=== PATIENT | female | born 1940 | race Caucasian/White ===

== ENCOUNTER → 2020-01-29 10:33 | Outpatient (BNVA) | payer MEDICARE, SELFPAY | PROVIDERS: PCP Family Medicine; Referring Provider Family Medicine; Visit Provider Internal Medicine | DX: M81.0 Age-related osteoporosis without current pathological fracture (principal) | CPT/HCPCS: 99212 ==

== ENCOUNTER 2020-02-08 13:12 | Outpatient (REF) | payer MEDICARE, SELFPAY ==
[2020-02-08 14:23] LABS: Albumin Level 4.1 g/dL (3.5-5.0); Calcium 9.8 mg/dL (8.4-10.2); Phosphorus 3.3 mg/dL (2.7-4.5)
[2020-02-08 14:49] LABS: Thyroid Stimulating Hormone 3.97 uIU/mL (0.32-4.0); Vitamin D 25-OH Total 53.9 ng/mL (>30)
[2020-02-09 10:51] LABS: Calcium, Ionized 5.1 mg/dL (4.8-5.6)
[2020-02-12 19:11] LABS: Alkaline Phosphatase Bone 14.4 mcg/L (see note); Calcium (PTHI) 10.1 mg/dL (8.6-10.4); PTHI 24 pg/mL (14-64)
== END 2020-02-08 13:13 | disposition home or self-care (01) ==
LOC: HO.LNP 13:12
PROVIDERS: Visit Provider Internal Medicine
DX: M81.0 Age-related osteoporosis without current pathological fracture (principal)
CPT/HCPCS: 82040; 82306; 82310; 82330; 83970; 84075; 84100; 84443

== ENCOUNTER → 2020-07-29 08:21 | Outpatient (BNVA) | payer MEDICARE, SELFPAY | PROVIDERS: PCP Family Medicine; Visit Provider Internal Medicine | CPT/HCPCS: Q3014 ==

== ENCOUNTER 2020-07-31 15:43 | Outpatient (REF) | payer MEDICARE, SELFPAY ==
[2020-07-31 17:09] LABS: Alanine Aminotransferase 7 U/L (0-31); Albumin Level 3.9 g/dL (3.5-5.0); Alkaline Phosphatase 75 U/L (39-117); Anion Gap 18 (12-20); Aspartate Amino Transferase 16 U/L (5-31); Bilirubin Total 0.3 mg/dL (0.0-1.0); Blood Urea Nitrogen 37 mg/dL (9-16); Calcium 9.6 mg/dL (8.4-10.2); Carbon Dioxide 25 mmol/L (22-29); Chloride 101 mmol/L (96-108); Estimated Glomerular Filt Rate 42; Glucose Random 140 mg/dL (60-115); Phosphorus 3.3 mg/dL (2.7-4.5); Potassium 4.1 mmol/L (3.3-5.1); Sodium 140 mmol/L (135-145); Total Protein 6.9 g/dL (6.5-8.0)
[2020-07-31 17:26] LABS: Vitamin D 25-OH Total 55.1 ng/mL (>30)
[2020-08-01 13:11] LABS: Calcium (PTHI) 9.4 mg/dL (8.6-10.4); PTHI 53 pg/mL (14-64)
[2020-08-03 12:22] LABS: Alkaline Phosphatase Bone 12.8 mcg/L (see note)
== END 2020-07-31 15:44 | disposition home or self-care (01) ==
LOC: HO.LAB 15:43
PROVIDERS: Absent Provider Internal Medicine Nephrology; PCP Family Medicine; Visit Provider Internal Medicine
DX: E55.9 Vitamin D deficiency, unspecified (principal); M81.0 Age-related osteoporosis without current pathological fracture
CPT/HCPCS: 36415; 80053; 82306; 83970; 84075; 84100

== ENCOUNTER → 2020-09-12 08:49 | Outpatient (BNVA) | payer MEDICARE, SELFPAY | PROVIDERS: Visit Provider Internal Medicine | CPT/HCPCS: Q3014 ==

== ENCOUNTER → 2020-12-16 10:04 | Outpatient (BNVA) | payer MEDICARE, SELFPAY | PROVIDERS: PCP Family Medicine; Visit Provider Internal Medicine | DX: M81.0 Age-related osteoporosis without current pathological fracture (principal); E55.9 Vitamin D deficiency, unspecified | CPT/HCPCS: Q3014 ==

== ENCOUNTER 2021-01-01 14:38 | Outpatient (REF) | payer MEDICARE, SELFPAY ==
--- NOTE | ~2021-01-01 | MM_ITS ---
EXAMINATION: BONE DENSITOMETRY CLINICAL INDICATION: Age-related osteoporosis without current pathological fracture. COMPARISON: Previous BD dated 12/30/2018 and baseline BD dated 04/25/2010. TECHNIQUE: Using a Gengo DXA System (software version: 13.1) manufactured by [employer], dual-energy x-ray absorptiometry was performed of the lumbar spine and left hip. The images are of good technical quality. Summary results are attached. FINDINGS: AP SPINE L1-L4: There is levocurvature lumbar spine and multilevel degenerative changes which may cause overestimation of the lumbar bone mineral density. Current: BMD 0.995 g/cm2, Z-score 0.8, T-score -1.5, osteopenia, 4.8% increase from previous, 32.1% increase from baseline (<5% change is not significant). Prior: BMD 0.949 g/cm2. Baseline: BMD 0.753 g/cm2. LEFT FEMUR, NECK: Current: BMD 0.472 g/cm2, Z-score -1.5, T-score -4.1, osteoporosis. Prior: BMD 0.493 g/cm2. Baseline: BMD 0.540 g/cm2. LEFT FEMUR, TOTAL: Current: BMD 0.462 g/cm2, Z-score -1.8, T-score -4.3, osteoporosis, 23.9% increase from previous, 13.6% decrease from baseline (<5% change is not significant). Prior: BMD 0.373 g/cm2. Baseline: BMD 0.535 g/cm2. IDENTIFIED RISK FACTORS: Osteoporosis, dementia, family history (parental hip fracture), history of fracture (adult), glucocorticoids (chronic), menopause. HISTORY OF FRACTURE: Ribs. MEDICATIONS: Multivitamin. MM/XR DEXA axial skeleton IMPRESSION: 1. DIAGNOSIS: Osteoporosis based on the lowest T-score value of -4.3 in the total femur applying World Health Organization criteria. 2. 10-YEAR FRACTURE RISK PREDICTION, FRAX: Major osteoporotic fracture (clinical spine, forearm, hip or shoulder) 74.7%. Hip fracture 68.6%. 3. Treatment Recommendations: NOF guidelines recommend consideration for treatment in postmenopausal women and men age 50 and older presenting with the following: -A hip or vertebral (clinical or morphometric) fracture. -T-score less than or equal to -2.5 at the femoral neck or spine after appropriate evaluation to exclude secondary causes. -Low bone mass at the hip or spine and a 10-year fracture probability by FRAX of greater than or equal to 3% for hip fracture or greater than or equal to 20% for major osteoporotic fracture based on the [place] adapted WHO algorithm. 4. Other Recommendations: All treatment decisions require clinical judgment and consideration of individual patient factors, including patient preferences, comorbidities, previous drug use, risk factors not captured in the FRAX model (e.g. frailty, falls, vitamin D deficiency, increased bone turnover, interval significant decline in bone density) and possible under or overestimation of fracture risk by FRAX. Additional medical evaluation for secondary cause of low bone mineral density may be appropriate. FUTURE SCAN RECOMMENDATION: People with diagnosed cases of osteoporosis or at high risk for fracture should have regular bone mineral density tests. For patients eligible for Medicare, routine testing is allowed once every 2 years. The testing frequency can be increased to one year for patients who have rapidly progressing disease, those who are receiving or discontinuing medical therapy to restore bone mass, or have additional risk factors.
== END 2021-01-01 14:39 | disposition home or self-care (01) ==
LOC: HO.MAMMO 14:38
PROVIDERS: Visit Provider Internal Medicine
DX: M81.0 Age-related osteoporosis without current pathological fracture (principal); F03.90 Unspecified dementia, unspecified severity, without behavioral disturbance, psychotic disturbance, mood disturbance, and anxiety; E27.49 Other adrenocortical insufficiency; Z78.0 Asymptomatic menopausal state
CPT/HCPCS: 77080

== ENCOUNTER → 2021-04-02 14:24 | Outpatient (BNVA) | payer MEDICARE, SELFPAY | PROVIDERS: PCP Family Medicine; Visit Provider Internal Medicine | DX: M81.0 Age-related osteoporosis without current pathological fracture (principal) | CPT/HCPCS: 96372 ==

== ENCOUNTER → 2021-09-15 12:14 | Outpatient (BNVA) | payer MEDICARE, SELFPAY | PROVIDERS: PCP Family Medicine; Visit Provider Internal Medicine | DX: M81.0 Age-related osteoporosis without current pathological fracture (principal); E55.9 Vitamin D deficiency, unspecified | CPT/HCPCS: Q3014 ==

== ENCOUNTER 2021-09-17 15:26 | Outpatient (REF) | payer MEDICARE, SELFPAY ==
[2021-09-17 17:05] LABS: Alanine Aminotransferase 7 U/L (0-31); Albumin Level 3.8 g/dL (3.5-5.0); Alkaline Phosphatase 63 U/L (39-117); Anion Gap 14 (12-20); Aspartate Amino Transferase 19 U/L (5-31); Bilirubin Total 0.3 mg/dL (0.0-1.0); Blood Urea Nitrogen 28 mg/dL (9-16); Calcium 9.3 mg/dL (8.4-10.2); Carbon Dioxide 25 mmol/L (22-29); Chloride 98 mmol/L (96-108); Estimated Glomerular Filt Rate 27; Glucose Random 162 mg/dL (60-115); Phosphorus 3.7 mg/dL (2.7-4.5); Potassium 3.6 mmol/L (3.3-5.1); Sodium 133 mmol/L (135-145)
[2021-09-17 17:26] LABS: Vitamin D 25-OH Total 73.1 ng/mL (>30)
[2021-09-18 12:06] LABS: Calcium (PTHI) 9.3 mg/dL (8.6-10.4); PTHI 52 pg/mL (16-77)
[2021-09-21 17:52] LABS: Alkaline Phosphatase Bone 8.2 mcg/L (see note)
== END 2021-09-17 15:27 | disposition home or self-care (01) ==
LOC: HO.LAB 15:26
PROVIDERS: Visit Provider Internal Medicine
DX: E55.9 Vitamin D deficiency, unspecified (principal); M81.0 Age-related osteoporosis without current pathological fracture
CPT/HCPCS: 36415; 80053; 82306; 83970; 84075; 84100

== ENCOUNTER 2022-10-28 08:02 | Outpatient (AMB) | payer MEDICARE, SELFPAY ==
--- NOTE | 2022-10-28 08:03 | A.OFFVIS_ITS ---
Intake Intake Visit Reasons: Osteoporosis Allergies lidocaine Allergy (Unknown, Verified 10/28/22 08:13) Unknown procaine [From NOVOCAIN] Allergy (Unknown, Verified 10/28/22 08:13) UNKNOWN ANESTHESIA THAT DENTIST USES Allergy (Unknown, Uncoded 10/28/22 08:13) UNKNOWN Medication List - Last Reconciled 10/28/22 by Sun Daniel, alcohol swabs pad topical DIRECTED ascorbic acid (vitamin C) 500 mg PO BID aspirin 81 mg PO DAILY atorvastatin 80 mg PO BEDTIME blood sugar diagnostic Freestyle lite test strips As directed bumetanide 0.5 mg PO BID carvedilol 25 mg PO BID clonidine HCl 0.1 mg PO clopidogrel 75 mg PO DAILY cyanocobalamin (vitamin B-12) ER 1,000 mcg PO QAM denosumab 60 mg subcut [id number] 1 day empagliflozin 10 mg PO QAM ferrous sulfate 325 mg PO BID glipizide 5 mg PO hydralazine 25 mg PO QID lancets As directed meclizine 12.5 mg PO Q8H PRN multivitamin 1 tab PO BEDTIME nifedipine ER 60 mg PO DAILY nifedipine ER 30 mg PO DAILY pen needle, diabetic As directed pen needle, diabetic (BD Ultra-Fine Yolanda Pen Needle) As directed up to 4x a day subcut as directed; 30 days HPI HPI Comments History of Present Illness Details 82 YO Female with an extensive PMHx including CAD s/p stenting, HLD, T2DM and Osteoporosis is seen in F/U for Osteoporosis. First diagnosed many years ago, she is unsure of exactly when. Received treatment in the past with Fosamax, for a total of 5 years. This was discontinued in 2016 in preparation for a dental procedure which she did not have. Tolerated treatment well without complication. She was then started on Tymlos in January 2019. She completed 18 months of treatment with this, and was transitioned to Prolia receiving her first dose 04/02/2021. She tolerated this well. She then opted to not continue treatment with Prolia despite our recommendations, and has remained off of this since that time. No history of pathologic fracture or ONJ. Has 3 servings of dietary calcium per day in the form of Ensure shakes. Does not take a Calcium supplement. Does not take a Vitamin D supplement. Does use PPI Protonix twice a day for many years. Denies every using anticoagulant, antiepileptic or glucocorticoid medication. Rides a stationary bike 3-5 days per week for 1 hour at a time, but does minimal weight bearing exercise. Is normally in her wheelchair when out of the house. Fracture history: Did suffer a few fractures of her ribs after suffering falls in the house. Denies any long bone fractures. Height loss: Denies ENTRY LEVEL MANAGEMENT history: Menarche was age 9. , breastfed each child for approximately 1 year for a total of 8-9 years. Menopause was age 50. Denies history of Kidney stones: Denies family history of Osteoporosis or hip fracture. UTD on dental cleanings and sees dentist every 6 months. DXA: 01/01/2021 FINDINGS: AP SPINE L1-L4: There is levocurvature lumbar spine and multilevel degenerative changes which may cause overestimation of the lumbar bone mineral density. Current: BMD 0.995 g/cm2, Z-score 0.8, T-score -1.5, osteopenia, 4.8% increase from previous, 32.1% increase from baseline (<5% change is not significant). Prior: BMD 0.949 g/cm2. Baseline: BMD 0.753 g/cm2. LEFT FEMUR, NECK: Current: BMD 0.472 g/cm2, Z-score -1.5, T-score -4.1, osteoporosis. Prior: BMD 0.493 g/cm2. Baseline: BMD 0.540 g/cm2. LEFT FEMUR, TOTAL: Current: BMD 0.462 g/cm2, Z-score -1.8, T-score -4.3, osteoporosis, 23.9% increase from previous, 13.6% decrease from baseline (<5% change is not significant). Prior: BMD 0.373 g/cm2. Baseline: BMD 0.535 g/cm2. Labs: Laboratory Tests 07/31/20 07/31/20 15:55 15:55 Creatinine 1.24 Estimated GFR 42 25-OH Vitamin D To marisa 55.1 PTH Intact 53 Calcium (PTH Intac t) 9.4 PFSH Medical History CAD (coronary artery disease) CVA (cerebral vascular accident) HLD (hyperlipidemia) HTN (hypertension) Osteoporosis T2DM (type 2 diabetes mellitus) Vitamin D deficiency Surgical History Hx of cardiac catheterization Hx of lumpectomy Family History Father No problems noted. Mother Diabetes mellitus Social History Alcohol intake: never Patient Tobacco Use Status: Never used Tobacco Assessment & Plan Assessment & Plan (1) Osteoporosis: Code(s): M81.0 - Age-related osteoporosis without current pathological fracture Plan: Patient with severe Osteoporosis. She did have significant gains with Tymlos, and has now been transitioned to Prolia. She is overdue for Prolia but has consistently refused. We reviewed in great detail that her bones will lose all of the gains she made with Tymlos, and she will be at heightened risk for a fracture which can be life threatening/limiting for her. She verbalizes understanding and continues to refuse antiresorptive treatment. This was also discussed in detail with her daughter today who continues to refuse. I advised that if she does desire treatment for her Osteoporosis I am here to help, but if she does not desire treatment she should continue to follow up with her PCP. She will be due for a repeat BMD now and this can be ordered by her PCP. I reviewed fall precautions and advised she not fall down as she is high risk for a fracture. I spent 20 minutes in reviewing the record, speaking with the patient and documenting in the medical record, including 5 minutes on the phone with the Patient. Telehealth Telehealth Location of provider rendering services: practice address Location of patient: address on file Patient Identification confirmed using: Name, : Yes Telehealth method: voice only Patient verbally consented to treatment: Yes Patient verbally consented to billing insurance company: Yes Patient informed of any privacy concerns related to visit: Yes Coding Level of Care Code Tele Est Pt Level 3 (02074) Diagnoses Osteoporosis M81.0
== END 2022-10-28 08:29 | disposition home or self-care (01) ==
LOC: HO.ENCR 08:02
PROVIDERS: PCP Family Medicine; Visit Provider Internal Medicine
DX: M81.0 Age-related osteoporosis without current pathological fracture (principal)
CPT/HCPCS: 99442

== ENCOUNTER → 2022-10-28 08:02 | Outpatient (BNVA) | payer MEDICARE, SELFPAY | PROVIDERS: PCP Family Medicine; Visit Provider Internal Medicine ==

== ENCOUNTER 2022-12-02 14:39 | Outpatient (REF) | payer MEDICARE, SELFPAY ==
[2022-12-04 22:24] LABS: TS Negative Control Passed; TS Panel A 2; TS Panel B 1; TS Positive Control Passed; TSpotTB Negative (Negative)
== END 2022-12-02 14:40 | disposition home or self-care (01) ==
LOC: HO.HHCL 14:39
PROVIDERS: Visit Provider Family Medicine
DX: Z00.00 Encounter for general adult medical examination without abnormal findings (principal); Z11.1 Encounter for screening for respiratory tuberculosis
CPT/HCPCS: 36415; 86481

== ENCOUNTER 2023-01-20 13:38 | Outpatient (RCR) | payer OTHER, SELFPAY | END 2023-01-22 14:38 | disposition home or self-care (01) | LOC: HO.WCC 13:38 | PROVIDERS: PCP Family Medicine; Visit Provider Surgery | DX: Z09 Encounter for follow-up examination after completed treatment for conditions other than malignant neoplasm (principal); I10 Essential (primary) hypertension; I25.2 Old myocardial infarction; I12.9 Hypertensive chronic kidney disease with stage 1 through stage 4 chronic kidney disease, or unspecified chronic kidney disease; E11.22 Type 2 diabetes mellitus with diabetic chronic kidney disease; N18.30 Chronic kidney disease, stage 3 unspecified; F03.90 Unspecified dementia, unspecified severity, without behavioral disturbance, psychotic disturbance, mood disturbance, and anxiety; Z79.84 Long term (current) use of oral hypoglycemic drugs; Z87.2 Personal history of diseases of the skin and subcutaneous tissue | CPT/HCPCS: 99213 ==

== ENCOUNTER 2023-05-06 14:51 | Outpatient (AMB) | payer OTHER, SELFPAY ==
--- NOTE | 2023-05-06 14:54 | A.OFFVIS_ITS ---
Intake Vital Signs 05/06/23 15:07 Height 4 ft 11 in Weight 108 lb BMI 21.8 BP 146/66 H Blood Pressure Location Lt brachial Position Sitting Pulse 75 Comment Stated per PT's daughter Intake Visit Reasons: Colorguard Screening Test Positive Intake Note: Patient presents to in office visit today as a new patient for positive cologuard test. CC: Patient with dementia presents to in office visit today with her daughter. Per patient's daughter the patient was complaining this morning of RLQ abdominal pain. 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 She is referred by Kaycee Golden of [facility]. PMX Dementia Coronary artery disease with history of NSTEMI Hypertension High cholesterol Diabetes Diabetic neuropathy Chronic kidney disease stage 3 Osteoporosis History of rib fractures Open wound on right buttock Pernicious anemia Anemia of chronic disease Bullous pemphigoid History of hyponatremia Positive Cologuard test * SURGICAL HISTORY Cardiac stents Cardiac catheterization Lumpectomy * ALLERGIES Lidocaine * [facility] LABS: 06/2022 LABS SENT BY PRIMARY CARE PROVIDER BUT THESE ARE ALMOST A YEAR OLD BY NOW WILL NEED REPEAT [address] Lane as patient was seen by her for weight loss and anemia 3. Colon cancer screening - Z12.11, Give n her moderate to high risk for procedure will do Cologuard DNA stool test-picks up on DNA from tubular adenomas and Hgb. Anticipate Hgb will be Pos since on Plavix, ASA. If Pos DNA will consider proceeding w/ colonoscopy. Ultimately up to Dr. Bryan, given pts age and health status. TODAY'S VISIT [place] [facility] She is here with her daughter who is the primary snowblower mechanic. I present the relative risk vs benefits of colonoscopy and her dtr says I will have to think about that. She does not feel that they would be able to get the patient to prep. We discuss other options such as CT colonography, but this would also necessitate prepping so that would not likely be a better option. She says she wants time to think this over and discuss it with all of her other siblings/family which of course is fine. This is a rather complex patient who at her advanced age has chronic kidney disease, history of an NE with unknown ejection fraction, dementia, and history of a CVA. Obviously we want to consider the wear and tear on the patient as well as the possibility/probability of her 10 year survival rate and whether not colon cancer would significantly factor into this. She shows me a picture of rectal mucus with some blood, and the patient struggles with CIC, exacerbated by oral iron therapy. She poops little balls. Her family tries to give her a lot of water. The whole family eats a LOT of vegetables, but they admit that since the patient has no teeth she has to purify her foods. She had one bad episode of CIC and this was the only time she had any bleeding. They had a cryptography teacher tell them to grind up a lot of cucumbers adn celery and give that to her for a week, then to give her a tsp of epsom salts. While I am sure this is a find approach, I am not sure how effective it would be for someone who already has a lot of fiber in the diet and drinks a lot of fluids. Magnesium certainly is fine as a laxative. The patient in the family tend to prefer natural approaches so I think will start with something mild, and quite natural as it is found in teas, like senna. She has only used colace in the past w/o good success. We will start a trial of senna 1-2, in the morning since her dtr has concerns about the patient having overnight diarrhea. The last technology coach that was treating her was [facility] and has left so they are uncertain who be taking over and we might need to know this if we decide to go forward with a procedure. ROV 6-8 weeks We did MMSE today, and the patient definitely show signs of moderate to severe dementia. Mini-mental status exam total score was 11 with scoring of 23 or lower showing significant cognitive impairment. [facility] Medical History Vitamin D deficiency CVA (cerebral vascular accident) T2DM (type 2 diabetes mellitus) CAD (coronary artery disease) HLD (hyperlipidemia) HTN (hypertension) Osteoporosis Surgical History H/O heart artery stent Hx of lumpectomy Hx of cardiac catheterization Family History Father No problems noted. Mother Diabetes mellitus Social History Alcohol intake: never Patient Tobacco Use Status: Never used Tobacco Review of Systems Const Denies fatigue, Denies fever(s), Denies night sweats, Denies poor appetite and Denies weight loss ENT Reports Normal hearing present, Denies dental pain, Denies dysphagia, Denies hearing loss, Denies mouth pain, Denies odynophagia, Denies throat swelling, Denies tongue swelling and Reports other (Dentition adequate) Card Reports no additional complaints Resp Reports no additional complaints GI Details: Denies abdominal pain, Denies melena, Denies bloating, Reports hematochezia, Reports constipation, Denies GI cramping, Denies dysphagia, Denies excessive flatus, Denies early satiety, Denies heartburn, Denies diarrhea, Denies nausea, Denies odynophagia, Denies vomiting and Denies hematemesis Musc Reports back pain and Reports arthralgias Skin/Breast Denies pruritus, Denies lesions, Denies rash and Denies jaundice Neuro Reports Normal hearing present, Denies Abnormal speech present and Reports memory loss Psych Reports memory loss Endo Denies fatigue Aller/Immun Denies throat swelling and Denies tongue swelling Physical Exam Vital Signs: Last Vital Signs Pulse 75 05/06/23 15:07 BP 146/66 H 05/06/23 15:07 BMI result Body Mass Index 21.8 Const General: cooperative, no acute distress, well developed and well groomed Nutritional Appearance: average body habitus and well nourished Orientation/consciousness: oriented to person and oriented to place Limitations: language barrier and wheelchair HEENT Head: Yes normocephalic and Yes atraumatic Eyes General: appearance normal, both eyes and all related structures Pupils: Equal, round and reactive pupils present Neck Neck: Yes normal visual inspection and Yes no lymphadenopathy Thyroid: Thyroid normal Resp Effort & Inspection: normal respiratory effort and able to speak in complete sentences Auscultation: clear to auscultation bilaterally Cardio Rate: regular rate Rhythm: regular rhythm Heart sounds: Normal, physiologic split S2 sound present Peripheral pulses: radial pulses present and posterior tibial pulses present GI Inspection: No distended, No Abdominal panniculus present and Yes obesity Palpation (GI): Soft to palpation, nontender, no guarding, not rigid and No hepatosplenomegaly present Percussion: Yes normal to percussion Auscultation: normal bowel sounds Rectal Exam - Female: deferred Skin General skin exam: no rashes or lesions noted, turgor normal, skin not dry, no jaundice, No spider nevi and no striae Rashes: no rashes Nails: normal Neuro Other: Mini-mental status score was 11 showing significant cognitive impairment General: oriented to person and oriented to place Cranial nerves: Yes Equal, round and reactive pupils present and Yes Normal hearing present Speech: No Abnormal speech present Extrem General: Yes normal to inspection, No clubbing, No cyanosis and No edema Psych Appearance: grossly normal and well kempt Mental Status: other Speech and movement: Normal speech and movement present Affect: normal affect Thought process: Impoverished thought process present and Other thought process findings present Thought content: Normal thought content present Insight: Poor insight present (Psych) Judgement: Poor judgement present (Psych) Assessment & Plan Assessment & Plan (1) Anemia of chronic disease: Code(s): D63.8 - Anemia in other chronic diseases classified elsewhere (2) Positive colorectal cancer screening using Cologuard test: Code(s): R19.5 - Other fecal abnormalities (3) Chronic kidney disease, stage 3: Code(s): N18.30 - Chronic kidney disease, stage 3 unspecified (4) Dementia: Code(s): F03.90 - Unspecified dementia, unspecified severity, without behavioral disturbance, psychotic disturbance, mood disturbance, and anxiety (5) Pre-op examination: Code(s): Z01.818 - Encounter for other preprocedural examination (6) Hemorrhoids: Code(s): K64.9 - Unspecified hemorrhoids Plan [place] [facility] [employer] She is here with her daughter who is the primary snowblower mechanic. I present the relative risk vs benefits of colonoscopy and her dtr says I will have to think about that. She does not feel that they would be able to get the patient to prep. We discuss other options such as CT colonography, but this would also necessitate prepping so that would not likely be a better option. She says she wants time to think this over and discuss it with all of her other siblings/family which of course is fine. This is a rather complex patient who at her advanced age has chronic kidney disease, history of an NE with unknown ejection fraction, dementia, and history of a CVA. Obviously we want to consider the wear and tear on the patient as well as the possibility/probability of her 10 year survival rate and whether not colon cancer would significantly factor into this. She shows me a picture of rectal mucus with some blood, and the patient struggles with CIC, exacerbated by oral iron therapy. She poops little balls. Her family tries to give her a lot of water. The whole family eats a LOT of vegetables, but they admit that since the patient has no teeth she has to purify her foods. She had one bad episode of CIC and this was the only time she had any bleeding. They had a cryptography teacher tell them to grind up a lot of cucumbers adn celery and give that to her for a week, then to give her a tsp of epsom salts. While I am sure this is a find approach, I am not sure how effective it would be for someone who already has a lot of fiber in the diet and drinks a lot of fluids. Magnesium certainly is fine as a laxative. The patient in the family tend to prefer natural approaches so I think will start with something mild, and quite natural as it is found in teas, like senna. She has only used colace in the past w/o good success. We will start a trial of senna 1-2, in the morning since her dtr has concerns about the patient having overnight diarrhea. The last technology coach that was treating her was [facility] and has left so they are uncertain who be taking over and we might need to know this if we decide to go forward with a procedure. ROV 6-8 weeks We did MMSE today, and the patient definitely show signs of moderate to severe dementia. Mini-mental status exam total score was 11 with scoring of 23 or lower showing significant cognitive impairment. Orders: Orders Complete Blood Count Auto Diff 05/06/23 Z.818 - Encounter for other preprocedural examination Comprehensive Met. Panel 05/06/23 Z - Encounter for other preprocedural examination Colonoscopy - GI Use Only 05/06/23 Z - Encounter for other preprocedural examination Medications: New sennosides (Senna Laxative) 17.2 mg (2 x 8.6 mg) PO BEDTIME 60 tabs 6RF K64.9 - Unspecified hemorrhoids Coding Level of Care Code New Pt Level 3 (89740) Diagnoses Anemia of chronic disease D63.8 Positive colorectal cancer screening using Cologuard test R19.5 Chronic kidney disease, stage 3 N18.30 Dementia F03.90 Pre-op examination Z.8 Hemorrhoids K64.9
[2023-05-06 15:07] VITALS: BP 146/66; PULSE 75; BMI 21.8
== END 2023-05-06 15:56 | disposition home or self-care (01) ==
PROVIDERS: PCP Family Medicine; Visit Provider Nurse Practitioner
DX: K59.04 Chronic idiopathic constipation (principal); R19.5 Other fecal abnormalities; K64.9 Unspecified hemorrhoids; N18.30 Chronic kidney disease, stage 3 unspecified; D63.8 Anemia in other chronic diseases classified elsewhere
CPT/HCPCS: 99203

== ENCOUNTER → 2023-05-06 14:51 | Outpatient (BNVA) | payer OTHER, SELFPAY | PROVIDERS: PCP Family Medicine; Visit Provider Nurse Practitioner | DX: Z01.818 Encounter for other preprocedural examination (principal); D63.8 Anemia in other chronic diseases classified elsewhere; R19.5 Other fecal abnormalities; F03.90 Unspecified dementia, unspecified severity, without behavioral disturbance, psychotic disturbance, mood disturbance, and anxiety; N18.30 Chronic kidney disease, stage 3 unspecified; K64.9 Unspecified hemorrhoids | CPT/HCPCS: 99202 ==

== ENCOUNTER 2023-09-02 15:34 | Outpatient (REF) | payer OTHER, SELFPAY | END 2023-09-02 15:35 | disposition home or self-care (01) | LOC: HO.HHCL 15:34 | PROVIDERS: Visit Provider Family Medicine | DX: D51.9 Vitamin B12 deficiency anemia, unspecified (principal) | CPT/HCPCS: 36415 ==

== ENCOUNTER 2024-05-23 09:28 | Outpatient (REF) | payer OTHER, SELFPAY ==
--- OUTSIDE RECORDS SUMMARY | 2024-05-23 10:35 | XMS_ITS | Encounter Summary ---
Author Organization [facility] Address [address] [facility] [address] [place] [address] Phone Care Team Providers Care Emergency Department Manager Name Role Phone Unavailable Primary Care Provider Unavailabl e Reason for Visit * Reason Comments Med Refill Encounter Details Date Type Department Care Team (Late Contact Info) Description 04/24/2023 Refill [facility] [address] [facility] [address] [place] [address] Mika Rosenthal MD [address] [facility] [address] [place] [address] Social History Tobacco Use Types Packs/Day Years Used Date Smoking Tobacco: Never Alcohol Use Standard Drinks/Week Comments No 0 (1 standard drink = 0.6 oz pur e alcohol) Comments Unknown Sex and Gender Information Value Date Recorded Sex Assigned at Not on file Legal Sex Female 5:05 PM EST Gender Identity Not on file Sexual Orientation Not on file documented as of this encounter Plan of Treatment Upcoming Encounters Date Type Department Care Team (Late Contact Info) Description 09/04/2024 1:45 PM EDT Office Visit [facility] [address] [place] [id number] Mika Rosenthal MD [id number] [facility] [address] [place] [address] documented as of this encounter Visit Diagnoses Not on filedocumented in this encounter
--- OUTSIDE RECORDS SUMMARY | 2024-05-23 10:35 | XMS_ITS | Encounter Summary ---
Author Organization [employer] Address [address] [place] [address] 7 [place] [address] Care Team Providers Care Office Technician Name Role Phone Liliana Golden MD Primary Care Provider [phone] Reason for Visit * Reason Onset Date Comments Durable Medical Equipment 04/29/2022 Encounter Details Date Type Department Care Team (Late st Contact Info) Description 04/29/2022 Telephone [facility] MEDICINE [address] [place], [place] [phone] Liliana Golden MD [address] [place], [place] [phone] Durable Medical Equipment Social History Tobacco Use Types Packs/Day Years Used Date Smoking Tobacco: Never Passive Smoke Exposure: Never Smokeless Tobacco: Never Comments Unknown Sex and Gender Information Value Date Recorded Sex Assigned at Female 01/26/2022 10:21 AM EDT Legal Sex Female 10:21 AM EDT Gender Identity Female 01/26/2022 10:21 AM EDT Sexual Orientation Choose not to disclose 2021 10:21 AM EDT documented as of this encounter Miscellaneous Notes * Telephone Encounter - Bee Horowitz - 04/29/2022 1:53 PM EST All RX generated for wipes,diapers,gloves,gluerna ,rajani was shampoo * Telephone Encounter - Justyna Ricci - 04/29/2022 11:20 AM EST Tc from patient daughter requesting new scripts for medical supplies that are expiring on 04/15/22. Daughter informed pt is out of everything . Diapers XL, wipes, glucerna vanilla flavor, gloves (med), and Shampoo. Please call daughter to clarify . documented in this encounter Plan of Treatment Not on file documented as of this encounter Visit Diagnoses Not on filedocumented in this encounter Care Teams Office Technician Relationship Specialty Start Date End Date Liliana Golden MD [address] [place] [id number] PCP - General Family Medicine 03/29/18 documented as of this encounter
--- OUTSIDE RECORDS SUMMARY | 2024-05-23 10:35 | XMS_ITS | Encounter Summary ---
Author Organization [employer] Address [address] [facility] 7t [place] [address] Care Team Providers Care Meat Products Demonstrator Name Role Phone Liliana Golden MD Primary Care Provider [phone] Encounter Details Date Type Department Care Team (Late st Contact Info) Description 05/01/2024 10:00 AM EST Telemedicine [facility] MEDICINE [address] [place], [place] [phone] Liliana Golden MD [address] [place] [address] Ischemic heart disease (Primary Dx); Hemorrhoids, unspecified hemorrhoid type; Essential hypertension; Urinary incontinence, mixed; Stage 3a chronic kidney disease ([facility]/HCC); Anemia due to vitamin B12 deficiency, unspecified B12 deficiency type; Type 2 diabetes mellitus with stage 3b chronic kidney disease, without long-term current use of insulin ([facility]/HCC); Type 2 diabetes mellitus with hyperglycemia, without long-term current use of insulin ([facility]); Anemia of chronic disease; Dyslipidemia; Bullous pemphigoid; Moderate dementia without behavioral disturbance, psychotic disturbance, mood disturbance, or anxiety, unspecified dementia type ([facility]/HCC) Social History Tobacco Use Types Packs/Day Years Used Date Smoking Tobacco: Never Passive Smoke Exposure: Never Smokeless Tobacco: Never Depression Answer Date Recorded Patient Health Questionnaire-9 Score 0 07/26/2023 Patient Health Questionnaire-9 Score 0 07/26/2023 Last PHQ-9: Questionnaire Data Not on file 0 07/26/2023 Housing Stability Answer Date Recorded What is your housing situation today? I have cassidy ambriz 05/13/[address] you li ve. Do you have problems with any of the following? None of the above 05/13/2023 Food Insecurity Answer Date Recorded Within the past 12 months, y ou worried that your food would run out before you got money to buy more: Never True 05/13/2023 Within the past 12 months,th e food you bought just didn't last and you didn't have enough money to get more: Never True Transportation Answer Date Recorded In the past 12 months, has l ack of transportation kept you from medical appts, meetings, work or from getting things needed for daily living? No 05/13/2023 Utilities Answer Date Recorded In the past 12 months, has t he [employer], gas, oil or water company threatened to shut off services in your home? No 05/13/2023 Depression Answer Date Recorded Patient Health Questionnaire-2 Score 0 07/26/2023 Comments Unknown Sex and Gender Information Value Date Recorded Sex Assigned at Female 01/26/2022 10:21 AM EDT Legal Sex Female 10:21 AM EDT Gender Identity Female 01/26/2022 10:21 AM EDT Sexual Orientation Choose not to disclose 2021 10:21 AM EDT documented as of this encounter Miscellaneous Notes * Assessment & Plan Note - Liliana Golden MD - 05/01/2024 10:05 AM ESTAssociated Problem(s): Type 2 diabetes mellitus with stage 3b chronic kidney disease, without long-term current use of insulin ([facility]) -A1C 6.4% in June 2023 -Continue glipizide 5 mg bid with caution for hypoglycemia. -Continue working on dietary modification. Treatment Hx: - Discontinued Metformin in August 2020 due to CKDIII -Started Jardiance on 07/23/20, however pt's family member perceived this medication is ineffective,therefore it was discontinued in August 2020. DM Maintenance: - Last eye exam: June 2020 - Last foot exam: 10/13/21, decreased sensation, wearing diabetic footwear - Last microalbumin test: 05/15/22 UACR 197, microalbuminuria - Last lipid profile: 10/13/21 TC 154; TG 174; HDL 46; LDL 81 - Last dental exam: Followed by dentist * Assessment & Plan Note - Liliana Golden MD - 05/01/2024 10:05 AM ESTAssociated Problem(s): Vitamin B12 deficiency anemia - negative IF antibody - continue oral supplementation * Assessment & Plan Note - Liliana Golden MD - 05/01/2024 10:05 AM ESTAssociated Problem(s): Chronic kidney disease (CKD), stage III (moderate) ([facility]) -Followed by lombardi developer -Avoid nephrotoxic drugs (still on metformin) -Use renal dosing * Assessment & Plan Note - Liliana Golden MD - 05/01/2024 10:05 AM ESTAssociated Problem(s): Urinary incontinence, mixed - uses panty liners; need a prescription renewal - will check its status * Assessment & Plan Note - Liliana Golden MD - 05/01/2024 10:04 AM ESTAssociated Problem(s): Essential hypertension -Goal BP < 140/90 per JNC-8, < 130/80 per ACC/AHA -Evaluated by lombardi developer with 24-hour BP monitoring -continue nifedipine 60 mg qAM and 30 mg qPM -continue clonidine, 0.1 mg BID -continue hydralazine 25mg TID. -continue carvedilol 25mg BID. -continue bumetanide 0.5 mg BID -continue working on lifestyle modifications -continue checking home BP -continue stress reduction Previous medication: lisinopril - discontinued in Nov 2018 due to angioedema HCTZ / furosemide - discontinued many years ago due to hyponatremia * Assessment & Plan Note - Liliana Golden MD - 05/01/2024 10:04 AM ESTAssociated Problem(s): Hemorrhoid Improved Continue Hydrocortisone 1% cream prn. * Assessment & Plan Note - Liliana Golden MD - 05/01/2024 10:04 AM ESTAssociated Problem(s): Ischemic heart disease -NSTEMI in July 2012 and August 2014. She had a cardiac catheterization and a drug- eluting stent to RCA in [place] in July 2012. On dual antiplatelet therapy for > 1 year. - Medical Record Retrieval Specialist: SUSANA - Last echocardiogram: 11/19/16 LVEF 60-65%, mild LVH - Current medications: Lisinopril 20 mg daily (early PM); Carvedilol 25 mg bid (6 am and 6 pm); Clonidine 0.1 mg bid (10 am and 10 pm); Hydralazine 12.5 mg BID (previously 8 am, 3 pm, and 10 pm); ASA81 mg daily; Plavix 75 mg daily - Continue current medications and lifestyle modifications. - Continue working on modifiable risk factor management for secondary prevention. - Pt daughter was advised to schedule appt w/ Medical Record Retrieval Specialist * Assessment & Plan Note - Liliana Golden MD - 05/01/2024 10:02 AM ESTAssociated Problem(s): Dementia (CMS/HCC) - Pt has been seen by Neurologist and was told she has Dementia. -No specific treatment or follow-up given. -Cognitive function, same, no decline. -Dementia is most likely multifactorial, including vascular. -Her daughter, Maribel, has been the primary caregiver, but there has been an immigration issue for Maribel. We have written a letter so that she can be granted for a long-term stay or permanent residence. documented in this encounter Plan of Treatment Not on file documented as of this encounter Visit Diagnoses Diagnosis Ischemic heart disease- Primary Other specified forms of chronic ischemic heart disease Hemorrhoids, unspecified hemorrhoid type Essential hypertension Unspecified essential hypertension Urinary incontinence, mixed Mixed incontinence urge and stress (male)(female) Stage 3a chronic kidney disease ([facility]) Anemia due to vitamin B12 deficiency, unspecified B12 deficiency type Type 2 diabetes mellitus with stage 3b chronic kidney disease, without long-term current use of insulin ([facility]) Type 2 diabetes mellitus with hyperglycemia, without long-term current use of insulin ([facility]) Anemia of chronic disease Anemia of other chronic disease Dyslipidemia Other and unspecified hyperlipidemia Bullous pemphigoid Moderate dementia without behavioral disturbance, psychotic disturbance, mood disturbance, or anxiety, unspecified dementia type ([facility]) documented in this encounter Additional Health Concerns Assessment Noted Time PHQ-9 Depression Total Score: 0 07/26/19 24 1:46 PM EDT documented as of this encounter Care Teams Meat Products Demonstrator Relationship Specialty Start Date End Date Liliana Golden MD [address] [place] [id number] PCP - General Family Medicine 03/29/18 documented as of this encounter
--- OUTSIDE RECORDS SUMMARY | 2024-05-23 10:35 | XMS_ITS | Clinical Summary ---
Author Organization [facility] Address [address] [facility] [address] [place] [address] Phone Care Team Providers Care Harp Regulator Name Role Phone Unavailable Primary Care Provider Unavailabl e Allergies Active Allergy Reactions Criticality Noted Date Comments Lidocaine Other (see comments) 07/07/2020 Medications mupirocin (BACTROBAN) 2 % ointment Active meclizine (ANTIVERT) 12.5 MG tablet Take 1 tablet by mouth every night Active ketoconazole (NIZORAL) 2 % cream Active hydrALAZINE (APRESOLINE) 25 MG tablet Take 1 tablet by mouth 3 (three) times a day Active glucagon 1 MG injection Active ferrous sulfate 325 (65 Fe) MG EC tablet Take 1 tablet by mouth 2 (two) times a day Active EPINEPHrine (EPIPEN) 0.3 MG/0.3ML injection syringe Active cyanocobalamin (VITAMIN B-12) 1000 MCG tablet Take 1 tablet by mouth 1 (one) time each day Active clopidogrel (PLAVIX) 75 MG tablet Take 1 tablet by mouth 1 (one) time each day Active cloNIDine (CATAPRES) 0.1 MG tablet Take 1 tablet by mouth 2 (two) times a day Active cetirizine (ZyrTEC) 5 MG tablet Take 1 tablet by mouth 1 (one) time each day Active carvedilol (COREG) 25 MG tablet Take 1 tablet by mouth 2 (two) times a day Active bumetanide (BUMEX) 0.5 MG tablet Take 1 tablet by mouth 2 (two) times a day Active atorvastatin (LIPITOR) 80 MG tablet Take 1 tablet by mouth 1 (one) time each day Active aspirin (ST GABBY) 81 MG EC tablet Take 1 tablet by mouth 1 (one) time each day Active acetaminophen (TYLENOL) 500 MG tablet Take 1 tablet by mouth 3 (three) times a day Active Ascorbic Acid (Vitamin C) 500 MG/5ML liquid Take 15 mL by mouth 2 (two) times a day Active Multiple Vitamin (multivitamin) capsule Take 1 capsule by mouth 1 (one) time each day Active niacin 500 MG tablet Take 500 mg by mouth in the morning and 500 mg in the evening. 06/23/2022 Active NIFEdipine XL (PROCARDIA XL) 60 MG 24 hr tablet TAKE 1 TABLET BY MOUTH AT BEDTIME 90 tablet 3 07/26/2023 Active NIFEdipine XL (PROCARDIA XL) 30 MG 24 hr tablet TAKE 1 TABLET BY MOUTH AT BEDTIME 90 tablet 1 03/06/2024 Active Active Problems Problem Noted Date Diagnosed Date Stage 3b chronic kidney disease 08/18/2022 Type 2 diabetes mellitus wit h diabetic chronic kidney disease 08/18/2022 Bullous pemphigoid 03/20/2022 Overview (08/18/2022): Last Assessment & Plan: - Evaluated by camp manager, Dr. Smith, on 03/13/22 - initially prescribed doxycycline, clobetasol, and Niacin - continue clobetasol, doxycycline, and Niacin as prescribed Stage 3a chronic kidney disease 03/20/2022 Overview (08/18/2022): Last Assessment & Plan: -Followed by visitor information assistant -Avoid nephrotoxic drugs (still on metformin) -Use renal dosing History of angioedema 03/20/2022 Overview (08/18/2022): Questionable in 2019 Discontinued lisinpril as a possible offending agent Epi-pen per pt's caregiver's request Anemia 07/07/2020 Disorder of kidney and/or ureter 07/07/2020 Essential hypertension 07/07/2020 Hyperlipidemia 07/07/2020 Hyposmolality and/or hyponatremia 07/07/2020 Type 2 diabetes mellitus 07/07/2020 Carotid bruit 08/26/2017 Vitamin B12 deficiency anemia 08/26/2017 Ischemic heart disease 09/10/2015 Overview (08/18/2022): Last Assessment & Plan: -NSTEMI in July 2012 and August 2014. She had a cardiac catheterization and a drug-eluting stent to RCA in [place] in July 2012. On dual antiplatelet therapy for > 1 year. - Magazine Filler: SUSANA - Last echocardiogram: 11/19/16 LVEF 60-65%, mild LVH - Current medications: Lisinopril 20 mg daily (early PM); Carvedilol 25 mg bid (6 am and 6 pm); Clonidine 0.1 mg bid (10 am and 10 pm); Hydralazine 12.5 mg BID (previously 8 am, 3 pm, and 10 pm); ASA 81 mg daily; Plavix 75 mg daily - Continue current medications and lifestyle modifications. - Continue working on modifiable risk factor management for secondary prevention. - Pt daughter was advised to schedule appt w/ Magazine Filler Unspecified dementia, unspec ified severity, without behavioral disturbance, psychotic disturbance, mood disturbance, and anxiety 04/11/2015 Overview (08/18/2022): Last Assessment & Plan: Pt seen by Neurologist recently, again, was told she has Dementia. -No specific treatment or follow-up given. -Cognitive function, same, no decline. -Dementia is most likely multifactorial, likely vascular. 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 - She is on high-intensity statin therapy. - Continue current medication and lifestyle modification. - Note: Pt is prescribed Niacin by her camp manager. 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 -s/p fosamax treatment x 5 years. -followed by Graining Operator, Dr. Yandel Matthews, last appt in August 2021 -s/p Tymlos since Jan 2019 until Mar 2021 -started on Prolia in Mar 2021, every 6 months, last dose in September 2021. Pt's caregiver is hesitant to continue Prolia. -continue fall precaution -continue weight-bearing exercise -recommended [place] -recommended to reschedule appt with patient coordinator Encounters Date Type Department Care Team Description 03/06/2024 Refill [facility] [address] [place] [address] Mika Rosenthal MD from Last 3 Months Immunizations Name Administration Dates Next Due Hepatitis B 09/19/2018,10/20/2016 Influenza Split 12/29/2012,01/27/2012 Influenza Split High Dose Pr eservative Free IM 12/12/2018,01/05/2018,12/22/2016 Influenza, Quadrivalent, Wit h Preservative 01/07/2016,01/04/2015 Influenza, Unspecified 01/06/2022,2020,02/16/2020,01/30,01/16/2011 Moderna SARS-COV-2 10/13/2021,,06/06/2020,05/09 Pneumococcal Conjugate 13-Valent 01/07/2016 Pneumococcal Polysaccharide 04/25/2010 Shingrix 02/05/2020,11/30/2019 Td 04/25/2010 Tdap 10/05/2022,01/27/2012 Zoster 02/05/2020,11/30/2019,04/26/2015 Family History Medical History Relation Comments Diabetes Mother Hypertension Mother Relation Status Comments Father Mother Social History Tobacco Use Types Packs/Day Years Used Date Smoking Tobacco: Never Alcohol Use Standard Drinks/Week Comments No 0 (1 standard drink = 0.6 oz pur e alcohol) Comments Unknown Sex and Gender Information Value Date Recorded Sex Assigned at Not on file Legal Sex Female 5:05 PM EST Gender Identity Not on file Sexual Orientation Not on file Last Filed Vital Signs Vital Sign Reading Time Taken Comments Blood Pressure 110/60 08/18/2022 2:50 PM EDT Pulse 78 08/18/2022 2:50 PM EDT Temperature - - Respiratory Rate - - Oxygen Saturation 98% 08/18/2022 2:50 PM EDT Inhaled Oxygen Concentration - - Weight - - Height 149.9 cm (4' 11 ) 01/01/2020 12:00 PM EDT Body Mass Index - - Plan of Treatment Upcoming Encounters Date Type Department Care Team (Late st Contact Info) Description 09/04/2024 1:45 PM EDT Office Visit [facility] [address] [place] [address] Mika Rosenthal MD [address] [facility] [address] [place] [address] Health Maintenance Due Date Last Done Comments Diabetes: Ophthalmology Exam 04/28/2020 Diabetes: Pedal Pulse Checked 04/28/2020 Diabetes: Sensory Foot Exam 04/28/2020 Diabetes: Visual Foot Exam 04/28/2020 Diabetes: Hemoglobin A1C 10/25/2023 07/26/2023, 08/27 Influenza Vaccine (#1) 2023 2, 01/03/2021, 02/16/2020, Additional history exists Pneumococcal Vaccine: 65+ Years Completed 01/07/2016, 04/25/2010 Hepatitis B Vaccine Aged Out 09/19/2018, 7 No longer eligible based on patient's age to complete this topic Procedures Procedure Name Priority Date/Time Associated Diagnosis Comments BLOOD PANEL (HC) Routine 09/08/2019 12:0 0 AM EDT from Last 3 Months or Most Recently Relevant to Health Maintenance Results * (ABNORMAL) Blood Panel (09/08/2019 12:00 AM EDT) Sodium 138 137 - 145 mmol/L [facility] Potassium 3.7 3.5 - 5.1 mmol/L [facility] Calcium 9.7 8.4 - 10.2 mg/dl [facility] Hgb 9.2(L) 13.0 - 16.5 g/dl [facility] TIBC 293 261 - 462 ug/dl [facility] Iron Saturation (TSat) 19 15 - 62 % [facility] Hematocrit 28.4(L) 38 - 50 % [facility] Platelets 275 140 - 440 k/uL [facility] Hemoglobin A1C 7.0(H) <5 % [facility] Carbon Dioxide (CO2) 26 22 - 30 mmol/L [facility] BUN 38(H) 9 - 20 mg/dl [facility] PTH 38 10 - 69 pg/ml [facility] Iron 57 49 - 181 ug/dl [facility] 09/08/2019 us [facility] Conversion LAB [id number] LICITED RESULTS Final Result [facility] from Last 3 Months or Most Recently Relevant to Health Maintenance Insurance [facility] ([id number]) [facility] ([id number])
--- OUTSIDE RECORDS SUMMARY | 2024-05-23 10:35 | XMS_ITS | Encounter Summary ---
Author Organization [employer] Address [address] [facility] 7t [place] [address] Care Team Providers Care Supervisor Smoke Control Name Role Phone Liliana Golden MD Primary Care Provider [phone] Reason for Visit * Reason Onset Date Comments Lab Orders 05/22/2024 Encounter Details Date Type Department Care Team (Late st Contact Info) Description 05/22/2024 Telephone [facility] MEDICINE [address] [place], [place] [phone] Liliana Golden MD [address] [place], [place] [phone] Lab Orders Social History Tobacco Use Types Packs/Day Years [...] the past 12 months, has t he electric, gas, oil or water company threatened to [...] encounter Miscellaneous Notes * Telephone Encounter - Karena Fallon RN - 05/22/2024 12:51 PM EST Pt walked into [employer] front desk clerk, stated she got a message about labwork but nothing on file under encounters. States she went to the lab at [facility] today and they told her nothing on file. Per chart, 7 active labs from 06/2023. Printed and gave to motel front desk clerk to give to pt, advised that lipid panel requires fasting. documented in this encounter Plan of Treatment Not on file documented as of this encounter Visit Diagnoses Not on filedocumented in this encounter Additional Health Concerns Assessment Noted Time PHQ-9 Depression Total Score: 0 07/26/19 24 1:46 PM EDT documented as of this encounter Care Teams Supervisor Smoke Control Relationship Specialty Start Date End Date Liliana Golden MD [address] [place] [id number] PCP - General Family Medicine 03/29/18 documented as of this encounter
--- OUTSIDE RECORDS SUMMARY | 2024-05-23 10:35 | XMS_ITS | Encounter Summary ---
Author Organization [employer] Address [address] [facility] 7t [place] [address] Care Team Providers Care Light Technician Name Role Phone Liliana Golden MD Primary Care Provider [phone] Encounter Details Date Type Department Care Team ([facility] st Contact Info) Description 09/20/2023 Orders Only [facility] MEDICINE [address] [place], [place] [phone] Liliana Golden MD [address] [place], [place] [phone] Social History Tobacco Use Types Packs/Day Years [...] t he electric, gas, oil or water [employer] threatened to shut off services in your [...] AM EDT documented as of this encounter Plan of Treatment Not on file documented as of this encounter Visit Diagnoses Not on filedocumented in this encounter Additional Health Concerns Assessment Noted Time PHQ-9 Depression Total Score: 0 07/26/19 24 1:46 PM EDT documented as of this encounter Care Teams Light Technician Relationship Specialty Start Date End Date Liliana Golden MD [address] [place] [address] PCP - General Family Medicine 03/29/18 documented as of this encounter
--- OUTSIDE RECORDS SUMMARY | 2024-05-23 10:35 | XMS_ITS | Data Portability ---
Author Organization [place] - [facility] Address [address] [place] [id number] Care Team Providers Care Paper Stacker Name Role Phone ZARI RABAGO Primary Care Provider [facility] OTHER Assessment Encounter Date Assessment Date Assessment LastModified by Organization Details LastModified Time 03/05/2022 03/05/2022 Time On Scene with Patient: 01:06:21 81 YO F establishing care. She complains of right breast wound that began February 12? initially starting with a clear filled blister that spread with several blisters ranging from clear to blood filled. She was seen at [facility] and was prescribed anti fungal cream, which made it worse. She returned to the ER and was prescribed Desitin cream, which provided no change. The third time she was seen at ER she was prescribed oral antibiotic medication which she completed today. She denies any trauma to area, itching, or pain. VSS Exam: Very pleasant, elderly female sitting in recliner conversing with staff and answering all questions appropriately in her [place] language. No acute distress, neurologically intact, EOMI. Respiration even and non labored. Skin: See picture for detail. Right breast old with multiple superficial wounds, temp wnl. Plan: -Area cleansed with Normal Saline and pat dry with 4x4 gauze. Bacitracin ointment applied and covered with non adhesive gauze. Sport bra worn to hold dressing in place. -Mupirocin prescribed and follow up scheduled to assess progression of wound. -Recommended follow up with PCP for continuity of care. -Signs and symptoms of infection discussed. Patient and daughters verbalized understanding. The patient is advised to make an appt with PCP in 3-5 days to discuss ongoing symptoms/ further management. The patient is also advised to go to the ED immediately for any worsening symptoms. The patient understood and agreed with this plan. The patient was given discharge instructions and all questions were answered prior to team departure. [email or web address] Not available 03/06/2022 09:28:27 03/08/2022 03/08/2022 Overview/History : Patient is a 81 year old female with a PMH including CVA, HTN, HLD, T2DM who is known to new to provider who is being seen today for a follow up for a wound to R breast. Noed that on 03/05 she was seen by one of our providers, prescribed Mupirocin topical ointment. Unfortunetly daughter is unable to pick this up until tomorrow. This has not been started. Of note, the blister initially began mid January and has since spread to surronding area causing skin breakdown. She was seen in ER on 3 seperate occasions; first time she was prescribed Desitin crem, second she was given a Nystatin cream which made it worse and the 3rd time she was given an AB and has completed the course. No improvement to wound. Denies any trauma, itch or pain. Daughter was translating. Exam: Patient is awake and alert, very pleasant. Resting in recliner. No distress. Daughter present. Vitals stable, a febrile. LS CTA, RRR. Moist mucous membranes. Wound to R breast; picture uploaded. Clear filled blisters under R breast with area of skin breakdown, very minimal sanginous drainage, no odor. DDx considered, but not limited to: Contact dermatitis; considered however patient denies itch, no known exposure to allergen. Cellulitis; considered however wound is without any drainage/ no increasing erythema or discolortion. Herpes zoster; unlikely, she is now on >4 weeks of breast wound without any crusting lesions/pain. Work up/Results: Physical exam. Wound care Plan/Discussion: Patient ultimately needs home services. Daughter is running out of proper supplies to provide wound care and has not been seeing any improvement with the breast wound/blistering. Looking at the picture from 3 days prior, it has remained the same. No worsneing erythema or excoriation. She will be picking up the AB ointment tomorrow and I have also sent prescriptions for wound care supplies along with a saline wash. I have advised her to clean area with saline twice a day, use the AB ointment and keep area clean and dry. I have sent referrals for both wound care and dermatology. Phone numbers provided for both and she will call both in AM. She has an appt with PCP next week and wound care in April. Hoping referral will expidite this. When she meets with PCP, potential need to initiate VNA services. STRICT ed precaution reviewed, any increasing erythema, fevers, malodorous drainage or continued spread of blistering. Patient and daughter in agreement with above plan and thanked us for our care. Proper Personal Protective Equipment (PPE), including gloves, eye protection and masks were donned and doffed appropriately and all equipment cleaned using approved technique with germicidal disposable wipes prior to and after care of this patient according to [facility]'s infection prevention protocols. [email or web address] Not available 03/08/2022 12:51:21 02/16/2023 02/16/2023 Time On Scene with Patient: 00:24:00 Brief Overview: 82 y/o female being seen with her daughter present today. she c/o her mom has had dry cough and wheezing on and off that started 2 days ago. temp of 100 at highest. no cp, sob, vomiting or diarrhea. pt has been eating and drinking well. she has not taken anything otc. pt's daughter is sick with similar symptoms. no BAUTISTA, sore throat, weakness, dizziness, body aches. Vital Signs: BP 106/66, HR 79, RR 18, T 99.0, O2 96% RA Exam: pleasant 82 y/o female mauritian speaking, well appearing, alert NAD sitting in her wheelchair. lungs: CTAB no wheezes rales or rhonchi. heart: RRR no murmur rubs or gallops. no peripheral edema. nose: nares patent small amount clear nasal discharge bilaterally. mouth: moist mucous membranes no erythema, exudates, uvula is midline. skin: warm and dry no rashes or lesions. DDx considered, with rationale: Pneumonia: considered she has low grade temp of 99 but lungs are clear on exam. CHF: considered but lungs are clear no peripheral edema, no reported weight gain. PE: considered but no hypoxia or tachycardia. Covid: considered but rapid covid is negative. Influenza: considered but rapid flu is negative. Results/ work up: Rapid covid and rapid flu are negative. CXR is pending. Proper Personal Protective Equipment (PPE), including gloves, eye protection and masks were donned and doffed appropriately and all equipment cleaned using approved technique with germicidal disposable wipes prior to and after care of this patient according to [facility]'s infection prevention protocols. [email or web address] Not available 02/16/2023 15:13:11 Plan of Treatment Reminders Order Date Submit Date Provider Last Modified By Organization Details Last Modified Time Details Appointments None recorded. Lab rapid SARS CoV 2 Ag, QL IA, respirator y specimen 2022 023 [facility], [address], [place], [address], 3 14:59:03 rapid flu (A+B) 2022 023 [email or web address] [facility], [address], [place], [address], 3 14:59:20 Referral wound care referral 2021 022 [facility], [address], [place], [address], 11:59:57 dermatolog ist referral 2021 022 [facility], [facility], [address], [place], [address], 11:59:55 Procedures None recorded. Surgeries None recorded. Imaging XR, chest, 2 view - cough and low grade fever r/o pneumonia 2022 023 [facility] [employer] [address], [place], [address], 3 17:05:55 Medication Orders Saline Wound Wash 0.9 % topical spray 2021 023 [facility], [address] [place], [place], [phone], 03:15:20 [email or web address] 2 % topical ointment 2021 022 [facility], [address] [place], [place], [id number], 13:11:25 Patient TargetsNo targets recorded. Patient Instructions Encounter Date Encounter Id Patient Instructions Last Modified By Organization Details Last Modified Time 03/05/2022 [id number] skin tears: care instructions [email or web address] [id number] Not available 03/05/2022 13:06:55 Thank you for yo ur visit with [facility] today. You were seen today for treatment of a wound. Please seek immediate medical attention if you develop increased pain, redness, or swelling of your wound. Also, you should be evaluated if the wound becomes warm to the touch, or if there is a cloudy, yellow-brown discharge from the wound. There is always the possibility of a hidden tendon injury or foreign object in the wound. If you have problems moving your arm or leg, or if you see red streaks up the arm or leg, seek immediate medical attention. If you develop any new or worsening symptoms and need after hours care, please go to nearest ER and/or call 911. If you have additional concerns or develop a change in your condition between 8am-10pm, please call [facility] at [phone] to help navigate your care. [email or web address] Not available 03/05/2022 12:46:35 02/16/2023 [id number] Inhaler Instructions Before use, you need to prime the inhaler: ? Take the cap off the mouthpiece and put the inhaler in the spacer ? Shake the inhaler for 5 seconds ? Hold the inhaler upright with 1 finger on the top of the canister, the thumb on the bottom of the inhaler, and your other hand holding the spacer ? Express a large breath ? Close lips around spacer ? Press down on the canister ? After you press down on the canister, breathe (or have your child breathe in) deeply and slowly and hold your breath for 10 seconds ? Take out of your mouth and slowly exhale ? If you were instructed to take 2 puffs of the inhaler, wait one minute before you give the second puff. Shake the inhaler again before the second puff. ? If the inhaler is a steroid medicine (also called a ? g lucocorticoid? or ? c orticosteroid? ), rinse out your mouth, gargle, and spit out the water Cleaning: If you use the inhaler every day, you need to clean it at least once a week. If you use less often, clean the inhaler when you see powder in or around the hole. To clean an inhaler: ? Remove the canister and cap from the mouthpiece. Do not wash the canister or put the canister under water. ? Run warm water through the mouthpiece for 30 to 60 seconds ? Shake the water off of the mouthpiece and let it air dry Clean the spacer every 1-2 weeks. First, remove the inhaler from the spacer. Wash the spacer with warm water and dishwashing soap, but do NOT rinse it. Then let it air dry. Leaving the spacer a little soapy after cleaning actually helps it work better. [email or web address] Not available 02/16/2023 14:41:32 Reason for Referral Referring Physician: Shira Esqueda, Emergency Medicine, Encounter Date: 03/08/2022 [employer] Manager Referral for W ound of skin Referring Physician: Shira Esqueda Emergency Medicine, Encounter Date: 03/08/2022 Results Created Date Observation Date Name Description Value Unit Range Abnormal Flag Note LastModifiedBy Organization Detail LastModifiedTime 02/17/20 23 02/16/2023 rapid flu (A+B) Flu A (ref: neg) negati ve Not Available [facility] [address], [place], [address], 02/16/2023 14:49:31 02/17/20 23 02/16/2023 rapid flu (A+B) Flu B (ref: neg) negati ve Not Available [facility] [address], [place], [address], 02/16/2023 14:49:31 02/17/20 23 02/16/2023 rapid flu (A+B) Control Visual ized/V alid Not Available [facility] [address] [place] [address], [phone], 02/16/2023 14:49:31 02/17/20 23 02/16/2023 rapid flu (A+B) Location [facility], [address] [place] [address], [phone] Not Available [facility] [address] [place] [address], [phone], 02/16/2023 14:49:31 02/17/20 23 02/16/2023 rapid SARS CoV 2 Ag, QL IA, respi rator y speci men Covid 19 Antigen (ref: neg) negati ve Not Available [facility] [address] [place] [address], [phone], 02/16/2023 14:49:13 02/17/20 23 02/16/2023 rapid SARS CoV 2 Ag, QL IA, respi rator y speci men Control Visual ized/V alid Not Available [facility] [address] [place] [address], [phone], 02/16/2023 14:49:13 02/17/20 23 02/16/2023 rapid SARS CoV 2 Ag, QL IA, respi rator y speci men Location [facility], [address] [place] [address], [phone] Not Available [facility] [address] [place] [address], [phone], 02/16/2023 14:49:13 02/20/20 23 02/19/2023 XR, chest , 2 view XRAY CHEST 2 VIEW FINDIN GS: No active pulmon sonia infilt rates or pleura l effusi ons are seen. The heart is mildly enlarg ed. There is mild tortuo sity and calcif icatio n in the thorac ic aorta. Hilar areas are normal . Pulmon sonia vascul ature is normal . CONCLU MARCE: Mild cardio megaly . No active diseas e is seen in the chest. ELECTR ONICAL LY SIGNED BY KATINA OSPINA M.D. 2022 4:57:3 0 PM EST. XRAY CHEST 2 VIEW Result s: No active pulmon sonia infilt rates or pleura l effusi ons are seen. The heart is mildly enlarg ed. There is mild tortuo sity and calcif icatio n in the thorac ic aorta. Hilar areas are normal . Pulmon sonia vascul ature is normal . Conclu marce: Mild cardio megaly . No active diseas e is seen in the chest. Electr onical ly signed by KATINA OSPINA M.D. 2022 4:57:3 0 PM EST. [email or web address] [employer] [facility] [address], [place], [address], 02/20/2023 08:46:22 Result Notes None recorded. Procedures Surgical History None recorded. Imaging Results Imaging Date Name Status LastModified by Organiz ation Details LastModified Time 02/19/2023 XR, chest, 2 view completed [email or web address] [facility] [address], [place], [address], 02/20/2023 08:46:22 Procedure Notes None recorded. Medical Equipment None Reported. Allergies No known drug allergies Medications Name Sig Start Date Stop Date Status Note LastModified by Organization Details LastModified Time medbox status USE DIRECTED active Not Available Not Available No t Available multivitami n tablet TAKE 1 TABLET BY MOUTH EVERY EVENING WITH FOOD active Not Available Not Available No t Available nifedipine ER 30 mg tablet,exte nded release 24 hr TAKE 1 TABLET BY MOUTH AT BEDTIME active Not Available Not Available No t Available atorvastati n 80 mg tablet TAKE 1 TABLET BY MOUTH AT BEDTIME active Not Available Not Available No t Available carvedilol 25 mg tablet TAKE 1 TABLET BY MOUTH TWICE DAILY IN THE MORNING AND IN THE EVENING WITH FOOD active Not Available Not Available No t Available clonidine HCl 0.1 mg tablet TAKE 1 TABLET BY MOUTH TWICE DAILY IN THE MORNING AND AT BEDTIME active Not Available Not Available No t Available Vitamin C 500 mg tablet TAKE 1 TABLET BY MOUTH TWICE DAILY IN THE MORNING AND IN THE EVENING active Not Available Not Available No t Available cetirizine 5 mg tablet TAKE 1 TABLET BY MOUTH EVERY MORNING active Not Available Not Available No t Available hydralazine 25 mg tablet TAKE 1 TABLET BY MOUTH THREE TIMES DAILY IN THE MORNING, EVENING, AND BEDTIME WITH FOOD active Not Available Not Available No t Available clopidogrel 75 mg tablet TAKE 1 TABLET BY MOUTH EVERY MORNING active Not Available Not Available No t Available aspirin 81 mg tablet,heather yed release TAKE 1 TABLET BY MOUTH EVERY EVENING active Not Available Not Available No t Available cefadroxil 500 mg capsule TAKE 1 CAPSULE BY MOUTH EVERY TWELVE HOURS UNTIL FINISHED 02/16 completed Not Available Not Available Not Available doxycycline monohydrate 50 mg capsule TAKE 2 CAPSULES BY MOUTH ONCE DAILY IN THE MORNING and TAKE 1 CAPSULE BY MOUTH EVERY EVENING WITH FOOD 02/16 completed Not Available Not Available Not Available nifedipine ER 60 mg tablet,exte nded release 24 hr TAKE 1 TABLET BY MOUTH AT BEDTIME DO NOT BREAK, CRUSH, DISSOLVE OR CHEW active Not Available Not Available No t Available doxycycline monohydrate 100 mg capsule TAKE 1 CAPSULE BY MOUTH TWICE DAILY 02/16 completed Not Available Not Available Not Available Betasept Surgical Scrub 4 % topical liquid RINSE AFFECTED AREA(S) WITH WATER, THEN APPLY A THIN LAYER AND WASH GENTLY. RINSE WELL active Not Available Not Available No t Available bumetanide 0.5 mg tablet TAKE 1 TABLET BY MOUTH TWICE DAILY IN THE MORNING AND IN THE EVENING active Not Available Not Available No t Available clotrimazol e 1 % topical solution APPLY TO THE AFFECTED AREA(S) TWICE DAILY IN THE MORNING AND AT BEDTIME active Not Available Not Available No t Available niacin 500 mg tablet TAKE 1 TABLET BY MOUTH EVERY DAY 02/16 completed Not Available Not Available Not Available mupirocin 2 % topical ointment APPLY A SMALL AMOUNT TO THE AFFECTED AREA BY TOPICAL ROUTE 3 TIMES PER DAY active Not Available Not Available No t Available clobetasol 0.05 % topical ointment APPLY TO THE AFFECTED AREA(S) (BLISTER) EN SENO DERECHO DOS VECES AL TALIB active Not Available Not Available No t Available clotrimazol e 1 % topical cream APPLY TO AFFECTED AREA(S) AND SURROUNDI NG AREA(S) TWICE DAILY IN THE MORNING AND EVENING active Not Available Not Available No t Available glipizide 5 mg tablet TAKE 1 TABLET BY MOUTH TWICE DAILY IN THE MORNING AND IN THE EVENING BEFORE MEALS active Not Available Not Available No t Available Vitamin B-12 ER 1,000 mcg tablet,exte nded release TAKE 1 TABLET BY MOUTH EVERY MORNING active Not Available Not Available No t Available Alcohol Prep Pads USE THREE TIMES DAILY active Not Available Not Available No t Available FreeStyle Lite Strips TEST BLOOD SUGAR 3 TIMES A DAY active Not Available Not Available No t Available FeroSul 325 mg (65 mg iron) tablet TAKE 1 TABLET BY MOUTH TWICE DAILY IN THE MORNING AND IN THE EVENING WITH ORANGE JUICE active Not Available Not Available No t Available Athlete's Foot (terbinafin e) 1 % topical cream APPLY TO THE AFFECTED AREA(S) AND SURROUNDI NG AREA(S) TOPICALLY DAILY 03/06 completed Not Available Not Available Not Available FreeStyle [place] Lite kit USE THREE TIMES DAILY active Not Available Not Available No t Available blood pressure test kit-large cuff USE TO CHECK BLOOD PRESSURE ONCE DAILY AND NEEDED active Not Available Not Available No t Available Desitin Rapid Relief 13 % topical cream APPLY TO THE AFFECTED AREA(S) TWICE DAILY active Not Available Not Available No t Available Prolia 60 mg/mL subcutaneou s syringe 02/16 completed Not Available Not Available Not Available Easy Touch Twist Lancets 33 gauge TEST BLOOD SUGAR THREE TIMES DAILY active Not Available Not Available No t Available Pentips Pen Needle 32 gauge x 5/32 USE DIRECTED FOUR TIMES DAILY 02/16 completed Not Available Not Available Not Available Saline Wound Wash 0.9 % topical spray Apply 1 applicati on twice a day by topical route. 02/16 completed Not Available Not Available Not Available Vitals Date Recorded Oxygen saturation Oxygen saturation in Arterial blood by Pulse oximetry Heart rate Body temperature Respiratory rate Systolic blood pressure Diastolic blood pressure Provider Name and Address Organization Details Last Updated DateTime 3 96 % 96 % 79 /min 99 [degF] 18 /min 106 mm[Hg] 66 mm[Hg] Not Available [facility] 3 14:37:33 Date Recorded Body temperature Respiratory rate Oxygen saturation Oxygen saturation in Arterial blood by Pulse oximetry Heart rate Systolic blood pressure Diastolic blood pressure Provider Name and Address Organization Details Last Updated DateTime 2 97.9 [degF] 16 /min 98 % 98 % 68 /min 122 mm[Hg] 58 mm[Hg] Not Available [facility] 2 12:42:56 Date Recorded Body temperature Heart rate Respiratory rate Oxygen saturation Oxygen saturation in Arterial blood by Pulse oximetry Systolic blood pressure Diastolic blood pressure Provider Name and Address Organization Details Last Updated DateTime 2 98.6 [degF] 66 /min 18 /min 98 % 98 % 124 mm[Hg] 58 mm[Hg] Not Available [facility] 2 11:44:36 Social History Question Answer Notes LastModified by Organizat ion Details LastModified Time Tobacco Smoking Status Never Smoker September Braulio, SRINIVAS [address], [place], [address], [place] [facility] 03/05/2022 12:44:51 Within The Past 12 Months, Has It Happened That The Food You Bought Just Didn't Last And You Didn't Have Money To Get More. Never True [email or web address] Information not available 03/05/2022 Within The Past 12 Months, Have You Worried That Your Food Would Run Out Before You Got Money To Buy More. Never True [email or web address] Information not available 03/05/2022 Fall Risk: Do You Feel Unsteady When Standing Or Walking? Yes [email or web address] Information not available 03/05/2022 We Know That How And When People Interact With Friends And Family Can Be Very Different From Person To Person. How Often Do You Have The Opportunity To See Or Talk To People That You Care About And Feel Close To? (Ex: Talking To Friends On The Phone Or Visiting Friends Or Family Or Going To Scientologist Or Club Meetings) 5 Or More Times Per Week [email or web address] Information not available 03/05/2022 Excessive Alcohol Or Drug Use No [email or web address] Information not available 03/05/2022 Does This Patient Have A PCP? Yes [email or web address] Information not available 03/05/2022 Has The Patient Seen Their PCP In The Past 6 Months? Yes [email or web address] Information not available 03/05/2022 Is This Patient In Hospice? No [email or web address] Information not available 03/05/2022 We Know From Many Of Our Patients That Covering All Of Their Costs Can Be Difficult At Times. This Can Cause Stress And Impact Health. In The Past Year, Have You Been Unable To Get Any Of The Following When It Was Really Needed? No [email or web address] Information not available 03/05/2022 What Is Your Housing Situation Today? I Have Housing [email or web address] Information not available 03/05/2022 Do You Use Any Illicit Or Recreational Drugs? No [email or web address] Information not available 03/05/2022 Sex: Unknown Functional Status None recorded. Mental Status None recorded. Family History Nothing Reported. Medical History Condition Response Coronary Artery Disease N Depression N COPD N Hypothyroidism N A-fib N Cancer N Stroke Y High Cholesterol Y Rheumatoid Arthritis N Kidney Disease N Parkinson's Disease N Diabetes Y CHF N Dementia N Asthma N Pulmonary Embolism N Hypertension Y Osteoporosis N Gynecological HistoryNo gynecological history recorded. Obstetrics History GPAL:G 0 P 0 0 0 0 Past Encounters Encounter ID Performer Location Encounter Start Date Encounter Closed Date Diagnosis/Indication Diagnosis SNOMED-CT Code Diagnosis ICD10 Code Diagnosis Note [id number] September SRINIVAS Ramsey [facility] [address] [place] [address] 03/05/2022 12:37:15 03/06/2022 09:55:59 Wound of skin 282909256 T14.8XXA [id number] Shira Esqueda NP [facility] [address] [place] [address] 03/08/2022 11:17:37 03/11/2022 14:43:42 Wound of skin 458074002 T14.8XXD Tear of skin [id number] T 14.8XXD [id number] REMY Brunner [facility] [address] [place] [address] 02/16/2023 14:32:08 02/16/2023 17:59:23 Acute upper respiratory infection [id number] J06.9 Status of condition: {{Acute* E xacerbatio n/Acute on chronic Ch ronic Stab le Worseni ng/Progres marce Uncon trolled Cr itical: Warrants escalation to ED. Undete rmined: Unclear staging of condition. Needs further evaluation and management by PCP and/or Specialist }}. Testing/Re sults: Rapid covid and rapid flu are both negative. CXR pending. Discussion :rest and push fluids.rec ommend use of humidifier .ok to try otc plain mucinex take as directed on the package for cough.ok to give otc tylenol take as directed on the package for pain or fever.CXR is pending we will notify you of the results. Plan & Management :follow up with pcp in 3-5 days or sooner prn.go to the ER with worsening symptoms cp, sob, increased wheezing, weakness, dizziness, vomiting, fever, lethargy, decreased urine output. Essential hypertension [id number] I10 Status of condition: {{Acute Ex acerbation /Acute on chronic Ch ronic* Sta ble Worsen ing/Progre ssion Unco ntrolled C ritical: Warrants escalation to ED. Undete rmined: Unclear staging of condition. Needs further evaluation and management by PCP and/or Specialist }}. Testing/Re sults: Discussion : Plan & Management : Health Concerns Section Related Observation LastModified by Organization Detai ls LastModified Time None Recorded Concern Status LastModified by Organization Details LastModified Time None Recorded Advance Directives Directive None Recorded Payers Encounter Date Sequence Insurance Name Policy Number Policy Blount Covered Member ID Blount Member ID Guarantor Name 03/05/2022 1 [facility] - DOS PRIOR TO 2022 - DUAL ELIGIBLE (MEDICARE REPLACEMENT/AD VANTAGE - HMO) Chanel Ramsey [id number] Kourtney Egan 03/08/2022 1 [facility] - DOS PRIOR TO 2022 - DUAL ELIGIBLE (MEDICARE REPLACEMENT/AD VANTAGE - HMO) Chanel Ramsey [id number] Kourtney Egan 02/16/2023 1 [facility] - DOS ON OR AFTER 2022 - MEDICARE [place]VANTAGE [place] ([place] RE[place]ACEMENT/AD VANTAGE - PPO) Chanel Ramsey [id number] Kourtney Egan Notes Date Note Type Note Provider Name and Address Organization Details Recorded Time 03/05/2022 text/html 81 YO F establishing care. She complains of right breast wound that began February 12? initially starting with a clear filled blister that spread with several blisters ranging from clear to blood filled. She was seen at [facility] and was prescribed anti fungal cream, which made it worse. She returned to the ER and was prescribed Desitin cream, which provided no change. The third time she was seen at ER she was prescribed oral antibiotic medication which she completed today. She denies any trauma to area, itching, or pain. Sofie Ramsey NP [address], [place], [address], [place] [facility] 03/06/2022 09:28:41 03/08/2022 text/html Patient is a 81 year old female with a PMH including CVA, HTN, HLD, T2DM who is known to [facility] who is being seen today for a follow up for a wound to R breast. Noed that on 03/05 she was seen by one of our providers, prescribed Mupirocin topical ointment. Unfortunetly daughter is unable to pick this up until tomorrow. This has not been started. Of note, the blister initially began mid January and has since spread to surronding area causing skin breakdown. She was seen in ER on 3 seperate occasions; first time she was prescribed Desitin crem, second she was given a Nystatin cream which made it worse and the 3rd time she was given an AB and has completed the course. No improvement to wound. Denies any trauma, itch or pain. Daughter was translating. Shira Esqueda NP [address], [place], [address], [place] - [facility] 03/08/2022 12:51:36 02/16/2023 text/html 82 y/o female known to [facility] to [facility] with hx of DM, HTN, hyperlipidemia, stroke. pt is mauritian speaking and lives with her daughter who is present for visit and translating for pt at her request. her daughter has been sick x 1 week. pt developed symptoms 2 days ago. pt has had dry cough and wheezing. temp of 100 at highest. no BAUTISTA, sore throat, nausea, vomiting, diarrhea, abdominal pain. no cp, sob. she has not taken anything otc for her symptoms. daughter reports no prior hx of pneumonia. pt has had some nasal congestion. no sinus pain. daughter reports pt has good appetite and has been urinating normally. REMY Brunner [address] [place], [address], [place] [facility] 02/16/2023 15:13:58 OBGyn Episode No OBEpisode recorded.
--- OUTSIDE RECORDS SUMMARY | 2024-05-23 10:36 | XMS_ITS | Encounter Summary ---
Author Organization [employer] Address [address] [place] [address] Care Team Providers Care Forestry Fire Aid Name Role Phone Liliana Golden MD Primary Care Provider [phone] Encounter Details Date Type Department Care Team (Latest Contact Info) Description 05/01/2024 Travel Social History Tobacco Use Types Packs/Day Years [...] documented as of this encounter Care Teams Forestry Fire Aid Relationship Specialty Start Date End Date Liliana Golden MD [address] [place] [address] PCP - General Family Medicine 03/29/18 documented as of this encounter
--- OUTSIDE RECORDS SUMMARY | 2024-05-23 10:36 | XMS_ITS | Encounter Summary ---
Author Organization [facility] Address [address] [place] [address] [address] [place] [address] Care Team Providers Care Grey Washer Name Role Phone Liliana Golden MD Primary Care Provider [phone] Reason for Referral * Consultation (Routine) - Authorized Specialty Diagnoses / Procedures Referred By Amada vasques Referred To Contact Pharmacy Diagnoses Essential hypertension Stage 3a chronic kidney disease (CMS/HCC) Type 2 diabetes mellitus with stage 3b chronic kidney disease, without long-term current use of insulin (CMS/HCC) Ischemic heart disease Anemia of chronic disease Moderate dementia without behavioral disturbance, psychotic disturbance, mood disturbance, or anxiety, unspecified dementia type (CMS/HCC) Liliana Golden MD [address] [place] [address] Phone: tel: fax: Referral ID Status Reason Start Date Expiration Date Visits Requested Visits Authorized [id number] Authorized Continuity of Care 01/07/2024 01/06/2025 6 6 Encounter Details Date Type Department Care Team (Late st Contact Info) Description 01/07/2024 Orders Only [facility] [address] [place], [place] [phone] Liliana Golden MD [address] [place], [place] [phone] Essential hypertension (Primary Dx); Stage 3a chronic kidney disease (CMS/HCC); Type 2 diabetes mellitus with stage 3b chronic kidney disease, without long-term current use of insulin (CMS/HCC); Ischemic heart disease; Anemia of chronic disease; Moderate dementia without behavioral disturbance, psychotic disturbance, mood disturbance, or anxiety, unspecified dementia type (CMS/HCC) Social History Tobacco Use Types Packs/Day Years [...] as of this encounter Plan of Treatment Scheduled Referrals Name Type Priority Associated Diagnoses Orde r Schedule Referral to Pharmacy [place] Outpatient Referral Routine Essential hypertension Stage 3a chronic kidney disease (CMS/HCC) Type 2 diabetes mellitus with stage 3b chronic kidney disease, without long-term current use of insulin (CMS/HCC) Ischemic heart disease Anemia of chronic disease Moderate dementia without behavioral disturbance, psychotic disturbance, mood disturbance, or anxiety, unspecified dementia type (CMS/HCC) Ordered: 01/07/2024 documented as of this encounter Visit Diagnoses Diagnosis Essential hypertension- Primary Unspecified essential hypertension Stage 3a chronic kidney disease (CMS/[facility]) Type 2 diabetes mellitus with stage 3b chronic kidney disease, without long-term current use of insulin ([facility]) Ischemic heart disease Other specified forms of chronic ischemic heart disease Anemia of chronic disease Anemia of other chronic disease Moderate dementia without behavioral disturbance, psychotic disturbance, mood disturbance, or anxiety, unspecified dementia type ([facility]) documented in this encounter Additional Health Concerns Assessment Noted Time PHQ-9 Depression Total Score: 0 07/26/19 24 1:46 PM EDT documented as of this encounter Care Teams Grey Washer Relationship Specialty Start Date End Date Liliana Golden MD [address] [place] [address] PCP - General Family Medicine 03/29/18 documented as of this encounter
--- OUTSIDE RECORDS SUMMARY | 2024-05-23 10:36 | XMS_ITS | Clinical Summary ---
Author Organization [employer] Address [address] [facility] [address] [place] [address] Care Team Providers Care Bus Mechanic Name Role Phone Liliana Golden MD Primary Care Provider [phone] Allergies Active Allergy Reactions Criticality Noted Date Comments Lidocaine Unknown 03/24/2010 Medications chlorhexidine (Hibiclens) 4 % external liquidIndications :Bullous pemphigus Rinse area with water, then apply minimum amount necessary to cover skin or wound area and wash gently. Rinse again thoroughly. 473 mL 1 2 Active acetaminophen (Tylenol) 500 MG tablet Take by mouth if needed in the morning, at noon, and at bedtime. 7 Active clobetasol (Temovate) 0.05 % ointment APPLY TO BLISTERS ON THE RIGHT BREAST TWICE DAILY 2 Active clotrimazole (Lotrimin) 1 % cream APPLY TO AFFECTED AREA(S) AND SURROUNDING AREA(S) TWICE DAILY IN THE MORNING AND EVENING 2 Active glucose (Glutose) 40 % gel oral gel Ingest 15 g (1 tube) by mouth if blood glucose is less than 70 mg/dL 9 Active EPINEPHrine (Epipen) 0.3 MG/0.3ML injection syringe As directed 9 Active glucagon 1 MG injection Prepare injection as directed. Inject if patient is unconscious due to low blood sugar 9 Active mupirocin (Bactroban) 2 % ointment APPLY TO THE AFFECTED AREA(S) SPARINGLY THREE TIMES DAILY 2 Active niacin 500 MG tablet Take 1 tablet by mouth twice daily 2 Active NIFEdipine XL (Procardia XL) 60 MG 24 hr tablet TAKE 1 TABLET BY MOUTH AT BEDTIME 2 Active SM Athletes Foot 1 % cream APPLY TO THE AFFECTED AREA(S) AND SURROUNDING AREA(S) TOPICALLY DAILY 2 Active Desitin 13 % cream APPLY TO THE AFFECTED AREA(S) TWICE DAILY 2 Active Wound Dressings (Medihoney Ca Alginate 2 x2 ) pads Apply to the wound on buttock every 1-2 days 10 each 2 3 Active hydrALAZINE (Apresoline) 25 MG tablet TAKE 1 TABLET BY MOUTH THREE TIMES DAILY IN THE MORNING, EVENING, AND BEDTIME WITH FOOD 270 tablet 3 4 Active hydrocortisone (Preparation H) 1 % cream Apply to anal area bid prn 30 g 2 4 Active Multiple Vitamin (Multivitamin) tablet TAKE 1 TABLET BY MOUTH EVERY EVENING WITH FOOD 90 tablet 3 4 Active glipiZIDE (Glucotrol) 5 MG tablet TAKE 1 TABLET BY MOUTH TWICE DAILY IN THE MORNING AND IN THE EVENING BEFORE MEALS 180 tablet 3 4 Active Aspirin Low Dose 81 MG EC tablet TAKE 1 TABLET BY MOUTH EVERY EVENING 90 tablet 3 4 Active cetirizine (ZyrTEC) 5 MG tablet TAKE 1 TABLET BY MOUTH EVERY MORNING 90 tablet 3 4 Active clopidogrel (Plavix) 75 MG tablet TAKE 1 TABLET BY MOUTH EVERY MORNING 90 tablet 3 4 Active Blood Pressure Monitor kitIndications:Es sential hypertension Check blood pressure once daily and as needed 1 kit 4 Active cloNIDine (Catapres) 0.1 MG tablet TAKE 1 TABLET BY MOUTH TWICE DAILY IN THE MORNING AND AT BEDTIME 180 tablet 3 4 Active Blood Glucose Monitoring Suppl (FreeStyle Lite) w/Device kitIndications:Ty pe 2 diabetes mellitus with hyperglycemia, without long-term current use of insulin ([facility]) 1 each 3 times daily. 1 kit 4 Active carvedilol (Coreg) 25 MG tablet TAKE 1 TABLET BY MOUTH TWICE DAILY IN THE MORNING AND IN THE EVENING WITH FOOD 180 tablet 3 4 Active bumetanide (Bumex) 0.5 MG tabletIndications :Hypertension, unspecified type TAKE 1 TABLET BY MOUTH TWICE DAILY IN THE MORNING AND IN THE EVENING 180 tablet 3 4 Active TRUEplus Lancets 33G miscIndications:T ype 2 diabetes mellitus with unspecified complications (CMS/HCC) TEST BLOOD SUGAR THREE TIMES DAILY 100 each 11 4 Active FeroSul 325 (65 Fe) MG tablet TAKE 1 TABLET BY MOUTH TWICE DAILY IN THE MORNING AND IN THE EVENING WITH ORANGE JUICE 180 tablet 3 4 Active atorvastatin (Lipitor) 80 MG tablet TAKE 1 TABLET BY MOUTH AT BEDTIME 90 tablet 3 4 Active Ascorbic Acid (vitamin C) 500 MG tablet TAKE 1 TABLET BY MOUTH TWICE DAILY IN THE MORNING AND IN THE EVENING 180 tablet 3 4 Active Cyanocobalamin (B-12) 1000 MCG tablet controlled-releas e TAKE 1 TABLET BY MOUTH EVERY MORNING 90 tablet 3 4 Active Alcohol Swabs (Alcohol Prep) 70 % pads USE THREE TIMES DAILY 100 each 11 4 Active FREESTYLE LITE test stripIndications: Type 2 diabetes mellitus with unspecified complications (CMS/HCC) TEST BLOOD SUGAR 3 TIMES A DAY 100 strip 11 4 Active Active Problems Problem Noted Date Diagnosed Date Constipation 07/26/2023 Assessment & Plan (07/26/2023 2:10 PM EDT): Seen by GI on 06/21/23. Rx Senna for constipation. Hemorrhoid 07/26/2023 Assessment & Plan (05/01/2024 10:04 AM EST): Improved Continue Hydrocortisone 1% cream prn. Assessment & Plan (07/26/2023 2:09 PM EDT): Improved Continue Hydrocortisone 1% cream prn. Pressure ulcer 07/26/2023 Assessment & Plan (07/31/2023 7:01 AM EDT): Will prescribe special pillow / cushion to prevent ulcer Family prefers an inflatable one May need for one for wheelchair, and one for home use Open wound of right buttock 01/11/2023 Assessment & Plan (01/11/2023 6:35 PM EDT): - trial of medihoney pad - refer to wound care - check if any other medical supply, other than doughnut pillow/cushion, is available for her to offload the pressure - frequent position change - optimize nutritional status Candidiasis of skin 09/30/2022 Type 2 diabetes mellitus wit h microalbuminuria, without long-term current use of insulin 07/13/2022 Type 2 diabetes mellitus wit h stage 3b chronic kidney disease, without long-term current use of insulin 07/13/2022 Assessment & Plan (05/01/2024 10:06 AM EST): -A1C 6.4% in June 2023 -Continue glipizide 5 mg bid with caution for hypoglycemia. -Continue working on dietary modification. Treatment Hx: - Discontinued Metformin in August 2020 due to CKDIII -Started Jardiance on 07/23/20, however pt's family member perceived this medication is ineffective, therefore it was discontinued in August 2020. DM Maintenance: - Last eye exam: June 2020 - Last foot exam: 10/13/21, decreased sensation, wearing diabetic footwear - Last microalbumin test: 05/15/22 UACR 197, microalbuminuria - Last lipid profile: 10/13/21 TC 154; TG 174; HDL 46; LDL 81 - Last dental exam: Followed by dentist Assessment & Plan (01/11/2023 6:32 PM EDT): -A1C 7.0% on 01/11/23, increased from 6.2% in Feb 2022 -Continue glipizide 5 mg bid with caution for hypoglycemia. -Continue working on dietary modification. Treatment Hx: - Discontinued Metformin in August 2020 due to CKDIII -Started Jardiance on 07/23/20, however pt's family member perceived this medication is ineffective, therefore it was discontinued in August 2020. DM Maintenance: - Last eye exam: June 2020 - Last foot exam: 10/13/21, decreased sensation, wearing diabetic footwear - Last microalbumin test: 05/15/22 UACR 197, microalbuminuria - Last lipid profile: 10/13/21 TC 154; TG 174; HDL 46; LDL 81 - Last dental exam: Followed by dentist Assessment & Plan (10/05/2022 2:39 PM EDT): -A1C 6.2% on 03/16/22, 6.2% on 10/13/21 -Continue glipizide 5 mg bid with caution for hypoglycemia. Consider changing to once daily or 1/2 tab bid since her renal function is declining and she has not been eating much -Continue working on dietary modification. Treatment Hx: - Discontinued Metformin in August 2020 due to CKDIII -Started Jardiance on 07/23/20, however pt's family member perceived this medication is ineffective, therefore it was discontinued in August 2020. DM Maintenance: - Last eye exam: June 2020 - Last foot exam: 10/13/21, decreased sensation, wearing diabetic footwear - Last microalbumin test: 05/15/22 UACR 197, microalbuminuria - Last lipid profile: 10/13/21 TC 154; TG 174; HDL 46; LDL 81 - Last dental exam: Followed by dentist Assessment & Plan (07/13/2022 7:18 AM EDT): -A1C 6.2% on 03/16/22, 6.2% on 10/13/21 -Continue glipizide 5 mg bid with caution for hypoglycemia. Consider changing to once daily or 1/2 tab bid since her renal function is declining and she has not been eating much -Continue working on dietary modification. Treatment Hx: - Discontinued Metformin in August 2020 due to CKDIII -Started Jardiance on 07/23/20, however pt's family member perceived this medication is ineffective, therefore it was discontinued in August 2020. DM Maintenance: - Last eye exam: June 2020 - Last foot exam: 10/13/21, decreased sensation, wearing diabetic footwear - Last microalbumin test: 05/15/22 UACR 197, microalbuminuria - Last lipid profile: 10/13/21 TC 154; TG 174; HDL 46; LDL 81 - Last dental exam: Followed by dentist Bullous pemphigoid 03/20/2022 Assessment & Plan (07/26/2023 2:32 PM EDT): - Evaluated by regional transfer liaison, Dr. Smith, on 03/13/22 - initially prescribed doxycycline, clobetasol, and Niacin - continue clobetasol, doxycycline, and Niacin as prescribed Assessment & Plan (01/11/2023 4:45 AM EDT): - Evaluated by regional transfer liaison, Dr. Smith, on 03/13/22 - initially prescribed doxycycline, clobetasol, and Niacin - continue clobetasol, doxycycline, and Niacin as prescribed Assessment & Plan (10/05/2022 2:32 PM EDT): - Evaluated by regional transfer liaison, Dr. Smith, on 03/13/22 - initially prescribed doxycycline, clobetasol, and Niacin - continue clobetasol, doxycycline, and Niacin as prescribed Assessment & Plan (07/13/2022 7:20 AM EDT): - Evaluated by regional transfer liaison, Dr. Smith, on 03/13/22 - initially prescribed doxycycline, clobetasol, and Niacin - continue clobetasol, doxycycline, and Niacin as prescribed Assessment & Plan (03/20/2022 4:25 PM EST): Evaluated by regional transfer liaison, Dr. Smith, on 03/13/22 Continue clobetasol, doxycycline, and Niacin as prescribed Still investigating its cause Anemia of chronic disease 03/20/2022 Assessment & Plan (07/26/2023 2:32 PM EDT): multifactorial - B12 deficiency, chronic disease, iron deficiency -Followed by rn anesthetist -s/p iron infusion -Continue B12 PO. -Pt was supposed to have a colonoscopy, but family and pt decided not to have one -Cologuard ordered, but the specimen could not be processed -Ordered again Assessment & Plan (01/11/2023 6:30 PM EDT): multifactorial - B12 deficiency, chronic disease, iron deficiency -Followed by rn anesthetist -s/p iron infusion -Continue B12 PO. -Pt was supposed to have a colonoscopy, but family and pt decided not to have one -Cologuard ordered, but the specimen could not be processed -Ordered again Assessment & Plan (10/05/2022 2:38 PM EDT): multifactorial - B12 deficiency, chronic disease, iron deficiency -Followed by rn anesthetist -s/p iron infusion -Continue B12 PO. -Pt was supposed to have a colonoscopy, but family and pt decided not to have one -Cologuard ordered, but the specimen could not be processed -Will order FIT instead of Cologuard. Assessment & Plan (07/13/2022 7:28 AM EDT): multifactorial - B12 deficiency, chronic disease, iron deficiency -Followed by rn anesthetist -s/p iron infusion -Continue B12 PO. -Pt was supposed to have a colonoscopy, but family and pt decided not to have one -Cologuard ordered, but the specimen could not be processed -Will order FIT instead of Cologuard. Assessment & Plan (03/20/2022 4:32 PM EST): multifactorial - B12 deficiency, chronic disease, iron deficiency -Followed by rn anesthetist -s/p iron infusion -Continue B12 PO. Chronic kidney disease (CKD), stage III (moderat e) 03/20/2022 Assessment & Plan (05/01/2024 10:05 AM EST): -Followed by reservations and ticketing agent -Avoid nephrotoxic drugs (still on metformin) -Use renal dosing Assessment & Plan (07/26/2023 2:10 PM EDT): -Followed by reservations and ticketing agent -Avoid nephrotoxic drugs (still on metformin) -Use renal dosing Assessment & Plan (01/11/2023 4:42 AM EDT): -Followed by reservations and ticketing agent -Avoid nephrotoxic drugs (still on metformin) -Use renal dosing Assessment & Plan (10/05/2022 2:38 PM EDT): -Followed by reservations and ticketing agent -Avoid nephrotoxic drugs (still on metformin) -Use renal dosing Assessment & Plan (07/13/2022 7:09 AM EDT): -Followed by reservations and ticketing agent -Avoid nephrotoxic drugs (still on metformin) -Use renal dosing Assessment & Plan (03/20/2022 4:34 PM EST): -Followed by reservations and ticketing agent -Avoid nephrotoxic drugs (still on metformin) -Use renal dosing History of angioedema 03/20/2022 Overview (03/20/2022): Questionable in 2019 Discontinued lisinpril as a possible offending agent Epi-pen per pt's caregiver's request Carotid bruit 08/26/2017 Vitamin B12 deficiency anemia 08/26/2017 Assessment & Plan (05/01/2024 10:05 AM EST): - negative IF antibody - continue oral supplementation Assessment & Plan (01/11/2023 4:43 AM EDT): - negative IF antibody - continue oral supplementation Assessment & Plan (10/11/2022 8:49 AM EDT): - negative IF antibody - continue oral supplementation Ischemic heart disease 09/10/2015 Assessment & Plan (05/01/2024 10:04 AM EST): -NSTEMI in July 2012 and August 2014. She had a cardiac catheterization and a drug-eluting stent to RCA in [place] in July 2012. On dual antiplatelet therapy for > 1 year. - Emergency Medical Dispatcher: SUSANA - Last echocardiogram: 11/19/16 LVEF 60-65%, [...] daughter was advised to schedule appt w/ Emergency Medical Dispatcher Assessment & Plan (07/26/2023 2:09 PM EDT): -NSTEMI in July 2012 and August 2014. She had a cardiac catheterization and a drug-eluting stent to RCA in [place] in July 2012. On dual antiplatelet therapy for > 1 year. - Emergency Medical Dispatcher: SUSANA - Last echocardiogram: 11/19/16 LVEF 60-65%, [...] daughter was advised to schedule appt w/ Emergency Medical Dispatcher Assessment & Plan (01/11/2023 4:41 AM EDT): -NSTEMI in July 2012 and August 2014. She had a cardiac catheterization and a drug-eluting stent to RCA in [place] in July 2012. On dual antiplatelet therapy for > 1 year. - Emergency Medical Dispatcher: SUSANA - Last echocardiogram: 11/19/16 LVEF 60-65%, [...] modifiable risk factor management for secondary prevention. ?? - Pt daughter was advised to schedule appt w/ Emergency Medical Dispatcher Assessment & Plan (10/05/2022 2:31 PM EDT): -NSTEMI in July 2012 and August 2014. She had a cardiac catheterization and a drug-eluting stent to RCA in [place] in July 2012. On dual antiplatelet therapy for > 1 year. - Emergency Medical Dispatcher: SUSANA - Last echocardiogram: 11/19/16 LVEF 60-65%, [...] daughter was advised to schedule appt w/ Emergency Medical Dispatcher Assessment & Plan (07/13/2022 7:08 AM EDT): -NSTEMI in July 2012 and August 2014. She had a cardiac catheterization and a drug-eluting stent to RCA in [place] in July 2012. On dual antiplatelet therapy for > 1 year. - Emergency Medical Dispatcher: SUSANA - Last echocardiogram: 11/19/16 LVEF 60-65%, [...] daughter was advised to schedule appt w/ Emergency Medical Dispatcher Assessment & Plan (03/20/2022 4:40 PM EST): -NSTEMI in July 2012 and August 2014. She had a cardiac catheterization and a drug-eluting stent to RCA in [place] in July 2012. On dual antiplatelet therapy for > 1 year. - Emergency Medical Dispatcher: RAVIN, seen about 2 months ago, next follow-up in fall 2020 - Last echocardiogram: 11/19/16 LVEF 60-65%, mild [...] daughter was advised to schedule appt w/ Emergency Medical Dispatcher Dementia 04/11/2015 Assessment & Plan (05/01/2024 10:04 AM EST): - Pt has been seen by Neurologist [...] for a long-term stay or permanent residence. Assessment & Plan (07/26/2023 2:08 PM EDT): - Pt has been seen by Neurologist and was told she has Dementia. -No specific treatment or follow-up given. -Cognitive function, same, no decline. -Dementia is most likely multifactorial, including vascular. Assessment & Plan (01/11/2023 6:27 PM EDT): - Pt has been seen by Neurologist and was told she has Dementia. -No specific treatment or follow-up given. -Cognitive function, same, no decline. -Dementia is most likely multifactorial, including vascular. Assessment & Plan (10/11/2022 8:46 AM EDT): - Pt has been seen by Neurologist and was told she has Dementia. -No specific treatment or follow-up given. -Cognitive function, same, no decline. -Dementia is most likely multifactorial, likely vascular. Assessment & Plan (07/13/2022 7:04 AM EDT): Pt seen by Neurologist recently, again, was told she has Dementia. -No specific treatment or follow-up given. -Cognitive function, same, no decline. -Dementia is most likely multifactorial, likely vascular. Assessment & Plan (03/20/2022 4:41 PM EST): Pt seen by Neurologist recently, again, was told she has Dementia. -No specific treatment or follow-up given. -Cognitive function, same, no decline. -Dementia is most likely multifactorial, likely vascular. Essential hypertension 12/28/2014 Assessment & Plan (05/01/2024 10:04 AM EST): -Goal BP < 140/90 per JNC-8, < 130/80 per ACC/AHA -Evaluated by reservations and ticketing agent with 24-hour BP monitoring -continue nifedipine 60 [...] discontinued many years ago due to hyponatremia Assessment & Plan (07/26/2023 2:08 PM EDT): -Goal BP < 140/90 per JNC-8, < 130/80 per ACC/AHA -Evaluated by reservations and ticketing agent with 24-hour BP monitoring -continue nifedipine 60 [...] discontinued many years ago due to hyponatremia f/u in 3 months Assessment & Plan (01/11/2023 4:41 AM EDT): -Goal BP < 140/90 per JNC-8, < 130/80 per ACC/AHA -Evaluated by reservations and ticketing agent with 24-hour BP monitoring -continue nifedipine 60 [...] discontinued many years ago due to hyponatremia f/u in 3 months Assessment & Plan (10/05/2022 2:24 PM EDT): -Goal BP < 140/90 per JNC-8, < 130/80 per ACC/AHA -Evaluated by reservations and ticketing agent with 24-hour BP monitoring -continue nifedipine 60 [...] discontinued many years ago due to hyponatremia f/u in 3 months Assessment & Plan (07/13/2022 7:09 AM EDT): -Goal BP < 140/90 per JNC-8, < 130/80 per ACC/AHA -Evaluated by reservations and ticketing agent with 24-hour BP monitoring -continue nifedipine 60 [...] discontinued many years ago due to hyponatremia f/u in 3 months Assessment & Plan (03/20/2022 4:31 PM EST): -Goal BP < 140/90 per JNC-8, < 130/80 per ACC/AHA -Evaluated by reservations and ticketing agent with 24-hour BP monitoring -continue nifedipine 60 [...] discontinued many years ago due to hyponatremia f/u in 3 months Old myocardial infarction 12/28/2014 Type 2 diabetes mellitus 12/28/2014 Assessment & Plan (07/26/2023 2:14 PM EDT): -A1C 7.0% on 01/11/23, slightly increased from previous A1C 6.2% -Continue glipizide 5 mg bid with caution for hypoglycemia. Consider changing to once daily or 1/2 tab bid since her renal function is declining and she has not been eating much -Continue working on dietary modification. Treatment Hx: - Discontinued Metformin in August 2020 due to CKDIII -Started Jardiance on 07/23/20, however pt's family member perceived this medication is ineffective, therefore it was discontinued in August 2020. DM Maintenance: - Last eye exam: June 2020 - Last foot exam: 07/26/23, decreased sensation, wearing diabetic footwear - Last microalbumin test: 05/15/22 UACR 197, microalbuminuria - Last lipid profile: 06/30/22 TC 169; TG 127; HDL 83; LDL 65 - Last dental exam: Followed by dentist Assessment & Plan (01/11/2023 6:31 PM EDT): -A1C 7.0% on 01/11/23, slightly increased from previous A1C 6.2% -Continue glipizide 5 mg bid with caution for hypoglycemia. Consider changing to once daily or 1/2 tab bid since her renal function is declining and she has not been eating much -Continue working on dietary modification. Treatment Hx: - Discontinued Metformin in August 2020 due to CKDIII -Started Jardiance on 07/23/20, however pt's family member perceived this medication is ineffective, therefore it was discontinued in August 2020. DM Maintenance: - Last eye exam: June 2020 - Last foot exam: 10/13/21, decreased sensation, wearing diabetic footwear - Last microalbumin test: 05/15/22 UACR 197, microalbuminuria - Last lipid profile: 10/13/21 TC 154; TG 174; HDL 46; LDL 81 - Last dental exam: Followed by dentist Assessment & Plan (07/13/2022 7:18 AM EDT): -A1C 6.2% on 03/16/22, 6.2% on 10/13/21 -Continue glipizide 5 mg bid with caution for hypoglycemia. Consider changing to once daily or 1/2 tab bid since her renal function is declining and she has not been eating much -Continue working on dietary modification. Treatment Hx: - Discontinued Metformin in August 2020 due to CKDIII -Started Jardiance on 07/23/20, however pt's family member perceived this medication is ineffective, therefore it was discontinued in August 2020. DM Maintenance: - Last eye exam: June 2020 - Last foot exam: 10/13/21, decreased sensation, wearing diabetic footwear - Last microalbumin test: 05/15/22 UACR 197, microalbuminuria - Last lipid profile: 10/13/21 TC 154; TG 174; HDL 46; LDL 81 - Last dental exam: Followed by dentist Assessment & Plan (03/20/2022 4:37 PM EST): -A1C 6.2% on 10/13/21, decreased from 6.9% 04/24/21. -Continue glipizide 5 mg bid with caution -Continue working on dietary modification. Treatment Hx: - Discontinued Metformin in August 2020 due to CKDIII -Started Jardiance on 07/23/20, however pt's family member perceived this medication is ineffective, therefore it was discontinued in August 2020. DM Maintenance: - Last eye exam: June 2020 - Last foot exam: 10/13/21, decreased sensation, wearing diabetic footwear - Last microalbumin test: 06/21/20 UACR 245, worsening microalbuminuria. Urinary incontinent and is difficult to obtain urine. - Last lipid profile: 10/13/21 TC 154; TG 174; HDL 46; LDL 81 - Last dental exam: Followed by dentist, likely having dental extraction soon Multiple nodules of lung 06/07/2014 Dyslipidemia 10/10/2012 Assessment & Plan (07/26/2023 2:31 PM EDT): - Last lipid profile: 06/30/22:TC 169; TG 127; HDL 83; LDL 65 - Current medication: atorvastatin 80 mg qhs. - She is on high-intensity statin therapy. - Continue current medication and lifestyle modification. - Note: Pt is prescribed Niacin by her regional transfer liaison. Assessment & Plan (01/11/2023 4:45 AM EDT): - Last lipid profile: 06/30/22:TC 169; TG 127; HDL 83; LDL 65 - Current medication: atorvastatin 80 mg qhs. - She is on high-intensity statin therapy. - Continue current medication and lifestyle modification. - Note: Pt is prescribed Niacin by her regional transfer liaison. Assessment & Plan (10/05/2022 2:24 PM EDT): - Last lipid profile: 06/30/22:TC 169; TG 127; HDL 83; LDL 65 - Current medication: atorvastatin 80 mg qhs. - She is on high-intensity statin therapy. - Continue current medication and lifestyle modification. - Note: Pt is prescribed Niacin by her regional transfer liaison. Assessment & Plan (07/13/2022 7:21 AM EDT): - Last lipid profile: 10/13/21 TC 154; TG 174; HDL 46; LDL 81 - Current medication: atorvastatin 80 mg qhs. - She is on high-intensity statin therapy. - Continue current medication and lifestyle modification. - Note: Pt is prescribed Niacin by her regional transfer liaison. Assessment & Plan (03/20/2022 4:39 PM EST): - Last lipid profile: 10/13/21 TC 154; TG 174; HDL 46; LDL 81 - Current medication: atorvastatin 80 mg qhs. - She is on high-intensity statin therapy. - Continue current medication and lifestyle modification. 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 -s/p fosamax treatment x 5 years. -previously followed by [employer], Dr. Yandel Matthews, last appt in Oct 2022 -s/p Tymlos since Jan 2019 until Mar 2021 -started on Prolia in Mar 2021, every 6 months, last dose in September 2021. Pt's caregiver is hesitant to continue Prolia. -continue fall precaution -continue weight-bearing exercise -recommended [place] Assessment & Plan (01/11/2023 4:43 AM EDT): History of several rib fractures. -s/p fosamax treatment x 5 years. -previously followed by Friction Welding Machine Operator, Dr. Yandel Matthews, last appt in Oct 2022 -s/p Tymlos since Jan 2019 until Mar 2021 -started on Prolia in Mar 2021, every 6 months, last dose in September 2021. Pt's caregiver is hesitant to continue Prolia. -continue fall precaution -continue weight-bearing exercise -recommended [place] Assessment & Plan (10/05/2022 2:32 PM EDT): History of several rib fractures. -s/p fosamax treatment x 5 years. -followed by Friction Welding Machine Operator, Dr. Yandel Matthews, last appt in August 2021 -s/p Tymlos since Jan 2019 until Mar 2021 -started on Prolia in Mar 2021, every 6 months, last dose in September 2021. Pt's caregiver is hesitant to continue Prolia. -continue fall precaution -continue weight-bearing exercise -recommended [place] -recommended to reschedule appt with knot tying operator Assessment & Plan (07/13/2022 7:13 AM EDT): History of several rib fractures. -s/p fosamax treatment x 5 years. -followed by Friction Welding Machine Operator, Dr. Yandel Matthews, last appt in August 2021 -s/p Tymlos since Jan 2019 until Mar 2021 -started on Prolia in Mar 2021, every 6 months, last dose in September 2021. Pt's caregiver is hesitant to continue Prolia. -continue fall precaution -continue weight-bearing exercise -recommended [place] -recommended to reschedule appt with knot tying operator Assessment & Plan (03/20/2022 4:42 PM EST): History of several rib fractures. -s/p fosamax treatment x 5 years. -followed by Friction Welding Machine Operator, Dr. Yandel Matthews -s/p Tymlos since Jan 2019 until Mar 2021 -currently on Prolia every 6 months, last dose in September 2021 -continue fall precaution -continue weight-bearing exercise -recommended [place] Resolved Problems Problem Noted Date Diagnosed Date Resolved Date Cellulitis of breast 01/07/2023 01/07/2023 024 Blister of breast without infection 09/30/2022 07/26/2023 Bullous pemphigus 03/20/2022 07/13/2022 Right-sided chest pain 08/20/201703/20 Nutritional anemia 07/22/2015 Encounters Date Type Department Care Team Description 05/22/[address] [address] Liliana Golden MD Lab Orders 05/09/[address] [address] Liliana Golden MD Durable Medical Equipment (Manual wheelchair) 05/08/[address] [address] Liliana Golden MD Appointment Request 05/01/2024 10:00 AM EST Telemedicine [address] [address] Liliana Golden MD Ischemic heart disease (Primary Dx); Hemorrhoids, unspecified hemorrhoid type; Essential hypertension; Urinary incontinence, mixed; Stage 3a chronic kidney disease (CMS/HCC); Anemia due to vitamin B12 deficiency, unspecified B12 deficiency type; Type 2 diabetes mellitus with stage 3b chronic kidney disease, without long-term current use of insulin ([facility]); Type 2 diabetes mellitus with hyperglycemia, without long-term current use of insulin ([facility]); Anemia of chronic disease; Dyslipidemia; Bullous pemphigoid; Moderate dementia without behavioral disturbance, psychotic disturbance, mood disturbance, or anxiety, unspecified dementia type ([facility]) 05/01/2024 Travel 04/20/2024 Telephone [facility] [address] [place], [place] [phone] Liliana Golden MD Durable Medical Equipment 03/27/2024 Telephone [facility] [address] [place] [address] Nakita Horowitz MA DME from [employer] from Last 3 Months Immunizations Name Administration Dates Next Due Hep B, adult 09/19/2018,10/20/2016 Influenza High-dose Quadriva lent Preservative Free 01/11/2023,01/06/2022,01/03/2021,02/15 Influenza injectable quadriv alent IIV4 with preservative 01/07/2016,01/04/2015 Influenza, High Dose Seasona l, Preservative Free 12/12/2018,01/05/2018,12/22/2016 Influenza, IIV3, injectable 01/30/2014, 1 Influenza, Split (incl. juli fied surface antigen) 12/29/2012,01/27/2012 Influenza, Unspecified 01/06/2022,2020,02/16/2020,01/30,01/16/2011 Moderna Covid-19 Vaccine 12+ 10/13/2021, 02/14/2021,06/06/2020,05/09 Pneumococcal Conjugate PCV 13 01/07/2016 Pneumococcal Polysaccharide PPSV23 04/25/2010 TD (adult), 2 Lf tetanus tox oid, preservative free, adsorbed 04/25/2010 Tdap 10/05/2022,01/27/2012 Zoster, Recombinant 02/05/2020,11/30/2019 Zoster, live 02/05/2020,11/30/2019,04/26/2015 Social History Tobacco Use Types Packs/Day Years Used Date Smoking Tobacco: Never Passive Smoke Exposure: Never Smokeless Tobacco: Never Tobacco Cessation:Counseling Given: Not Answered Depression Answer Date Recorded Patient Health Questionnaire-9 [...] not to disclose 2021 10:21 AM EDT Last Filed Vital Signs Vital Sign Reading Time Taken Comments Blood Pressure 136/69 06/21/2023 3:55 PM EDT Pulse 75 06/21/2023 3:55 PM EDT Temperature 36.5 ??C (97.7 ??F) 06/21/2023 3:55 PM ED T Respiratory Rate 16 06/21/2023 3:55 PM EDT Oxygen Saturation 96% 06/21/2023 3:55 PM EDT Inhaled Oxygen Concentration - - Weight 47.7 kg (105 lb 3.2 oz) 01/11/2023 1:25 P M EDT Height 149.9 cm (4' 11 ) 02/12/2022 1:27 PM EST Body Mass Index 21.25 02/12/2022 1:27 PM EST Plan of Treatment Health Maintenance Due Date Last Done Comments Diabetes: Foot Exam 1950 Eye Exam 1950 RSV Patients and Patients Aged 60 years or older (1 - 1-dose 75+ series) 2013 Hepatitis B Vaccines (3 of 3 - 19+ 3-dose series) 11/14/2018 09/19/2018, 10/20/2016 Lipid Panel 07/01/2023 06/30/2022, 09/26, 06/06/2020 COVID-19 Vaccine ( season) 2023 10/13/2021, 02/14/2021, 06/06/2020, Additional history exists Influenza Vaccine (#1) 2023 3, 01/06/2022, 01/06/2022, Additional history exists Diabetes: Hemoglobin A1C 01/25/2024 024, 01/11/2023, 03/16/2022, Additional history exists SDOH Screening 05/13/2024 05/13/2023 Depression Screening 07/25/2024 07/26/2023, 07/26/19 24 Tobacco Screening 07/25/2024 07/26/2023 Alcohol/Substance Use Screening 05/01/2025 05/01/2024 DTaP/Tdap/Td Vaccines (3 - Td or Tdap) 10/05/2032 10/05/2022, 01/27/2012, 04/25/2010 Pneumococcal Vaccine: 50+ Years Completed 01/07/2016, 04/25/2010 Zoster Vaccines Completed 02/05/2020, 11/0 11/2019, 11/30/2019, Additional history exists HIB Vaccines Aged Out No longer eligi ble based on patient's age to complete this topic HPV Vaccines Aged Out No longer eligi ble based on patient's age to complete this topic Hepatitis A Vaccines Aged Out No long er eligible based on patient's age to complete this topic IPV Vaccines Aged Out No longer eligi ble based on patient's age to complete this topic Meningococcal Vaccine Aged Out No adalgisa kenan eligible based on patient's age to complete this topic RSV under 20 months Aged Out No longe r eligible based on patient's age to complete this topic Rotavirus Vaccines Aged Out No longer eligible based on patient's age to complete this topic Procedures Procedure Name Priority Date/Time Associated Diagnosis Comments POCT GLYCOSYLATED HEMOGLOBIN (HGB A1C) Routine 07/26/2023 1:45 PM EDT Type 2 diabetes mellitus with hyperglycemia, without long-term current use of insulin ([facility]) LIPID PANEL, STANDARD Routine 06/30/2022 3:19 PM EDT Type 2 diabetes mellitus with hyperglycemia, without long-term current use of insulin ([facility]) from Last 3 Months or Most Recently Relevant to Health Maintenance Results * (ABNORMAL) POCT glycosylated hemoglobin (Hgb A1c) (07/26/2023 1:45 PM EDT) Hemoglobin A1C 6.4(A) 4.0 - 6.0 % QC Media Lot # [id number] Lot# Expiration Date [id number] Blood Capillary blood specimen / Unknown 07/26/2023 1:45 PM EDT Liliana Golden MD POINT OF CARE TEST ENTER/EDIT OR DERABLES Final Result * Lipid Panel, Standard (06/30/2022 3:19 PM EDT) Cholesterol, Total 169 <200 mg/dL [facility] [facility] HDL Cholesterol 83 > OR = 50 mg/dL [facility] [facility] Triglycerides 127 <150 mg/dL [facility] LDL Cholesterol 65 mg/dL (calc) [facility] [facility] Comment: Reference range: <100 Desirable range <100 mg/dL for primary prevention; ?? <70 mg/dL for patients with CHD or diabetic patients with > or = 2 CHD risk factors. LDL-C is now calculated using the Panda calculation, which is a validated novel method providing better accuracy than the Friedewald equation in the estimation of LDL-C. Jozef SS et al. MARCI. 2013;310(19): 0079-7101 (http://education.[facility].com/faq/TJM046) Chol/HDLC Ratio 2.0 <5.0 (calc) [facility] Non-HDL Cholesterol 86 <130 mg/dL (calc) [facility] Comment: For patients with diabetes plus 1 major ASCVD risk factor, treating to a non-HDL-C goal of <100 mg/dL (LDL-C of <70 mg/dL) is considered a therapeutic option. Blood Venous blood specimen / Unknown 06/30/2022 3:19 PM EDT 06/30/2022 3:19 PM EDT Narrative [facility] - 07/01/2022 4:10 AM EDT FASTING:NO FASTING: NO us Liliana Golden MD LAB BLOOD ORDERABLES Final Resul t [facility] [address], [place] [address] [facility] [address] [place] [address] from Last 3 Months or Most Recently Relevant to Health Maintenance Insurance [facility] Care Teams Bus Mechanic Relationship Specialty Start Date End Date Liliana Golden MD [address] [place] [phone] PCP - General Family Medicine 03/29/18
--- OUTSIDE RECORDS SUMMARY | 2024-05-23 10:36 | XMS_ITS | Encounter Summary ---
Author Organization [employer] Address [address] [facility] 7t [place] [address] Care Team Providers Care Sales Team Member Name Role Phone Liliana Golden MD Primary Care Provider [phone] Encounter Details Date Type Department Care Team ([facility] st Contact Info) Description 04/14/2023 Telephone [facility] MEDICINE [address] [place], [place] [phone] Liliana Golden MD [address] [place], [place] [phone] Social History Tobacco Use Types Packs/Day Years Used Date Smoking Tobacco: Never Passive Smoke Exposure: Never Smokeless Tobacco: Never Depression Answer Date Recorded Patient Health Questionnaire-9 Score 2 06/30/2022 Housing Stability Answer Date Recorded What is your housing situation today? I have cassidy ambriz 01/10/[address] you li ve. Do you have problems with any of the following? None of the above 01/10/2023 Food Insecurity Answer Date Recorded Within the past 12 months, y ou worried that your food would run out before you got money to buy more: Never True 01/10/2023 Within the past 12 months,th e food you bought just didn't last and you didn't have enough money to get more: Never True Transportation Answer Date Recorded In the past 12 months, has l ack of transportation kept you from medical appts, meetings, work or from getting things needed for daily living? No 01/10/2023 Utilities Answer Date Recorded In the past 12 months, has t he electric, gas, oil or water company threatened to shut off services in your home? No 01/10/2023 Depression Answer Date Recorded Patient Health Questionnaire-2 Score 0 06/30/2022 Comments Unknown Sex and Gender Information Value [...] Assessment Noted Time PHQ-9 Depression Total Score: 2 07/01/19 23 2:32 PM EDT documented as of this encounter Care Teams Sales Team Member Relationship Specialty Start Date End Date Liliana Golden MD [address] [place] [address] PCP - General Family Medicine 03/29/18 documented as of this encounter
--- OUTSIDE RECORDS SUMMARY | 2024-05-23 10:36 | XMS_ITS | Encounter Summary ---
Author Organization [employer] Address [address] [facility] 7t [place] [address] Care Team Providers Care Inside Sales Coordinator Name Role Phone Liliana Golden MD Primary Care Provider [phone] Reason for Visit * Reason Onset Date Comments Appointment Request 05/08/2024 Encounter Details Date Type Department Care Team ([facility] st Contact Info) Description 05/08/2024 Telephone [facility] MED[facility]INE [address] [place], [place] [phone] Liliana Golden MD [address] [place], [place] [phone] Appointment Request Social History Tobacco Use Types Packs/Day Years [...] encounter Miscellaneous Notes * Telephone Encounter - Josie Pascal - 05/08/2024 10:21 AM EST Tc from pt daughter stating that she spoke with the PCP and agreed to schedule an appointment when the pt returns from vacation. Pt daughter wants an appt on apr.. There is not availability. Any questions contact [phone] german documented in this encounter Plan of Treatment Not on file documented as of this encounter Visit Diagnoses Not on filedocumented in this encounter Additional Health Concerns Assessment Noted Time PHQ-9 Depression Total Score: 0 07/26/19 24 1:46 PM EDT documented as of this encounter Care Teams Inside Sales Coordinator Relationship Specialty Start Date End Date Liliana Golden MD [address] [place] [phone] PCP - General Family Medicine 03/29/18 documented as of this encounter
--- OUTSIDE RECORDS SUMMARY | 2024-05-23 10:36 | XMS_ITS | Encounter Summary ---
Author Organization [employer] Address [address] [facility] 7t [place] [address] Care Team Providers Care Surgery Scheduler Name Role Phone Liliana Golden MD Primary Care Provider [phone] Reason for Visit * Reason Onset Date Comments Durable Medical Equipment 04/20/2024 Encounter Details Date Type Department Care Team (Late st Contact Info) Description 04/20/2024 Telephone [facility] MEDICINE [address] [place], [place] [phone] Liliana Golden MD [address] [place], [place] [phone] Durable Medical Equipment Social History Tobacco Use [...] encounter Miscellaneous Notes * Telephone Encounter - Justin Ramsey - 05/10/2024 12:05 PM EST Tc from Daughter requesting status on message prior. Please contact daughter at [phone]. (Lithuanian Speaker) * Telephone Encounter - Etta Walker - 04/24/2024 11:26 AM EST DME RX for Reclining wheel chair, diabetic shoes and BPM generated and placed on providers desk forreview and signature. * Telephone Encounter - Sher De La Torre - 04/20/2024 1:56 PM EST TC from pt and daughter rescheduling Reclining wheel chair Diabetic shoe New blood pressure monitor ( old one not working ) Call got disconnected as caller and patient was verifying information with her sister. documented in this encounter Plan of Treatment Not on file documented as of this encounter Visit Diagnoses Not on filedocumented in this encounter Additional Health Concerns Assessment Noted Time PHQ-9 Depression Total Score: 0 07/26/19 24 1:46 PM EDT documented as of this encounter Care Teams Surgery Scheduler Relationship Specialty Start Date End Date Liliana Golden MD [address] [place] [phone] PCP - General Family Medicine 03/29/18 documented as of this encounter
--- OUTSIDE RECORDS SUMMARY | 2024-05-23 10:36 | XMS_ITS | Encounter Summary ---
Author Organization [employer] Address [address] [facility] [address]t [place] [address] Care Team Providers Care Fructose Loader Name Role Phone Liliana Golden MD Primary Care Provider [phone] Reason for Visit * Reason Onset Date Comments Durable Medical Equipment 05/09/2024 Manual wheelchair Encounter Details Date Type Department Care Team ([facility] st Contact Info) Description 05/09/2024 Telephone [facility] MEDICINE [address] [place], [place] [phone] Liliana Golden MD [address] [place], [place] [phone] Durable Medical Equipment (Manual wheelchair) Social History Tobacco Use Types Packs/Day Years [...] encounter Miscellaneous Notes * Telephone Encounter - Etta Walker - 05/09/2024 9:59 AM EST DME RX for Wheel chair generated and placed on providers desk for signature. * Telephone Encounter - Etta Walker - 05/09/2024 9:59 AM EST ----- Message from Liliana Golden MD sent at 05/07/2024 2:42 PM EST ----- Please write a letter for wheelchair. Her daughter requests a manual wheelchair. We could not complete last note because she was in [facility] [place]. documented in this encounter Plan of Treatment Not on file documented as of this encounter Visit Diagnoses Not on filedocumented in this encounter Additional Health Concerns Assessment Noted Time PHQ-9 Depression Total Score: 0 07/26/19 24 1:46 PM EDT documented as of this encounter Care Teams Fructose Loader Relationship Specialty Start Date End Date Liliana Golden MD [address] [place] [id number] PCP - General Family Medicine 03/29/18 documented as of this encounter
--- OUTSIDE RECORDS SUMMARY | 2024-05-23 10:36 | XMS_ITS | Encounter Summary ---
Author Organization [employer] Address [address] [facility] 7t [place] [address] Care Team Providers Care Wool Sacker Name Role Phone Liliana Golden MD Primary Care Provider [phone] Encounter Details Date Type Department Care Team ([facility] st Contact Info) Description 02/23/2023 Orders Only [facility] MEDICINE [address] [place], [place] [phone] Liliana Golden MD [address] [place], [place] [phone] Positive colorectal cancer screening using Cologuard test (Primary Dx); Anemia of chronic disease Social History Tobacco Use Types Packs/Day Years [...] on file documented as of this encounter Procedures Procedure Name Priority Date/Time Associated Diagnosis Comments CANCELLED HEMATOLOGY Routine 09/02/2023 3:34 PM EDT Positive colorectal cancer screening using Cologuard test CANCELLED CHEMISTRY Routine 09/02/2023 3 :34 PM EDT Positive colorectal cancer screening using Cologuard test documented in this encounter Results * Cancelled Hematology (09/02/2023 3:34 PM EDT) Cancelled Hematology SEE NOTE [facility] Comment:THE FOLLOWING TESTS WERE CANCELLED: CBCREASON: NO SPECIMEN RECEIVED 09/02/2023 3:34 PM EDT 09/03/2023 8:58 AM EDT Liliana Golden MD HISTORICAL/NON ORDERABLE LABS Fi nal Result Performing Organization Address [facility] Co de Phone Number [facility] [address] [place] [phone] * Cancelled Chemistry (09/02/2023 3:34 PM EDT) Cancelled Chemistry SEE NOTE [facility] Comment:CMP, Iron Profile, F erritin, Lipid with reflex, Vitamin B12,and Folate cancelled. No specimen received. 09/02/2023 3:34 PM EDT 09/03/2023 8:18 AM EDT us Liliana Golden MD HISTORICAL/NON ORDERABLE LABS Fi nal Result Performing Organization Address City/[facility] Co de Phone Number [facility] [address] [place] [address] [phone] documented in this encounter Visit Diagnoses Diagnosis Positive colorectal cancer screening using Cologuard test- Primary Anemia of chronic disease Anemia of other chronic disease documented in this encounter Additional Health Concerns Assessment Noted Time PHQ-9 Depression Total Score: 2 07/01/19 23 2:32 PM EDT documented as of this encounter Care Teams Wool Sacker Relationship Specialty Start Date End Date Liliana Golden MD [address] [place] [phone] PCP - General Family Medicine 03/29/18 documented as of this encounter
--- OUTSIDE RECORDS SUMMARY | 2024-05-23 10:36 | XMS_ITS | Encounter Summary ---
Author Organization [employer] Address [address] [facility] 7t [place] [address] Care Team Providers Care Kardex Clerk Name Role Phone Liliana Golden MD Primary Care Provider Encounter Details Date Type Department Care Team ([facility] st Contact Info) Description 10/05/2023 Orders Only [facility] [address] [place], [place] [phone] Liliana Golden MD [address] [place], [place] [phone] Social History Tobacco Use Types Packs/Day Years [...] t he electric, gas, oil or water [employer] threatened to shut off services in your [...] documented as of this encounter Care Teams Kardex Clerk Relationship Specialty Start Date End Date Liliana Golden MD [address] [place] [address] PCP - General Family Medicine 03/29/18 documented as of this encounter
[2024-05-23 11:39] LABS: MANUAL DIFF FLAG NO
[2024-05-23 11:52] LABS: Basophils Absolute Auto 0.1 X10*3/uL (0.0-0.2); Basophils Percent Auto 0.7 % (0-2); Eosinophils Absolute Auto 0.3 X10*3/uL (0.0-0.4); Eosinophils Percent Auto 3.5 % (0-4); Hematocrit 31.1 % (37.0-47.0); Hemoglobin 10.5 g/dl (12.0-16.0); Imm Gran Abs Auto 0.09 X10*3/uL (0.00-0.03); Lymphocytes Absolute Auto 2.1 X10*3/uL (1.2-4.9); Lymphocytes Percent Auto 23.2 % (20-40); Mean Corpuscular HGB Conc 33.8 g/dl (31.0-35.0); Mean Corpuscular Volume 88.9 fL (80.0-98.0); Mean Platelet Volume 10.5 fL (9.4-12.3); Monocytes Absolute Auto 0.7 X10*3/uL (0.1-1.2); Monocytes Percent Auto 7.5 % (2-11); Neutrophils Absolute Auto 5.8 x10*3/uL (2.0-8.3); Neutrophils Percent Auto 64.1 % (45-73); Platelet Count 264 X10*3/uL (160-400); White Blood Count 9.1 X10*3/uL (4.8-10.8)
[2024-05-23 12:23] LABS: Alanine Aminotransferase 14 U/L (0-31); Albumin Level 3.9 g/dL (3.5-5.0); Alkaline Phosphatase 93 U/L (39-117); Anion Gap 14 (12-20); Aspartate Amino Transferase 35 U/L (5-31); Bilirubin Total 0.3 mg/dL (0.0-1.0); Blood Urea Nitrogen 45 mg/dL (9-16); Calcium 9.8 mg/dL (8.4-10.2); Carbon Dioxide 25 mmol/L (22-29); Chloride 103 mmol/L (96-108); Cholesterol 185 mg/dL (<200); Estimated Glomerular Filt Rate 38; Glucose Random 156 mg/dL (60-115); HDL Cholesterol 56 mg/dL (>40); Iron 51 mcg/dL (30-160); LDL Cholesterol Calculated 115 mg/dL (<100); Percent Iron Saturation 21 % (15-50); Potassium 3.6 mmol/L (3.3-5.1); Sodium 138 mmol/L (135-145); Total Iron Binding Capacity 243 mcg/dL (228-428); Total Protein 7.8 g/dL (6.5-8.0); Triglycerides 70 mg/dL (<150); Unsaturated Iron Binding 192 ug/dL
[2024-05-23 12:28] LABS: Microalbum/Creatinine Ratio Ur 65.8 ug/mg cr (<30)
[2024-05-23 12:37] LABS: Ferritin 49 ng/mL (10-250)
[2024-05-23 12:49] LABS: Folate 10.1 ng/mL (> or = 4.0); Vitamin B12 1461 pg/mL (200-900)
[2024-05-23 12:55] LABS: Reflex LDLD? No
== END 2024-05-23 09:29 | disposition home or self-care (01) ==
LOC: HO.HHCL 09:28
PROVIDERS: Visit Provider Family Medicine
DX: E11.22 Type 2 diabetes mellitus with diabetic chronic kidney disease (principal); N18.32 Chronic kidney disease, stage 3b
CPT/HCPCS: 36415; 80053; 80061; 82043; 82570; 82607; 82728; 82746; 83540; 85025

== ENCOUNTER 2024-11-30 15:29 | Outpatient (REF) | payer OTHER, SELFPAY ==
--- OUTSIDE RECORDS SUMMARY | 2024-11-29 14:45 | XMS_ITS | Encounter Summary ---
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 I have cassidy ambriz 08/29/[address] you li ve. Do you have problems with any of the following? None of the above 08/29/2024 Food Insecurity Answer Date Recorded Within the past 12 months, y ou worried that your food would run out before you got money to buy more: Never True 08/29/2024 Within the past 12 months,th e food you bought just didn't last and you didn't have enough money to get more: Never True 05/2024 Transportation Answer Date Recorded In the past 12 months, has l ack of transportation kept you from medical appts, meetings, work or from getting things needed for daily living? No 08/29/2024 Utilities Answer Date Recorded In the past 12 months, has t he electric, gas, oil or water company threatened to shut off services in your home? No 08/29/2024 Depression Answer Date Recorded Patient Health Questionnaire-2 Score 0 07/26/2023 Internet Access Answer Date Recorded Internet Access Q1 Yes 08/29/2024 Internet Access Q2 Not on file 08/29/2024 Comments Unknown Sex and Gender Information Value Date Recorded Sex Assigned at Female 01/26/2022 10:21 AM EDT Legal Sex Female 10:21 AM EDT Gender Identity Female 01/26/2022 10:21 AM EDT Sexual Orientation Choose not to disclose 2021 10:21 AM EDT documented as of this encounter Progress Notes * Crystal Gold, OD - 11/29/2024 2:45 PM EDT Eye Care Progress Note Patient ID: Chanel Egan is a 84 y.o. female. Chief Complaint Diabetic Eye Exam HPI Patient presents for type 2 diabetes mellitus (DM) eye exam. Patient's last A1c was 6.7% on 09/05/24. Patient's last BSL measurement was 89mg/dl this AM. Patient denies any visual or ocular concerns at this time. She does not wear any glasses but is happy with vision uncorrected. LUCILA: August 2023 Last edited by Crystal Gold, CHADWICK on 11/29/2024 4:11 PM. Current Medications[1] Medical History[2] Surgical History[3] Family History[4] Tobacco Use: Low Risk (11/29/2024) Tobacco Smoking Tobacco Use: Never Smokeless Tobacco Use: Never Passive Exposure: Never Allergies[5] ROS Positive for: Endocrine, Eyes Negative for: Constitutional, Gastrointestinal, Neurological, Skin, Genitourinary, Musculoskeletal,HENT, Cardiovascular, Respiratory, Psychiatric, Allergic/Imm, Heme/Lymph Last edited by Crystal Gold, CHADWICK on 11/29/2024 2:51 PM. Base Eye Exam Visual Acuity (Snellen - Linear) Right Left Dist sc 20/80-2 20/80-2 Tonometry (iCare , 3:01 PM) Right Left Pressure 9 9 Pupils Pupils APD Right PERRL None Left PERRL None Visual Lyons Left Right Full Full Grossly full to finger motion OD/OS Extraocular Movement Right Left Full Full Neuro/Psych Oriented x3: Yes Mood/Affect: Normal Dilation Both eyes: 1.0% tropicamide @ 3:13 PM Slit Lamp and Fundus Exam External Exam Right Left External Normal Normal Portable Slit Lamp Exam Right Left Lids/Lashes Dermatochalasis UL, (+) blepharitis UL Dermatochalasis UL, (+) blepharitis UL Conjunctiva/Sclera White and quiet White and quiet Cornea Clear Clear Anterior Chamber Deep and quiet, angles open Deep and quiet, angles open Iris Round and reactive, (-) NVI Round and reactive, (-) NVI Lens 3+ NS, 3+ cortical changes 3+ NS, 3+ cortical changes Fundus Exam Right Left Vitreous Clear Clear Disc [place] and healthy, large ONH, (-) NVD [place] and healthy, large ONH, (-) NVD C/D Ratio Vertical 0.65 0.60 C/D Ratio Horizontal 0.65 0.60 Macula Flat with even pigmentation, (-) DME Flat with even pigmentation, (-) DME Vessels Normal course and caliber, (-) NVE Normal course and caliber, (-) NVE Periphery No holes/tears/detachments 360 No holes/tears/detachments 360 Hazy view OU due to cataracts Refraction Manifest Refraction (Retinoscopy, Subjective) Sphere Cylinder [place] Dist [place] Right -0.50 -2.50 090 20/80-1 Left [place] -2.50 090 20/80-1 Assessment and Plan Diagnoses and all orders for this visit: Type 2 diabetes mellitus 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 manifestations (CMS/HCC) - No diabetic retinopathy or diabetic macular edema both eyes (OU) visible on examination today. Advised patient and patient's daughter that the cataracts obscure the retinal view and make it difficult to accurate assess patient's level of retinopathy. Recommended cataract surgery to improve view of the retina. - Discussed importance of tight blood glucose control, medication compliance and regular follow up with PCP. Today's exam notes will be made available for PCP to review. Combined forms of age-related cataract of both eyes - Visually significant; BCVA 20/80 OD & left eye (OS) - Recommended cataract surgery to improve vision and improve fundus view. Patient's daughter says she will discuss with the family and let us know if they wish to proceed with a cataract surgery referral Regular astigmatism, bilateral - No spec Rx dispensed at this time - no visual improvement appreciated with Rx and patient is happy with uncorrected vision RTC in 1 year for comprehensive eye exam or soon as needed Crystal Gold, OD 11/29/2024, 4:19 PM Space Technologist Source: __ None _x_ Bilingual Staff __ Qualified Staff Applied Psychology Chair __ Telephone Space Technologist; ID# __ Space Technologist brought by patient (family member, friend, MEDICAL CLAIMS MANAGER, etc) __ In person diplomatic interpreter/translator __ Ipad Space Technologist; ID#: Language Spoken During Exam: Thai [1] Current Outpatient Medications Medication Sig Dispense Refill acetaminophen (Tylenol) 500 MG tablet Take by mouth if needed in the morning, at noon, and at bedtime. Alcohol Swabs (Alcohol Prep) 70 % pads USE THREE TIMES DAILY 100 each 11 ammonium lactate (Lac-Hydrin) 12 % lotion Apply topically if needed for dry skin. 400 g 3 Ascorbic Acid (vitamin C) 500 MG tablet TAKE 1 TABLET BY MOUTH TWICE DAILY IN THE MORNING AND IN THE EVENING 180 tablet 3 Aspirin EC Adult Low Dose 81 MG EC tablet TAKE 1 TABLET BY MOUTH EVERY EVENING 90 tablet 3 atorvastatin (Lipitor) 80 MG tablet TAKE 1 TABLET BY MOUTH AT BEDTIME 90 tablet 3 Blood Glucose Monitoring Suppl (FreeStyle Lite) w/Device kit 1 each 3 times daily. 1 kit 0 Blood Pressure Monitor kit Check blood pressure once daily and as needed 1 kit 0 bumetanide (Bumex) 0.5 MG tablet TAKE 1 TABLET BY MOUTH TWICE DAILY IN THE MORNING AND IN THE EVENING 180 tablet 3 carvedilol (Coreg) 25 MG tablet TAKE 1 TABLET BY MOUTH TWICE DAILY IN THE MORNING AND IN THE EVENING WITH FOOD 180 tablet 3 cetirizine (ZyrTEC) 5 MG tablet TAKE 1 TABLET BY MOUTH EVERY MORNING 90 tablet 3 chlorhexidine (Hibiclens) 4 % external liquid Rinse area with water, then apply minimum amount necessary to cover skin or wound area and wash gently. Rinse again thoroughly. 473 mL 1 clobetasol (Temovate) 0.05 % ointment APPLY TO BLISTERS ON THE RIGHT BREAST TWICE DAILY cloNIDine (Catapres) 0.1 MG tablet TAKE 1 TABLET BY MOUTH TWICE DAILY IN THE MORNING AND AT [id number] tablet 3 clopidogrel (Plavix) 75 MG tablet TAKE 1 TABLET BY MOUTH EVERY MORNING 90 tablet 3 clotrimazole (Lotrimin) 1 % cream Cyanocobalamin (B-12) 1000 MCG tablet controlled-release TAKE 1 TABLET BY MOUTH EVERY MORNING 90 tablet 3 Desitin 13 % cream EPINEPHrine (Epipen) 0.3 MG/0.3ML injection syringe As directed FeroSul 325 (65 Fe) MG tablet TAKE 1 TABLET BY MOUTH TWICE DAILY IN THE MORNING AND IN THE EVENING WITH ORANGE JUICE 180 tablet 3 FREESTYLE LITE test strip TEST BLOOD SUGAR 3 TIMES A DAY 100 strip 11 glipiZIDE (Glucotrol) 5 MG tablet TAKE 1 TABLET BY MOUTH TWICE DAILY IN THE MORNING AND IN THE EVENING BEFORE MEALS 180 tablet 3 glucagon 1 MG injection Prepare injection as directed. Inject if patient is unconscious due to low blood sugar glucose (Glutose) 40 % gel oral gel hydrALAZINE (Apresoline) 25 MG tablet TAKE 1 TABLET BY MOUTH THREE TIMES DAILY IN THE MORNING, EVENING, AND BEDTIME WITH FOOD 270 tablet 3 hydrocortisone (Preparation H) 1 % cream Apply to anal area bid prn 30 g 2 Multiple Vitamin (Multivitamin) tablet TAKE 1 TABLET BY MOUTH EVERY EVENING WITH FOOD 90 tablet 3 mupirocin (Bactroban) 2 % ointment niacin 500 MG tablet Take 1 tablet (500 mg) by mouth with breakfast and with evening meal. Take 1 tablet by mouth twice daily 180 tablet 3 NIFEdipine XL (Procardia XL) 60 MG 24 hr tablet senna (Senokot) 8.6 MG tablet Take 2 tablets (17.2 mg) by mouth if needed at bedtime for constipation. 180 tablet 3 SM Athletes Foot 1 % cream TRUEplus Lancets 33G misc TEST BLOOD SUGAR THREE TIMES DAILY 100 each 11 Wound Dressings (Medihoney Ca Alginate 2 x2 ) pads Apply to the wound on buttock every 1-2 days 10 each 2 No current facility-administered medications for this visit. [2] Past Medical History: Diagnosis Date Blister of breast without infection 09/30/2022 Bullous pemphigus 03/20/2022 Cellulitis of breast 01/07/2023 [3] History reviewed. No pertinent surgical history. [4] No family history on file. 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
[2024-11-30 15:54] LABS: MANUAL DIFF FLAG NO
--- OUTSIDE RECORDS SUMMARY | 2024-11-30 16:15 | XMS_ITS | Encounter Summary ---
Author Organization [facility] Address [address] [facility] [address] [place] [address] Phone Care Team Providers Care Sulphate Tester Name Role Phone Unavailable Primary Care Provider Unavailabl e Encounter Details Date Type Department Care Team (Late st Contact Info) Description 11/30/2024 4:15 PM EDT [facility] [address] [place] [phone] Mika Rosenthal MD [address] [phone] Stage 3b chronic kidney disease (HCC) (Primary Dx); Type 2 diabetes mellitus with diabetic chronic kidney disease (HCC); Essential hypertension Social History Tobacco Use Types Packs/Day Years [...] on file documented as of this encounter Last Filed Vital Signs Vital Sign Reading Time Taken Comments Blood Pressure 104/58 11/30/2024 3:02 PM EDT Pulse 59 11/30/2024 3:02 PM EDT Temperature - - Respiratory Rate - - Oxygen Saturation 97% 11/30/2024 3:02 PM EDT Inhaled Oxygen Concentration - - Weight 49 kg (108 lb) 11/30/2024 3:02 PM EDT Height - - Body Mass Index 21.81 01/01/2020 12:00 PM EDT documented in this encounter Patient Instructions * Patient Instructions* Mika Rosenthal MD - 11/30/2024 4:15 PM EDT No NSAIDS - Do not take non-steroidal anti-inflammatory medications (NSAIDS) such as Ibuprofen (Advil, Motrin, etc), Naproxen (Aleve, etc), Celecoxib (Celebrex) or Ketoprofen. These common arthritis medications can cause permanent kidney damage or worsen your kidney damage. For mild occasional pain, Acetaminophen (Tylenol, etc) is safe for your kidneys. Sodium and Your CKD Diet: How to Spice Up Your Cooking What is sodium? Sodium is a mineral found naturally in foods and is the major part of table salt. What are the effects of eating too much sodium? When your kidneys are not healthy, extra sodium and fluid build up in your body. This can cause swollen ankles, puffiness, a rise in blood pressure, shortness of breath, and/or fluid around your heart and lungs. See the following table for suggestions on how to reduce sodium in your diet. LIMIT THE [AMOUNT OF... FOOD TO LIMIT BECAUSE OF THEIR HIGH SODIUM CONTENT ACCEPTABLE SUBSTITUTES SALT & SALT SEASONINGS Table salt Seasoning salt Garlic salt Onion salt Celery salt Lemon pepper Lite salt Meat tenderizer Bouillon cubes Flavor enhancers Fresh garlic, fresh onion, garlic powder, onion powder, black [pepper, lemon juice, low-sodium/salt-free seasoning blends, vinegar SALTY FOODS Barbecue sauce Steak sauce Soy sauce Teriaky sauce Oyster sauce Salted Snacks such as Crackers Potato chips [place] chips Pretzels Tortilla chips Nuts Popcorn Iroquois seeds Homemade or low- sodium sauces and salad dressings; Vinegar, dry mustard, unsalted popcorn, pretzels, tortilla or corn chips Cured Foods Ham Salt pork Bloom Sauerkraut Pickles, pickle relish Lox & Agustin Olives Fresh beef, veal, pork, poultry, fish, eggs [place] MEATS Hot Dogs Cold cuts, deli meats Pastrami Sausage Corned beef Spam Low-salt deli meats PROCESSED FOODS Buttermilk Cheese Canned: Soups Tomato products Vegetable juices Canned vegetables Convenience Foods such as: TV Dinners Canned raviolis Woodson Macaroni & Cheese Spaghetti Frozen prepared foods Fast foods Natural cheese (1-2 oz Per week) Homemade or tyrel,1- sodium soups, canned food without added salt Homemade casseroles without added salt, made with fresh or raw vegetables, fresh meat, simeon, pasta, or unsalted canned vegetables Some salt or sodium is needed for body water balance. But when your kidneys lose the ability to control sodium and water balance, you may experience the following: thirst fluid gain high blood pressure discomfort during dialysis By using less sodium in your diet, you can control these problems. Hints to keep your sodium intake down Cook with herbs and spices instead of salt. (Refer to Spice Up Your Cooking section for further suggestions.) Read food labels and choose those foods low in sodium. Avoid salt substitutes and specialty low-sodium foods made with salt substitutes because they are high in potassium. When eating out, ask for meat or fish without salt. Ask for gravy or sauce on the side; these may contain large amounts of salt and should be used in small amounts . Limit use of canned, processed and frozen foods. Some information about reading labels Understanding the terms: Sodium Free - Only a trivial amount of sodium per serving. Very Low Sodium - 35 mg or less per serving. Low Sodium - 140 mg or less per serving. Reduced Sodium - Foods in which the level of sodium is reduced by 25%. Light or Lite in Sodium - Foods in which the sodium is reduced by at least 50% . Simple rule of thumb : If salt is listed in the first five ingredients, the item is probably too high in sodium to use. All food labels now have milligrams (mg) of sodium listed. Follow these steps when reading the sodiwn information on the label: 1. Know how much sodium you are allowed each day. Remember that there are 1000 milligrams (mg) in 1gram. For [id number], if your diet prescription is 2 grams of sodium , your limit is 2000 milligrams per day. Consider the sodium value or other food to be eaten during the day. 2. Look at the package label. Check the serving size. Nutrition values are expressed per cindy g. How does this compare to your total daily allowance? If the sodium level is 500 mg or more per serving, the item is not a good choice. 3. Compare labels of similar products. Select the lowest sodium level for the same serving size. How to Spice Up Your Cooking Giving up salt does not mean giving up flavor. Learn to season your food with herbs and spices. Be creative and experiment for a new and exciting flavor. What kinds of spices and herbs should I use instead of salt to add flavor? Try the following spices with the foods listed. Allspice: Use with beef, fish, beets, cabbage, canots, peas, fruit. Basil: Use with beef, pork, most vegetables. [place] Baird: Use with beef, pork, most vegetables. Anne Marie: Use with beef, pork, green beans, cauliflower, cabbage, beets, asparagus, and in dips and marinades. Cardamom: Use with fruit and in baked goods. [place]: Use with beef, chicken, pork, fish, green beans, carrots and in marinades. Dill: Use with beef, chicken, green beans, cabbage, carrots, peas and in dips. Beverly: Use with beef, chicken, pork, green beans, cauliflower and eggplant. Marjoram: Use with beef, chicken, pork, green beans, cauliflower and eggplant. Glenys: Use with chicken, pork, cauliflower, peas and in marinades. Thyme: Use with beef, chicken, pork, fish, green beans, beets and carrots. José Antonio: Use with chicken, pork, eggplant and in dressing. Tarragon: Use with fish, chicken, asparagus, beets, cabbage, cauliflower and in marinades. Tips for cooking with herbs and spices Purchase spices and herbs in small amounts . When they sit on the shelf for years they lose their flavor. Use no more than ?? teaspoon of dried spice (?? of fresh) per pound of meat. Add ground spices to food about 15 minutes before the end of the cooking period. Add whole spices to food at least one hour before the end of the cooking period. Combine herbs with oil or butter, set for 30 minutes to bring out their flavor, then brush on foodswhile they cook, or brush meat with oil and sprinkle herbs one hour before coolcing. Crush dried herbs before adding to foods. Can I use salt substitutes? Caution! If you are told to limit potassium in your diet, be very cautious about using salt substitutes because most of them contain some form of potassium. Check with your doctor or dietitian beforeusing and salt substitute. Lucien and create your own seasoning containing those spices that you like. If you would like to become a volunteer and find out more about what's happening where you live, contact your local [facility] Affiliate. Blood pressure monitoring education: Monitor home blood pressure values after sitting for 5 minutes with back and arm support. Keep a log. Bring your log and blood pressure cuff to your next visit. documented in this encounter Plan of Treatment Upcoming Encounters Date Type Department Care Team (Late st Contact Info) Description 11/29/2025 2:30 PM EDT Office Visit [facility] [address] [place] [phone] Mika Rosenthal MD [address] [facility] [address] [place] [address] Scheduled Orders Name Type Priority Associated Diagnoses Orde r Schedule PTH, Intact Lab Routine Stage 3b chronic kidney disease (HCC) Type 2 diabetes mellitus with diabetic chronic kidney disease (HCC) Essential hypertension Expected: 11/30/2024, Expires: 12/30/2025 Renal Function Panel Lab Routine Stage 3b chronic kidney disease (HCC) Type 2 diabetes mellitus with diabetic chronic kidney disease (HCC) Essential hypertension Expected: 11/30/2024, Expires: 12/30/2025 Urinalysis with microscopic Lab Routine Stage 3b chronic kidney disease (HCC) Type 2 diabetes mellitus with diabetic chronic kidney disease (HCC) Essential hypertension Expected: 11/30/2024, Expires: 12/30/2025 Urine Albumin / Creatinine Ratio Lab Routine Stage 3b chronic kidney disease (HCC) Type 2 diabetes mellitus with diabetic chronic kidney disease (HCC) Essential hypertension Expected: 11/30/2024, Expires: 12/30/2025 Protein, Total, Random Urine w/Creatinine (Protein/Creat Ratio) Lab Routine Stage 3b chronic kidney disease (HCC) Type 2 diabetes mellitus with diabetic chronic kidney disease (HCC) Essential hypertension Expected: 11/30/2024, Expires: 12/30/2025 Vitamin D 25 Hydroxy Lab Routine Stage 3b chronic kidney disease (HCC) Type 2 diabetes mellitus with diabetic chronic kidney disease (HCC) Essential hypertension Expected: 11/30/2024, Expires: 12/30/2025 CBC Lab Routine Stage 3b chronic kidney disease (HCC) Type 2 diabetes mellitus with diabetic chronic kidney disease (HCC) Essential hypertension Expected: 11/30/2024, Expires: 12/30/2025 Phosphorus Lab Routine Stage 3b chronic kidney disease (HCC) Type 2 diabetes mellitus with diabetic chronic kidney disease (HCC) Essential hypertension Expected: 11/30/2024, Expires: 12/30/2025 Magnesium Lab Routine Stage 3b chronic kidney disease (HCC) Type 2 diabetes mellitus with diabetic chronic kidney disease (HCC) Essential hypertension Expected: 11/30/2024, Expires: 12/30/2025 Albumin Lab Routine Stage 3b chronic kidney disease (HCC) Type 2 diabetes mellitus with diabetic chronic kidney disease (HCC) Essential hypertension Expected: 11/30/2024, Expires: 12/30/2025 Calcium Lab Routine Stage 3b chronic kidney disease (HCC) Type 2 diabetes mellitus with diabetic chronic kidney disease (HCC) Essential hypertension Expected: 11/30/2024, Expires: 12/30/2025 documented as of this encounter Procedures Procedure Name Priority Date/Time Associated Diagnosis Comments CBC AND DIFFERENTIAL Routine 11/30/2024 3:52 PM EDT documented in this encounter Results * (ABNORMAL) CBC and Differential (11/30/2024 3:52 PM EDT) WBC 8.0 4.8 - 10.8 X10*3/uL See order comments RBC 3.15(L) 4.20 - 5.50 X10*6/uL See order comments Hgb 9.4(L) 12.0 - 16.0 g/dl See order comments Hematocrit 26.9(L) 37.0 - 47.0 % See order comments MCV 85.4 80.0 - 98.0 fL See order comments MCH 29.8 27.0 - 33.0 pg See order comments MCHC 34.9 31.0 - 35.0 g/dl See order comments RDW 15.9 11.0 - 16.0 % See order comments Platelets 212 160 - 400 X10*3/uL See order comments MPV 9.4 9.4 - 12.3 fL See order comments Neutrophils % Auto 68.1 45 - 73 % See order comments Immature Granulocytes 0.5(H) 0.0 - 0.4 % See order comments Lymphocytes Relative 20.8 20 - 40 % See order comments Monocytes 7.6 2 - 11 % See order comments Eosinophils Relative 2.5 0 - 4 % See order comments Basophils Relative 0.5 0 - 2 % See order comments nRBC Count 0.0 0.0 - 0.2 /100WBC See order comments Neutrophils Absolute 5.5 2.0 - 8.3 x10*3/uL See order comments Immature Grans (Absolute) 0.04(H) 0.00 - 0.03 X10*3/uL See order comments Lymphocytes Absolute 1.7 1.2 - 4.9 X10*3/uL See order comments Monocytes Absolute 0.6 0.1 - 1.2 X10*3/uL See order comments Eosinophils Absolute 0.2 0.0 - 0.4 X10*3/uL See order comments Basophils Absolute 0.0 0.0 - 0.2 X10*3/uL See order comments NRBC Absolute 0.000 0.0 - 0.012 X10*3/uL See order comments 11/30/2024 3:52 PM EDT 11/30/2024 3:52 PM EDT us Mika Rosenthal MD LAB BLOOD ORDERABLES Final Re sult [place] See order comments [place] [address] documented in this encounter Visit Diagnoses Diagnosis Stage 3b chronic kidney disease (HCC)- Primary Type 2 diabetes mellitus with diabetic chronic kidney disease (HCC) Essential hypertension documented in this encounter
[2024-11-30 16:17] LABS: Hematocrit 26.9 % (37.0-47.0); Hemoglobin 9.4 g/dl (12.0-16.0); Imm Gran Abs Auto 0.04 X10*3/uL (0.00-0.03); Imm Gran Pct Auto 0.5 % (0.0-0.4); Lymphocytes Absolute Auto 1.7 X10*3/uL (1.2-4.9); Mean Corpuscular HGB Conc 34.9 g/dl (31.0-35.0); Mean Corpuscular Hemoglobin 29.8 pg (27.0-33.0); Mean Corpuscular Volume 85.4 fL (80.0-98.0); NRBC Abs Auto 0.000 X10*3/uL (0.0-0.012); NRBC Pct Auto 0.0 /100WBC (0.0-0.2); Platelet Count 212 X10*3/uL (160-400); Red Blood Count 3.15 X10*6/uL (4.20-5.50); White Blood Count 8.0 X10*3/uL (4.8-10.8)
--- OUTSIDE RECORDS SUMMARY | 2024-11-30 16:28 | XMS_ITS | Encounter Summary ---
Author Organization [facility] Address [address] [facility] 200 [place] [address] Phone Care Team Providers Care Project Management Manager Name Role Phone Unavailable Primary Care Provider Unavailabl e Reason for Visit * Reason Comments Med Refill Encounter Details Date Type Department Care Team (Late Contact Info) Description 11/29/2024 Refill [facility] [address] [facility] 200 [place] [address] Mika Rosenthal MD [address] [facility] 204 [place] [address] Social History Tobacco Use Types [...] Department Care Team (Late Contact Info) Description 11/29/2025 2:30 PM EDT Office Visit [facility] [address] [place] [address] Mika Rosenthal MD [address] [facility] 204 [place] [address] documented as of this encounter Visit Diagnoses Not on filedocumented in this encounter
--- OUTSIDE RECORDS SUMMARY | 2024-11-30 16:28 | XMS_ITS | Encounter Summary ---
Author Organization [facility] Address [address] [address] Phone Care Team Providers Care Qa Analyst Name Role Phone Unavailable Primary Care Provider Unavailabl e Encounter Details Date Type Department Care Team (Late st Contact Info) Description 11/30/2024 Office Communication [facility] [address] [address] Mika Rosenthal MD [address] [address] Social History Tobacco Use Types Packs/Day [...] on file documented as of this encounter Miscellaneous Notes * Telephone Encounter - Mika Rosenthal MD - 11/30/2024 8:44 AM EDT Needs f/u with me or MERY in 6 to 8 weeks documented in this encounter Plan of Treatment Upcoming Encounters Date Type Department Care Team (Late st Contact Info) Description 11/29/2025 2:30 PM EDT Office Visit [facility] [address] [place] [address] Mika Rosenthal MD [address] [address] documented as of this encounter Visit Diagnoses Not on filedocumented in this encounter
--- OUTSIDE RECORDS SUMMARY | 2024-11-30 16:28 | XMS_ITS | Encounter Summary ---
Author Organization [employer] Address [address] [facility] 7t [place] [address] Care Team Providers Care Global Account Executive Name Role Phone Liliana Golden MD Primary Care Provider Encounter Details Date Type Department Care Team (Latest Contact Info) Description 11/29/2024 Travel Social History Tobacco Use Types Packs/Day [...] documented as of this encounter Care Teams Global Account Executive Relationship Specialty Start Date End Date Liliana Golden MD [address] [place] [address] PCP - General Family Medicine 03/29/18 documented as of this encounter
--- OUTSIDE RECORDS SUMMARY | 2024-11-30 16:28 | XMS_ITS | Encounter Summary ---
Author Organization [facility] Address [address] [facility] 200 [place] [address] Phone Care Team Providers Care Rn Operating Room Name Role Phone Unavailable Primary Care Provider Unavailabl e Reason for Visit * Reason Comments Med Refill Encounter Details Date Type Department Care Team (Late Contact Info) Description 04/24/2023 Refill [facility] [address] [facility] 200 [place] [address] Mika Rosenthal MD 75[address] [facility] 204 [place] [address] Social History Tobacco Use Types [...] Visit [facility] [address] [place] [address] Mika Rosenthal MD [address] [facility] 204 [place] [address] documented as of this encounter Visit Diagnoses Not on filedocumented in this encounter
--- OUTSIDE RECORDS SUMMARY | 2024-11-30 16:28 | XMS_ITS | Encounter Summary ---
Author Organization [employer] Address 75 [facility] 7t [place] [address] Care Team Providers Care Pit Steward Name Role Phone Liliana Golden MD Primary Care Provider [phone] Reason for Visit * Reason Onset Date Comments Durable Medical Equipment 04/29/2022 Encounter Details Date Type Department Care Team ([facility] st Contact Info) Description 04/29/2022 Telephone [facility] MEDICINE [address] [place], [place] [phone] Liliana Golden MD 230 [place], [place] [phone] Durable Medical Equipment Social History Tobacco Use [...] on filedocumented in this encounter Care Teams Pit Steward Relationship Specialty Start Date End Date Liliana Golden MD [address] [place] [phone] PCP - General Family Medicine 03/29/18 documented as of this encounter
--- OUTSIDE RECORDS SUMMARY | 2024-11-30 16:28 | XMS_ITS | Clinical Summary ---
Author Organization [facility] Address [address] [facility] 204 [place] [address] Phone Care Team Providers Care Lab Support Tech Name Role Phone Unavailable Primary Care Provider [...] morning and 500 mg in the evening. 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 On dual antiplatelet therapy for > 1 year. - Electric Installer: SUSANA - Last echocardiogram: 11/19/16 LVEF 60-65%, [...] daughter was advised to schedule appt w/ Electric Installer Unspecified dementia, unspec ified severity, without behavioral [...] Note: Pt is prescribed Niacin by her meat wrapper. 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 -s/p fosamax treatment x 5 years. -followed by [employer] [facility], Dr. Yandel Matthews, last appt in August 2021 -s/p Tymlos since Jan 2019 until Mar 2021 -started on Prolia in Mar 2021, every 6 months, last dose in September 2021. Pt's caregiver is hesitant to continue Prolia. -continue fall precaution -continue weight-bearing exercise -recommended [place] -recommended to reschedule appt with strategic consultant Encounters Date Type Department Care Team Description 11/30/2024 4:15 PM EDT Office Visit [facility] [address] [place] [address] Mika Rosenthal MD Stage 3b chronic kidney disease (HCC) (Primary Dx); Type 2 diabetes mellitus with diabetic chronic kidney disease (HCC); Essential hypertension 11/30/2024 Office Communication [facility] [address] [place] [address] Mika Rosenthal MD 11/29/2024 Refill [facility] 100 [facility] 200 [place] [address] Mika Rosenthal MD 11/27/2024 Refill [facility] [address] [facility] 200 [place] [address] Mika Rosenthal MD from Last 3 Months Immunizations Immunization Administration Dates Next Due Hepatitis B 09/19/2018,10/20/2016 [...] (108 lb) 11/30/2024 3:02 PM EDT Height 149.9 cm (4' 11 ) 01/01/2020 12:00 PM EDT Body Mass Index 21.81 01/01/2020 12:00 PM EDT Plan of Treatment Upcoming Encounters Date Type Department Care Team (Late st Contact Info) Description 11/29/2025 2:30 PM EDT Office Visit [facility] [address] [place] [address] Mika Rosenthal MD [address] [facility] 204 [place] [address] Health Maintenance Due Date Last Done Comments Diabetes: Pedal Pulse Checked 04/28/2020 Diabetes: Sensory Foot Exam 04/28/2020 Diabetes: Visual Foot Exam 04/28/2020 Influenza Vaccine (#1) 2024 2, 01/03/2021, 02/16/2020, Additional history exists Diabetes: Hemoglobin A1C 12/06/2024 025, 05/31/2024, 07/26/2023, Additional history exists Diabetes: Ophthalmology Exam 11/29/2025 11/29/2024 Pneumococcal Vaccine: 50+ Years Completed 01/07/2016, 04/25/2010 Pneumococcal Vaccine: Peds (0 to 5 Years) and At-Risk Patients (6 to 49 Years) Discontinued 01/07/2016, 04/25/2010 Hepatitis B Vaccine Aged Out 09/19/2018, 7 No longer eligible based on patient's age to complete this topic Procedures Procedure Name Priority Date/Time Associated Diagnosis Comments CBC AND DIFFERENTIAL Routine 11/30/2024 3:52 PM EDT BLOOD PANEL (HC) Routine 09/08/2019 12:0 0 AM EDT from Last 3 Months or Most Recently Relevant to Health Maintenance Results * (ABNORMAL) CBC and Differential (11/30/2024 [...] MD LAB BLOOD ORDERABLES Final Re sult [facility] See order comments [place] [address] * (ABNORMAL) Blood Panel (09/08/2019 12:00 AM [...] ug/dl PVNMA 09/08/2019 us [facility] Conversion LAB [id number] LICITED RESULTS Final Result PVNMA from Last 3 Months or Most Recently Relevant to Health Maintenance Insurance MCR ([id number]) ([id number])
--- OUTSIDE RECORDS SUMMARY | 2024-11-30 16:28 | XMS_ITS | Encounter Summary ---
Author Organization [facility] Address [address] [facility] [address] [place] [address] Phone Care Team Providers Care Risk Management Consultant Name Role Phone Unavailable Primary Care Provider Unavailabl e Reason for Visit * Reason Comments Med Refill Encounter Details Date Type Department Care Team (Late Contact Info) Description 11/27/2024 Refill [facility] [address] [facility] 200 [place] [address] Mika Rosenthal MD 7[address] [facility] 204 [place] [address] Social History Tobacco Use Types [...] Visit [facility] [address] [place] [address] Mika Rosenthal MD [address] [facility] 204 [place] [address] documented as of this encounter Visit Diagnoses Not on filedocumented in this encounter
--- OUTSIDE RECORDS SUMMARY | 2024-11-30 16:28 | XMS_ITS | Encounter Summary ---
Author Organization [employer] Address [address] [facility] 7t [place] [address] Care Team Providers Care It Business Process Architect Name Role Phone Liliana Golden MD Primary Care Provider [phone] Encounter Details Date Type Department Care Team ([facility] st Contact Info) Description 09/20/2023 Orders Only [facility] MEDICINE 230 [place], [place] [phone] Liliana Golden MD [address] [place], [place] [phone] Social History Tobacco Use Types Packs/Day Years [...] documented as of this encounter Care Teams It Business Process Architect Relationship Specialty Start Date End Date Liliana Golden MD [address] [place] [address] PCP - General Family Medicine 03/29/18 documented as of this encounter
--- OUTSIDE RECORDS SUMMARY | 2024-11-30 16:28 | XMS_ITS | Encounter Summary ---
Author Organization [employer] Address 75 [facility] 7t [place] [address] Care Team Providers Care Bank Representative Name Role Phone Liliana Golden MD Primary Care Provider [phone] Encounter Details Date Type Department Care Team (Late st Contact Info) Description 11/30/2024 Orders Only GENERIC EXTERNAL DATA DEPARTMENT Provider, Generic External Data Social History Tobacco Use Types Packs/Day Years [...] Name Priority Date/Time Associated Diagnosis Comments CBC WITH AUTO DIFFERENTIAL Routine 11/30/2024 3:51 PM EDT documented in this encounter Results * (ABNORMAL) CBC auto differential (11/30/2024 3:51 PM EDT) White Blood Count 8.0 4.8 - 10.8 X10*3/uL [facility] Red Blood Count 3.15(L) 4.20 - 5.50 X10*6/uL [facility] Hemoglobin 9.4(L) 12.0 - 16.0 g/dl [facility] Hematocrit 26.9(L) 37.0 - 47.0 % [facility] Mean Corpuscular Volume 85.4 80.0 - 98.0 fL [facility] Mean Corpuscular Hemoglobin 29.8 27.0 - 33.0 pg [facility] Mean Corpuscular HGB Conc 34.9 31.0 - 35.0 g/dl [facility] Red Cell Distribution Width 15.9 11.0 - 16.0 % [facility] Platelet Count 212 160 - 400 X10*3/uL [facility] Mean Platelet Volume 9.4 9.4 - 12.3 fL [facility] Neutrophils Percent Auto 68.1 45 - 73 % [facility] Imm Gran Pct Auto 0.5(H) 0.0 - 0.4 % [facility] Lymphocytes Percent Auto 20.8 20 - 40 % [facility] Monocytes Percent Auto 7.6 2 - 11 % [facility] Eosinophils Percent Auto 2.5 0 - 4 % [facility] Basophils Percent Auto 0.5 0 - 2 % [facility] NRBC Pct Auto 0.0 0.0 - 0.2 /100WBC [facility] Neutrophils Absolute Auto 5.5 2.0 - 8.3 x10*3/uL [facility] Imm Gran Abs Auto 0.04(H) 0.00 - 0.03 X10*3/uL [facility] Lymphocytes Absolute Auto 1.7 1.2 - 4.9 X10*3/uL [facility] Monocytes Absolute Auto 0.6 0.1 - 1.2 X10*3/uL [facility] Eosinophils Absolute Auto 0.2 0.0 - 0.4 X10*3/uL [facility] Basophils Absolute Auto 0.0 0.0 - 0.2 X10*3/uL [facility] NRBC Abs Auto 0.000 0.0 - 0.012 X10*3/uL [facility] 11/30/2024 3:51 PM EDT 11/30/2024 3:52 PM EDT us Generic External Data Provider LAB BLOOD ORDERAB LES Final Result Performing Organization Address City/State/[facility] Co de Phone Number [facility] [address] [place] [address] [phone] documented in this encounter Visit Diagnoses Not on filedocumented in this encounter Additional Health Concerns Assessment Noted Time PHQ-9 Depression Total Score: 0 07/26/19 24 1:46 PM EDT documented as of this encounter Care Teams Bank Representative Relationship Specialty Start Date End Date Liliana Golden MD [address] [place] [phone] PCP - General Family Medicine 03/29/18 documented as of this encounter
--- OUTSIDE RECORDS SUMMARY | 2024-11-30 16:28 | XMS_ITS | Encounter Summary ---
Author Organization [employer] Address 75 [facility] 7t [place] [address] Care Team Providers Care Manager Of Allied Health Services Name Role Phone Liliana Golden MD Primary Care Provider [phone] Reason for Visit * Reason Onset Date Comments Durable Medical Equipment 11/02/2024 Encounter Details Date Type Department Care Team ([facility] st Contact Info) Description 11/02/2024 Telephone [facility] MEDICINE 230 [place], [place] [phone] Liliana Golden MD [address] [place], [place] [phone] Durable Medical Equipment Social History Tobacco Use [...] encounter Miscellaneous Notes * Telephone Encounter - Lucio Adair - 11/02/2024 1:17 PM EDT Tc from pt daughter requesting a hospital bed control. Any questions contact pt daughter at [phone] Fax number for [employer] is [phone] documented in this encounter Plan of Treatment Not on file documented as of this encounter Visit Diagnoses Not on filedocumented in this encounter Additional Health Concerns Assessment Noted Time PHQ-9 Depression Total Score: 0 07/26/19 24 1:46 PM EDT documented as of this encounter Care Teams Manager Of Allied Health Services Relationship Specialty Start Date End Date Liliana Golden MD [address] [place] [phone] PCP - General Family Medicine 03/29/18 documented as of this encounter
--- OUTSIDE RECORDS SUMMARY | 2024-11-30 16:29 | XMS_ITS | Encounter Summary ---
Author Organization [employer] Address 75 [facility] 7t [place] [address] Care Team Providers Care Call Center Consultant Name Role Phone Liliana Golden MD Primary Care Provider [phone] Encounter Details Date Type Department Care Team ([facility] st Contact Info) Description 02/23/2023 Orders Only [facility] MEDICINE 230 [place], [place] [phone] Liliana Golden MD [address] [place] [address] Positive colorectal cancer screening using Cologuard test [...] the past 12 months, has t he [employer], gas, oil or water [employer] threatened to shut off services in your [...] 3:34 PM EDT) Cancelled Hematology SEE NOTE [facility] Comment:THE FOLLOWING TESTS WERE CANCELLED: CBCREASON: NO SPECIMEN RECEIVED 09/02/2023 3:34 PM EDT 09/03/2023 8:58 AM EDT Liliana Golden MD HISTORICAL/NON ORDERABLE LABS Fi nal Result [facility] [address] [place] [address] [phone] * Cancelled Chemistry (09/02/2023 3:34 PM EDT) Cancelled Chemistry SEE NOTE [facility] Comment:CMP, Iron Profile, F erritin, Lipid with reflex, Vitamin B12,and Folate cancelled. No specimen received. 09/02/2023 3:34 PM EDT 09/03/2023 8:18 AM EDT Liliana Golden MD HISTORICAL/NON ORDERABLE LABS Fi nal Result [facility] [address] [place] [address] [phone] documented in this encounter Visit Diagnoses Diagnosis Positive colorectal cancer screening using Cologuard test- Primary Anemia of chronic disease Anemia of other chronic disease documented in this encounter Additional Health Concerns Assessment Noted Time PHQ-9 Depression Total Score: 2 07/01/19 23 2:32 PM EDT documented as of this encounter Care Teams Call Center Consultant Relationship Specialty Start Date End Date Liliana Golden MD [address] [place] [phone] PCP - General Family Medicine 03/29/18 documented as of this encounter
--- OUTSIDE RECORDS SUMMARY | 2024-11-30 16:29 | XMS_ITS | Clinical Summary ---
Author Organization [employer] Address [address] [place] [address] [address] [place] [address] Care Team Providers Care Track Liner Operator Name Role Phone Liliana Golden MD Primary Care Provider [phone] Allergies Active Allergy Reactions Criticality Noted Date Comments Lidocaine Unknown 03/24/2010 Medications chlorhexidine (Hibiclens) 4 % external liquidIndication s:Bullous pemphigus Rinse area with water, then apply minimum amount necessary to cover skin or wound area and wash gently. Rinse again thoroughly. 473 mL 1 03/16/20 22 Active acetaminophen (Tylenol) 500 MG tablet Take by mouth if needed in the morning, at noon, and at bedtime. 10/21/19 17 Active clobetasol (Temovate) 0.05 % ointment APPLY TO BLISTERS ON THE RIGHT BREAST TWICE DAILY 03/11/20 22 Active clotrimazole (Lotrimin) 1 % cream 02/13/20 22 Active glucose (Glutose) 40 % gel oral gel 04/20/19 19 Active EPINEPHrine (Epipen) 0.3 MG/0.3ML injection syringe As directed 11/10/19 19 Active glucagon 1 MG injection Prepare injection as directed. Inject if patient is unconscious due to low blood sugar 04/20/19 19 Active mupirocin (Bactroban) 2 % ointment 03/05/20 22 Active NIFEdipine XL (Procardia XL) 60 MG 24 hr tablet 03/05/20 22 Active SM Athletes Foot 1 % cream 01/07/20 22 Active Desitin 13 % cream 02/13/20 22 Active Wound Dressings (Medihoney Ca Alginate 2 x2 ) pads Apply to the wound on buttock every 1-2 days 10 each 2 01/12/20 23 Active hydrocortisone (Preparation H) 1 % cream Apply to anal area bid prn 30 g 2 06/21/19 24 Active Blood Pressure Monitor kitIndications:E ssential hypertension Check blood pressure once daily and as needed 1 kit 07/26/19 24 Active Blood Glucose Monitoring Suppl (FreeStyle Lite) w/Device kitIndications:T ype 2 diabetes mellitus with hyperglycemia, without long-term current use of insulin ([facility]) 1 each 3 times daily. 1 kit 09/20/19 24 Active carvedilol (Coreg) 25 MG tablet TAKE 1 TABLET BY MOUTH TWICE DAILY IN THE MORNING AND IN THE EVENING WITH FOOD 180 tablet 3 10/05/19 24 Active FeroSul 325 (65 Fe) MG tablet TAKE 1 TABLET BY MOUTH TWICE DAILY IN THE MORNING AND IN THE EVENING WITH ORANGE JUICE 180 tablet 3 12/08/19 24 Active atorvastatin (Lipitor) 80 MG tablet TAKE 1 TABLET BY MOUTH AT BEDTIME 90 tablet 3 12/08/19 24 Active Ascorbic Acid (vitamin C) 500 MG tablet TAKE 1 TABLET BY MOUTH TWICE DAILY IN THE MORNING AND IN THE EVENING 180 tablet 3 12/08/19 24 Active Cyanocobalamin (B-12) 1000 MCG tablet controlled-relea se TAKE 1 TABLET BY MOUTH EVERY MORNING 90 tablet 3 12/08/19 24 Active Alcohol Swabs (Alcohol Prep) 70 % pads USE THREE TIMES DAILY 100 each 11 01/20/20 24 Active FREESTYLE LITE test stripIndications :Type 2 diabetes mellitus with unspecified complications ([facility]) TEST BLOOD SUGAR 3 TIMES A DAY 100 strip 11 01/20/20 24 Active Multiple Vitamin (Multivitamin) tablet TAKE 1 TABLET BY MOUTH EVERY EVENING WITH FOOD 90 tablet 3 05/30/19 25 Active Aspirin EC Adult Low Dose 81 MG EC tablet TAKE 1 TABLET BY MOUTH EVERY EVENING 90 tablet 3 05/30/19 25 Active glipiZIDE (Glucotrol) 5 MG tablet TAKE 1 TABLET BY MOUTH TWICE DAILY IN THE MORNING AND IN THE EVENING BEFORE MEALS 180 tablet 3 05/30/19 25 Active hydrALAZINE (Apresoline) 25 MG tablet TAKE 1 TABLET BY MOUTH THREE TIMES DAILY IN THE MORNING, EVENING, AND BEDTIME WITH FOOD 270 tablet 3 05/30/19 25 Active cetirizine (ZyrTEC) 5 MG tablet TAKE 1 TABLET BY MOUTH EVERY MORNING 90 tablet 3 08/15/19 25 Active clopidogrel (Plavix) 75 MG tablet TAKE 1 TABLET BY MOUTH EVERY MORNING 90 tablet 08/15/19 Active cloNIDine (Catapres) 0.1 MG tablet TAKE 1 TABLET BY MOUTH TWICE DAILY IN THE MORNING AND AT BEDTIME 180 tablet 08/30/19 Active niacin 500 MG tablet Take 1 tablet (500 mg) by mouth with breakfast and with evening meal. Take 1 tablet by mouth twice daily 180 tablet 09/06/19 Active senna (Senokot) 8.6 MG tablet Take 2 tablets (17.2 mg) by mouth if needed at bedtime for constipation. 180 tablet 09/06/19 Active ammonium lactate (Lac-Hydrin) 12 % lotion Apply topically if needed for dry skin. 400 g 09/06/192025 Active bumetanide (Bumex) 0.5 MG tabletIndication s:Hypertension, unspecified type TAKE 1 TABLET BY MOUTH TWICE DAILY IN THE MORNING AND IN THE EVENING 180 tablet 11/01/19 Active TRUEplus Lancets 33G miscIndications: Type 2 diabetes mellitus with unspecified complications (CMS/HCC) TEST BLOOD SUGAR THREE TIMES DAILY 100 each 11 11/24/19 25 Active TRUEplus Lancets 33G miscIndications: Type 2 diabetes mellitus with unspecified complications (CMS/HCC) TEST BLOOD SUGAR THREE TIMES DAILY 100 each 11 10/18/19 24 2024 Discontinued Active Problems Problem Noted Date Diagnosed Date Nevus 09/08/2024 Constipation 07/26/2023 Assessment & Plan (09/05/2024 10:10 AM EDT): Seen by GI on 06/21/23. Rx Senna for constipation. Assessment & Plan (07/26/2023 2:10 PM EDT): Seen by GI on 06/21/23. Rx Senna for constipation. Hemorrhoid 07/26/2023 Assessment & Plan (09/05/2024 10:09 AM EDT): Improved Continue Hydrocortisone 1% cream prn. Assessment & Plan (05/01/2024 10:04 AM EST): Improved Continue Hydrocortisone 1% cream prn. Assessment & Plan (07/26/2023 2:09 PM EDT): Improved Continue Hydrocortisone 1% cream prn. Pressure ulcer 07/26/2023 Assessment & Plan (09/05/2024 10:07 AM EDT): Will prescribe special pillow / cushion to prevent ulcer Family prefers an inflatable one May need for one for wheelchair, and one for home use Assessment & Plan (05/31/2024 9:48 AM EST): Will prescribe special pillow / cushion to prevent ulcer Family prefers an inflatable one May need for one for wheelchair, and one for home use Assessment & Plan (07/31/2023 7:01 AM EDT): Will prescribe special pillow / cushion to prevent ulcer Family prefers an inflatable one May need for one for wheelchair, and one for home use Open wound of right buttock 01/11/2023 Assessment & Plan (09/05/2024 10:08 AM EDT): - trial of medihoney pad - refer to wound care - check if any other medical supply, other than doughnut pillow/cushion, is available for her to offload the pressure - frequent position change - optimize nutritional status Assessment & Plan (01/11/2023 6:35 PM EDT): - trial of medihoney pad - refer to wound care - check if any other medical supply, other than doughnut pillow/cushion, is available for her to offload the pressure - frequent position change - optimize nutritional status Candidiasis of skin 09/30/2022 Type 2 diabetes mellitus wit h stage 3b chronic kidney disease, without long-term current use of insulin 07/13/2022 Assessment & Plan (09/07/2024 9:43 PM EDT): - A1c 6.7% on 09/05/24 - A1C 6.5% on 05/31/24 -A1C 6.4% in June 2023 -Continue glipizide [...] UACR 197, microalbuminuria - Last lipid profile: 05/23/24 TC 185; TG 70; HDL 56; LDL 115 - Last dental exam: Followed by dentist Assessment & Plan (05/31/2024 11:32 PM EST): - A1C 6.5% on 05/31/24 -A1C 6.4% in June 2023 -Continue glipizide [...] exam: Followed by dentist Assessment & Plan (05/01/2024 10:06 AM EST): [...] dentist Bullous pemphigoid 03/20/2022 Assessment & Plan (09/05/2024 10:06 AM EDT): - Evaluated by lockstitch front maker, Dr. Smith, on 03/13/22 - initially prescribed doxycycline, clobetasol, and Niacin - continue clobetasol, doxycycline, and Niacin as prescribed Assessment & Plan (07/26/2023 2:32 PM EDT): - Evaluated by lockstitch front maker, Dr. Smith, on 03/13/22 - initially prescribed doxycycline, clobetasol, and Niacin - continue clobetasol, doxycycline, and Niacin as prescribed Assessment & Plan (01/11/2023 4:45 AM EDT): - Evaluated by lockstitch front maker, Dr. Smith, on 03/13/22 - initially prescribed doxycycline, clobetasol, and Niacin - continue clobetasol, doxycycline, and Niacin as prescribed Assessment & Plan (10/05/2022 2:32 PM EDT): - Evaluated by lockstitch front maker, Dr. Smith, on 03/13/22 - initially prescribed doxycycline, clobetasol, and Niacin - continue clobetasol, doxycycline, and Niacin as prescribed Assessment & Plan (07/13/2022 7:20 AM EDT): - Evaluated by lockstitch front maker, Dr. Smith, on 03/13/22 - initially prescribed doxycycline, clobetasol, and Niacin - continue clobetasol, doxycycline, and Niacin as prescribed Assessment & Plan (03/20/2022 4:25 PM EST): Evaluated by lockstitch front maker, Dr. Smith, on 03/13/22 Continue clobetasol, doxycycline, and Niacin as prescribed Still investigating its cause Anemia of chronic disease 03/20/2022 Assessment & Plan (09/05/2024 10:08 AM EDT): multifactorial - B12 deficiency, chronic disease, iron deficiency -Followed by die sinker apprentice -s/p iron infusion -Continue B12 PO. -Pt was supposed to have a colonoscopy, but family and pt decided not to have one -Cologuard ordered, but the specimen could not be processed -Ordered again Assessment & Plan (05/31/2024 9:48 AM EST): multifactorial - B12 deficiency, chronic disease, iron deficiency -Followed by die sinker apprentice -s/p iron infusion -Continue B12 PO. -Pt was supposed to have a colonoscopy, but family and pt decided not to have one -Cologuard ordered, but the specimen could not be processed -Ordered again Assessment & Plan (07/26/2023 2:32 PM EDT): multifactorial - B12 deficiency, chronic disease, iron deficiency -Followed by die sinker apprentice -s/p iron infusion -Continue B12 PO. -Pt was supposed to have a colonoscopy, but family and pt decided not to have one -Cologuard ordered, but the specimen could not be processed -Ordered again Assessment & Plan (01/11/2023 6:30 PM EDT): multifactorial - B12 deficiency, chronic disease, iron deficiency -Followed by die sinker apprentice -s/p iron infusion -Continue B12 PO. -Pt was supposed to have a colonoscopy, but family and pt decided not to have one -Cologuard ordered, but the specimen could not be processed -Ordered again Assessment & Plan (10/05/2022 2:38 PM EDT): multifactorial - B12 deficiency, chronic disease, iron deficiency -Followed by die sinker apprentice -s/p iron infusion -Continue B12 PO. -Pt was supposed to have a colonoscopy, but family and pt decided not to have one -Cologuard ordered, but the specimen could not be processed -Will order FIT instead of Cologuard. Assessment & Plan (07/13/2022 7:28 AM EDT): multifactorial - B12 deficiency, chronic disease, iron deficiency -Followed by die sinker apprentice -s/p iron infusion -Continue B12 PO. -Pt was supposed to have a colonoscopy, but family and pt decided not to have one -Cologuard ordered, but the specimen could not be processed -Will order FIT instead of Cologuard. Assessment & Plan (03/20/2022 4:32 PM EST): multifactorial - B12 deficiency, chronic disease, iron deficiency -Followed by die sinker apprentice -s/p iron infusion -Continue B12 PO. Chronic kidney disease (CKD), stage III (moderat e) 03/20/2022 Assessment & Plan (09/05/2024 10:09 AM EDT): -Followed by office cleaner -Avoid nephrotoxic drugs (still on metformin) -Use renal dosing Assessment & Plan (05/31/2024 9:05 AM EST): -Followed by office cleaner -Avoid nephrotoxic drugs (still on metformin) -Use renal dosing Assessment & Plan (05/01/2024 10:05 AM EST): -Followed by office cleaner -Avoid nephrotoxic drugs (still on metformin) -Use renal dosing Assessment & Plan (07/26/2023 2:10 PM EDT): -Followed by office cleaner -Avoid nephrotoxic drugs (still on metformin) -Use renal dosing Assessment & Plan (01/11/2023 4:42 AM EDT): -Followed by office cleaner -Avoid nephrotoxic drugs (still on metformin) -Use renal dosing Assessment & Plan (10/05/2022 2:38 PM EDT): -Followed by office cleaner -Avoid nephrotoxic drugs (still on metformin) -Use renal dosing Assessment & Plan (07/13/2022 7:09 AM EDT): -Followed by office cleaner -Avoid nephrotoxic drugs (still on metformin) -Use renal dosing Assessment & Plan (03/20/2022 4:34 PM EST): -Followed by office cleaner -Avoid nephrotoxic drugs (still on metformin) -Use renal dosing History of angioedema 03/20/2022 Overview (03/20/2022): Questionable in 2019 Discontinued lisinpril as a possible offending agent Epi-pen per pt's caregiver's request Carotid bruit 08/26/2017 Vitamin B12 deficiency anemia 08/26/2017 Assessment & Plan (09/05/2024 10:08 AM EDT): - negative IF antibody - continue oral supplementation Assessment & Plan (05/01/2024 10:05 AM EST): - negative IF antibody - continue oral supplementation Assessment & Plan (01/11/2023 4:43 AM EDT): - negative IF antibody - continue oral supplementation Assessment & Plan (10/11/2022 8:49 AM EDT): - negative IF antibody - continue oral supplementation Ischemic heart disease 09/10/2015 Assessment & Plan (09/05/2024 9:25 AM EDT): -NSTEMI in July 2012 and August 2014. She had a cardiac catheterization and a drug-eluting stent to RCA in [place] in July 2012. On dual antiplatelet therapy for > 1 year. - [facility]: HFCCA - Last echocardiogram: 11/19/16 LVEF 60-65%, mild [...] daughter was advised to schedule appt w/ [facility] Assessment & Plan (05/31/2024 9:04 AM EST): -NSTEMI in July 2012 and August 2014. She had a cardiac catheterization and a drug-eluting stent to RCA in [place] in July 2012. On dual antiplatelet therapy for > 1 year. - [facility]: SUSANA - Last echocardiogram: 11/19/16 LVEF 60-65%, [...] daughter was advised to schedule appt w/ [facility] Assessment & Plan (05/01/2024 10:04 AM EST): -NSTEMI in July 2012 and August 2014. She had a cardiac catheterization and a drug-eluting stent to RCA in [place] in July 2012. On dual antiplatelet therapy for > 1 year. - [facility]: SUSANA - Last echocardiogram: 11/19/16 LVEF 60-65%, [...] daughter was advised to schedule appt w/ [facility] Assessment & Plan (07/26/2023 2:09 PM EDT): -NSTEMI in July 2012 and August 2014. She had a cardiac catheterization and a drug-eluting stent to RCA in [place] in July 2012. On dual antiplatelet therapy for > 1 year. - [facility]: SUSANA - Last echocardiogram: 11/19/16 LVEF 60-65%, [...] daughter was advised to schedule appt w/ [facility] Assessment & Plan (01/11/2023 4:41 AM EDT): -NSTEMI in July 2012 and August 2014. She had a cardiac catheterization and a drug-eluting stent to RCA in [place] in July 2012. On dual antiplatelet therapy for > 1 year. - [facility]: SUSANA - Last echocardiogram: 11/19/16 LVEF 60-65%, [...] daughter was advised to schedule appt w/ [facility] Assessment & Plan (10/05/2022 2:31 PM EDT): -NSTEMI in July 2012 and August 2014. She had a cardiac catheterization and a drug-eluting stent to RCA in [place] in July 2012. On dual antiplatelet therapy for > 1 year. - [facility]: HFCCA - Last echocardiogram: 11/19/16 LVEF 60-65%, mild [...] daughter was advised to schedule appt w/ [facility] Assessment & Plan (07/13/2022 7:08 AM EDT): -NSTEMI in July 2012 and August 2014. She had a cardiac catheterization and a drug-eluting stent to RCA in [place] in July 2012. On dual antiplatelet therapy for > 1 year. - [facility]: SUSANA - Last echocardiogram: 11/19/16 LVEF 60-65%, [...] daughter was advised to schedule appt w/ [facility] Assessment & Plan (03/20/2022 4:40 PM EST): -NSTEMI in July 2012 and August 2014. She had a cardiac catheterization and a drug-eluting stent to RCA in [place] in July 2012. On dual antiplatelet therapy for > 1 year. - [facility]: RAVIN, seen about 2 months ago, next [...] daughter was advised to schedule appt w/ [facility] Dementia 04/11/2015 Assessment & Plan (09/05/2024 10:07 AM EDT): - Pt has been seen [...] stay or permanent residence. Assessment & Plan (05/31/2024 9:04 AM EST): - Pt has been seen [...] stay or permanent residence. Assessment & Plan (05/01/2024 10:04 AM EST): [...] vascular. Essential hypertension 12/28/2014 Assessment & Plan (09/05/2024 9:25 AM EDT): -Goal BP < 140/90 per JNC-8, < 130/80 per ACC/AHA -Evaluated by office cleaner with 24-hour BP monitoring -continue nifedipine 60 [...] ago due to hyponatremia Assessment & Plan (05/31/2024 9:04 AM EST): -Goal BP < 140/90 per JNC-8, < 130/80 per ACC/AHA -Evaluated by office cleaner with 24-hour BP monitoring -continue nifedipine 60 [...] ago due to hyponatremia Assessment & Plan (05/01/2024 10:04 AM EST): -Goal BP < 140/90 per JNC-8, < 130/80 per ACC/AHA -Evaluated by office cleaner with 24-hour BP monitoring -continue nifedipine 60 [...] JNC-8, < 130/80 per ACC/AHA -Evaluated by office cleaner with 24-hour BP monitoring -continue nifedipine 60 [...] JNC-8, < 130/80 per ACC/AHA -Evaluated by office cleaner with 24-hour BP monitoring -continue nifedipine 60 [...] JNC-8, < 130/80 per ACC/AHA -Evaluated by office cleaner with 24-hour BP monitoring -continue nifedipine 60 [...] JNC-8, < 130/80 per ACC/AHA -Evaluated by office cleaner with 24-hour BP monitoring -continue nifedipine 60 [...] JNC-8, < 130/80 per ACC/AHA -Evaluated by office cleaner with 24-hour BP monitoring -continue nifedipine 60 [...] 2 diabetes mellitus 12/28/2014 Assessment & Plan (09/07/2024 9:43 PM EDT): - A1c 6.7% on 09/05/24 - A1C 6.5% on 05/31/24 -A1C 7.0% on 01/11/23, slightly increased from [...] exam: June 2020 - Last foot exam: 05/31/24, decreased sensation, previously wearing diabetic footwear. Will write a script - Last microalbumin test: 05/23/24 UACR 66, microalbuminuria - Last lipid profile: 05/23/24 TC 185; TG 70; HDL 56; LDL 115 - Last dental exam: Followed by dentist Assessment & Plan (06/07/2024 12:58 PM EDT): - A1C 6.5% on 05/31/24 -A1C 7.0% on 01/11/23, slightly increased from [...] exam: June 2020 - Last foot exam: 06/01/23, decreased sensation, previously wearing diabetic footwear. Will write a script - Last microalbumin test: 05/23/24 UACR 66, microalbuminuria - Last lipid profile: 05/23/24 TC 169; TG 127; HDL 83; LDL 65 - Last dental exam: Followed by dentist Assessment & Plan (07/26/2023 2:14 PM EDT): [...] lung 06/07/2014 Dyslipidemia 10/10/2012 Assessment & Plan (09/07/2024 9:43 PM EDT): - Last lipid profile: 05/23/24 TC 185; TG 70; HDL 56; LDL 115 - Current medication: atorvastatin 80 mg qhs. - She is on high-intensity statin therapy. - Continue current medication and lifestyle modification. - Note: Pt was prescribed Niacin by her lockstitch front maker. Assessment & Plan (06/07/2024 12:59 PM EDT): - Last lipid profile: 05/23/24, elevated LDL. - Current medication: atorvastatin 80 mg qhs. - She is on high-intensity statin therapy. - Continue current medication and lifestyle modification. - Note: Pt was prescribed Niacin by her lockstitch front maker. Assessment & Plan (07/26/2023 2:31 PM EDT): - Last lipid profile: 06/30/22:TC 169; TG 127; HDL 83; LDL 65 - Current medication: atorvastatin 80 mg qhs. - She is on high-intensity statin therapy. - Continue current medication and lifestyle modification. - Note: Pt is prescribed Niacin by her lockstitch front maker. Assessment & Plan (01/11/2023 4:45 AM EDT): - Last lipid profile: 06/30/22:TC 169; TG 127; HDL 83; LDL 65 - Current medication: atorvastatin 80 mg qhs. - She is on high-intensity statin therapy. - Continue current medication and lifestyle modification. - Note: Pt is prescribed Niacin by her lockstitch front maker. Assessment & Plan (10/05/2022 2:24 PM EDT): - Last lipid profile: 06/30/22:TC 169; TG 127; HDL 83; LDL 65 - Current medication: atorvastatin 80 mg qhs. - She is on high-intensity statin therapy. - Continue current medication and lifestyle modification. - Note: Pt is prescribed Niacin by her lockstitch front maker. Assessment & Plan (07/13/2022 7:21 AM EDT): - Last lipid profile: 10/13/21 TC 154; TG 174; HDL 46; LDL 81 - Current medication: atorvastatin 80 mg qhs. - She is on high-intensity statin therapy. - Continue current medication and lifestyle modification. - Note: Pt is prescribed Niacin by her lockstitch front maker. Assessment & Plan (03/20/2022 4:39 PM EST): - Last lipid profile: 10/13/21 TC 154; TG 174; HDL 46; LDL 81 - Current medication: atorvastatin 80 mg qhs. - She is on high-intensity statin therapy. - Continue current medication and lifestyle modification. Prolapse of female genital organs 09/09/2012 Hyponatremia 06/01/2012 Diabetic peripheral neuropathy 11/13/2011 Assessment & Plan (09/05/2024 10:06 AM EDT): - optimize glycemic control Assessment & Plan (06/07/2024 12:54 PM EDT): - optimize glycemic control Urinary incontinence, mixed 11/13/2011 Assessment & Plan (09/05/2024 10:09 AM EDT): - uses panty liners; need a prescription renewal - will check its status Assessment & Plan (05/31/2024 9:05 AM EST): - uses panty liners; need a prescription renewal - will check its status Assessment & Plan (05/01/2024 10:05 AM EST): [...] treatment x 5 years. -previously followed by Distillation Operator, Dr. Yandel Matthews, last appt in [...] treatment x 5 years. -previously followed by Distillation Operator, Dr. Yandel Matthews, last appt in [...] fosamax treatment x 5 years. -followed by Distillation Operator, Dr. Yandel Matthews, last appt in August 2021 -s/p Tymlos since Jan 2019 until Mar 2021 -started on Prolia in Mar 2021, every 6 months, last dose in September 2021. Pt's caregiver is hesitant to continue Prolia. -continue fall precaution -continue weight-bearing exercise -recommended [place] -recommended to reschedule appt with assistant gm of content & delivery Assessment & Plan (07/13/2022 7:13 AM EDT): History of several rib fractures. -s/p fosamax treatment x 5 years. -followed by Distillation Operator, Dr. Yandel Matthews, last appt in August 2021 -s/p Tymlos since Jan 2019 until Mar 2021 -started on Prolia in Mar 2021, every 6 months, last dose in September 2021. Pt's caregiver is hesitant to continue Prolia. -continue fall precaution -continue weight-bearing exercise -recommended [place] -recommended to reschedule appt with assistant gm of content & delivery Assessment & Plan (03/20/2022 4:42 PM EST): History of several rib fractures. -s/p fosamax treatment x 5 years. -followed by Distillation Operator, Dr. Yandel Matthews -s/p Tymlos since [...] Date Type Department Care Team Description 11/30/2024 Telephone [facility] [address] [place] [address] Liliana Golden MD 11/30/2024 Orders Only GENERIC EXTERNAL DATA DEPARTMENT Provider, Generic External Data 11/29/2024 2:45 PM EDT Office Visit [facility] [address] [place], [place] [id number] Crystal Gold, [place] Type 2 diabetes mellitus 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 manifestations (CMS/HCC) (Primary Dx); Combined forms of age-related cataract of both eyes; Regular astigmatism, bilateral 11/29/2024 Travel 11/23/2024 Refill [facility] [address] [place] [address] Delia Horton MD Type 2 diabetes mellitus with unspecified complications (CMS/HCC) 11/02/2024 Telephone [facility] [address] [place] [address] Liliana Golden MD Durable Medical Equipment 11/02/2024 Telephone [facility] [address] [place] [address] Liliana Golden MD Durable Medical Equipment (DME Order: Lightweight Transfer Chair) 10/30/2024 Refill [facility] [address] [place] [address] Liliana Golden MD Hypertension, unspecified type 10/03/2024 Telephone [facility] [address] [place], [place] [phone] Liliana Golden MD 09/11/2024 Telephone [facility] [address] [place] [address] Liliana Golden MD Referral 09/08/2024 1:40 PM EDT Office Visit [facility] [address] [place] [address] Delia Goel MD Nevus 09/05/2024 1:45 PM EDT Office Visit [facility] [address] [place] [phone] Liliana Golden MD Ischemic heart disease (Primary Dx); Essential hypertension; Dyslipidemia; Type 2 diabetes mellitus with stage 3b chronic kidney disease, without long-term current use of insulin (CMS/HCC); Type 2 diabetes mellitus with hyperglycemia, without long-term current use of insulin ([facility]); Osteoporosis, unspecified osteoporosis type, unspecified pathological fracture presence; Hyponatremia; Constipation, unspecified constipation type; Hemorrhoids, unspecified hemorrhoid type; Urinary incontinence, mixed; Female genital prolapse, unspecified type; Stage 3a chronic kidney disease (CMS/HCC); Anemia due to vitamin B12 deficiency, unspecified B12 deficiency type; Anemia of chronic disease; Pressure injury of skin of sacral region, unspecified injury stage; Open wound of right buttock, initial encounter; Diabetic peripheral neuropathy ([facility]/HCC); Moderate dementia without behavioral disturbance, psychotic disturbance, mood disturbance, or anxiety, unspecified dementia type (CMS/HCC); Candidiasis of skin; Bullous pemphigoid; Wheelchair dependence 09/05/2024 Travel 09/01/2024 Telephone [facility] [address] [place] [address] [phone] Liliana Golden MD chart prep from Last 3 Months Immunizations Immunization Administration Dates Next Due Hep B, adult [...] Sign Reading Time Taken Comments Blood Pressure 137/63 09/08/2024 1:29 PM EDT Pulse 66 09/08/2024 1:29 PM EDT Temperature 36 C (96.8 F) 09/08/2024 1:29 PM EDT Respiratory Rate 14 09/08/2024 1:29 PM EDT Oxygen Saturation 98% 09/08/2024 1:29 PM EDT Inhaled Oxygen Concentration - - Weight 43.1 kg (95 lb) 09/08/2024 1:29 PM EDT Height 147.3 cm (4' 10 ) 09/08/2024 1:29 PM EDT Body Mass Index 19.86 09/08/2024 1:29 PM EDT Plan of Treatment Health Maintenance Due Date Last Done Comments RSV Patients and Patients Aged 60 years or older (1 - 1-dose 75+ series) 2013 Depression Screening 07/25/2024 07/26/2023, 07/26/19 24 COVID-19 Vaccine ( season) 2024 10/13/2021, 02/14/2021, 06/06/2020, Additional history exists Influenza Vaccine (#1) 2024 3, 01/06/2022, 01/06/2022, Additional history exists Diabetes: Hemoglobin A1C 03/07/2025 025, 05/31/2024, 07/26/2023, Additional history exists Alcohol/Substance Use Screening 05/01/2025 05/01/2024 Lipid Panel 05/23/2025 05/23/2024, 04/0 06/2022, 10/13/2021, Additional history exists Diabetes: Foot Exam 05/31/2025 05/31/2024 SDOH Screening 08/29/2025 08/29/2024 Tobacco Screening 11/29/2025 11/29/2024 Eye Exam 11/29/2026 11/29/2024, 090 05/2024, 11/29/2024, Additional history exists DTaP/Tdap/Td Vaccines (3 - Td or Tdap) 10/05/2032 10/05/2022, 01/27/2012, 04/25/2010 Pneumococcal Vaccine: 50+ Years Completed 01/07/2016, 04/25/2010 Hepatitis B Vaccines Discontinued 09/19/2018, 10/21/19 17 Zoster Vaccines Completed 02/05/2020, 11/2019, 11/30/2019, Additional history exists HIB Vaccines [...] patient's age to complete this topic Meningococcal B Vaccine Aged Out No l onger eligible based on patient's age to complete [...] AUTO DIFFERENTIAL Routine 11/30/2024 3:51 PM EDT POCT GLYCATED HEMOGLOBIN, TOTAL Routine 09/05/2024 1:59 PM EDT Type 2 diabetes mellitus with stage 3b chronic kidney disease, without long-term current use of insulin ([facility]) POCT GLUCOSE Routine 09/05/2024 1:58 PM EDT Type 2 diabetes mellitus with stage 3b chronic kidney disease, without long-term current use of insulin ([facility]) LIPID PANEL WITH REFLEX TO DIRECT LDL Routine 05/23/2024 9:33 AM EST from Last 3 Months or Most Recently Relevant to Health Maintenance Results * (ABNORMAL) CBC auto differential (11/30/2024 3:51 PM EDT) White Blood Count 8.0 4.8 - 10.8 X10*3/uL [facility] Red Blood Count 3.15(L) 4.20 - 5.50 X10*6/uL [facility] Hemoglobin 9.4(L) 12.0 - 16.0 g/dl [facility] Hematocrit 26.9(L) 37.0 - 47.0 % [facility] Mean Corpuscular Volume 85.4 80.0 - 98.0 fL [facility] Mean Corpuscular Hemoglobin 29.8 27.0 - 33.0 pg [facility] Mean Corpuscular HGB Conc 34.9 31.0 - 35.0 g/dl [facility] Red Cell Distribution Width 15.9 11.0 - 16.0 % [facility] Platelet Count 212 160 - 400 X10*3/uL [facility] Mean Platelet Volume 9.4 9.4 - 12.3 fL [facility] Neutrophils Percent Auto 68.1 45 - 73 % [facility] Imm Gran Pct Auto 0.5(H) 0.0 - 0.4 % [facility] Lymphocytes Percent Auto 20.8 20 - 40 % [facility] Monocytes Percent Auto 7.6 2 - 11 % [facility] Eosinophils Percent Auto 2.5 0 - 4 % [facility] Basophils Percent Auto 0.5 0 - 2 % [facility] NRBC Pct Auto 0.0 0.0 - 0.2 /100WBC [facility] Neutrophils Absolute Auto 5.5 2.0 - 8.3 x10*3/uL [facility] Imm Gran Abs Auto 0.04(H) 0.00 - 0.03 X10*3/uL [facility] Lymphocytes Absolute Auto 1.7 1.2 - 4.9 X10*3/uL [facility] Monocytes Absolute Auto 0.6 0.1 - 1.2 X10*3/uL [facility] Eosinophils Absolute Auto 0.2 0.0 - 0.4 X10*3/uL [facility] Basophils Absolute Auto 0.0 0.0 - 0.2 X10*3/uL [facility] NRBC Abs Auto 0.000 0.0 - 0.012 X10*3/uL [facility] 11/30/2024 3:51 PM EDT 11/30/2024 3:52 PM EDT Generic External Data Provider LAB BLOOD ORDERAB LES Final Result [facility] [address] [place] [phone] * (ABNORMAL) POCT HGB A1C (09/05/2024 1:59 PM EDT) Hemoglobin A1C 6.7(A) 4.0 - 6.0 % QC Media Lot # [id number] Lot# Expiration Date Swab 09/05/2024 1:59 PM EDT Liliana Golden MD POINT OF CARE TEST ENTER/EDIT OR DERABLES Final Result * POCT Glucose (09/05/2024 1:58 PM EDT) Glucose Blood, POC 193 60 - 200 mg/dL Comment:Random QC Media Lot # [id number] Lot# Expiration Date Blood Capillary blood specimen / Unknown 09/05/2024 1:58 PM EDT Liliana Golden MD POINT OF CARE TEST ENTER/EDIT OR DERABLES Final Result * (ABNORMAL) Lipid Panel with Reflex to Direct LDL (05/23/2024 9:33 AM EST) Triglycerides 70 <150 mg/dL [facility] Comment:Slight Lipemia.Jammie able Triglyceride: less than 150 mg/dLBorderline High Triglyceride 150-199 mg/dLHigh Triglyceride: 200-499 mg/dLVery High Triglyceride: greater than or equal to 5OO mg/dL Cholesterol 185 <200 mg/dL [facility] Comment:Desirable Cholestero l: less than 200 mg/dLBorderline High Cholesterol: 200-239 mg/dLHigh Cholesterol: greater than 239 mg/dL LDL Cholesterol Calculated 115(H) <100 mg/dL [facility] Comment:Desirable LDL: less than 100 mg/dLNear Optimal/Above Optimal LDL: 110- 129 mg/dLBorderline High LDL: 130-159 mg/dLHigh LDL: 160-189 mg/dLVery High LDL: greater than or equal to 190 mg/dL HDL Cholesterol 56 >40 mg/dL [facility] Comment:Desirable HDL: great er than 40 mg/dL Note: This HDL assay may give artificially low results in patients with liver disease. 05/23/2024 9:33 AM EST 05/23/2024 11:35 AM EST us Liliana Golden MD LAB BLOOD ORDERABLES Final Resul t [facility] [address] [place], [place] [phone] from Last 3 Months or Most Recently Relevant to Health Maintenance Insurance [facility] [employer] (HMO D-SNP) REMY MEADE [id number] Care Teams Track Liner Operator Relationship Specialty Start Date End Date Liliana Golden MD [address] [place] [phone] PCP - General Family Medicine 03/29/18
--- OUTSIDE RECORDS SUMMARY | 2024-11-30 16:29 | XMS_ITS | Encounter Summary ---
Author Organization [employer] Address [address] [facility] 7t [place] [address] Care Team Providers Care Ski Technician Name Role Phone Liliana Golden MD Primary Care Provider [phone] Encounter Details Date Type Department Care Team ([facility] st Contact Info) Description 10/05/2023 Orders Only [facility]INE [address] [place], [place] [phone] Liliana Golden MD [address] [place], [place] [phone] Social History Tobacco Use Types Packs/Day Years [...] documented as of this encounter Care Teams Ski Technician Relationship Specialty Start Date End Date Liliana Golden MD [address] [place] [address] PCP - General Family Medicine 03/29/18 documented as of this encounter
--- OUTSIDE RECORDS SUMMARY | 2024-11-30 16:29 | XMS_ITS | Encounter Summary ---
Author Organization [employer] Address 75 [facility] 7t [place] [address] Care Team Providers Care Supervisor Sewing Room Name Role Phone Liliana Golden MD Primary Care Provider [phone] Reason for Visit * Reason Onset Date Comments Appointment Request 05/08/2024 Encounter Details Date Type Department Care Team ([facility] st Contact Info) Description 05/08/2024 Telephone [facility]INE [address] [place], [place] [phone] Liliana Golden MD [address] [place], [place] [phone] Appointment Request Social History Tobacco Use Types [...] There is not availability. Any questions contact [phone] yemeni documented in this encounter Plan of Treatment Not on file documented as of this encounter Visit Diagnoses Not on filedocumented in this encounter Additional Health Concerns Assessment Noted Time PHQ-9 Depression Total Score: 0 07/26/19 24 1:46 PM EDT documented as of this encounter Care Teams Supervisor Sewing Room Relationship Specialty Start Date End Date Liliana Golden MD [address] [place] [phone] PCP - General Family Medicine 03/29/18 documented as of this encounter
--- OUTSIDE RECORDS SUMMARY | 2024-11-30 16:29 | XMS_ITS | Encounter Summary ---
Author Organization [employer] Address [address] [facility] 7t [place] [address] Care Team Providers Care Medication Tech Name Role Phone Liliana Golden MD Primary Care Provider [phone] Encounter Details Date Type Department Care Team ([facility] st Contact Info) Description 04/14/2023 Telephone [facility]INE [address] [place], [place] [phone] Liliana Golden MD [address] [place], [place] [phone] Social History Tobacco Use Types Packs/Day Years [...] documented as of this encounter Care Teams Medication Tech Relationship Specialty Start Date End Date Liliana Golden MD 230 [place] [address] PCP - General Family Medicine 03/29/18 documented as of this encounter
--- OUTSIDE RECORDS SUMMARY | 2024-11-30 16:29 | XMS_ITS | Encounter Summary ---
Author Organization [employer] Address [address] [place] [address] 7 [place] [address] Care Team Providers Care Project Engineer Name Role Phone Liliana Golden MD Primary Care Provider [phone] Reason for Referral * Consultation (Routine) - Closed Specialty Diagnoses / Procedures Referred By Contac t Referred To Contact Pharmacy Diagnoses Essential hypertension Stage 3a chronic kidney disease (CMS/HCC) Type 2 diabetes mellitus with stage 3b chronic kidney disease, without long-term current use of insulin (CMS/HCC) Ischemic heart disease Anemia of chronic disease Moderate dementia without behavioral disturbance, psychotic disturbance, mood disturbance, or anxiety, unspecified dementia type (CMS/HCC) Liliana Golden MD [address] [place] [address] Phone: tel: fax: Referral ID Status Reason Start Date Expiration Date V isits Requested Visits Authorized [id number] Closed Continuity of Care 01/07/2024 01/06/2025 6 6 Encounter Details Date Type Department Care Team (Late st Contact Info) Description 01/07/2024 Orders Only [facility] MEDICINE 230 [place], [place] [phone] Liliana Golden MD [address] [place], [place] [phone] Essential hypertension (Primary Dx); Stage 3a chronic [...] Diagnoses Orde r Schedule Referral to Pharmacy MTM Outpatient Referral Routine Essential hypertension Stage 3a [...] essential hypertension Stage 3a chronic kidney disease (CMS/HCC) Type 2 diabetes mellitus with stage 3b chronic kidney disease, without long-term current use of insulin (CMS/[facility]) Ischemic heart disease Other specified forms of chronic ischemic heart disease Anemia of chronic disease Anemia of other chronic disease Moderate dementia without behavioral disturbance, psychotic disturbance, mood disturbance, or anxiety, unspecified dementia type (CMS/HCC) documented in this encounter Additional Health Concerns Assessment Noted Time PHQ-9 Depression Total Score: 0 07/26/19 24 1:46 PM EDT documented as of this encounter Care Teams Project Engineer Relationship Specialty Start Date End Date Liliana Golden MD [address] [place] [phone] PCP - General Family Medicine 03/29/18 documented as of this encounter
--- OUTSIDE RECORDS SUMMARY | 2024-11-30 16:29 | XMS_ITS | Encounter Summary ---
Author Organization [employer] Address [address] [facility] 7t [place] [address] Care Team Providers Care Electric Track Switch Maintainer Name Role Phone Liliana Golden MD Primary Care Provider Reason for Visit * Reason Onset Date Comments Medication Question 08/28/2024 Encounter Details Date Type Department Care Team ([facility] st Contact Info) Description 08/28/2024 Telephone [facility] MED[facility]INE [address] [place], [place] [phone] Liliana Golden MD 230 [place], [place] [phone] Medication Question Social History Tobacco Use Types Packs/Day Years [...] encounter Miscellaneous Notes * Telephone Encounter - Irma Michel RN - 08/28/2024 3:19 PM EDT TC placed to pt with [facility] studio technician video operator #[id number] to follow up on the request for medications refills anddiabetic summer shoes. Pt could not name the specific medications that are needed but only that sheneeds all of them . The pt was able to confirm that she has an upcoming trip to the [facility] and wants to make sure she has enough medication as well as diabetic footwear for the summer. The pt currently only has diabetic shoes for the winter months and states that there is open toed footwear that is made specifically for diabetic patients. Pt given reminder of the date and time for upcoming physical with PCP on WednesdaySeptember 05 and advised that this will be sent to the provider to discuss with the pt at this appt. * Telephone Encounter - Justin Braulio - 08/28/2024 12:16 PM EDT Tc from daughter stating pt will be traveling to [facility] and she will be needing all of her medication for trip as well as summer shoes, she only has winter shoes at the moment. Pt does not have a flight date wanted to travel after upcoming physical but wanted to discuss shoes and medication ahead of time. Please contact daughter at [phone]. (Omani Speaker) documented in this encounter Plan of Treatment Not on file documented as of this encounter Visit Diagnoses Not on filedocumented in this encounter Additional Health Concerns Assessment Noted Time PHQ-9 Depression Total Score: 0 07/26/19 24 1:46 PM EDT documented as of this encounter Care Teams Electric Track Switch Maintainer Relationship Specialty Start Date End Date Liliana Golden MD [address] [place] [id number] PCP - General Family Medicine 03/29/18 documented as of this encounter
[2024-11-30 16:36] LABS: Appearance Urine Clear; Glucose Urine UA Negative (Negative); PH 5.5 (5.0-9.0); Specific Gravity - Urine <= 1.005 (1.005-1.025); UMIC TRIGGER UA YES
[2024-11-30 16:51] LABS: Albumin Level 3.8 g/dL (3.5-5.0); Anion Gap 13 (12-20); Blood Urea Nitrogen 39 mg/dL (9-16); Calcium 8.9 mg/dL (8.4-10.2); Carbon Dioxide 25 mmol/L (22-29); Chloride 94 mmol/L (96-108); Estimated Glomerular Filt Rate 37; Magnesium 1.8 mg/dL (1.6-2.6); Potassium 3.1 mmol/L (3.3-5.1); Sodium 129 mmol/L (135-145)
[2024-11-30 16:53] LABS: Parathyroid Hormone Intact 110.4 pg/mL (8.7-77.1)
[2024-11-30 18:44] LABS: Microalbum/Creatinine Ratio Ur 453.0 ug/mg cr (<30); Protein/Creatinine Ratio, Ur 0.70 (<0.2); Total Protein Urine Random 19 mg/dL (<12)
== END 2024-11-30 15:30 | disposition home or self-care (01) ==
LOC: HO.LAB 15:29
PROVIDERS: PCP Family Medicine; Visit Provider Internal Medicine Nephrology
DX: I12.9 Hypertensive chronic kidney disease with stage 1 through stage 4 chronic kidney disease, or unspecified chronic kidney disease (principal); N18.32 Chronic kidney disease, stage 3b; E11.22 Type 2 diabetes mellitus with diabetic chronic kidney disease
CPT/HCPCS: 36415; 80051; 81001; 82040; 82043; 82306; 82310; 82565; 82570; 83735; 83970; 84100; 84156; 84520; 85025

== ENCOUNTER 2025-01-10 14:35 | Outpatient (REF) | payer OTHER, SELFPAY ==
[2025-01-10 16:13] LABS: MANUAL DIFF FLAG NO
[2025-01-10 16:18] LABS: Hematocrit 27.9 % (37.0-47.0); Hemoglobin 9.1 g/dl (12.0-16.0); Imm Gran Abs Auto 0.05 X10*3/uL (0.00-0.03); Imm Gran Pct Auto 0.6 % (0.0-0.4); Lymphocytes Absolute Auto 1.4 X10*3/uL (1.2-4.9); Mean Corpuscular HGB Conc 32.6 g/dl (31.0-35.0); Mean Corpuscular Hemoglobin 29.4 pg (27.0-33.0); Mean Corpuscular Volume 90.3 fL (80.0-98.0); NRBC Abs Auto 0.000 X10*3/uL (0.0-0.012); NRBC Pct Auto 0.0 /100WBC (0.0-0.2); Platelet Count 236 X10*3/uL (160-400); Red Blood Count 3.09 X10*6/uL (4.20-5.50); White Blood Count 9.0 X10*3/uL (4.8-10.8)
[2025-01-10 17:10] LABS: Anion Gap 11 (12-20); Blood Urea Nitrogen 40 mg/dL (9-16); Calcium 9.1 mg/dL (8.4-10.2); Carbon Dioxide 25 mmol/L (22-29); Chloride 103 mmol/L (96-108); Estimated Glomerular Filt Rate 44; Iron 73 mcg/dL (30-160); Percent Iron Saturation 27 % (15-50); Potassium 4.4 mmol/L (3.3-5.1); Sodium 135 mmol/L (135-145); Total Iron Binding Capacity 270 mcg/dL (228-428); Unsaturated Iron Binding 197 ug/dL
[2025-01-10 17:27] LABS: Ferritin 28 ng/mL (10-250)
--- OUTSIDE RECORDS SUMMARY | 2025-01-10 18:21 | XMS_ITS | Encounter Summary ---
Author Organization [employer] Address 75 [facility] 7t [place] [address] Care Team Providers Care Contamination Consultant Name Role Phone Liliana Golden MD Primary Care Provider Reason for Visit * Reason Onset Date Comments chart prep 01/10/2025 Encounter Details Date Type Department Care Team ([facility] st Contact Info) Description 01/10/2025 Telephone [facility]INE 230 [place], [place] [phone] Liliana Golden MD [address] [place], [place] [phone] chart prep Social History Tobacco Use Types Packs/Day Years [...] encounter Miscellaneous Notes * Telephone Encounter - Tammie Gutierrez MA - 01/10/2025 9:46 AM EDT ..Chart Prep Labs: not applicable Images: not applicable Vaccines due: Covid Due and Flu Due Referrals: Not Applicable Screenings: Not Applicable Overdue care gaps: A1C, Glucose, PHQ9, and GAD7 documented in this encounter Plan of Treatment Upcoming Encounters Date Type Department Care Team (Late st Contact Info) Description 01/11/2025 9:00 AM EDT Office Visit [facility] MED[facility] [address] [place] [address] Liliana Golden MD [address] [place] [address] documented as of this encounter Visit Diagnoses Not on filedocumented in this encounter Additional Health Concerns Assessment Noted Time PHQ-9 Depression Total Score: 0 07/26/19 24 1:46 PM EDT documented as of this encounter Care Teams Contamination Consultant Relationship Specialty Start Date End Date Liliana Golden MD [address] [place] [address] PCP - General Family Medicine 03/29/18 documented as of this encounter
--- OUTSIDE RECORDS SUMMARY | 2025-01-10 18:21 | XMS_ITS | Encounter Summary ---
Author Organization [employer] Address [address] [facility] 7t [place] [address] Care Team Providers Care Cloth Printer Helper Name Role Phone Liliana Golden MD Primary Care Provider [phone] Reason for Visit * Reason Comments Med Refill Encounter Details Date Type Department Care Team ([facility] st Contact Info) Description 12/26/2024 Refill [facility] MEDICINE [address] [place], [place] [phone] Liliana Golden MD [address] [place], [place] [phone] Social History Tobacco Use Types Packs/Day Years [...] Description 01/11/2025 9:00 AM EDT Office Visit [facility] MEDICINE [address] [place] [phone] Liliana Golden MD [address] [place] [address] documented as of this encounter Visit Diagnoses Not on filedocumented in this encounter Additional Health Concerns Assessment Noted Time PHQ-9 Depression Total Score: 0 07/26/19 24 1:46 PM EDT documented as of this encounter Care Teams Cloth Printer Helper Relationship Specialty Start Date End Date Liliana Golden MD [address] [place] [id number] PCP - General Family Medicine 03/29/18 documented as of this encounter
--- OUTSIDE RECORDS SUMMARY | 2025-01-10 18:22 | XMS_ITS | Encounter Summary ---
Author Organization [employer] Address [address] [facility] 7t [place] [address] Care Team Providers Care Trench Digger Helper Name Role Phone Liliana Golden MD Primary Care Provider [phone] Reason for Visit * Reason Onset Date Comments Medication Question 08/28/2024 Encounter Details Date Type Department Care Team ([facility] st Contact Info) Description 08/28/2024 Telephone [facility] MEDICINE [address] [place], [place] [phone] Liliana Golden MD [address] [place], [place] [phone] Medication Question Social History Tobacco Use Types [...] PM EDT TC placed to pt with [facility] processing manager #[id number] to follow up on the request for medications refills anddiabetic summer shoes. Pt could not name the specific medications that are needed but only that sheneeds all of them . The pt was able to confirm that she has an upcoming trip to the [facility] and wants to make sure [...] daughter stating pt will be traveling to [facility] and she will be needing all of her medication for trip as well as summer shoes, she only has winter shoes at the moment. Pt does not have a flight date wanted to travel after upcoming physical but wanted to discuss shoes and medication ahead of time. Please contact daughter at [phone]. (Serbian Speaker) documented in this encounter Plan of Treatment Upcoming Encounters Date Type Department Care Team (Late st Contact Info) Description 01/11/2025 9:00 AM EDT Office Visit [facility] MEDICINE [address] [place] [address] Liliana Golden MD [address] [place] [address] documented as of this encounter Visit Diagnoses Not on filedocumented in this encounter Additional Health Concerns Assessment Noted Time PHQ-9 Depression Total Score: 0 07/26/19 24 1:46 PM EDT documented as of this encounter Care Teams Trench Digger Helper Relationship Specialty Start Date End Date Liliana Golden MD [address] [place] [address] PCP - General Family Medicine 03/29/18 documented as of this encounter
--- OUTSIDE RECORDS SUMMARY | 2025-01-10 18:22 | XMS_ITS | Encounter Summary ---
Author Organization [employer] Address 75 [facility] 7t [place] [address] Care Team Providers Care Wool Hat Forming Machine Tender Name Role Phone Liliana Golden MD Primary Care Provider [phone] Reason for Visit * Reason Onset Date Comments Durable Medical Equipment 04/29/2022 Encounter Details Date Type Department Care Team ([facility] st Contact Info) Description 04/29/2022 Telephone [facility] MEDICINE [address] [place], [place] [phone] Liliana Golden MD 230 [place], [place] [phone] Durable Medical Equipment Social History Tobacco Use [...] Description 01/11/2025 9:00 AM EDT Office Visit [facility] MEDICINE [address] [place], [place] [phone] Liliana Golden MD [address] [place] [address] documented as of this encounter Visit Diagnoses Not on filedocumented in this encounter Care Teams Wool Hat Forming Machine Tender Relationship Specialty Start Date End Date Liliana Golden MD [address] [place] [phone] PCP - General Family Medicine 03/29/18 documented as of this encounter
--- OUTSIDE RECORDS SUMMARY | 2025-01-10 18:22 | XMS_ITS | Clinical Summary ---
Author Organization [employer] Address [address] [place] [address] [address] [place] [address] Care Team Providers Care Sap Manager Name Role Phone Liliana Golden MD Primary Care Provider [phone] Allergies Active Allergy Reactions Criticality Noted Date Comments Lidocaine Unknown 03/24/2010 Medications chlorhexidine (Hibiclens) 4 % external liquidIndication s:Bullous pemphigus (HCC) Rinse area with water, then apply minimum amount necessary to cover skin or wound area and wash gently. Rinse again thoroughly. 473 mL 1 Active acetaminophen (Tylenol) 500 MG tablet Take by mouth if needed in the morning, at noon, and at bedtime. Active clobetasol (Temovate) 0.05 % ointment APPLY TO BLISTERS ON THE RIGHT BREAST TWICE DAILY Active clotrimazole (Lotrimin) 1 % cream Active glucose (Glutose) 40 % gel oral gel Active EPINEPHrine (Epipen) 0.3 MG/0.3ML injection syringe As directed Active glucagon 1 MG injection Prepare injection as directed. Inject if patient is unconscious due to low blood sugar Active mupirocin (Bactroban) 2 % ointment Active NIFEdipine XL (Procardia XL) 60 MG 24 hr tablet Active SM Athletes Foot 1 % cream Active Desitin 13 % cream Active Wound Dressings (Medihoney Ca Alginate 2 x2 ) pads Apply to the wound on buttock every 1-2 days 10 each 2 023 Active hydrocortisone (Preparation H) 1 % cream Apply to anal area bid prn 30 g 2 024 Active Blood Pressure Monitor kitIndications:E ssential hypertension Check blood pressure once daily and as needed 1 kit 024 Active Blood Glucose Monitoring Suppl (FreeStyle Lite) w/Device kitIndications:T ype 2 diabetes mellitus with hyperglycemia, without long-term current use of insulin (HCC) 1 each 3 times daily. 1 kit 024 Active FeroSul 325 (65 Fe) MG tablet TAKE 1 TABLET BY MOUTH TWICE DAILY IN THE MORNING AND IN THE EVENING WITH ORANGE JUICE 180 tablet 3 024 Active atorvastatin (Lipitor) 80 MG tablet TAKE 1 TABLET BY MOUTH AT BEDTIME 90 tablet 3 024 Active Ascorbic Acid (vitamin C) 500 MG tablet TAKE 1 TABLET BY MOUTH TWICE DAILY IN THE MORNING AND IN THE EVENING 180 tablet 3 024 Active Cyanocobalamin (B-12) 1000 MCG tablet controlled-relea se TAKE 1 TABLET BY MOUTH EVERY MORNING 90 tablet 3 024 Active Alcohol Swabs (Alcohol Prep) 70 % pads USE THREE TIMES DAILY 100 each 11 024 Active Multiple Vitamin (Multivitamin) tablet TAKE 1 TABLET BY MOUTH EVERY EVENING WITH FOOD 90 tablet 3 025 Active Aspirin EC Adult Low Dose 81 MG EC tablet TAKE 1 TABLET BY MOUTH EVERY EVENING 90 tablet 3 025 Active glipiZIDE (Glucotrol) 5 MG tablet TAKE 1 TABLET BY MOUTH TWICE DAILY IN THE MORNING AND IN THE EVENING BEFORE MEALS 180 tablet 3 025 Active hydrALAZINE (Apresoline) 25 MG tablet TAKE 1 TABLET BY MOUTH THREE TIMES DAILY IN THE MORNING, EVENING, AND BEDTIME WITH FOOD 270 tablet 3 025 Active cetirizine (ZyrTEC) 5 MG tablet TAKE 1 TABLET BY MOUTH EVERY MORNING 90 tablet 3 025 Active clopidogrel (Plavix) 75 MG tablet TAKE 1 TABLET BY MOUTH EVERY MORNING 90 tablet 3 025 Active cloNIDine (Catapres) 0.1 MG tablet TAKE 1 TABLET BY MOUTH TWICE DAILY IN THE MORNING AND AT BEDTIME 180 tablet 3 025 Active niacin 500 MG tablet Take 1 tablet (500 mg) by mouth with breakfast and with evening meal. Take 1 tablet by mouth twice daily 180 tablet 3 025 Active senna (Senokot) 8.6 MG tablet Take 2 tablets (17.2 mg) by mouth if needed at bedtime for constipation. 180 tablet 3 025 Active ammonium lactate (Lac-Hydrin) 12 % lotion Apply topically if needed for dry skin. 400 g 3 025 2025 Active bumetanide (Bumex) 0.5 MG tabletIndication s:Hypertension, unspecified type TAKE 1 TABLET BY MOUTH TWICE DAILY IN THE MORNING AND IN THE EVENING 180 tablet 3 025 Active FREESTYLE LITE test stripIndications :Type 2 diabetes mellitus with unspecified complications (HCC) Check blood sugar every morning before meal and as needed when feeling sick 50 strip 11 025 Active TRUEplus Lancets 33G miscIndications: Type 2 diabetes mellitus with unspecified complications (HCC) Check blood sugar every morning before breakfast and as needed when feeling ill 100 each 11 025 Active carvedilol (Coreg) 25 MG tablet TAKE 1 TABLET BY MOUTH TWICE DAILY IN THE MORNING AND IN THE EVENING WITH FOOD 180 tablet 3 025 Active carvedilol (Coreg) 25 MG tablet TAKE 1 TABLET BY MOUTH TWICE DAILY IN THE MORNING AND IN THE EVENING WITH FOOD 180 tablet 3 024 2024 Discontinued(R eorder (will not trigger notification to Pharmacy)) Active Problems Problem Noted Date Diagnosed Date [...] (09/05/2024 10:06 AM EDT): - Evaluated by plug shaper hand, Dr. Smith, on 03/13/22 - initially prescribed doxycycline, clobetasol, and Niacin - continue clobetasol, doxycycline, and Niacin as prescribed Assessment & Plan (07/26/2023 2:32 PM EDT): - Evaluated by plug shaper hand, Dr. Smith, on 03/13/22 - initially prescribed doxycycline, clobetasol, and Niacin - continue clobetasol, doxycycline, and Niacin as prescribed Assessment & Plan (01/11/2023 4:45 AM EDT): - Evaluated by plug shaper hand, Dr. Smith, on 03/13/22 - initially prescribed doxycycline, clobetasol, and Niacin - continue clobetasol, doxycycline, and Niacin as prescribed Assessment & Plan (10/05/2022 2:32 PM EDT): - Evaluated by plug shaper hand, Dr. Smith, on 03/13/22 - initially prescribed doxycycline, clobetasol, and Niacin - continue clobetasol, doxycycline, and Niacin as prescribed Assessment & Plan (07/13/2022 7:20 AM EDT): - Evaluated by plug shaper hand, Dr. Smith, on 03/13/22 - initially prescribed doxycycline, clobetasol, and Niacin - continue clobetasol, doxycycline, and Niacin as prescribed Assessment & Plan (03/20/2022 4:25 PM EST): Evaluated by plug shaper hand, Dr. Smith, on 03/13/22 Continue clobetasol, doxycycline, and Niacin as prescribed Still investigating its cause Anemia of chronic disease 03/20/2022 Assessment & Plan (09/05/2024 10:08 AM EDT): multifactorial - B12 deficiency, chronic disease, iron deficiency -Followed by oxyacetylene cutter -s/p iron infusion -Continue B12 PO. -Pt was supposed to have a colonoscopy, but family and pt decided not to have one -Cologuard ordered, but the specimen could not be processed -Ordered again Assessment & Plan (05/31/2024 9:48 AM EST): multifactorial - B12 deficiency, chronic disease, iron deficiency -Followed by oxyacetylene cutter -s/p iron infusion -Continue B12 PO. -Pt was supposed to have a colonoscopy, but family and pt decided not to have one -Cologuard ordered, but the specimen could not be processed -Ordered again Assessment & Plan (07/26/2023 2:32 PM EDT): multifactorial - B12 deficiency, chronic disease, iron deficiency -Followed by oxyacetylene cutter -s/p iron infusion -Continue B12 PO. -Pt was supposed to have a colonoscopy, but family and pt decided not to have one -Cologuard ordered, but the specimen could not be processed -Ordered again Assessment & Plan (01/11/2023 6:30 PM EDT): multifactorial - B12 deficiency, chronic disease, iron deficiency -Followed by oxyacetylene cutter -s/p iron infusion -Continue B12 PO. -Pt was supposed to have a colonoscopy, but family and pt decided not to have one -Cologuard ordered, but the specimen could not be processed -Ordered again Assessment & Plan (10/05/2022 2:38 PM EDT): multifactorial - B12 deficiency, chronic disease, iron deficiency -Followed by oxyacetylene cutter -s/p iron infusion -Continue B12 PO. -Pt was supposed to have a colonoscopy, but family and pt decided not to have one -Cologuard ordered, but the specimen could not be processed -Will order FIT instead of Cologuard. Assessment & Plan (07/13/2022 7:28 AM EDT): multifactorial - B12 deficiency, chronic disease, iron deficiency -Followed by oxyacetylene cutter -s/p iron infusion -Continue B12 PO. -Pt was supposed to have a colonoscopy, but family and pt decided not to have one -Cologuard ordered, but the specimen could not be processed -Will order FIT instead of Cologuard. Assessment & Plan (03/20/2022 4:32 PM EST): multifactorial - B12 deficiency, chronic disease, iron deficiency -Followed by oxyacetylene cutter -s/p iron infusion -Continue B12 PO. Chronic kidney disease (CKD) , stage III (moderate) ([facility]/HCC) 03/20/2022 Assessment & Plan (09/05/2024 10:09 AM EDT): -Followed by warp coiler -Avoid nephrotoxic drugs (still on metformin) -Use renal dosing Assessment & Plan (05/31/2024 9:05 AM EST): -Followed by warp coiler -Avoid nephrotoxic drugs (still on metformin) -Use renal dosing Assessment & Plan (05/01/2024 10:05 AM EST): -Followed by warp coiler -Avoid nephrotoxic drugs (still on metformin) -Use renal dosing Assessment & Plan (07/26/2023 2:10 PM EDT): -Followed by warp coiler -Avoid nephrotoxic drugs (still on metformin) -Use renal dosing Assessment & Plan (01/11/2023 4:42 AM EDT): -Followed by warp coiler -Avoid nephrotoxic drugs (still on metformin) -Use renal dosing Assessment & Plan (10/05/2022 2:38 PM EDT): -Followed by warp coiler -Avoid nephrotoxic drugs (still on metformin) -Use renal dosing Assessment & Plan (07/13/2022 7:09 AM EDT): -Followed by warp coiler -Avoid nephrotoxic drugs (still on metformin) -Use renal dosing Assessment & Plan (03/20/2022 4:34 PM EST): -Followed by warp coiler -Avoid nephrotoxic drugs (still on metformin) -Use [...] and a drug-eluting stent to RCA in [place] in July 2012. On dual antiplatelet therapy for > 1 year. - Center Receptionist: HFCCA - Last echocardiogram: 11/19/16 LVEF 60-65%, [...] daughter was advised to schedule appt w/ Center Receptionist Assessment & Plan (05/31/2024 9:04 AM EST): -NSTEMI in July 2012 and August 2014. She had a cardiac catheterization and a drug-eluting stent to RCA in [place] in July 2012. On dual antiplatelet therapy for > 1 year. - Center Receptionist: NATALYAA - Last echocardiogram: 11/19/16 LVEF 60-65%, mild [...] daughter was advised to schedule appt w/ Center Receptionist Assessment & Plan (05/01/2024 10:04 AM EST): -NSTEMI in July 2012 and August 2014. She had a cardiac catheterization and a drug-eluting stent to RCA in [place] in July 2012. On dual antiplatelet therapy for > 1 year. - Center Receptionist: NATALYAA - Last echocardiogram: 11/19/16 LVEF 60-65%, mild [...] daughter was advised to schedule appt w/ Center Receptionist Assessment & Plan (07/26/2023 2:09 PM EDT): -NSTEMI in July 2012 and August 2014. She had a cardiac catheterization and a drug-eluting stent to RCA in [place] in July 2012. On dual antiplatelet therapy for > 1 year. - Center Receptionist: SUSANA - Last echocardiogram: 11/19/16 LVEF 60-65%, [...] daughter was advised to schedule appt w/ Center Receptionist Assessment & Plan (01/11/2023 4:41 AM EDT): -NSTEMI in July 2012 and August 2014. She had a cardiac catheterization and a drug-eluting stent to RCA in [place] in July 2012. On dual antiplatelet therapy for > 1 year. - Center Receptionist: SUSANA - Last echocardiogram: 11/19/16 LVEF 60-65%, [...] daughter was advised to schedule appt w/ Center Receptionist Assessment & Plan (10/05/2022 2:31 PM EDT): -NSTEMI in July 2012 and August 2014. She had a cardiac catheterization and a drug-eluting stent to RCA in [place] in July 2012. On dual antiplatelet therapy for > 1 year. - Center Receptionist: SUSANA - Last echocardiogram: 11/19/16 LVEF 60-65%, [...] daughter was advised to schedule appt w/ Center Receptionist Assessment & Plan (07/13/2022 7:08 AM EDT): -NSTEMI in July 2012 and August 2014. She had a cardiac catheterization and a drug-eluting stent to RCA in [place] in July 2012. On dual antiplatelet therapy for > 1 year. - Center Receptionist: SUSANA - Last echocardiogram: 11/19/16 LVEF 60-65%, [...] daughter was advised to schedule appt w/ Center Receptionist Assessment & Plan (03/20/2022 4:40 PM EST): -NSTEMI in July 2012 and August 2014. She had a cardiac catheterization and a drug-eluting stent to RCA in [place] in July 2012. On dual antiplatelet therapy for > 1 year. - Center Receptionist: RAVIN, seen about 2 months ago, next [...] daughter was advised to schedule appt w/ Center Receptionist Dementia ([facility]) 04/11/2015 Assessment & Plan (09/05/2024 10:07 AM [...] JNC-8, < 130/80 per ACC/AHA -Evaluated by warp coiler with 24-hour BP monitoring -continue nifedipine 60 [...] JNC-8, < 130/80 per ACC/AHA -Evaluated by warp coiler with 24-hour BP monitoring -continue nifedipine 60 [...] JNC-8, < 130/80 per ACC/AHA -Evaluated by warp coiler with 24-hour BP monitoring -continue nifedipine 60 [...] JNC-8, < 130/80 per ACC/AHA -Evaluated by warp coiler with 24-hour BP monitoring -continue nifedipine 60 [...] JNC-8, < 130/80 per ACC/AHA -Evaluated by warp coiler with 24-hour BP monitoring -continue nifedipine 60 [...] JNC-8, < 130/80 per ACC/AHA -Evaluated by warp coiler with 24-hour BP monitoring -continue nifedipine 60 [...] JNC-8, < 130/80 per ACC/AHA -Evaluated by warp coiler with 24-hour BP monitoring -continue nifedipine 60 [...] JNC-8, < 130/80 per ACC/AHA -Evaluated by warp coiler with 24-hour BP monitoring -continue nifedipine 60 [...] Note: Pt was prescribed Niacin by her plug shaper hand. Assessment & Plan (06/07/2024 12:59 PM EDT): - Last lipid profile: 05/23/24, elevated LDL. - Current medication: atorvastatin 80 mg qhs. - She is on high-intensity statin therapy. - Continue current medication and lifestyle modification. - Note: Pt was prescribed Niacin by her plug shaper hand. Assessment & Plan (07/26/2023 2:31 PM EDT): - Last lipid profile: 06/30/22:TC 169; TG 127; HDL 83; LDL 65 - Current medication: atorvastatin 80 mg qhs. - She is on high-intensity statin therapy. - Continue current medication and lifestyle modification. - Note: Pt is prescribed Niacin by her plug shaper hand. Assessment & Plan (01/11/2023 4:45 AM EDT): - Last lipid profile: 06/30/22:TC 169; TG 127; HDL 83; LDL 65 - Current medication: atorvastatin 80 mg qhs. - She is on high-intensity statin therapy. - Continue current medication and lifestyle modification. - Note: Pt is prescribed Niacin by her plug shaper hand. Assessment & Plan (10/05/2022 2:24 PM EDT): - Last lipid profile: 06/30/22:TC 169; TG 127; HDL 83; LDL 65 - Current medication: atorvastatin 80 mg qhs. - She is on high-intensity statin therapy. - Continue current medication and lifestyle modification. - Note: Pt is prescribed Niacin by her plug shaper hand. Assessment & Plan (07/13/2022 7:21 AM EDT): - Last lipid profile: 10/13/21 TC 154; TG 174; HDL 46; LDL 81 - Current medication: atorvastatin 80 mg qhs. - She is on high-intensity statin therapy. - Continue current medication and lifestyle modification. - Note: Pt is prescribed Niacin by her plug shaper hand. Assessment & Plan (03/20/2022 4:39 PM EST): [...] treatment x 5 years. -previously followed by [facility], Dr. Yandel Matthews, last appt in Oct [...] treatment x 5 years. -previously followed by [facility], Dr. Yandel Matthews, last appt in Oct [...] fosamax treatment x 5 years. -followed by [facility], Dr. Yandel Matthews, last appt in August 2021 -s/p Tymlos since Jan 2019 until Mar 2021 -started on Prolia in Mar 2021, every 6 months, last dose in September 2021. Pt's caregiver is hesitant to continue Prolia. -continue fall precaution -continue weight-bearing exercise -recommended [place] -recommended to reschedule appt with data network architect Assessment & Plan (07/13/2022 7:13 AM EDT): History of several rib fractures. -s/p fosamax treatment x 5 years. -followed by [facility], Dr. Yandel Matthews, last appt in August 2021 -s/p Tymlos since Jan 2019 until Mar 2021 -started on Prolia in Mar 2021, every 6 months, last dose in September 2021. Pt's caregiver is hesitant to continue Prolia. -continue fall precaution -continue weight-bearing exercise -recommended [place] -recommended to reschedule appt with data network architect Assessment & Plan (03/20/2022 4:42 PM EST): History of several rib fractures. -s/p fosamax treatment x 5 years. -followed by [facility], Dr. Yandel Matthews -s/p Tymlos since Jan [...] Encounters Date Type Department Care Team Description 01/10/2025 Telephone [facility] [address] [place] [address] Liliana Golden MD chart prep 12/26/2024 Refill [facility] [address] [place] [address] Liliana Golden MD 12/26/2024 Refill [facility] [address] [place] [address] Liliana Golden MD 12/25/2024 Telephone [facility] [address] [place] [address] Liliana Golden MD Durable Medical Equipment 12/08/2024 Telephone [facility] [address] [place] [address] Liliana Golden MD Durable Medical Equipment 12/07/2024 Telephone [facility] [address] [place] [address] Liliana Golden MD 12/06/2024 Telephone [facility] [address] [place] [address] Liliana Golden MD Paperwork/Forms 11/30/2024 Results Follow-Up [facility] [address] [place] [address] Liliana Golden MD CBC auto differential, Urinalysis Complete, Electrolyte Panel, Additional followed-up results: 8 11/30/2024 Telephone [facility] [address] [place] [address] Liliana Golden MD Lab Orders 11/30/2024 Orders Only GENERIC EXTERNAL DATA DEPARTMENT Provider, Generic External Data 11/29/2024 2:45 PM EDT Office Visit [facility] [address] [place] [address] Crystal Gold, OD Type 2 diabetes mellitus 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 manifestations ([facility]/HCC) (Primary Dx); Combined forms of age-related cataract of both eyes; Regular astigmatism, bilateral 11/29/2024 Travel 11/23/2024 Refill [facility] [address] [place] [address] Delia Horton MD Type 2 diabetes mellitus with unspecified complications (CMS/HCC) 11/02/[address] [address] Liliana Golden MD Durable Medical Equipment (DME Request: Hospital Bed Control) 11/02/[address] [address] Liliana Golden MD Durable Medical Equipment (DME Order: Lightweight Transfer Chair) 10/30/2024 Refill [facility] [address] [place], [place] [phone] Liliana Golden MD Hypertension, unspecified type from Last 3 Months Immunizations Immunization Administration [...] 09/08/2024 1:29 PM EDT Plan of Treatment Upcoming Encounters Date Type Department Care Team (Late st Contact Info) Description 01/11/2025 9:00 AM EDT Office Visit [facility] [address] [place] [address] Liliana Golden MD [address] [place] [address] Health Maintenance Due Date Last Done Comments RSV Patients and Patients Aged 60 years or older (1 - 1-dose 75+ series) 2013 Depression Screening 07/25/2024 07/26/2023, 07/26/19 24 COVID-19 Vaccine ( season) 2024 10/13/2021, 02/14/2021, 06/06/2020, Additional history exists Influenza Vaccine (#1) 2024 3, 01/06/2022, 01/06/2022, Additional history exists Diabetes: Hemoglobin A1C 12/06/20242 025, 05/31/2024, 07/26/2023, Additional history exists Alcohol/Substance Use Screening 05/01/2025 05/01/2024 Lipid Panel 05/23/2025 05/23/2024, 0 06/2022, 10/13/2021, Additional history exists Diabetes: Foot Exam 05/31/2025 05/31/2024 SDOH Screening 08/29/2025 08/29/2024 Tobacco Screening 11/29/2025 11/29/2024 Eye Exam 11/29/2026 11/29/2024, 05/2024, 11/29/2024, Additional history exists DTaP/Tdap/Td Vaccines [...] Procedure Name Priority Date/Time Associated Diagnosis Comments PROTEIN CREATININE RATIO, URINE Routine 11/30/2024 4:00 PM EDT ALBUMIN, RANDOM URINE W/CREATININE Routine 11/30/2024 4:00 PM EDT URINALYSIS, COMPLETE Routine 11/30/2024 4:00 PM EDT VITAMIN D,25-OH,TOTAL,IA Routine 11/30/2024 3:51 PM EDT PTH, INTACT WITHOUT CALCIUM Routine 11/30/2024 3:51 PM EDT ALBUMIN Routine 11/30/2024 3:51 PM EDT MAGNESIUM Routine 11/30/2024 3:51 PM EDT PHOSPHATE ( PHOSPHORUS) Routine 11/30/2024 3:51 PM EDT CALCIUM Routine 11/30/2024 3:51 PM EDT CREATININE, SERUM Routine 11/30/2024 3:5 1 PM EDT UREA NITROGEN (BUN) Routine 11/30/2024 3 :51 PM EDT ELECTROLYTE PANEL Routine 11/30/2024 3:5 1 PM EDT CBC WITH AUTO DIFFERENTIAL Routine 11/30/2024 3:51 PM EDT POCT GLYCATED HEMOGLOBIN, TOTAL Routine 09/05/2024 1:59 PM EDT Type 2 diabetes mellitus with stage 3b chronic kidney disease, without long-term current use of insulin ([facility]) LIPID PANEL WITH REFLEX TO DIRECT LDL Routine 05/23/2024 9:33 AM EST from Last 3 Months or Most Recently Relevant to Health Maintenance Results * (ABNORMAL) Protein Creatinine Ratio, Urine (11/30/2024 4:00 PM EDT) Protein, Total, Random Urine 19(H) <12 mg/dL [facility] Protein/Creati nine Ratio, Ur 0.70(H) <0.2 [facility] Comment:The spot urine prote in:creatinine ratio may increase to 0.3during normal . 11/30/2024 4:00 PM EDT 11/30/2024 4:14 PM EDT Generic External Data Provider LAB URINE ORDERAB LES Final Result Performing Organization Address [facility] Co de Phone Number [facility] [address] [place] [phone] * (ABNORMAL) Albumin, Random Urine W/Creatinine (11/30/2024 4:00 PM EDT) Creatinine, Urine 27.15 mg/dL [facility] Microalbumin Urine 123.0 mg/L H [facility] Microalbum Creatinine Ratio Ur 453.0(H) <30 ug/mg cr [facility] Comment:Albumin/Creatinine R atio Reference Ranges: Normal: < 30 ug/mg creatinine Microalbuminuria: 30 - 300 ug/mg creatinineClinical Albuminuria: > 300 ug/mg creatinine 11/30/2024 4:00 PM EDT 11/30/2024 4:14 PM EDT Generic External Data Provider LAB URINE ORDERAB LES Final Result Performing Organization Address [facility] Co de Phone Number [facility] [address] [place] [phone] * (ABNORMAL) Urinalysis Complete (11/30/2024 4:00 PM EDT) Color Urine Yellow [facility] Appearance Urine Clear [facility] PH 5.5 5.0 - 9.0 [facility] Glucose Urine UA Negative Negative mg/dL [facility] Urine Blood Negative Negative [facility] Specific [place] - Urine <=1.005 1.005 - 1.025 [facility] Urine Protein Trace Neg-Trace mg/dL [facility] Urine Ketones Negative Negative mg/dL [facility] Nitrite Urine Negative Negative [facility] Leukocyte Esterase Urine Large (3+)(A) Negative [facility] RBC Urine 0-2 0 - 2 /HPF [facility] Urine WBC 11-20(A) 0 - 5 /HPF [facility] Urine Squamous Epithelial Cell 6-10 0 - 2 /HPF [facility] Urine Bacteria None Seen None Seen [facility] Hyaline Casts, Urine 3-5 0 - 2 /LPF [facility] 11/30/2024 4:00 PM EDT 11/30/2024 4:14 PM EDT us Generic External Data Provider LAB URINE ORDERAB LES Final Result [facility] [address] [place] [phone] [phone] * Vitamin D, 25-Hydroxy, Total, Immunoassay (11/30/2024 3:51 PM EDT) Vitamin D 25-OH Total 48.4 >30 ng/mL [facility] Comment: Health Based Reference Values*< 20 ng/mL Poxfwuvba31-70 ng/mL Insufficient> 30 ng/mL Sufficient*Kiah RIOS. N Engl J Med. 2007;357:266-280There is no well-established upper level of normal vitamin Dlevels. Some laboratories use 50 ng/mL as an upper limit ofnormal. However, toxicity is patient-dependent and may occurat any level. Careful correlation with the patient'spresentation is necessary and, if there is concern forvitamin D toxicity, treatment should be consideredirrespective of the serum level.Care must be taken in interpreting Vitamin D results fromdifferent laboratories and methodologies. Published datademonstrated that results from patients undergoinghemodialysis may show a negative bias when tested withvarious automated 25-OH vitamin D assays when compared toLC-MS/MS.When testing samples from patients whose predominant form ofVitamin D is Vitamin D2, such as patients receiving VitaminD2 supplementation, results that are subtherapeutic shouldbe confirmed with another method such as LC-MS/MS. 11/30/2024 3:51 PM EDT 11/30/2024 3:52 PM EDT us Generic External Data Provider LAB BLOOD ORDERAB LES Final Result Performing Organization Address [facility]/ZIP Co de Phone Number [facility] [address] [place] [address] [phone] * Creatinine, Serum (11/30/2024 3:51 PM EDT) [facility] Creatinine, Serum 1.37 0.5 - 1.4 mg/dL [facility] Estimated Glomerular Filt Rate 37 [facility] Comment:Chronic Kidney Disea se: Estimated GFR < 60 mL/min/1.18l2Cqnodk Kidney Disease: Estimated GFR < 15 mL/min/1.73m2 11/30/2024 3:51 PM EDT 11/30/2024 3:52 PM EDT Generic External Data Provider LAB BLOOD ORDERAB LES Final Result Performing Organization Address [facility] de Phone Number [facility] [address] [place] [address] [phone] * (ABNORMAL) CBC auto differential (11/30/2024 3:51 PM EDT) [facility] White Blood Count 8.0 4.8 - 10.8 X10*3/uL [facility] Red Blood Count 3.15(L) 4.20 - 5.50 X10*6/uL [facility] Hemoglobin 9.4(L) 12.0 - 16.0 g/dl [facility] Hematocrit 26.9(L) 37.0 - 47.0 % [facility] Mean Corpuscular Volume 85.4 80.0 - 98.0 fL [facility] Mean Corpuscular Hemoglobin 29.8 27.0 - 33.0 pg [facility] Mean Corpuscular HGB Conc 34.9 31.0 - 35.0 g/dl [facility] Red Cell Distribution Width 15.9 11.0 - 16.0 % [facility] Platelet Count 212 160 - 400 X10*3/uL [facility] Mean Platelet Volume 9.4 9.4 - 12.3 fL [facility] Neutrophils Percent Auto 68.1 45 - 73 % [facility] Imm Gran Pct Auto 0.5(H) 0.0 - 0.4 % [facility] Lymphocytes Percent Auto 20.8 20 - 40 % [facility] Monocytes Percent Auto 7.6 2 - 11 % [facility] Eosinophils Percent Auto 2.5 0 - 4 % [facility] Basophils Percent Auto 0.5 0 - 2 % [facility] NRBC Pct Auto 0.0 0.0 - 0.2 /100WBC [facility] Neutrophils Absolute Auto 5.5 2.0 - 8.3 x10*3/uL [facility] Imm Gran Abs Auto 0.04(H) 0.00 - 0.03 X10*3/uL [facility] Lymphocytes Absolute Auto 1.7 1.2 - 4.9 X10*3/uL [facility] Monocytes Absolute Auto 0.6 0.1 - 1.2 X10*3/uL [facility] Eosinophils Absolute Auto 0.2 0.0 - 0.4 X10*3/uL [facility] Basophils Absolute Auto 0.0 0.0 - 0.2 X10*3/uL [facility] NRBC Abs Auto 0.000 0.0 - 0.012 X10*3/uL [facility] 11/30/2024 3:51 PM EDT 11/30/2024 3:52 PM EDT us Generic External Data Provider LAB BLOOD ORDERAB LES Final Result [facility] [address] [place] [address] [phone] * (ABNORMAL) BUN (Blood Urea Nitrogen) (11/30/2024 3:51 PM EDT) Urea Nitrogen (BUN) 39(H) 9 - 16 mg/dL [facility] 11/30/2024 3:51 PM EDT 11/30/2024 3:52 PM EDT us Generic External Data Provider LAB BLOOD ORDERAB LES Final Result Performing Organization Address [facility] de Phone Number [facility] [address] [place] [address] [phone] * Phosphate (As Phosphorus) (11/30/2024 3:51 PM EDT) Phosphorus 2.8 2.7 - 4.5 mg/dL [facility] 11/30/2024 3:51 PM EDT 11/30/2024 3:52 PM EDT Generic External Data Provider LAB BLOOD ORDERAB LES Final Result Performing Organization Address [facility] Phone Number [facility] [address] [place] [address] [phone] * (ABNORMAL) PTH, Intact Without Calcium (11/30/2024 3:51 PM EDT) Parathyroid Hormone, Intact 110.4(H) 8.7 - 77.1 pg/mL [facility] 11/30/2024 3:51 PM EDT 11/30/2024 3:52 PM EDT us Generic External Data Provider LAB BLOOD ORDERAB LES Final Result Performing Organization Address [facility] Co de Phone Number [facility] [address] [place] [address] [phone] * Magnesium (11/30/2024 3:51 PM EDT) Magnesium 1.8 1.6 - 2.6 mg/dL [facility] 11/30/2024 3:51 PM EDT 11/30/2024 3:52 PM EDT Generic External Data Provider LAB BLOOD ORDERAB LES Final Result Performing Organization Address [facility] Co de Phone Number [facility] [address] [place] [address] [phone] * Calcium (11/30/2024 3:51 PM EDT) Pathologist [facility] Calcium 8.9 8.4 - 10.2 mg/dL [facility] 11/30/2024 3:51 PM EDT 11/30/2024 3:52 PM EDT Generic External Data Provider LAB BLOOD ORDERAB LES Final Result Performing Organization Address [facility] Co de Phone Number [facility] [address] [place] [address] [phone] * Albumin (11/30/2024 3:51 PM EDT) [facility] Albumin Level 3.8 3.5 - 5.0 g/dL [facility] 11/30/2024 3:51 PM EDT 11/30/2024 3:52 PM EDT Generic External Data Provider LAB BLOOD ORDERAB LES Final Result Performing Organization Address [facility] de Phone Number [facility] [address] [place] [address] [phone] * (ABNORMAL) Electrolyte Panel (11/30/2024 3:51 PM EDT) Pathologist [facility] Sodium 129(L) 135 - 145 mmol/L [facility] Potassium 3.1(L) 3.3 - 5.1 mmol/L [facility] Chloride 94(L) 96 - 108 mmol/L [facility] Carbon Dioxide 25 22 - 29 mmol/L [facility] Anion Gap 13 12 - 20 [facility] 11/30/2024 3:51 PM EDT 11/30/2024 3:52 PM EDT Generic External Data Provider LAB BLOOD ORDERAB LES Final Result [facility] [address] [place] [address] [phone] * (ABNORMAL) POCT HGB A1C (09/05/2024 1:59 PM EDT) Hemoglobin A1C 6.7(A) 4.0 - 6.0 % QC Media Lot # [id number] Lot# Expiration Date [id number] Swab 09/05/2024 1:59 PM EDT Liliana Golden [...] to 5OO mg/dL Cholesterol 185 <200 mg/dL [facility] Comment:Desirable Cholestero l: less than 200 mg/dLBorderline High Cholesterol: 200-239 mg/dLHigh Cholesterol: greater than 239 mg/dL LDL Cholesterol Calculated 115(H) <100 mg/dL [facility] Comment:Desirable LDL: less than 100 mg/dLNear Optimal/Above Optimal LDL: 110- 129 mg/dLBorderline High LDL: 130-159 mg/dLHigh LDL: 160-189 mg/dLVery High LDL: greater than or equal to 190 mg/dL HDL Cholesterol 56 >40 mg/dL [facility] Comment:Desirable HDL: great er than 40 mg/dL Note: This HDL assay may give artificially low results in patients with liver disease. 05/23/2024 9:33 AM EST 05/23/2024 11:35 AM EST Liliana Golden MD LAB BLOOD ORDERABLES Final Resul t [facility] [address] [place] [phone] from Last 3 Months or Most Recently Relevant to Health Maintenance Insurance [facility] DETENTION OPTIONS (HMO D-SNP) REMY MEADE [id number] [place] [phone] [place] [phone] Care Teams Sap Manager Relationship Specialty Start Date End Date Liliana Golden MD [address] [place] [address] PCP - General Family Medicine 03/29/18
--- OUTSIDE RECORDS SUMMARY | 2025-01-10 18:22 | XMS_ITS | Data Portability ---
Author Organization [place] - [facility] Address [address] [place] [phone] Care Team Providers Care Healthcare Analyst Name Role Phone ZARI RABAGO Primary Care Provider [facility] OTHER Assessment Encounter Date Assessment Date Assessment LastModified by Organization Details LastModified Time 03/05/2022 03/05/2022 Time On Scene with Patient: 01:06:21 81 YO F establishing care. She complains of right breast wound that began February 12? initially starting with a clear filled blister that spread with several blisters ranging from clear to blood filled. She was seen at [facility] and was prescribed anti fungal cream, which [...] and answering all questions appropriately in her kiowa tribe language. No acute distress, neurologically intact, EOMI. [...] questions were answered prior to team departure. [email or web address] Not available 03/06/2022 09:28:27 03/08/2022 03/08/2022 Overview/History [...] after care of this patient [facility]. [email or web address] Not available 03/08/2022 [...] 96% RA Exam: pleasant 82 y/o female hungarian speaking, well appearing, alert NAD sitting in [...] after care of this patient according to [facility]'s infection prevention protocols. [email or web address] Not available 02/16/2023 15:13:11 Plan of Treatment Reminders Order Date Submit Date Provider Last Modified By Organization Details Last Modified Time Details Appointments None recorded. Lab rapid SARS CoV 2 Ag, QL IA, respirator y specimen 2022 023 [email or web address] [facility], [address] [place], [address], 3 14:59:03 rapid flu (A+B) 2022 023 [email or web address] [facility], [address] [place], [address], 3 14:59:20 Referral wound care referral 2021 022 [facility], [address] [facility], [place], [address], 2 11:59:57 dermatolog ist referral 2021 022 [facility], [facility] [facility], [address], [place], [address], 2 11:59:55 Procedures None recorded. Surgeries None recorded. Imaging XR, chest, 2 view - cough and low grade fever r/o pneumonia 2022 023 [facility] ([facility] [employer]), [address] [facility], [place], [address], 3 17:05:55 Medication Orders Saline Wound Wash 0.9 % topical spray 2021 023 [facility], [address] [place], [place], [id number], 03:15:20 [email or web address] 2 % topical ointment 2021 022 [facility], [address] [facility], [place], [place], [id number], 13:11:25 Patient TargetsNo targets recorded. Patient Instructions Encounter Date Encounter Id Patient Instructions Last Modified By Organization Details Last Modified Time 03/05/2022 [id number] skin tears: care instructions [email or web address] [id number] Not available 03/05/2022 13:06:55 Thank you for yo ur visit with [facility] today. You were seen today for treatment [...] in your condition between 8am-10pm, please call [facility] at [phone] to help navigate your care. [email or web address] 3 Not available 03/05/2022 12:46:35 02/16/2023 [id number] Inhaler Instructions Before use, you need to prime the inhaler: Take the cap off the mouthpiece and put the inhaler in the spacer Shake the inhaler for 5 seconds Hold the inhaler upright with 1 finger on the top of the canister, the thumb on the bottom of the inhaler, and your other hand holding the spacer Express a large breath Close lips around spacer Press down on the canister After you press down on the canister, breathe (or have your child breathe in) deeply and slowly and hold your breath for 10 seconds Take out of your mouth and slowly exhale If you were instructed to take 2 puffs of the inhaler, wait one minute before you give the second puff. Shake the inhaler again before the second puff. If the inhaler is a steroid medicine (also called a g lucocorticoid or c orticosteroid ), rinse out your mouth, gargle, and spit out the water Cleaning: If you use the inhaler every day, you need to clean it at least once a week. If you use less often, clean the inhaler when you see powder in or around the hole. To clean an inhaler: Remove the canister and cap from the mouthpiece. Do not wash the canister or put the canister under water. Run warm water through the mouthpiece for 30 to 60 seconds Shake the water off of the mouthpiece and let it air dry Clean the spacer every 1-2 weeks. First, remove the inhaler from the spacer. Wash the spacer with warm water and dishwashing soap, but do NOT rinse it. Then let it air dry. Leaving the spacer a little soapy after cleaning actually helps it work better. [email or web address] Not available 02/16/2023 14:41:32 Reason for Referral Referring Physician: Shira Esqueda, Emergency Medicine, Encounter Date: 03/08/2022 Real Estate Sales Agent Referral for W ound of skin Referring Physician: Shira Esqueda Emergency Medicine, Encounter Date: 03/08/2022 Results Created Date Observation Date Name Description Value Unit Range Abnormal Flag Note LastModifiedBy Organization Detail LastModifiedTime 02/17/2002/16/2023 rapid flu (A+B) Flu A (ref: neg) negati ve Not Available [facility] [address] [place], [address], 02/16/2023 14:49:31 02/17/20 23 02/16/2023 rapid flu (A+B) Flu B (ref: neg) negati ve Not Available [facility] [address] [place], [address], 02/16/2023 14:49:31 02/17/20 23 02/16/2023 rapid flu (A+B) Control Visual ized/V alid Not Available [facility] [address] [place], [address], 02/16/2023 14:49:31 02/17/20 23 02/16/2023 rapid flu (A+B) [email or web address], [address] [place] [address], [id number] Not Available [facility] - Home [address] [place] [address], [phone], 02/16/2023 14:49:31 02/17/20 23 02/16/2023 rapid SARS CoV 2 Ag, QL IA, respi rator y speci men Covid 19 Antigen (ref: neg) negati ve Not Available [facility] Home [address] [place] [address], [phone], 02/16/2023 14:49:13 02/17/20 23 02/16/2023 rapid SARS CoV 2 Ag, QL IA, respi rator y speci men Control Visual ized/V alid Not Available [facility] - Home [address] [place] [address], [phone], 02/16/2023 14:49:13 02/17/20 23 02/16/2023 rapid SARS CoV 2 Ag, QL IA, respi rator y speci men [facility] [address] [place] [address], [id number] Not Available [facility] - Home [address] [place] [address], [phone], 02/16/2023 14:49:13 02/20/20 23 02/19/2023 XR, chest [...] OSPINA M.D. 2022 4:57:3 0 PM EST. [email or web address] [address] [facility] [address], [place], [address], 02/20/2023 08:46:22 Result Notes Documentation Provider Name and Address Organization Details Recorded Time Xr, Chest, 2 View : XRAY CHEST 2 VIEW FINDINGS: No active pulmonary infiltrates or pleural effusions are seen. The heart is mildly enlarged. There is mild tortuosity and calcification in the thoracic aorta. Hilar areas are normal. Pulmonary vasculature is normal. CONCLUSION: Mild cardiomegaly. No active disease is seen in the chest. ELECTRONICALLY SIGNED BY ZACHARY HOWELL M.D. 02/19/2023 4:57:30 PM EST. XRAY CHEST 2 VIEW Results: No active pulmonary infiltrates or pleural effusions are seen. The heart is mildly enlarged. There is mild tortuosity and calcification in the thoracic aorta. Hilar areas are normal. Pulmonary vasculature is normal. Conclusion: Mild cardiomegaly. No active disease is seen in the chest. Electronically signed by ZACHARY HOWELL M.D. 02/19/2023 4:57:30 PM EST. REMY Brunner [address] [place] [address] [place], [address], [place] [facility] 02/20/2023 08:46:22 Medical Equipment None Reported. Allergies No known [...] APPLY TO THE AFFECTED AREA(S) (BLISTER) EN SULLYO FRAN DOS VECES AL TALIB active Not Available [...] Not Available Not Available Not Available [employer] [place] Lite kit USE THREE TIMES DAILY active [...] Heart rate Body temperature Respiratory rate Systolic And Diastolic Provider Name and Address Organization Details Last Updated DateTime 3 96 % 96 % 79 /min 99 [degF] 18 /min 106/66 mm[Hg] Not Available [facility] 3 14:37:33 Date Recorded Body temperature Respiratory rate Oxygen saturation Oxygen saturation in Arterial blood by Pulse oximetry Heart rate Systolic And Diastolic Provider Name and Address Organization Details Last Updated DateTime 2 97.9 [degF] 16 /min 98 % 98 % 68 /min 122/58 mm[Hg] Not Available [facility] 2 12:42:56 Date Recorded Body temperature Heart rate Respiratory rate Oxygen saturation Oxygen saturation in Arterial blood by Pulse oximetry Systolic And Diastolic Provider Name and Address Organization Details Last Updated DateTime 2 98.6 [degF] 66 /min 18 /min 98 % 98 % 124/58 mm[Hg] Not Available [facility] 2 11:44:36 Social History Question Answer Notes LastModified by Organizat ion Details LastModified Time Tobacco Smoking Status Never Smoker September SRINIVAS Ramsey [address], [place], [address], [place] [facility] 03/05/2022 12:44:51 Within The Past 12 Months, Has It Happened That The Food You Bought Just Didn't Last And You Didn't Have Money To Get More. Never True [email or web address] Information not available 03/05/2022 Within The Past 12 Months, Have You Worried That Your Food Would Run Out Before You Got Money To Buy More. Never True [email or web address] Information not available 03/05/2022 Fall Risk: Do You Feel Unsteady When Standing Or Walking? Yes [email or web address] Information not available 03/05/2022 We Know That How And When People Interact With Friends And Family Can Be Very Different From Person To Person. How Often Do You Have The Opportunity To See Or Talk To People That You Care About And Feel Close To? (Ex: Talking To Friends On The Phone Or Visiting Friends Or Family Or Going To Buddhism Or Club Meetings) 5 Or More Times Per Week [email or web address] Information not available 03/05/2022 Excessive Alcohol Or Drug Use No [email or web address] Information not available 03/05/2022 Does This Patient Have A PCP? Yes [email or web address] Information not available 03/05/2022 Has The Patient Seen Their PCP In The Past 6 Months? Yes [email or web address] Information not available 03/05/2022 Is This Patient In Hospice? No [email or web address] Information not available 03/05/2022 We Know From Many Of Our Patients That Covering All Of Their Costs Can Be Difficult At Times. This Can Cause Stress And Impact Health. In The Past Year, Have You Been Unable To Get Any Of The Following When It Was Really Needed? No [email or web address] Information not available 03/05/2022 What Is Your Housing Situation Today? I Have Housing [email or web address] Information not available 03/05/2022 Sex: Unknown Functional Status Question Answer Note LastModified by Organizat ion Details LastModified Time Do you use any illicit or recreational drugs? No [email or web address] Information not available 03/05/2022 Mental Status None recorded. Family History Nothing Reported. Medical History Condition Response Diabetes Y Coronary Artery Disease N CHF N Parkinson's Disease N Cancer N Stroke Y Dementia N Hypothyroidism N COPD N Asthma N Depression N High Cholesterol Y Rheumatoid Arthritis N Pulmonary Embolism N Hypertension Y A-fib N Osteoporosis N Kidney Disease N Gynecological HistoryNo gynecological history recorded. Obstetrics History GPAL:G 0 P 0 0 0 0 Past Encounters Encounter ID Performer Location Encounter Start Date Encounter Closed Date Diagnosis/Indication Diagnosis SNOMED-CT Code Diagnosis ICD10 Code Diagnosis IMO Codes Diagnosis Note [id number] September SRINIVAS Ramsey [facility] [address] [employer] [place] [address] 03/05/2022 12:37:15 03/06/2022 09:55:59 Wound of skin 559219850 T14.8XXA [id number] Shira Esqueda NP [facility] [address] [place] [address] 03/08/2022 11:17:37 03/11/2022 14:43:42 Wound of skin [id number] T14.8XXD Tear of skin [id number] T 14.8XXD [id number] REMY Brunner [facility] [address] [place] [address] 02/16/2023 14:32:08 02/16/2023 17:59:23 Acute upper respiratory infection [id number] J06.9 Status of condition: Acute. Testing/Re sults: Rapid covid and rapid flu [...] fever, lethargy, decreased urine output. Essential hypertension [id number] I10 Status of condition: Chronic. Testing/Re sults: Discussion : Plan & Management : Health Concerns Section Related Observation LastModified by Organization Detai ls LastModified Time None Recorded Concern Status LastModified by Organization Details LastModified Time None Recorded Advance Directives Directive None Recorded Payers Insurance Date Sequence Insurance Name Policy Number Policy Blount Covered Member ID Blonut Member ID Guarantor Name 02/15/2023 1 [facility] - DOS ON OR AFTER 2022 - MEDICARE [place]ANTAGE [place] (MEDICARE REPLACEMENT/AD VANTAGE - PPO) Chanel Ramsey [id number] Kourtney Jignesh 02/15/2023 1 *SELF PAY* Chanel Ramsey [id number] Kourtney Egan 03/05/2022 1 *SELF PAY* Chanel Corona [id number] Kourtney Jignesh 03/06/2022 1 [place]: [employer] Chanel Ramsey [id number] Mcmillan Jignesh 02/15/2023 1 [facility] - DOS PRIOR TO 2022 - DUAL ELIGIBLE (MEDICARE REPLACEMENT/AD VANTAGE - HMO) Chanel Ramsey [id number] Kourtney Egan Notes Date Note Type Note Provider Name and Address Organization Details Recorded Time 03/05/2022 text/html 81 YO F establishing care. She complains of right breast wound that began February 12? initially starting with a clear filled blister that spread with several blisters ranging from clear to blood filled. She was seen at [facility] and was prescribed anti fungal cream, which made it worse. She returned to the ER and was prescribed Desitin cream, which provided no change. The third time she was seen at ER she was prescribed oral antibiotic medication which she completed today. She denies any trauma to area, itching, or pain. Sofie Ramsey NP [address], [place], [address], [place] [facility] 03/06/2022 09:28:41 03/08/2022 text/html Patient is a 81 year old female with a PMH including CVA, HTN, HLD, T2DM who [facility] being seen today for a [...] translating. Shira Esqueda NP [address], [place], [address], [place] [facility] 03/08/2022 12:51:36 02/16/2023 text/html General HPI Template - DHReported by Patient 82 y/o female known to [facility] to [facility] with hx of DM, HTN, hyperlipidemia, stroke. pt is hungarian speaking and lives with her daughter who [...] been urinating normally. REMY Brunner [address] [place], [address], [place] [facility] 02/16/2023 15:13:58 OBGyn Episode No OBEpisode recorded.
--- OUTSIDE RECORDS SUMMARY | 2025-01-10 18:22 | XMS_ITS | Encounter Summary ---
Author Organization [employer] [facility] [employer] Address [address] [place] [address] 7 [place] [address] Care Team Providers Care Tool Analyst Name Role Phone Liliana Golden MD Primary Care Provider [phone] Reason for Referral * Consultation (Routine) - Closed Specialty Diagnoses / Procedures Referred By Contac t Referred To Contact Pharmacy Diagnoses Essential hypertension Stage 3a chronic kidney disease (CMS/HCC) (HCC) Type 2 diabetes mellitus with stage 3b chronic kidney disease, without long-term current use of insulin (HCC) Ischemic heart disease Anemia of chronic disease Moderate dementia without behavioral disturbance, psychotic disturbance, mood disturbance, or anxiety, unspecified dementia type (CMS/HCC) (HCC) Liliana Golden MD [address] [place] [address] Phone: tel: fax: Referral ID Status Reason Start Date Expiration Date V isits Requested Visits Authorized [id number] Closed Continuity of Care 01/07/2024 01/06/2025 6 6 Encounter Details Date Type Department Care Team (Late st Contact Info) Description 01/07/2024 Orders Only [facility] [address] [place], [place] [phone] Liliana Golden MD [address] [place], [place] [phone] Essential hypertension (Primary Dx); Stage 3a chronic [...] Description 01/11/2025 9:00 AM EDT Office Visit [facility] [address] [place], [place] [phone] iLliana Golden MD [address] [place], [place] [phone] Scheduled Referrals Name Type Priority Associated Diagnoses Orde r Schedule Referral to Pharmacy [facility] Outpatient Referral Routine Essential hypertension Stage 3a [...] hypertension Stage 3a chronic kidney disease (CMS/HCC) (HCC) Type 2 diabetes mellitus with stage 3b chronic kidney disease, without long-term current use of insulin (HCC) Ischemic heart disease Other specified forms of chronic ischemic heart disease Anemia of chronic disease Anemia of other chronic disease Moderate dementia without behavioral disturbance, psychotic disturbance, mood disturbance, or anxiety, unspecified dementia type (CMS/HCC) (HCC) Essential hypertension- Primary Unspecified essential hypertension Type 2 diabetes mellitus with stage 3b chronic kidney disease, without long-term current use of insulin (HCC) Type 2 diabetes mellitus with hyperglycemia, without long-term current use of insulin (HCC) Osteoporosis, unspecified osteoporosis type, unspecified pathological fracture presence Ischemic heart disease Other specified forms of chronic ischemic heart disease Moderate dementia without behavioral disturbance, psychotic disturbance, mood disturbance, or anxiety, unspecified dementia type (CMS/HCC) (HCC) Multiple nodules of lung Diabetic peripheral neuropathy (HCC) Type II or unspecified type diabetes mellitus with neurological manifestations, not stated as uncontrolled documented in this encounter Additional Health Concerns Assessment Noted Time PHQ-9 Depression Total Score: 0 07/26/19 24 1:46 PM EDT documented as of this encounter Care Teams Tool Analyst Relationship Specialty Start Date End Date Liliana Golden MD [address] [place] [phone] PCP - General Family Medicine 03/29/18 documented as of this encounter
--- OUTSIDE RECORDS SUMMARY | 2025-01-10 18:22 | XMS_ITS | Encounter Summary ---
Author Organization [employer] Address [address] [facility] 7t [place] [address] Care Team Providers Care Flame Cutting Supervisor Name Role Phone Liliana Golden MD Primary Care Provider [phone] Encounter Details Date Type Department Care Team ([facility] st Contact Info) Description 04/14/2023 Telephone [facility] [address] [place], [place] [phone] Liliana Golden MD [address] [place], [place] [phone] Social History Tobacco Use Types Packs/Day Years [...] Description 01/11/2025 9:00 AM EDT Office Visit [facility] [address] [place] [address] Liliana Golden MD [address] [place] [address] documented as of this encounter Visit Diagnoses Not on filedocumented in this encounter Additional Health Concerns Assessment Noted Time PHQ-9 Depression Total Score: 2 07/01/19 23 2:32 PM EDT documented as of this encounter Care Teams Flame Cutting Supervisor Relationship Specialty Start Date End Date Liliana Golden MD [address] [place] [address] PCP - General Family Medicine 03/29/18 documented as of this encounter
--- OUTSIDE RECORDS SUMMARY | 2025-01-10 18:22 | XMS_ITS | Encounter Summary ---
Author Organization [employer] Address [address] [facility] 7t [place] [address] Care Team Providers Care Auto Leasing Manager Name Role Phone Liliana Golden MD Primary Care Provider [phone] Encounter Details Date Type Department Care Team ([facility] st Contact Info) Description 12/07/2024 Telephone [facility] [address] [place], [place] [phone] Liliana Golden MD [address] [place], [place] [phone] Social History Tobacco Use Types Packs/Day Years [...] t he electric, gas, oil or water [employer] threatened to shut off services in your [...] Description 01/11/2025 9:00 AM EDT Office Visit [facility] [address] [place] [address] Liliana Golden MD [address] [place] [address] documented as of this encounter Visit Diagnoses Diagnosis 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
--- OUTSIDE RECORDS SUMMARY | 2025-01-10 18:22 | XMS_ITS | Encounter Summary ---
Author Organization [employer] Address [address] [facility] 7t [place] [address] Care Team Providers Care Fender Mechanic Name Role Phone Liliana Golden MD Primary Care Provider [phone] Reason for Visit * Reason Onset Date Comments Durable Medical Equipment 12/08/2024 Encounter Details Date Type Department Care Team ([facility] st Contact Info) Description 12/08/2024 Telephone [facility] [address] [place], [place] [phone] Liliana Golden MD [address] [place], [place] [phone] Durable Medical Equipment Social History Tobacco Use [...] * Telephone Encounter - Justin Ramsey - 12/13/2024 8:55 AM EDT Tc from [place] with [employer] calling in regards to message prior stating pt will be needing a remote for hospital bed. If any questions you can contact Alma at [phone]. * Telephone Encounter - Justin Ramsey - 12/11/2024 10:15 AM EDT Tc from [facility] stating the order from message prior was sent but it requires reasoning for why pt needs chair. If any questions you can contact [facility]ia at [phone]. (Citizen Of [place] Speaker) * Telephone Encounter - Mary Jane Gordon - 12/08/2024 12:54 PM EDT Tc from pt daughter requesting DME order for a inflatable cushion for her wheelchair Contact at [phone] documented in this encounter Plan of Treatment Upcoming Encounters Date Type Department Care Team (Late st Contact Info) Description 01/11/2025 9:00 AM EDT Office Visit [facility] [address] [place] [address] Liliana Golden MD [address] [place] [address] documented as of this encounter Visit Diagnoses Not on filedocumented in this encounter Additional Health Concerns Assessment Noted Time PHQ-9 Depression Total Score: 0 07/26/19 24 1:46 PM EDT documented as of this encounter Care Teams Fender Mechanic Relationship Specialty Start Date End Date Liliana Golden MD [address] [place] [address] PCP - General Family Medicine 03/29/18 documented as of this encounter
--- OUTSIDE RECORDS SUMMARY | 2025-01-10 18:22 | XMS_ITS | Encounter Summary ---
Author Organization [employer] Address [address] [facility] 7t [place] [address] Care Team Providers Care Gut Snatcher Name Role Phone Liliana Golden MD Primary Care Provider [phone] Encounter Details Date Type Department Care Team ([facility] st Contact Info) Description 10/05/2023 Orders Only [facility] [address] [place], [place] [phone] Liliana Golden MD [address] [place], [place] [phone] Social History Tobacco Use Types Packs/Day Years Used Date Smoking Tobacco: Never Passive Smoke Exposure: Never Smokeless Tobacco: Never Depression Answer Date Recorded Patient Health Questionnaire-9 Score 0 07/26/2023 Patient Health Questionnaire-9 Score 0 07/26/2023 Last PHQ-9: Questionnaire Data Not on file 0 07/26/2023 Housing Stability Answer Date Recorded What is your housing situation today? I have cassidyjami ambriz 05/13/[address] you [...] Description 01/11/2025 9:00 AM EDT Office Visit [facility] [address] [place] [address] Liliana Golden MD [address] [place] [phone] documented as of this encounter Visit Diagnoses Not on filedocumented in this encounter Additional Health Concerns Assessment Noted Time PHQ-9 Depression Total Score: 0 07/26/19 24 1:46 PM EDT documented as of this encounter Care Teams Gut Snatcher Relationship Specialty Start Date End Date Liliana Golden MD [address] [place] [phone] PCP - General Family Medicine 03/29/18 documented as of this encounter
--- OUTSIDE RECORDS SUMMARY | 2025-01-10 18:22 | XMS_ITS | Encounter Summary ---
Author Organization [employer] Address [address] [facility] 7t [place] [address] Care Team Providers Care Hand Grinder Name Role Phone Liliana Golden MD Primary Care Provider [phone] Reason for Visit * Reason Onset Date Comments Durable Medical Equipment 12/25/2024 Encounter Details Date Type Department Care Team ([facility] st Contact Info) Description 12/25/2024 Telephone [facility] [address] [place], [place] [phone] Liliana Golden MD [address] [place], [place] [phone] Durable Medical Equipment Social History Tobacco Use [...] encounter Miscellaneous Notes * Telephone Encounter - Joselyn Reyes - 01/05/2025 1:13 PM EDT Tc from pt stated that she only need a medical necessary letter place with the order for L&C Contact pt at [phone] need science interpreter * Telephone Encounter - Sher De La Torre - 12/25/2024 4:02 PM EDT TC from pt reports went to L&C and they did not want to provide wheel chair as well as the inflatable cushion . Pt unsure why as she is aware script and notes were sent as of 12/06 documented in this encounter Plan of Treatment Upcoming Encounters Date Type Department Care Team (Late st Contact Info) Description 01/11/2025 9:00 AM EDT Office Visit [facility] [address] [place], [place] [phone] Liliana Golden MD [address] [place] [address] documented as of this encounter Visit Diagnoses Not on filedocumented in this encounter Additional Health Concerns Assessment Noted Time PHQ-9 Depression Total Score: 0 07/26/19 24 1:46 PM EDT documented as of this encounter Care Teams Hand Grinder Relationship Specialty Start Date End Date Liliana Golden MD [address] [place] [phone] PCP - General Family Medicine 03/29/18 documented as of this encounter
--- OUTSIDE RECORDS SUMMARY | 2025-01-10 18:22 | XMS_ITS | Encounter Summary ---
Author Organization [employer] Address [address] [facility] 7t [place] [address] Care Team Providers Care Oceanographer Assistant Name Role Phone Liliana Golden MD Primary Care Provider [phone] Encounter Details Date Type Department Care Team ([facility] st Contact Info) Description 09/20/2023 Orders Only [facility] [address] [place], [place] [phone] Liliana Golden MD [address] [place], [place] [phone] Social History Tobacco Use Types Packs/Day Years [...] Description 01/11/2025 9:00 AM EDT Office Visit [facility] [address] [place] [address] Liliana Golden MD [address] [place] [address] documented as of this encounter Visit Diagnoses Not on filedocumented in this encounter Additional Health Concerns Assessment Noted Time PHQ-9 Depression Total Score: 0 07/26/19 24 1:46 PM EDT documented as of this encounter Care Teams Oceanographer Assistant Relationship Specialty Start Date End Date Liliana Golden MD [address] [place] [phone] PCP - General Family Medicine 03/29/18 documented as of this encounter
--- OUTSIDE RECORDS SUMMARY | 2025-01-10 18:22 | XMS_ITS | Encounter Summary ---
Author Organization [employer] Address [address] [facility] 7t [place] [address] Care Team Providers Care Safety Inspector Name Role Phone Liliana Golden MD Primary Care Provider [phone] Encounter Details Date Type Department Care Team ([facility] st Contact Info) Description 11/30/2024 Results Follow-Up [facility] [address] [place] [address] Liliana Golden MD [address] [place] [address] CBC auto differential, Urinalysis Complete, Electrolyte Panel, Additional followed-up results: 8 Social History Tobacco Use Types Packs/Day Years [...] Description 01/11/2025 9:00 AM EDT Office Visit [facility] [address] [place] [address] Liliana Golden MD [address] [place] [address] documented as of this encounter Visit Diagnoses Not on filedocumented in this encounter Additional Health Concerns Assessment Noted Time PHQ-9 Depression Total Score: 0 07/26/19 24 1:46 PM EDT documented as of this encounter Care Teams Safety Inspector Relationship Specialty Start Date End Date Liliana Golden MD [address] [place] [address] PCP - General Family Medicine 03/29/18 documented as of this encounter
--- OUTSIDE RECORDS SUMMARY | 2025-01-10 18:22 | XMS_ITS | Encounter Summary ---
Author Organization [employer] Address [address] [facility] 7t [place] [address] Care Team Providers Care Telecommunications Engineer Name Role Phone Liliana Golden MD Primary Care Provider [phone] Reason for Visit * Reason Onset Date Comments Appointment Request 05/08/2024 Encounter Details Date Type Department Care Team ([facility] st Contact Info) Description 05/08/2024 Telephone [facility] [address] [place], [place] [phone] Liliana Golden MD [address] [place], [place] [phone] Appointment Request Social History Tobacco Use Types [...] There is not availability. Any questions contact [phone] italian documented in this encounter Plan of Treatment Upcoming Encounters Date Type Department Care Team (Late st Contact Info) Description 01/11/2025 9:00 AM EDT Office Visit [facility] [address] [place] [address] Liliana Golden MD [address] [place] [address] documented as of this encounter Visit Diagnoses Not on filedocumented in this encounter Additional Health Concerns Assessment Noted Time PHQ-9 Depression Total Score: 0 07/26/19 24 1:46 PM EDT documented as of this encounter Care Teams Telecommunications Engineer Relationship Specialty Start Date End Date Liliana Golden MD [address] [place] [address] PCP - General Family Medicine 03/29/18 documented as of this encounter
--- OUTSIDE RECORDS SUMMARY | 2025-01-10 18:22 | XMS_ITS | Encounter Summary ---
Author Organization [employer] Address [address] [facility] 7t [place] [address] Care Team Providers Care Emergency Detail Driver Name Role Phone Liliana Golden MD Primary Care Provider [phone] Encounter Details Date Type Department Care Team ([facility] st Contact Info) Description 02/23/2023 Orders Only [facility] [address] [place], [place] [phone] Liliana Golden MD [address] [place] [address] Positive colorectal cancer screening using Cologuard test [...] the past 12 months, has t he [employer], gas, oil or water [employer] threatened to shut off services in your [...] Description 01/11/2025 9:00 AM EDT Office Visit [facility] [address] [place], [place] [phone] Liliana Golden MD [address] [place] [address] documented as of this encounter Procedures Procedure Name Priority Date/Time Associated Diagnosis Comments CANCELLED HEMATOLOGY Routine 09/02/2023 3:34 PM EDT Positive colorectal cancer screening using Cologuard test CANCELLED CHEMISTRY Routine 09/02/2023 3 :34 PM EDT Positive colorectal cancer screening using Cologuard test documented in this encounter Results * Cancelled Hematology (09/02/2023 3:34 PM EDT) Cancelled Hematology SEE NOTE [facility] Comment:THE FOLLOWING TESTS WERE CANCELLED: CBCREASON: NO SPECIMEN RECEIVED 09/02/2023 3:34 PM EDT 09/03/2023 8:58 AM EDT us Liliana Golden MD HISTORICAL/NON ORDERABLE LABS Fi nal Result [facility] [address] [place] [address] [phone] * Cancelled Chemistry (09/02/2023 3:34 PM EDT) Cancelled Chemistry SEE NOTE [facility] Comment:CMP, Iron Profile, F erritin, Lipid with reflex, Vitamin B12,and Folate cancelled. No specimen received. 09/02/2023 3:34 PM EDT 09/03/2023 8:18 AM EDT Liliana Golden MD HISTORICAL/NON ORDERABLE LABS Fi nal Result [facility] [address] [place] [address] [phone] documented in this encounter Visit Diagnoses Diagnosis Positive colorectal cancer screening using Cologuard test- Primary Anemia of chronic disease Anemia of other chronic disease Essential hypertension- Primary Unspecified essential hypertension Type [...] documented as of this encounter Care Teams Emergency Detail Driver Relationship Specialty Start Date End Date Liliana Golden MD [address] [place] [address] PCP - General Family Medicine 03/29/18 documented as of this encounter
== END 2025-01-10 14:36 | disposition home or self-care (01) ==
LOC: HO.HHCL 14:35
PROVIDERS: PCP Family Medicine; Visit Provider Internal Medicine Nephrology
DX: E87.1 Hypo-osmolality and hyponatremia (principal); E87.6 Hypokalemia
CPT/HCPCS: 36415; 80048; 82728; 83540; 85025

== ENCOUNTER 2025-01-11 10:03 | Outpatient (REF) | payer OTHER, SELFPAY ==
--- NOTE | ~2025-01-11 | XR_ITS ---
EXAMINATION: XR KNEE, RIGHT CLINICAL INFORMATION: right knee pain and swelling COMPARISON: None available. TECHNIQUE: AP and lateral views of the right knee. FINDINGS: Osteopenia versus osteoporosis. No acute cortical disruption or malalignment. No lytic or blastic lesion. No suprapatellar bursa joint effusion. No subcutaneous emphysema. No metallic or radiopaque foreign body. Bone marrow inhomogeneity. Vascular calcifications. XR/XR knee RT 3V IMPRESSION: No acute fracture or dislocation. No joint effusion, suprapatellar bursa. Atherosclerosis disease, peripheral. Osteopenia versus osteoporosis. Electronically signed by: Rudy Pena MD 01/11/2025 11:47 AM EDT
--- OUTSIDE RECORDS SUMMARY | 2025-01-11 09:00 | XMS_ITS | Encounter Summary ---
Author Organization [employer] Address [address] [facility] 7t [place] [address] Care Team Providers Care Car Tracer Name Role Phone Liliana Golden MD Primary Care Provider [phone] Encounter Details Date Type Department Care Team ([facility] st Contact Info) Description 01/11/2025 9:00 AM EDT Office Visit [facility] [address] [place], [place] [phone] Liliana Golden MD [address] [place], [place] [phone] Essential hypertension (Primary Dx); Type 2 diabetes [...] deficiency, chronic disease, iron deficiency -Followed by cane burner -s/p iron infusion -Continue B12 PO. -Pt was supposed to have a colonoscopy, but family and pt decided not to have one -Cologuard ordered, but the specimen could not be processed -Payroll Accounting Manager is planning erythropoietin treatment * Assessment & Plan Note - Liliana Golden MD - 01/11/2025 9:58 AM EDTAssociated Problem(s): Chronic kidney disease (CKD), stage III (moderate) (CMS/HCC) (HCC) -Followed by carbon paste mixer operator, seen on 01/10/2025 -Avoid nephrotoxic drugs (still on metformin) -Use renal dosing * Assessment & Plan Note - Liliana Golden MD - 01/11/2025 9:58 AM EDTAssociated Problem(s): Hyponatremia - 11/30/2024 sodium 129, carbon paste mixer operator recommended fluid restriction - 01/10/2025 sodium 135, spontaneous resolution * Assessment & Plan Note - Liliana Golden MD - 01/11/2025 9:57 AM EDTAssociated Problem(s): Osteoporosis History of several rib fractures. -s/p fosamax treatment x 5 years. -previously followed by Certified Tower Climber, Dr. Yandel Matthews, last appt in Oct [...] UACR 453, proteinuria - Last lipid profile: 05/23/24 TC 185; [...] UACR 453, proteinuria - Last lipid profile: 05/23/24 TC 185; TG 70; HDL 56; LDL 115 - Last dental exam: Followed by dentist * Assessment & Plan Note - Liliana Golden MD - 01/11/2025 9:52 AM EDTAssociated Problem(s): Dyslipidemia - Last lipid profile: 05/23/24 TC 185; TG 70; HDL 56; LDL 115 - Current medication: atorvastatin 80 mg qhs. Consider adding ezetimibe. - She is on high-intensity statin therapy. - Continue current medication and lifestyle modification. - Note: Pt was prescribed Niacin by her patient care secretary. * Assessment & Plan Note - Liliana Golden MD - 01/11/2025 9:51 AM EDTAssociated Problem(s): Essential hypertension -Goal BP < 130/80 per ACC/AHA -Evaluated by carbon paste mixer operator with 24-hour BP monitoring -continue nifedipine 60 [...] a drug- eluting stent to RCA in [place] in July 2012. On dual antiplatelet therapy for > 1 year. - Design Engineer Agricultural Equipment: SUSANA, last seen in August 2024 - [...] daughter was advised to schedule appt w/ Design Engineer Agricultural Equipment documented in this encounter Plan of Treatment Scheduled Orders Name Type Priority Associated Diagnoses Orde r Schedule Lipid Panel with Reflex to Direct LDL Lab Routine Dyslipidemia Expected: 01/11/2025 (Approximate), Expires: 01/11/2026 Hepatic Function Panel Lab Routine Dyslipidemia Expected: 01/11/2025 (Approximate), Expires: 01/11/2026 Uric acid Lab Routine Acute pain of right knee Expected: 01/11/2025, Expires: 01/11/2026 documented as of this encounter Procedures Procedure Name Priority Date/Time Associated Diagnosis Comments XR KNEE 3 VIEWS RIGHT Routine 01/11/2025 11:40 AM EDT Acute pain of right knee POCT GLUCOSE Routine 01/11/2025 9:32 AM EDT [...] Laterality Modality Lower Extremities, Knee Right Radiogra phic Imaging 01/11/2025 11:4 0 AM EDT Narrative 01/11/2025 11:49 AM EDT [place] [address] XRay Report Signed Patient: Chanel Egan MR#: [id number] : 1940 Acct:[id number] Age/Sex: 84 / F ADM Date: 01/11/25 Loc: .[facility] Attending Dr: Liliana Golden MD Ordering Physician: Liliana Golden MD Date of Service: 01/11/25 Procedure(s): XR knee RT 3V Accession Number(s): [id number] cc: Liliana Golden MD Reason for Exam: [...] by Rudy Asencio MD in OV> 01/11/25 114 DD/ 114 TD/TT: 01/11/25 114 Manager Books: Procedure Note Corinneter, Image - 01/11/[address] [address] XRay Report Signed Patient: Chanel EganMR#: [id number] : 9Acct:[id number] Age/Sex: 84 / FADM Date: 01/11/25 Loc: [facility] Attending Dr: Liliana Golden MD Ordering Physician: Liliana Golden MD Date of Service: 01/11/25 Procedure(s): XR knee RT 3V Accession Number(s): [id number] cc: Liliana Golden MD Reason for Exam: [...] signed by Rudy Asencio MDin OV> 01/11/25 114 DD/ 1140 TD/TT: 01/11/251142 Manager Books: Liliana Golden MD IMG XR PROCEDURES Edited Result - Final * POCT glucose manually resulted (01/11/2025 9:32 AM EDT) Glucose Blood, POC 152 60 - 200 mg/dL QC Media Lot # [id number] Lot# Expiration Date 2500, Blood Capillary blood specimen / Unknown 01/11/2025 9:32 AM EDT Liliana Golden MD POINT OF CARE TEST ENTER/EDIT OR DERABLES Final Result * (ABNORMAL) POCT glycosylated hemoglobin (Hgb A1c) (01/11/2025 9:22 AM EDT) Pathologist [facility] Hemoglobin A1C 6.6(A) 4.0 - 5.7 % QC Media Lot # [id number] Lot# Expiration Date 5, Blood Capillary blood specimen / Unknown 01/11/2025 9:22 AM EDT Result [facility] Liliana Golden MD POINT OF CARE TEST [...] documented as of this encounter Care Teams Car Tracer Relationship Specialty Start Date End Date Liliana Golden MD [address] [place] [phone] PCP - General Family Medicine 03/29/18 documented as of this encounter
--- OUTSIDE RECORDS SUMMARY | 2025-01-11 12:01 | XMS_ITS | Encounter Summary ---
Author Organization [employer] Address [address] [facility] 7t [place] [address] Care Team Providers Care Student Counsellor Name Role Phone Liliana Golden MD Primary Care Provider [phone] Reason for Visit * Reason Onset Date Comments chart prep 01/10/2025 Encounter Details Date Type Department Care Team ([facility] st Contact Info) Description 01/10/2025 Telephone [facility] [address] [place], [place] [phone] Liliana Golden MD [address] [place], [place] [phone] chart prep Social History Tobacco Use Types [...] documented as of this encounter Care Teams Student Counsellor Relationship Specialty Start Date End Date Liliana Golden MD [address] [place] [phone] PCP - General Family Medicine 03/29/18 documented as of this encounter
--- OUTSIDE RECORDS SUMMARY | 2025-01-11 12:01 | XMS_ITS | Encounter Summary ---
Author Organization [employer] Address [address] [facility] 7t [place] [address] Care Team Providers Care Printed Circuit Photographer Name Role Phone Liliana Golden MD Primary Care Provider [phone] Reason for Visit * Reason Comments Med Refill Encounter Details Date Type Department Care Team ([facility] st Contact Info) Description 12/26/2024 Refill [facility] [address] [place], [place] [phone] Liliana Golden MD [address] [place], [place] [phone] Social History Tobacco Use Types Packs/Day Years [...] documented as of this encounter Care Teams Printed Circuit Photographer Relationship Specialty Start Date End Date Liliana Golden MD [address] [place] [phone] PCP - General Family Medicine 03/29/18 documented as of this encounter
--- OUTSIDE RECORDS SUMMARY | 2025-01-11 12:02 | XMS_ITS | Encounter Summary ---
Author Organization [employer] Address [address] [facility] 7t [place] [address] Care Team Providers Care Blast Furnace Checker Name Role Phone Liliana Golden MD Primary Care Provider [phone] Reason for Visit * Reason Onset Date Comments Durable Medical Equipment 12/08/2024 Encounter Details Date Type Department Care Team ([facility] st Contact Info) Description 12/08/2024 Telephone [facility] [address] [place], [place] [phone] Liliana Golden MD [address] [place], [place] [phone] Durable Medical Equipment Social History Tobacco Use [...] any questions you can contact Alma at [phone]. * Telephone Encounter - Justin Ramsey - 12/11/2024 10:15 AM EDT Tc from Delia stating the order from message prior was sent but it requires reasoning for why pt needs chair. If any questions you can contact Delia at [phone]. (Prydeinig Speaker) * Telephone Encounter - Mary Jane Gordon - 12/08/2024 12:54 PM EDT Tc from pt daughter requesting DME order for a inflatable cushion for her wheelchair Contact at [phone] documented in this encounter Plan of Treatment Not on file documented as of this encounter Visit Diagnoses Not on filedocumented in this encounter Additional Health Concerns Assessment Noted Time PHQ-9 Depression Total Score: 0 07/26/19 24 1:46 PM EDT documented as of this encounter Care Teams Blast Furnace Checker Relationship Specialty Start Date End Date Liliana Golden MD [address] [place] [address] PCP - General Family Medicine 03/29/18 documented as of this encounter
--- OUTSIDE RECORDS SUMMARY | 2025-01-11 12:02 | XMS_ITS | Encounter Summary ---
Author Organization [employer] Address [address] [facility] 7t [place] [address] Care Team Providers Care Sheet Metal Roofer Name Role Phone Liliana Golden MD Primary Care Provider [phone] Encounter Details Date Type Department Care Team ([facility] st Contact Info) Description 04/14/2023 Telephone [facility] MEDICINE [address] [place], [place] [phone] Liliana Golden MD [address] [place], [place] [phone] Social History Tobacco Use Types Packs/Day Years [...] documented as of this encounter Care Teams Sheet Metal Roofer Relationship Specialty Start Date End Date Liliana Golden MD [address] [place] [address] PCP - General Family Medicine 03/29/18 documented as of this encounter
--- OUTSIDE RECORDS SUMMARY | 2025-01-11 12:02 | XMS_ITS | Encounter Summary ---
Author Organization [employer] Address [address] [facility] 7t [place] [address] Care Team Providers Care Supervisor Shuttle Fitting Name Role Phone Liliana Golden MD Primary Care Provider [phone] Reason for Visit * Reason Onset Date Comments Appointment Request 05/08/2024 Encounter Details Date Type Department Care Team ([facility] st Contact Info) Description 05/08/2024 Telephone [facility] MEDICINE 230 [place], [place] [phone] Liliana Golden MD [address] [place], [place] [phone] Appointment Request Social History Tobacco Use Types [...] There is not availability. Any questions contact [phone] gambian documented in this encounter Plan of Treatment Not on file documented as of this encounter Visit Diagnoses Not on filedocumented in this encounter Additional Health Concerns Assessment Noted Time PHQ-9 Depression Total Score: 0 07/26/19 24 1:46 PM EDT documented as of this encounter Care Teams Supervisor Shuttle Fitting Relationship Specialty Start Date End Date Liliana Golden MD [address] [place] [address] PCP - General Family Medicine 03/29/18 documented as of this encounter
--- OUTSIDE RECORDS SUMMARY | 2025-01-11 12:02 | XMS_ITS | Encounter Summary ---
Author Organization [employer] Address [address] [facility] 7t [place] [address] Care Team Providers Care Warehouse Distribution Specialist Name Role Phone Liliana Golden MD Primary Care Provider [phone] Reason for Visit * Reason Onset Date Comments Medication Question 08/28/2024 Encounter Details Date Type Department Care Team ([facility] st Contact Info) Description 08/28/2024 Telephone [facility] MEDICINE 230 [place], [place] [phone] Liliana Golden MD 230 [place], [place] [phone] Medication Question Social History Tobacco Use Types [...] PM EDT TC placed to pt with [facility] network and threat support specialist #[id number] to follow up on the request for medications refills anddiabetic summer shoes. Pt could not name the specific medications that are needed but only that sheneeds all of them . The pt was able to confirm that she has an upcoming trip to the [facility] and wants to make sure she has [...] daughter stating pt will be traveling [facility] and she will be needing all of her medication for trip as well as summer shoes, she only has winter shoes at the moment. Pt does not have a flight date wanted to travel after upcoming physical but wanted to discuss shoes and medication ahead of time. Please contact daughter at [phone]. (Belarusian Speaker) documented in this encounter Plan of Treatment Not on file documented as of this encounter Visit Diagnoses Not on filedocumented in this encounter Additional Health Concerns Assessment Noted Time PHQ-9 Depression Total Score: 0 07/26/19 24 1:46 PM EDT documented as of this encounter Care Teams Warehouse Distribution Specialist Relationship Specialty Start Date End Date Liliana Golden MD [address] [place] [address] PCP - General Family Medicine 03/29/18 documented as of this encounter
--- OUTSIDE RECORDS SUMMARY | 2025-01-11 12:02 | XMS_ITS | Encounter Summary ---
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
--- OUTSIDE RECORDS SUMMARY | 2025-01-11 12:02 | XMS_ITS | Encounter Summary ---
Author Organization [employer] Address [address] [facility] 7t [place] [address] Care Team Providers Care Business Applications Manager Name Role Phone Liliana Golden MD Primary Care Provider [phone] Encounter Details Date Type Department Care Team ([facility] st Contact Info) Description 11/30/2024 Results Follow-Up [facility] MEDICINE 230 [place] [address] Liliana Golden MD 230 [place] [address] CBC auto differential, Urinalysis Complete, Electrolyte Panel, [...] documented as of this encounter Care Teams Business Applications Manager Relationship Specialty Start Date End Date Liliana Golden MD [address] [place] [address] PCP - General Family Medicine 03/29/18 documented as of this encounter
--- OUTSIDE RECORDS SUMMARY | 2025-01-11 12:02 | XMS_ITS | Encounter Summary ---
Author Organization [employer] Address [address] [place] [address] 7 [place] [address] Care Team Providers Care Blanchard Grinder Operator Name Role Phone Liliana Golden MD Primary Care Provider [phone] Reason for Referral * Consultation (Routine) - [...] type (CMS/HCC) (HCC) Liliana Golden MD 230 [place] [address] Phone: tel: fax: Referral ID Status Reason Start Date Expiration Date V isits Requested Visits Authorized [id number] Closed Continuity of Care 01/07/2024 01/06/2025 6 6 Encounter Details Date Type Department Care Team (Late st Contact Info) Description 01/07/2024 Orders Only [facility] MEDICINE 230 [place], [place] [phone] Liliana Golden MD [address] [place], [place] [phone] Essential hypertension (Primary Dx); Stage 3a chronic [...] or anxiety, unspecified dementia type (CMS/HCC) (HCC) documented in this encounter Additional Health Concerns Assessment Noted Time PHQ-9 Depression Total Score: 0 07/26/19 24 1:46 PM EDT documented as of this encounter Care Teams Blanchard Grinder Operator Relationship Specialty Start Date End Date Liliana Golden MD [address] [place] [address] PCP - General Family Medicine 03/29/18 documented as of this encounter
--- OUTSIDE RECORDS SUMMARY | 2025-01-11 12:02 | XMS_ITS | Encounter Summary ---
Author Organization [employer] Address [address] [facility] 7 [place] [address] Care Team Providers Care Fusing Machine Feeder Name Role Phone Liliana Golden MD Primary Care Provider [phone] Reason for Visit * Reason Onset Date Comments Durable Medical Equipment 04/29/2022 Encounter Details Date Type Department Care Team ([facility] st Contact Info) Description 04/29/[address] [facility] MEDICINE [address] [place], [place] [phone] Liliana Golden MD 230 [place], [place] [phone] Durable Medical Equipment Social History Tobacco Use [...] on filedocumented in this encounter Care Teams Fusing Machine Feeder Relationship Specialty Start Date End Date Liliana Golden MD [address] [place] [address] PCP - General Family Medicine 03/29/18 documented as of this encounter
--- OUTSIDE RECORDS SUMMARY | 2025-01-11 12:02 | XMS_ITS | Encounter Summary ---
Author Organization [employer] Address [address] [facility] 7t [place] [address] Care Team Providers Care Forest Botany Instructor Name Role Phone Liliana Golden MD Primary Care Provider [phone] Reason for Visit * Reason Onset Date Comments Durable Medical Equipment 12/25/2024 Encounter Details Date Type Department Care Team ([facility] st Contact Info) Description 12/25/2024 Telephone [facility] MEDICINE 230 [place], [place] [phone] Liliana Golden MD 230 [place], [place] [phone] Durable Medical Equipment Social History Tobacco Use [...] the order for L&C Contact pt at [phone] need paraprofessional interpreter * Telephone Encounter - Sher De [...] documented as of this encounter Care Teams Forest Botany Instructor Relationship Specialty Start Date End Date Liliana Golden MD [address] [place] [address] PCP - General Family Medicine 03/29/18 documented as of this encounter
--- OUTSIDE RECORDS SUMMARY | 2025-01-11 12:02 | XMS_ITS | Encounter Summary ---
Author Organization [employer] Address [address] [facility] 7t [place] [address] Care Team Providers Care Certified Social Workers In Health Care Name Role Phone Liliana Golden MD Primary Care Provider [phone] Encounter Details Date Type Department Care Team ([facility] st Contact Info) Description 09/20/2023 Orders Only [facility] MEDICINE 230 [place], [place] [phone] Liliana Golden MD 230 [place], [place] [phone] Social History Tobacco Use Types Packs/Day Years [...] documented as of this encounter Care Teams Certified Social Workers In Health Care Relationship Specialty Start Date End Date Liliana Golden MD [address] [place] [address] PCP - General Family Medicine 03/29/18 documented as of this encounter
--- OUTSIDE RECORDS SUMMARY | 2025-01-11 12:02 | XMS_ITS | Encounter Summary ---
Author Organization [employer] Address [address] [facility] 7t [place] [address] Care Team Providers Care Checkerer Hand Name Role Phone Liliana Golden MD Primary Care Provider [phone] Encounter Details Date Type Department Care Team (Latest Contact Info) Description 01/11/2025 Travel Social History Tobacco Use Types Packs/Day [...] documented as of this encounter Care Teams Checkerer Hand Relationship Specialty Start Date End Date Liliana Golden MD [address] [place] [address] PCP - General Family Medicine 03/29/18 documented as of this encounter
--- OUTSIDE RECORDS SUMMARY | 2025-01-11 12:02 | XMS_ITS | Encounter Summary ---
Author Organization [employer] Address [address] [facility] 7t [place] [address] Care Team Providers Care Medical Writer Name Role Phone Liliana Golden MD Primary Care Provider [phone] Encounter Details Date Type Department Care Team ([facility] st Contact Info) Description 02/23/2023 Orders Only [facility] MEDICINE [address] [place], [place] [phone] Liliana Golden MD [address] [place] [address] Positive colorectal cancer screening using Cologuard test [...] the past 12 months, has t he [employer] gas, oil or water [employer] threatened to shut off services in your [...] 3:34 PM EDT) Cancelled Hematology SEE NOTE [facility] Comment:THE FOLLOWING TESTS WERE CANCELLED: CBCREASON: NO SPECIMEN RECEIVED 09/02/2023 3:34 PM EDT 09/03/2023 8:58 AM EDT Liliana Golden MD HISTORICAL/NON ORDERABLE LABS Fi nal Result [facility] [address] [place] [address] [phone] * Cancelled Chemistry (09/02/2023 3:34 PM EDT) Cancelled Chemistry SEE NOTE [facility] Comment:CMP, Iron Profile, F erritin, Lipid with reflex, Vitamin B12,and Folate cancelled. No specimen received. 09/02/2023 3:34 PM EDT 09/03/2023 8:18 AM EDT Liliana Golden MD HISTORICAL/NON ORDERABLE LABS Fi nal Result [facility] [address] [place] [address] [phone] documented in this encounter Visit Diagnoses Diagnosis Positive colorectal cancer screening using Cologuard test- Primary Anemia of chronic disease Anemia of other chronic disease documented in this encounter Additional Health Concerns Assessment Noted Time PHQ-9 Depression Total Score: 2 07/01/19 23 2:32 PM EDT documented as of this encounter Care Teams Medical Writer Relationship Specialty Start Date End Date Liliana Golden MD [address] [place] [address] PCP - General Family Medicine 03/29/18 documented as of this encounter
--- OUTSIDE RECORDS SUMMARY | 2025-01-11 12:02 | XMS_ITS | Encounter Summary ---
Author Organization [employer] Address [address] [facility] 7t [place] [address] Care Team Providers Care Slot Operations Director Name Role Phone Liliana Golden MD Primary Care Provider [phone] Encounter Details Date Type Department Care Team ([facility] st Contact Info) Description 10/05/2023 Orders Only [facility] MEDICINE 230 [place], [place] [phone] Liliana Golden MD 230 [place], [place] [phone] Social History Tobacco Use Types Packs/Day Years [...] documented as of this encounter Care Teams Slot Operations Director Relationship Specialty Start Date End Date Liliana Golden MD [address] [place] [address] PCP - General Family Medicine 03/29/18 documented as of this encounter
--- OUTSIDE RECORDS SUMMARY | 2025-01-11 12:03 | XMS_ITS | Clinical Summary ---
Author Organization [employer] Address [address] [place] [address] [address] [place] [address] Care Team Providers Care Clinical Psychologist Licensed Name Role Phone Liliana Golden MD Primary Care Provider [phone] Allergies Active Allergy Reactions Criticality Noted Date [...] WITH FOOD 180 tablet 3 025 Active potassium chloride CR (Klor-Con M20) 20 MEQ ER tablet TAKE 1 TABLET BY MOUTH EVERY DAY DO NOT BREAK, CRUSH, DISSOLVE OR CHEW Active Diclofenac Sodium 1 % gel Apply to affected area once or twice daily as needed for pain 150 g 3 025 Active carvedilol (Coreg) 25 MG [...] prn. Pressure ulcer 07/26/2023 Assessment & Plan (01/11/2025 10:04 AM EDT): - Stage 1-2 Pressure ulcer - prescribed special pillow / cushion to prevent ulcer in August; patient has not received it yet - Family prefers an inflatable one - Patient needs a new wheelchair. Current wheelchair is for outside use. Heavy. Her family requests a new wheelchair for indoor use. - Patient is still waiting for the remote control of her hospital bed to be fixed. If the remote control cannot get fixed, patient will need a new hospital bed Assessment & Plan (09/05/2024 10:07 AM EDT): [...] use of insulin 07/13/2022 Assessment & Plan (01/11/2025 9:54 AM EDT): - A1c 6.6% on 01/11/2025, stable -Continue [...] exam: Followed by dentist Assessment & Plan (09/07/2024 9:43 PM EDT): [...] (09/05/2024 10:06 AM EDT): - Evaluated by final installer inspector, Dr. Smith, on 03/13/22 - initially prescribed doxycycline, clobetasol, and Niacin - continue clobetasol, doxycycline, and Niacin as prescribed Assessment & Plan (07/26/2023 2:32 PM EDT): - Evaluated by final installer inspector, Dr. Smith, on 03/13/22 - initially prescribed doxycycline, clobetasol, and Niacin - continue clobetasol, doxycycline, and Niacin as prescribed Assessment & Plan (01/11/2023 4:45 AM EDT): - Evaluated by final installer inspector, Dr. Smith, on 03/13/22 - initially prescribed doxycycline, clobetasol, and Niacin - continue clobetasol, doxycycline, and Niacin as prescribed Assessment & Plan (10/05/2022 2:32 PM EDT): - Evaluated by final installer inspector, Dr. Smith, on 03/13/22 - initially prescribed doxycycline, clobetasol, and Niacin - continue clobetasol, doxycycline, and Niacin as prescribed Assessment & Plan (07/13/2022 7:20 AM EDT): - Evaluated by final installer inspector, Dr. Smith, on 03/13/22 - initially prescribed doxycycline, clobetasol, and Niacin - continue clobetasol, doxycycline, and Niacin as prescribed Assessment & Plan (03/20/2022 4:25 PM EST): Evaluated by final installer inspector, Dr. Smith, on 03/13/22 Continue clobetasol, doxycycline, and Niacin as prescribed Still investigating its cause Anemia of chronic disease 03/20/2022 Assessment & Plan (01/11/2025 9:59 AM EDT): multifactorial - B12 deficiency, chronic disease, iron deficiency -Followed by promotional model -s/p iron infusion -Continue B12 PO. -Pt was supposed to have a colonoscopy, but family and pt decided not to have one -Cologuard ordered, but the specimen could not be processed -Field Operations Technician is planning erythropoietin treatment Assessment & Plan (09/05/2024 10:08 AM EDT): multifactorial - B12 deficiency, chronic disease, iron deficiency -Followed by promotional model -s/p iron infusion -Continue B12 PO. -Pt was supposed to have a colonoscopy, but family and pt decided not to have one -Cologuard ordered, but the specimen could not be processed -Ordered again Assessment & Plan (05/31/2024 9:48 AM EST): multifactorial - B12 deficiency, chronic disease, iron deficiency -Followed by promotional model -s/p iron infusion -Continue B12 PO. -Pt was supposed to have a colonoscopy, but family and pt decided not to have one -Cologuard ordered, but the specimen could not be processed -Ordered again Assessment & Plan (07/26/2023 2:32 PM EDT): multifactorial - B12 deficiency, chronic disease, iron deficiency -Followed by promotional model -s/p iron infusion -Continue B12 PO. -Pt was supposed to have a colonoscopy, but family and pt decided not to have one -Cologuard ordered, but the specimen could not be processed -Ordered again Assessment & Plan (01/11/2023 6:30 PM EDT): multifactorial - B12 deficiency, chronic disease, iron deficiency -Followed by promotional model -s/p iron infusion -Continue B12 PO. -Pt was supposed to have a colonoscopy, but family and pt decided not to have one -Cologuard ordered, but the specimen could not be processed -Ordered again Assessment & Plan (10/05/2022 2:38 PM EDT): multifactorial - B12 deficiency, chronic disease, iron deficiency -Followed by promotional model -s/p iron infusion -Continue B12 PO. -Pt was supposed to have a colonoscopy, but family and pt decided not to have one -Cologuard ordered, but the specimen could not be processed -Will order FIT instead of Cologuard. Assessment & Plan (07/13/2022 7:28 AM EDT): multifactorial - B12 deficiency, chronic disease, iron deficiency -Followed by promotional model -s/p iron infusion -Continue B12 PO. -Pt was supposed to have a colonoscopy, but family and pt decided not to have one -Cologuard ordered, but the specimen could not be processed -Will order FIT instead of Cologuard. Assessment & Plan (03/20/2022 4:32 PM EST): multifactorial - B12 deficiency, chronic disease, iron deficiency -Followed by promotional model -s/p iron infusion -Continue B12 PO. Chronic kidney disease (CKD) , stage III (moderate) (CMS/HCC) 03/20/2022 Assessment & Plan (01/11/2025 9:58 AM EDT): -Followed by helix coil winder, seen on 01/10/2025 -Avoid nephrotoxic drugs (still on metformin) -Use renal dosing Assessment & Plan (09/05/2024 10:09 AM EDT): -Followed by helix coil winder -Avoid nephrotoxic drugs (still on metformin) -Use renal dosing Assessment & Plan (05/31/2024 9:05 AM EST): -Followed by helix coil winder -Avoid nephrotoxic drugs (still on metformin) -Use renal dosing Assessment & Plan (05/01/2024 10:05 AM EST): -Followed by helix coil winder -Avoid nephrotoxic drugs (still on metformin) -Use renal dosing Assessment & Plan (07/26/2023 2:10 PM EDT): -Followed by helix coil winder -Avoid nephrotoxic drugs (still on metformin) -Use renal dosing Assessment & Plan (01/11/2023 4:42 AM EDT): -Followed by helix coil winder -Avoid nephrotoxic drugs (still on metformin) -Use renal dosing Assessment & Plan (10/05/2022 2:38 PM EDT): -Followed by helix coil winder -Avoid nephrotoxic drugs (still on metformin) -Use renal dosing Assessment & Plan (07/13/2022 7:09 AM EDT): -Followed by helix coil winder -Avoid nephrotoxic drugs (still on metformin) -Use renal dosing Assessment & Plan (03/20/2022 4:34 PM EST): -Followed by helix coil winder -Avoid nephrotoxic drugs (still on metformin) -Use [...] Ischemic heart disease 09/10/2015 Assessment & Plan (01/11/2025 9:51 AM EDT): -NSTEMI in July 2012 and August 2014. She had a cardiac catheterization and a drug-eluting stent to RCA in [place] in July 2012. On dual antiplatelet therapy for > 1 year. - Dictaphone Operator: SUSANA, last seen in August 2024 - [...] daughter was advised to schedule appt w/ Dictaphone Operator Assessment & Plan (09/05/2024 9:25 AM EDT): -NSTEMI in July 2012 and August 2014. She had a cardiac catheterization and a drug-eluting stent to RCA in [place] in July 2012. On dual antiplatelet therapy for > 1 year. - Dictaphone Operator: SUSANA - Last echocardiogram: 11/19/16 LVEF 60-65%, [...] daughter was advised to schedule appt w/ Dictaphone Operator Assessment & Plan (05/31/2024 9:04 AM EST): -NSTEMI in July 2012 and August 2014. She had a cardiac catheterization and a drug-eluting stent to RCA in [place] in July 2012. On dual antiplatelet therapy for > 1 year. - Dictaphone Operator: SUSANA - Last echocardiogram: 11/19/16 LVEF 60-65%, [...] daughter was advised to schedule appt w/ Dictaphone Operator Assessment & Plan (05/01/2024 10:04 AM EST): -NSTEMI in July 2012 and August 2014. She had a cardiac catheterization and a drug-eluting stent to RCA in [place] in July 2012. On dual antiplatelet therapy for > 1 year. - Dictaphone Operator: SUSANA - Last echocardiogram: 11/19/16 LVEF 60-65%, [...] daughter was advised to schedule appt w/ Dictaphone Operator Assessment & Plan (07/26/2023 2:09 PM EDT): -NSTEMI in July 2012 and August 2014. She had a cardiac catheterization and a drug-eluting stent to RCA in [place] in July 2012. On dual antiplatelet therapy for > 1 year. - Dictaphone Operator: SUSANA - Last echocardiogram: 11/19/16 LVEF 60-65%, [...] daughter was advised to schedule appt w/ Dictaphone Operator Assessment & Plan (01/11/2023 4:41 AM EDT): -NSTEMI in July 2012 and August 2014. She had a cardiac catheterization and a drug-eluting stent to RCA in [place] in July 2012. On dual antiplatelet therapy for > 1 year. - Dictaphone Operator: SUSANA - Last echocardiogram: 11/19/16 LVEF 60-65%, [...] daughter was advised to schedule appt w/ Dictaphone Operator Assessment & Plan (10/05/2022 2:31 PM EDT): -NSTEMI in July 2012 and August 2014. She had a cardiac catheterization and a drug-eluting stent to RCA in [place] in July 2012. On dual antiplatelet therapy for > 1 year. - Dictaphone Operator: SUSANA - Last echocardiogram: 11/19/16 LVEF 60-65%, [...] daughter was advised to schedule appt w/ Dictaphone Operator Assessment & Plan (07/13/2022 7:08 AM EDT): -NSTEMI in July 2012 and August 2014. She had a cardiac catheterization and a drug-eluting stent to RCA in [place] in July 2012. On dual antiplatelet therapy for > 1 year. - Dictaphone Operator: SUSANA - Last echocardiogram: 11/19/16 LVEF 60-65%, [...] daughter was advised to schedule appt w/ Dictaphone Operator Assessment & Plan (03/20/2022 4:40 PM EST): -NSTEMI in July 2012 and August 2014. She had a cardiac catheterization and a drug-eluting stent to RCA in [place] in July 2012. On dual antiplatelet therapy for > 1 year. - Dictaphone Operator: RAVIN, seen about 2 months ago, next [...] daughter was advised to schedule appt w/ Dictaphone Operator Dementia ([facility]) 04/11/2015 Assessment & Plan (09/05/2024 10:07 AM [...] vascular. Essential hypertension 12/28/2014 Assessment & Plan (01/11/2025 9:51 AM EDT): -Goal BP < 130/80 per ACC/AHA -Evaluated by helix coil winder with 24-hour BP monitoring -continue nifedipine 60 [...] ago due to hyponatremia Assessment & Plan (09/05/2024 9:25 AM EDT): -Goal BP < 140/90 per JNC-8, < 130/80 per ACC/AHA -Evaluated by helix coil winder with 24-hour BP monitoring -continue nifedipine 60 [...] JNC-8, < 130/80 per ACC/AHA -Evaluated by helix coil winder with 24-hour BP monitoring -continue nifedipine 60 [...] JNC-8, < 130/80 per ACC/AHA -Evaluated by helix coil winder with 24-hour BP monitoring -continue nifedipine 60 [...] JNC-8, < 130/80 per ACC/AHA -Evaluated by helix coil winder with 24-hour BP monitoring -continue nifedipine 60 [...] JNC-8, < 130/80 per ACC/AHA -Evaluated by helix coil winder with 24-hour BP monitoring -continue nifedipine 60 [...] JNC-8, < 130/80 per ACC/AHA -Evaluated by helix coil winder with 24-hour BP monitoring -continue nifedipine 60 [...] JNC-8, < 130/80 per ACC/AHA -Evaluated by helix coil winder with 24-hour BP monitoring -continue nifedipine 60 [...] JNC-8, < 130/80 per ACC/AHA -Evaluated by helix coil winder with 24-hour BP monitoring -continue nifedipine 60 [...] 2 diabetes mellitus 12/28/2014 Assessment & Plan (01/11/2025 9:56 AM EDT): - A1c 6.6% on 01/11/2025, stable -Continue [...] exam: Followed by dentist Assessment & Plan (09/07/2024 9:43 PM EDT): [...] lung 06/07/2014 Dyslipidemia 10/10/2012 Assessment & Plan (01/11/2025 9:52 AM EDT): - Last lipid profile: 05/23/24 TC 185; TG 70; HDL 56; LDL 115 - Current medication: atorvastatin 80 mg qhs. Consider adding ezetimibe. - She is on high-intensity statin therapy. - Continue current medication and lifestyle modification. - Note: Pt was prescribed Niacin by her final installer inspector. Assessment & Plan (09/07/2024 9:43 PM EDT): - Last lipid profile: 05/23/24 TC 185; TG 70; HDL 56; LDL 115 - Current medication: atorvastatin 80 mg qhs. - She is on high-intensity statin therapy. - Continue current medication and lifestyle modification. - Note: Pt was prescribed Niacin by her final installer inspector. Assessment & Plan (06/07/2024 12:59 PM EDT): - Last lipid profile: 05/23/24, elevated LDL. - Current medication: atorvastatin 80 mg qhs. - She is on high-intensity statin therapy. - Continue current medication and lifestyle modification. - Note: Pt was prescribed Niacin by her final installer inspector. Assessment & Plan (07/26/2023 2:31 PM EDT): - Last lipid profile: 06/30/22:TC 169; TG 127; HDL 83; LDL 65 - Current medication: atorvastatin 80 mg qhs. - She is on high-intensity statin therapy. - Continue current medication and lifestyle modification. - Note: Pt is prescribed Niacin by her final installer inspector. Assessment & Plan (01/11/2023 4:45 AM EDT): - Last lipid profile: 06/30/22:TC 169; TG 127; HDL 83; LDL 65 - Current medication: atorvastatin 80 mg qhs. - She is on high-intensity statin therapy. - Continue current medication and lifestyle modification. - Note: Pt is prescribed Niacin by her final installer inspector. Assessment & Plan (10/05/2022 2:24 PM EDT): - Last lipid profile: 06/30/22:TC 169; TG 127; HDL 83; LDL 65 - Current medication: atorvastatin 80 mg qhs. - She is on high-intensity statin therapy. - Continue current medication and lifestyle modification. - Note: Pt is prescribed Niacin by her final installer inspector. Assessment & Plan (07/13/2022 7:21 AM EDT): - Last lipid profile: 10/13/21 TC 154; TG 174; HDL 46; LDL 81 - Current medication: atorvastatin 80 mg qhs. - She is on high-intensity statin therapy. - Continue current medication and lifestyle modification. - Note: Pt is prescribed Niacin by her final installer inspector. Assessment & Plan (03/20/2022 4:39 PM EST): - Last lipid profile: 10/13/21 TC 154; TG 174; HDL 46; LDL 81 - Current medication: atorvastatin 80 mg qhs. - She is on high-intensity statin therapy. - Continue current medication and lifestyle modification. Prolapse of female genital organs 09/09/2012 Hyponatremia 06/01/2012 Assessment & Plan (01/11/2025 9:58 AM EDT): - 11/30/2024 sodium 129, helix coil winder recommended fluid restriction - 01/10/2025 sodium 135, spontaneous resolution Diabetic peripheral neuropathy 11/13/2011 Assessment & Plan (01/11/2025 10:04 AM EDT): - optimize glycemic control Assessment & Plan (09/05/2024 10:06 AM EDT): [...] its status Osteoporosis 11/13/2011 Assessment & Plan (01/11/2025 9:57 AM EDT): History of several rib fractures. -s/p fosamax treatment x 5 years. -previously followed by Central Processing Tech, Dr. Yandel Matthews, last appt in Oct 2022 -s/p Tymlos since Jan 2019 until Mar 2021 -started on Prolia in Mar 2021, every 6 months, last dose in September 2021. Pt's caregiver is hesitant to continue Prolia. -continue fall precaution -continue weight-bearing exercise -recommended [place] Assessment & Plan (07/26/2023 2:11 PM EDT): History of several rib fractures. -s/p fosamax treatment x 5 years. -previously followed by Central Processing Tech, Dr. Yandel Matthews, last appt in Oct [...] treatment x 5 years. -previously followed by Central Processing Tech, Dr. Yandel Matthews, last appt in Oct [...] fosamax treatment x 5 years. -followed by Central Processing Tech, Dr. Yandel Matthews, last appt in August 2021 -s/p Tymlos since Jan 2019 until Mar 2021 -started on Prolia in Mar 2021, every 6 months, last dose in September 2021. Pt's caregiver is hesitant to continue Prolia. -continue fall precaution -continue weight-bearing exercise -recommended [place] -recommended to reschedule appt with welding machine operator gas Assessment & Plan (07/13/2022 7:13 AM EDT): History of several rib fractures. -s/p fosamax treatment x 5 years. -followed by Central Processing Tech, Dr. Yandel Matthews, last appt in August 2021 -s/p Tymlos since Jan 2019 until Mar 2021 -started on Prolia in Mar 2021, every 6 months, last dose in September 2021. Pt's caregiver is hesitant to continue Prolia. -continue fall precaution -continue weight-bearing exercise -recommended [place] -recommended to reschedule appt with welding machine operator gas Assessment & Plan (03/20/2022 4:42 PM EST): History of several rib fractures. -s/p fosamax treatment x 5 years. -followed by Central Processing Tech, Dr. Ohri Zizzamina -s/p Tymlos since Jan 2019 until Mar [...] Encounters Date Type Department Care Team Description 01/11/2025 9:00 AM EDT Office Visit [facility] [address] [place] [phone] Liliana Golden MD Essential hypertension (Primary Dx); Type 2 diabetes [...] Pressure injury of sacral region, stage 1 01/11/2025 Travel 01/10/2025 Telephone [facility] [address] [place] [phone] Liliana Golden MD chart prep 12/26/2024 Refill [facility] [address] [place] [phone] Liliana Golden MD 12/26/2024 Refill [facility] [address] [place] [address] Liliana Golden MD 12/25/[address] [address] Liliana Golden MD Durable Medical Equipment 12/08/2024 Telephone [facility] [address] [place] [phone] Liliana Golden MD Durable Medical Equipment 12/07/[address] [address] Liliana Golden MD 12/06/[address] [address] Liliana Golden MD Paperwork/Forms 11/30/2024 Results Follow-Up [address] [phone] Liliana Golden MD CBC auto differential, Urinalysis Complete, Electrolyte Panel, Additional followed-up results: 8 11/30/[address] [address] Liliana Golden MD Lab Orders 11/30/2024 Orders Only GENERIC EXTERNAL DATA DEPARTMENT Provider, Generic External Data 11/29/2024 2:45 PM EDT Office Visit [facility] [address] [place] [address] Crystal Gold, [place] Type 2 diabetes mellitus 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 manifestations (CMS/HCC) (Primary Dx); Combined forms of age-related cataract of both eyes; Regular astigmatism, bilateral 11/29/2024 Travel 11/23/[address] [address] Delia Horton MD Type 2 diabetes mellitus with unspecified complications (CMS/HCC) 11/02/[address] [phone] Liliana Golden MD Durable Medical Equipment (DME Request: Hospital Bed Control) 11/02/[address] [address] Liliana Golden MD Durable Medical Equipment (DME Order: Lightweight Transfer Chair) 10/30/2024 Refill [facility] [address] [place], [place] [phone] Liliana Golden MD Hypertension, unspecified type from Last 3 Months Immunizations Immunization Administration Dates Next Due Hep B, adult 09/19/2018,10/20/2016 Influenza High-dose Quadriva lent Preservative Free 01/11/2023,01/06/2022,01/03/2021,02/15 Influenza injectable quadriv alent IIV4 with preservative 01/07/2016,01/04/2015 Influenza, High Dose Seasona l, Preservative Free 01/11/2025,12/12/2018,01/05/2018,12/22 Influenza, IIV3, injectable 01/30/2014, 1 Influenza, Split [...] with wheelchair wieghts approx 35 pounds Height 147.3 cm (4' 10 ) 09/08/2024 1:2 9 PM EDT Body Mass Index 25.71 09/08/2024 1:29 PM EDT Plan of Treatment Health Maintenance Due Date Last Done Comments RSV Patients and Patients Aged 60 years or older (1 - 1-dose 75+ series) 2013 Diabetes: Hemoglobin A1C 04/13/2025 025, 09/05/2024, 05/31/2024, Additional history exists Alcohol/Substance Use Screening 05/01/2025 05/01/2024 Lipid Panel 05/23/2025 05/23/2024, 04/0 06/2022, 10/13/2021, Additional history exists SDOH Screening 08/29/2025 08/29/2024 COVID-19 Vaccine ( season) 2026 10/13/2021, 02/14/2021, 06/06/2020, Additional history exists Postponed from 11/27/2024 (Patient Refused) Diabetes: Foot Exam 01/11/2026 01/11/2025, 01/11/2025, 01/11/2025, Additional history exists Tobacco Screening 01/11/2026 01/11/2025 Eye Exam 11/29/2026 11/29/2024, 090 05/2024, 11/29/2024, Additional history exists DTaP/Tdap/Td Vaccines (3 - Td or Tdap) 10/05/2032 10/05/2022, 01/27/2012, 04/25/2010 Pneumococcal Vaccine: 50+ Years Completed 01/07/2016, 04/25/2010 Hepatitis B Vaccines Discontinued 09/19/2018, 10/21/19 17 Zoster Vaccines Completed 02/05/2020, 0 11/2019, 11/30/2019, Additional history exists Depression Screening Discontinued 07/26/2023, 07/26/19 24 Influenza Vaccine Completed 01/11/2025, , 01/06/2022, Additional history exists HIB Vaccines Aged Out [...] without long-term current use of insulin (HCC) PROTEIN CREATININE RATIO, URINE Routine 11/30/2024 4:00 [...] AUTO DIFFERENTIAL Routine 11/30/2024 3:51 PM EDT LIPID PANEL WITH REFLEX TO DIRECT LDL Routine 05/23/2024 9:33 AM EST from Last 3 Months or Most Recently Relevant to Health Maintenance Results * XR Knee 3 Views Right (01/11/2025 11:40 AM EDT) Anatomical Region Laterality Modality Lower Extremities, Knee Right [facility] 01/11/2025 11:4 0 AM EDT Narrative 01/11/2025 11:49 AM EDT [place] [address] XRay Report Signed Patient: Chanel Egan MR#: [id number] : 1940 Acct:[id number] Age/Sex: 84 / F ADM Date: 01/11/25 Loc: [facility] Attending Dr: Liliana Golden MD Ordering Physician: Liliana Golden MD Date of Service: 01/11/25 Procedure(s): XR knee RT 3V Accession Number(s): [id number] cc: Liliana Golden MD Reason for Exam: [...] 01/11/25 1147 DD/ 1140 TD/TT: 01/11/25 1143 Occupational Health And Safety Manager: Procedure Note Donotuseinterpreter, Image - 01/11/[address] [address] XRay Report Signed Patient: Chanel EganMR#: [id number] : 9Acct:[id number] Age/Sex: 84 / FADM Date: 01/11/25 Loc: [facility] Attending Dr: Liliana Golden MD Ordering Physician: Liliana Golden MD Date of Service: 01/11/25 Procedure(s): XR knee RT 3V Accession Number(s): [id number] cc: Liliana Golden MD Reason for Exam: [...] 01/11/25 1147 DD/ 1140 TD/TT: 01/11/25 1143 Occupational Health And Safety Manager: Liliana Golden MD IMG XR PROCEDURES Edited Result - Final * POCT glucose manually resulted (01/11/2025 9:32 AM EDT) Glucose Blood, POC 152 60 - 200 mg/dL QC Media Lot # [id number] Lot# Expiration Date ,[id number] Blood Capillary blood specimen / Unknown 01/11/2025 9:32 AM EDT Liliana Golden MD POINT OF CARE TEST ENTER/EDIT OR DERABLES Final Result * (ABNORMAL) POCT glycosylated hemoglobin (Hgb A1c) (01/11/2025 9:22 AM EDT) Hemoglobin A1C 6.6(A) 4.0 - 5.7 % QC Media Lot # [id number] Lot# Expiration Date [id number] Blood Capillary blood specimen / Unknown 01/11/2025 9:22 AM EDT Liliana Golden MD POINT OF CARE TEST ENTER/EDIT OR DERABLES Final Result * (ABNORMAL) Protein Creatinine Ratio, Urine (11/30/2024 4:00 PM EDT) Protein, Total, Random Urine 19(H) <12 mg/dL [facility] Protein/Creati nine Ratio, Ur 0.70(H) <0.2 [facility] Comment:The spot urine prote in:creatinine ratio may increase to 0.3during normal . 11/30/2024 4:00 PM EDT 11/30/2024 4:14 PM EDT Generic External Data Provider LAB URINE ORDERAB LES Final Result [facility] [address] [place] [phone] * (ABNORMAL) Albumin, Random Urine W/Creatinine (11/30/2024 4:00 PM EDT) Creatinine, Urine 27.15 mg/dL [facility] Microalbumin Urine 123.0 mg/L [facility] Microalbum Creatinine Ratio Ur 453.0(H) <30 ug/mg cr [facility] Comment:Albumin/Creatinine R atio Reference Ranges: Normal: < 30 ug/mg creatinine Microalbuminuria: 30 - 300 ug/mg creatinineClinical Albuminuria: > 300 ug/mg creatinine 11/30/2024 4:00 PM EDT 11/30/2024 4:14 PM EDT Generic External Data Provider LAB URINE ORDERAB LES Final Result Performing Organization Address [facility] Co de Phone Number [facility] [address] [place] [phone] * (ABNORMAL) Urinalysis Complete (11/30/2024 4:00 PM EDT) Color Urine Yellow [facility] Appearance Urine Clear [facility] PH 5.5 5.0 - 9.0 [facility] Glucose Urine UA Negative Negative mg/dL [facility] Urine Blood Negative Negative [facility] Specific [place] - Urine <=1.005 1.005 - 1.025 [facility] Urine Protein Trace Neg-Trace mg/dL [facility] Urine Ketones Negative Negative mg/dL [facility] Nitrite Urine Negative Negative [facility] Leukocyte Esterase Urine Large (3+)(A) Negative [facility] RBC Urine 0-2 0 - 2 /HPF [facility] Urine WBC 11-20(A) 0 - 5 /HPF [facility] Urine Squamous Epithelial Cell 6-10 0 - 2 /HPF [facility] Urine Bacteria None Seen None Seen [facility] Hyaline Casts, Urine 3-5 0 - 2 /LPF [facility] 11/30/2024 4:00 PM EDT 11/30/2024 4:14 PM EDT us Generic External Data Provider LAB URINE ORDERAB LES Final Result Performing Organization Address [facility]/ZIP Co de Phone Number [facility] [address] [place] [phone] * Vitamin D, 25-Hydroxy, Total, Immunoassay (11/30/2024 3:51 PM EDT) Vitamin D 25-OH Total 48.4 >30 ng/mL [facility] Comment: Health Based Reference Values*< 20 ng/mL [id number] ng/mL Insufficient> 30 ng/mL Sufficient*Kiah RIOS. N [...] ORDERAB LES Final Result Performing Organization Address City/[facility]/ZIP Co de Phone Number [facility] [address] [place] [phone] * Creatinine, Serum (11/30/2024 3:51 PM EDT) Creatinine, Serum 1.37 0.5 - 1.4 mg/dL [facility] Estimated Glomerular Filt Rate 37 [facility] Comment:Chronic Kidney Disea se: Estimated GFR < 60 mL/min/[id number] Kidney Disease: Estimated GFR < 15 mL/min/1.73m2 11/30/2024 3:51 PM EDT 11/30/2024 3:52 PM EDT us Generic External Data Provider LAB BLOOD ORDERAB LES Final Result [facility] [address] [place] [phone] * (ABNORMAL) CBC auto differential (11/30/2024 3:51 PM EDT) White Blood Count 8.0 4.8 - 10.8 X10*3/uL [facility] Red Blood Count 3.15(L) 4.20 - 5.50 X10*6/uL [facility] Hemoglobin 9.4(L) 12.0 - 16.0 g/dl [facility] Hematocrit 26.9(L) 37.0 - 47.0 % [facility] Mean Corpuscular Volume 85.4 80.0 - 98.0 fL [facility] Mean Corpuscular Hemoglobin 29.8 27.0 - 33.0 pg [facility] Mean Corpuscular HGB Conc 34.9 31.0 - 35.0 g/dl [facility] Red Cell Distribution Width 15.9 11.0 - 16.0 % [facility] Platelet Count 212 160 - 400 X10*3/uL [facility] Mean Platelet Volume 9.4 9.4 - 12.3 fL [facility] Neutrophils Percent Auto 68.1 45 - 73 % [facility] Imm Gran Pct Auto 0.5(H) 0.0 - 0.4 % [facility] Lymphocytes Percent Auto 20.8 20 - 40 % [facility] Monocytes Percent Auto 7.6 2 - 11 % [facility] Eosinophils Percent Auto 2.5 0 - 4 % [facility] Basophils Percent Auto 0.5 0 - 2 % [facility] NRBC Pct Auto 0.0 0.0 - 0.2 /100WBC [facility] Neutrophils Absolute Auto 5.5 2.0 - 8.3 x10*3/uL [facility] Imm Gran Abs Auto 0.04(H) 0.00 - 0.03 X10*3/uL [facility] Lymphocytes Absolute Auto 1.7 1.2 - 4.9 X10*3/uL [facility] Monocytes Absolute Auto 0.6 0.1 - 1.2 X10*3/uL [facility] Eosinophils Absolute Auto 0.2 0.0 - 0.4 X10*3/uL [facility] Basophils Absolute Auto 0.0 0.0 - 0.2 X10*3/uL [facility] NRBC Abs Auto 0.000 0.0 - 0.012 X10*3/uL [facility] 11/30/2024 3:51 PM EDT 11/30/2024 3:52 PM EDT us Generic External Data Provider LAB BLOOD ORDERAB LES Final Result Performing Organization Address [facility] de Phone Number [facility] [address] [place] [phone] * (ABNORMAL) BUN (Blood Urea Nitrogen) (11/30/2024 3:51 PM EDT) Urea Nitrogen (BUN) 39(H) 9 - 16 mg/dL [facility] 11/30/2024 3:51 PM EDT 11/30/2024 3:52 PM EDT us Generic External Data Provider LAB BLOOD ORDERAB LES Final Result Performing Organization Address [facility] de Phone Number [facility] [address] [place] [phone] * Phosphate (As Phosphorus) (11/30/2024 3:51 PM EDT) Phosphorus 2.8 2.7 - 4.5 mg/dL [facility] 11/30/2024 3:51 PM EDT 11/30/2024 3:52 PM EDT us Generic External Data Provider LAB BLOOD ORDERAB LES Final Result Performing Organization Address [facility] de Phone Number [facility] [address] [place] [address] [phone] * (ABNORMAL) PTH, Intact Without Calcium (11/30/2024 3:51 PM EDT) Parathyroid Hormone, Intact 110.4(H) 8.7 - 77.1 pg/mL [facility] 11/30/2024 3:51 PM EDT 11/30/2024 3:52 PM EDT Generic External Data Provider LAB BLOOD ORDERAB LES Final Result Performing Organization Address City/[facility] Co de Phone Number [facility] [address] [place] [phone] * Magnesium (11/30/2024 3:51 PM EDT) Magnesium 1.8 1.6 - 2.6 mg/dL [facility] 11/30/2024 3:51 PM EDT 11/30/2024 3:52 PM EDT Generic External Data Provider LAB BLOOD ORDERAB LES Final Result Performing Organization Address [facility] Co de Phone Number [facility] [address] [place] [phone] * Calcium (11/30/2024 3:51 PM EDT) Calcium 8.9 8.4 - 10.2 mg/dL [facility] 11/30/2024 3:51 PM EDT 11/30/2024 3:52 PM EDT Generic External Data Provider LAB BLOOD ORDERAB LES Final Result Performing Organization Address [facility] Co de Phone Number [facility] [address] [place] [phone] * Albumin (11/30/2024 3:51 PM EDT) Albumin Level 3.8 3.5 - 5.0 g/dL [facility] 11/30/2024 3:51 PM EDT 11/30/2024 3:52 PM EDT Generic External Data Provider LAB BLOOD ORDERAB LES Final Result Performing Organization Address City/[facility]/ZIP Co de Phone Number [facility] [address] [place] [phone] * (ABNORMAL) Electrolyte Panel (11/30/2024 3:51 PM EDT) Sodium 129(L) 135 - 145 mmol/L [facility] Potassium 3.1(L) 3.3 - 5.1 mmol/L [facility] Chloride 94(L) 96 - 108 mmol/L [facility] Carbon Dioxide 25 22 - 29 mmol/L [facility] Anion Gap 13 12 - 20 [facility] 11/30/2024 3:51 PM EDT 11/30/2024 3:52 PM EDT Generic External Data Provider LAB BLOOD ORDERAB LES Final Result Performing Organization Address [facility] Co de Phone Number [facility] [address] [place] [phone] * (ABNORMAL) Lipid Panel with Reflex to Direct LDL (05/23/2024 9:33 AM EST) Triglycerides 70 <150 mg/dL [facility] Comment:Slight Lipemia.Jammie able Triglyceride: less than 150 mg/dLBorderline High Triglyceride 150-199 mg/dLHigh Triglyceride: 200-499 mg/dLVery High Triglyceride: greater than or equal to 5OO mg/dL Cholesterol 185 <200 mg/dL [facility] Comment:Desirable Cholestero l: less than 200 mg/dLBorderline High Cholesterol: 200-239 mg/dLHigh Cholesterol: greater than 239 mg/dL LDL Cholesterol Calculated 115(H) <100 mg/dL [facility] Comment:Desirable LDL: less than 100 mg/dLNear Optimal/Above Optimal LDL: 110- 129 mg/dLBorderline High LDL: 130-159 mg/dLHigh LDL: 160-189 mg/dLVery High LDL: greater than or equal to 190 mg/dL HDL Cholesterol 56 >40 mg/dL [facility] Comment:Desirable HDL: great er than 40 mg/dL Note: This HDL assay may give artificially low results in patients with liver disease. 05/23/2024 9:33 AM EST 05/23/2024 11:35 AM EST us Liliana Golden MD LAB BLOOD ORDERABLES Final Resul t [facility] [address] [place] [phone] from Last 3 Months or Most Recently Relevant to Health Maintenance Insurance [facility] [employer] OPT[employer] (HMO D-SNP) REMY MEADE [id number] [address] [place] [address] Care Teams Clinical Psychologist Licensed Relationship Specialty Start Date End Date Liliana Golden MD [address] [place] [phone] PCP - General Family Medicine 03/29/18
[2025-01-11 12:23] LABS: Alanine Aminotransferase 18 U/L (0-31); Albumin Level 3.8 g/dL (3.5-5.0); Alkaline Phosphatase 101 U/L (39-117); Aspartate Amino Transferase 47 U/L (5-31); Cholesterol 185 mg/dL (<200); HDL Cholesterol 99 mg/dL (>40); Total Protein 7.3 g/dL (6.5-8.0); Triglycerides 27 mg/dL (<150); Uric Acid 6.6 mg/dL (2.4-5.7)
[2025-01-11 12:38] LABS: Reflex LDLD? No
== END 2025-01-11 10:04 | disposition home or self-care (01) ==
LOC: HO.HHCL 10:03
PROVIDERS: PCP Family Medicine; Visit Provider Family Medicine
DX: M25.561 Pain in right knee (principal); M79.89 Other specified soft tissue disorders; E78.5 Hyperlipidemia, unspecified
CPT/HCPCS: 36415; 73562; 80061; 80076; 84550

== ENCOUNTER → 2025-01-11 10:34 | Outpatient (BNV) | payer OTHER, SELFPAY | PROVIDERS: PCP Family Medicine; Visit Provider Radiology Diagnostic Radiology | DX: I70.211 Atherosclerosis of native arteries of extremities with intermittent claudication, right leg (principal) | CPT/HCPCS: 73562 ==

== ENCOUNTER 2025-01-15 13:15 | Outpatient (REF) | payer OTHER, SELFPAY ==
[2025-01-15 16:55] LABS: Alanine Aminotransferase 26 U/L (0-31); Albumin Level 3.8 g/dL (3.5-5.0); Alkaline Phosphatase 135 U/L (39-117); Aspartate Amino Transferase 41 U/L (5-31); Total Protein 7.2 g/dL (6.5-8.0)
[2025-01-16 12:45] LABS: HBS Num1 > 1000.00 mIU/mL (0-7.99); HBc Num1 10.36 S/CO (0.00-0.79); HBsAGNum1 0.41 S/CO (0.00-0.99); Hepatitis B Surface Antigen Negative (Negative); ~HepC Num1 0.68 S/CO (0.00-0.79); ~Hepatitis B Surface Antibody REACTIVE (Nonreactive); ~Hepatitis C Antibody Nonreactive (Nonreactive)
[2025-01-16 14:12] LABS: HBc Num2 10.30 S/CO; HBc Num3 10.82 S/CO
[2025-01-19 04:52] LABS: ~Hepatitis A Antibody IgG 9.39 S/CO (0.00-0.99)
== END 2025-01-15 13:16 | disposition home or self-care (01) ==
LOC: HO.HHCL 13:15
PROVIDERS: PCP Family Medicine; Visit Provider Family Medicine
DX: Z11.59 Encounter for screening for other viral diseases (principal); R74.01 Elevation of levels of liver transaminase levels
CPT/HCPCS: 36415; 80076; 86704; 86706; 86708; 86803; 87340

== ENCOUNTER 2025-01-16 16:33 | Outpatient (REF) | payer OTHER, SELFPAY ==
--- OUTSIDE RECORDS SUMMARY | 2025-01-11 09:00 | XMS_ITS | Encounter Summary ---
Author Organization [employer] Address [address] [facility] 7t [place] [address] Care Team Providers Care Logistics Analytics Manager Name Role Phone Liliana Golden MD Primary Care Provider [phone] Encounter Details Date Type Department Care Team ([facility] st Contact Info) Description 01/11/2025 9:00 AM EDT Office Visit [facility] [address] [place], [place] [phone] Liliana Golden MD [address] [place], [place] [phone] Essential hypertension (Primary Dx); Type 2 diabetes mellitus with stage 3b chronic kidney disease, without long-term current use of insulin (HCC); Type 2 diabetes mellitus with hyperglycemia, without long-term current use of insulin (HCC); Osteoporosis, unspecified osteoporosis type, unspecified pathological fracture presence; Ischemic heart disease; Moderate dementia without behavioral disturbance, psychotic disturbance, mood disturbance, or anxiety, unspecified dementia type (CMS/HCC) (HCC); Multiple nodules of lung; Diabetic peripheral neuropathy (HCC); Acute pain of right knee; Encounter for immunization; Dyslipidemia; Hyponatremia; Anemia of chronic disease; Stage 3b chronic kidney disease (CMS/HCC) (HCC); Pressure injury of sacral region, stage 1 Social History Tobacco Use Types Packs/Day Years [...] Access Q2 Not on file 08/29/2024 Comments No Sex and Gender Information Value Date Recorded Sex Assigned at Female 01/26/2022 10:21 AM EDT Legal Sex Female 10:21 AM EDT Gender Identity Female 01/26/2022 10:21 AM EDT Sexual Orientation Choose not to disclose 2021 10:21 AM EDT documented as of this encounter Last Filed Vital Signs Vital Sign Reading Time Taken Comments Blood Pressure 100/40 01/11/2025 9:19 AM EDT Pulse 61 01/11/2025 9:19 AM EDT Temperature 36.1 C (96.9 F) 01/11/2025 9:19 AM EDT Respiratory Rate 15 01/11/2025 9:19 AM EDT Oxygen Saturation 98% 01/11/2025 9:1 9 AM EDT Inhaled Oxygen Concentration - - Weight 55.8 kg (123 lb) 01/11/2025 9:19 AM EDT total was 158.8 with wheelchair wieghts approx 35 pounds Height - - Body Mass Index 25.71 09/08/2024 1:29 PM EDT documented in this encounter Miscellaneous Notes * Assessment & Plan Note - Cony Bustamante MA - 01/12/2025 9:42 PM EDTAssociated Problem(s): Dementia (CMS/HCC) (HCC) - Pt has been seen by Neurologist [...] for a long-term stay or permanent residence. * Assessment & Plan Note - Liliana Golden MD - 01/11/2025 10:04 AM EDTAssociated Problem(s): Diabetic peripheral neuropathy (HCC) - optimize glycemic control * Assessment & Plan Note - Liliana Golden MD - 01/11/2025 10:04 AM EDTAssociated Problem(s): Pressure ulcer - Stage 1-2 Pressure ulcer - prescribed special pillow / cushion to prevent ulcer in August; patient has not received it yet - Family prefers an inflatable one - Patient needs a new wheelchair. Current wheelchair is for outside use. Heavy. Her family requestsa new wheelchair for indoor use. - Patient is still waiting for the remote control of her hospital bed to be fixed. If the remote control cannot get fixed, patient will need a new hospital bed * Assessment & Plan Note - Liliana Golden MD - 01/11/2025 9:59 AM EDTAssociated Problem(s): Anemia of chronic disease multifactorial - B12 deficiency, chronic disease, iron deficiency -Followed by trampoline team coach -s/p iron infusion -Continue B12 PO. -Pt was supposed to have a colonoscopy, but family and pt decided not to have one -Cologuard ordered, but the specimen could not be processed -Radiation Therapy Technologist is planning erythropoietin treatment * Assessment & Plan Note - Liliana Golden MD - 01/11/2025 9:58 AM EDTAssociated Problem(s): Chronic kidney disease (CKD), stage III (moderate) (CMS/HCC) (HCC) -Followed by chief orthoptist, seen on 01/10/2025 -Avoid nephrotoxic drugs (still on metformin) -Use renal dosing * Assessment & Plan Note - Liliana Golden MD - 01/11/2025 9:58 AM EDTAssociated Problem(s): Hyponatremia - 11/30/2024 sodium 129, chief orthoptist recommended fluid restriction - 01/10/2025 sodium 135, spontaneous resolution * Assessment & Plan Note - Liliana Golden MD - 01/11/2025 9:57 AM EDTAssociated Problem(s): Osteoporosis History of several rib fractures. -s/p fosamax treatment x 5 years. -previously followed by Wire Coiler Machine Operator, Dr. Yandel Matthews, last appt in Oct 2022 -s/p Tymlos since Jan 2019 until Mar 2021 -started on Prolia in Mar 2021, every 6 months, last dose in September 2021. Pt's caregiver is hesitant to continue Prolia. -continue fall precaution -continue weight-bearing exercise -recommended Taichi * Assessment & Plan Note - Liliana Golden MD - 01/11/2025 9:56 AM EDTAssociated Problem(s): Type 2 diabetes mellitus (HCC) - A1c 6.6% on 01/11/2025, stable -Continue glipizide 5 mg bid with caution for hypoglycemia. -Continue working on dietary modification. Treatment Hx: - Discontinued Metformin in August 2020 due to CKDIII -Started Jardiance on 07/23/20, however pt's family member perceived this medication is ineffective,therefore it was discontinued in August 2020. DM Maintenance: - Last eye exam: June 2020 - Last foot exam: 01/11/2025 decreased sensation, wearing diabetic footwear - Last microalbumin test: 11/30/2024 UACR 453, proteinuria - Last lipid profile: 01/11/25 TC 185; TG 27; HDL 99; LDL 81 - Last dental exam: Followed by dentist * Assessment & Plan Note - Liliana Golden MD - 01/11/2025 9:52 AM EDTAssociated Problem(s): Type 2 diabetes mellitus with stage 3b chronic kidney disease, without long-term current use of insulin (HCC) - A1c 6.6% on 01/11/2025, stable -Continue glipizide 5 mg bid with caution for hypoglycemia. -Continue working on dietary modification. Treatment Hx: - Discontinued Metformin in August 2020 due to CKDIII -Started Jardiance on 07/23/20, however pt's family member perceived this medication is ineffective,therefore it was discontinued in August 2020. DM Maintenance: - Last eye exam: June 2020 - Last foot exam: 01/11/2025 decreased sensation, wearing diabetic footwear - Last microalbumin test: 11/30/2024 UACR 453, proteinuria - Last lipid profile: 01/11/25 TC 185; TG 27; HDL 99; LDL 81 - Last dental exam: Followed by dentist * Assessment & Plan Note - Liliana Golden MD - 01/11/2025 9:52 AM EDTAssociated Problem(s): Dyslipidemia - Last lipid profile: 01/11/25 TC 185; TG 27; HDL 99; LDL 81 - Current medication: atorvastatin 80 mg qhs. Consider adding ezetimibe. - She is on high-intensity statin therapy. - Continue current medication and lifestyle modification. - Note: Pt was prescribed Niacin by her front desk coordinator. * Assessment & Plan Note - Liliana Golden MD - 01/11/2025 9:51 AM EDTAssociated Problem(s): Essential hypertension -Goal BP < 130/80 per ACC/AHA -Evaluated by chief orthoptist with 24-hour BP monitoring -continue nifedipine 60 [...] Plan Note - Liliana Golden MD - 01/11/2025 9:51 AM EDTAssociated Problem(s): Ischemic heart disease -NSTEMI in July 2012 and August 2014. She had a cardiac catheterization and a drug- eluting stent to RCA in [place] in July 2012. On dual antiplatelet therapy for > 1 year. - Health Care Recruiter: SUSANA, last seen in August 2024 - Last echocardiogram: 11/19/16 LVEF 60-65%, mild [...] daughter was advised to schedule appt w/ Health Care Recruiter documented in this encounter Plan of Treatment Not on file documented as of this encounter Procedures Procedure Name Priority Date/Time Associated Diagnosis Comments XR KNEE 3 VIEWS RIGHT Routine 01/11/2025 11:40 AM EDT Acute pain of right knee LIPID PANEL WITH REFLEX TO DIRECT LDL Routine 01/11/2025 10:15 AM EDT Dyslipidemia URIC ACID Routine 01/11/2025 10:15 AM EDT Acute pain of right knee HEPATIC FUNCTION PANEL Routine 01/11/2025 10:15 AM EDT Dyslipidemia POCT GLUCOSE Routine 01/11/2025 9:32 AM EDT Type 2 diabetes mellitus with stage 3b chronic kidney disease, without long-term current use of insulin (HCC) POCT GLYCOSYLATED HEMOGLOBIN (HGB A1C) Routine 01/11/2025 9:22 AM EDT Type 2 diabetes mellitus with stage 3b chronic kidney disease, without long-term current use of insulin (HCC) documented in this encounter Results * XR Knee 3 Views Right (01/11/2025 11:40 AM EDT) Anatomical Region Laterality Modality Lower Extremities, Knee Right Radiogra [facility] Imaging 01/11/2025 11:4 0 AM EDT Narrative 01/11/2025 11:49 AM EDT [address] [address] XRay Report Signed Patient: Chanel Egan MR#: [id number] : 1940 Acct:[id number] Age/Sex: 84 / F ADM Date: 01/11/25 Loc: [facility] Attending Dr: Liliana Golden MD Ordering Physician: Liliana Golden MD Date of Service: 01/11/25 Procedure(s): XR knee RT 3V Accession Number(s): [id number] cc: Liliana Golden MD Reason for Exam: right knee pain and swelling EXAMINATION: XR KNEE, RIGHT CLINICAL INFORMATION: right knee pain and swelling COMPARISON: None available. TECHNIQUE: AP and lateral views of the right knee. FINDINGS: Osteopenia versus osteoporosis. No acute cortical disruption or malalignment. No lytic or blastic lesion. No suprapatellar bursa joint effusion. No subcutaneous emphysema. No metallic or radiopaque foreign body. Bone marrow inhomogeneity. Vascular calcifications. XR/XR knee RT 3V IMPRESSION: No acute fracture or dislocation. No joint effusion, suprapatellar bursa. Atherosclerosis disease, peripheral. Osteopenia versus osteoporosis. Electronically signed by: Rudy Pena MD 01/11/2025 11:47 AM EDT Dictated By: Rudy Jaramillo MD Signed By: <Electronically signed by Rudy Asencio MD in OV> 01/11/25 1147 DD/ 1140 TD/TT: 01/11/25 1143 Transportation Engineering Technician: Procedure Note Donotuseinterpreter, Image - 01/11/2025 [place] [address] XRay Report Signed Patient: Chanel EganMR#: [id number] : 1940cct:[id number] Age/Sex: 84 / FADM Date: 01/11/25 Loc: J[facility] Attending Dr: Liliana Golden MD Ordering Physician: Liliana Golden MD Date of Service: 01/11/25 Procedure(s): XR knee RT 3V Accession Number(s): [id number] cc: Liliana Golden MD Reason for Exam: right knee pain and swelling EXAMINATION: XR KNEE, RIGHT CLINICAL INFORMATION: right knee pain and swelling COMPARISON: None available. TECHNIQUE: AP and lateral views of the right knee. FINDINGS: Osteopenia versus osteoporosis. No acute cortical disruption or malalignment. No lytic or blastic lesion. No suprapatellar bursa joint effusion. No subcutaneous emphysema. No metallic or radiopaque foreign body. Bone marrow inhomogeneity. Vascular calcifications. XR/XR knee RT 3V IMPRESSION: No acute fracture or dislocation. No joint effusion, suprapatellar bursa. Atherosclerosis disease, peripheral. Osteopenia versus osteoporosis. Electronically signed by: Rudy Pena MD 01/11/2025 11:47 AM EDT RP Dictated By: Rudy Jaramillo MD Signed By: <Electronically signed by Rudy Asencio MDin OV> 01/11/25 1147 DD/ 1140 TD/TT: 01/11/25 1143 Transportation Engineering Technician: us Liliana Golden MD IMG XR PROCEDURES Edited Result - Final * (ABNORMAL) Uric acid (01/11/2025 10:15 AM EDT) Uric Acid 6.6(H) 2.4 - 5.7 mg/dL [facility] Blood Venous blood specimen / Unknown 01/11/2025 10:15 AM EDT 01/11/2025 11:00 AM EDT Liliana Golden MD LAB BLOOD ORDERABLES Final Resul t [facility] [address] [place] [phone] * (ABNORMAL) Hepatic Function Panel (01/11/2025 10:15 AM EDT) Bilirubin, Total 0.3 0.0 - 1.0 mg/dL [facility] Bilirubin, Direct 0.1 0.0 - 0.5 mg/dL [facility] Aspartate Amino Transferase 47(H) 5 - 31 U/L [facility] Comment:Slight Hemolysis.Int erpret result with caution. Alanine Aminotransferase 18 0 - 31 U/L [facility] Total Protein 7.3 6.5 - 8.0 g/dL [facility] Albumin Level 3.8 3.5 - 5.0 g/dL [facility] Alkaline Phosphatase 101 39 - 117 U/L [facility] Blood Venous blood specimen / Unknown 01/11/2025 10:15 AM EDT 01/11/2025 11:00 AM EDT Liliana Golden MD LAB BLOOD ORDERABLES Final Resul t [facility] [address] [place] [phone] * Lipid Panel with Reflex to Direct LDL (01/11/2025 10:15 AM EDT) Triglycerides 27 <150 mg/dL [facility] Comment:Desirable Triglyceri de: less than 150 mg/dLBorderline High Triglyceride 150-199 mg/dLHigh Triglyceride: 200-499 mg/dLVery High Triglyceride: greater than or equal to 5OO mg/dL Cholesterol 185 <200 mg/dL [facility] Comment:Desirable Cholestero l: less than 200 mg/dLBorderline High Cholesterol: 200-239 mg/dLHigh Cholesterol: greater than 239 mg/dL LDL Cholesterol Calculated 81 <100 mg/dL [facility] Comment:Desirable LDL: less than 100 mg/dLNear Optimal/Above Optimal LDL: 110- 129 mg/dLBorderline High LDL: 130-159 mg/dLHigh LDL: 160-189 mg/dLVery High LDL: greater than or equal to 190 mg/dL HDL Cholesterol 99 >40 mg/dL [facility] Comment:Desirable HDL: great er than 40 mg/dL Note: This HDL assay may give artificially low results in patients with liver disease. Blood 01/11/2025 10:1 5 AM EDT 01/11/2025 11:00 AM EDT us Liliana Golden MD LAB BLOOD ORDERABLES Final Resul t [facility] [address] [place] [phone] * POCT glucose manually resulted (01/11/2025 9:32 AM EDT) Glucose Blood, POC 152 60 - 200 mg/dL QC Media Lot # [id number] Lot# Expiration Date 2,[id number] Blood Capillary blood specimen / Unknown 01/11/2025 9:32 AM EDT Liliana Golden MD POINT OF CARE TEST ENTER/EDIT OR DERABLES Final Result * (ABNORMAL) POCT glycosylated hemoglobin (Hgb A1c) (01/11/2025 9:22 AM EDT) Hemoglobin A1C 6.6(A) 4.0 - 5.7 % QC Media Lot # [id number] Lot# Expiration Date 5,027 Blood Capillary blood specimen / Unknown 01/11/2025 9:22 AM EDT Liliana Golden MD POINT OF CARE TEST ENTER/EDIT OR DERABLES Final Result documented in this encounter Visit Diagnoses Diagnosis Essential hypertension- Primary Unspecified essential hypertension Type [...] with neurological manifestations, not stated as uncontrolled Acute pain of right knee Encounter for immunization Dyslipidemia Other and unspecified hyperlipidemia Hyponatremia Hyposmolality and/or hyponatremia Anemia of chronic disease Anemia of other chronic disease Stage 3b chronic kidney disease (CMS/HCC) (HCC) Pressure injury of sacral region, stage 1 documented in this encounter Additional Health Concerns Assessment Noted Time PHQ-9 Depression Total Score: 0 07/26/19 24 1:46 PM EDT documented as of this encounter Care Teams Logistics Analytics Manager Relationship Specialty Start Date End Date Liliana Golden MD [address] [place] [address] PCP - General Family Medicine 03/29/18 documented as of this encounter
--- OUTSIDE RECORDS SUMMARY | 2025-01-16 21:07 | XMS_ITS | Encounter Summary ---
Author Organization [employer] Address [address] [facility] [address]t [place] [address] Care Team Providers Care Wrinkle Chaser Name Role Phone Liliana Golden MD Primary Care Provider [phone] Reason for Referral * Consultation (Routine) - [...] type (CMS/HCC) (HCC) Liliana Golden MD [address] [place] [address] Phone: tel: fax: Referral ID Status Reason Start Date Expiration Date V isits Requested Visits Authorized [id number] Closed Continuity of Care 01/07/2024 01/06/2025 6 6 Encounter Details Date Type Department Care Team (Late st Contact Info) Description 01/07/2024 Orders Only [facility] [address] [place], [place] [phone] Liliana Golden MD [address] [place], [place] [phone] Essential hypertension (Primary Dx); Stage 3a chronic kidney disease (CMS/HCC); Type 2 diabetes mellitus with stage 3b chronic kidney disease, without long-term current use of insulin ([facility]/HCC); Ischemic heart disease; Anemia of chronic disease; [...] disease, without long-term current use of insulin ([facility]) Ischemic heart disease Anemia of chronic disease [...] documented as of this encounter Care Teams Wrinkle Chaser Relationship Specialty Start Date End Date Liliana Golden MD [address] [place] [phone] PCP - General Family Medicine 03/29/18 documented as of this encounter
--- OUTSIDE RECORDS SUMMARY | 2025-01-16 21:07 | XMS_ITS | Encounter Summary ---
Author Organization [employer] Address [address] [facility] [address] [place] [address] Care Team Providers Care Tobacco Baler Name Role Phone Liliana Golden MD Primary Care Provider [phone] Encounter Details Date Type Department Care Team ([facility] st Contact Info) Description 10/05/2023 Orders Only [facility] [address] [place], [place] [phone] Liliana Golden MD [address] [place], [place] [phone] Social History Tobacco Use Types Packs/Day Years [...] documented as of this encounter Care Teams Tobacco Baler Relationship Specialty Start Date End Date Liliana Golden MD [address] [place] [phone] PCP - General Family Medicine 03/29/18 documented as of this encounter
--- OUTSIDE RECORDS SUMMARY | 2025-01-16 21:07 | XMS_ITS | Encounter Summary ---
Author Organization [employer] Address [address] [facility] [address] [place] [address] Care Team Providers Care Hardwood Floor Finisher Name Role Phone Liliana Golden MD Primary Care Provider [phone] Reason for Visit * Reason Onset Date Comments Results 01/16/2025 Encounter Details Date Type Department Care Team ([facility] st Contact Info) Description 01/16/2025 Telephone [facility] [address] [place], [place] [phone] Liliana Golden MD [address] [place], [place] [phone] Results Social History Tobacco Use Types Packs/Day Years [...] * Telephone Encounter - Joselyn Reyes - 01/16/2025 1:26 PM EDT TC from pt requesting call back regarding Results. Type of results: Blood lab Date when done: 01/15 Facility: [facility] Contact pt at [phone] Need interpreter for the deaf documented in this encounter Plan of Treatment Not on file documented as of this encounter Visit Diagnoses Not on filedocumented in this encounter Additional Health Concerns Assessment Noted Time PHQ-9 Depression Total Score: 0 07/26/19 24 1:46 PM EDT documented as of this encounter Care Teams Hardwood Floor Finisher Relationship Specialty Start Date End Date Liliana Goledn MD [address] [place] [address] PCP - General Family Medicine 03/29/18 documented as of this encounter
--- OUTSIDE RECORDS SUMMARY | 2025-01-16 21:07 | XMS_ITS | Encounter Summary ---
Author Organization [employer] Address [address] [facility] 7t [place] [address] Care Team Providers Care Vice President Network Development Name Role Phone Liliana Golden MD Primary Care Provider [phone] Reason for Visit * Reason Onset Date Comments Call Back Request 01/16/2025 Encounter Details Date Type Department Care Team ([facility] st Contact Info) Description 01/16/2025 Telephone [facility] [address] [place], [place] [phone] Liliana Golden MD [address] [place], [place] [phone] Call Back Request Social History Tobacco Use Types Packs/Day [...] encounter Miscellaneous Notes * Telephone Encounter - Justinpool Ramsey - 01/16/2025 3:48 PM EDT Tc from daughter requesting a call back to verify when pt will receive vitamin injection. Please contact pt at [phone]. (English Speaker) documented in this encounter Plan of Treatment Not on file documented as of this encounter Visit Diagnoses Not on filedocumented in this encounter Additional Health Concerns Assessment Noted Time PHQ-9 Depression Total Score: 0 07/26/19 24 1:46 PM EDT documented as of this encounter Care Teams Vice President Network Development Relationship Specialty Start Date End Date Liliana Golden MD [address] [place] [phone] PCP - General Family Medicine 03/29/18 documented as of this encounter
--- OUTSIDE RECORDS SUMMARY | 2025-01-16 21:07 | XMS_ITS | Encounter Summary ---
Author Organization [email or web address] Address [address] [facility] [address] [place] [address] Care Team Providers Care Grinding And Polishing Laborer Name Role Phone Liliana Golden MD Primary Care Provider [phone] Reason for Visit * Reason Comments Med Refill Encounter Details Date Type Department Care Team ([facility] st Contact Info) Description 12/26/2024 Refill [facility] [address] [place], [place] [phone] Liliana Golden MD [address] [place], [place] [phone] Social History Tobacco Use Types Packs/Day Years [...] documented as of this encounter Care Teams Grinding And Polishing Laborer Relationship Specialty Start Date End Date Liliana Golden MD [address] [place] [address] PCP - General Family Medicine 03/29/18 documented as of this encounter
--- OUTSIDE RECORDS SUMMARY | 2025-01-16 21:07 | XMS_ITS | Encounter Summary ---
Author Organization [employer] Address [address] [facility] [address] [place] [address] Care Team Providers Care Network Pricing Consultant Name Role Phone Liliana Golden MD Primary Care Provider [phone] Encounter Details Date Type Department Care Team ([facility] st Contact Info) Description 09/20/2023 Orders Only [facility] [address] [place], [place] [phone] Liliana Golden MD [address] [place], [place] [phone] Social History Tobacco Use Types Packs/Day Years [...] documented as of this encounter Care Teams Network Pricing Consultant Relationship Specialty Start Date End Date Liliana Golden MD [address] [place] [phone] PCP - General Family Medicine 03/29/18 documented as of this encounter
--- OUTSIDE RECORDS SUMMARY | 2025-01-16 21:07 | XMS_ITS | Data Portability ---
Author Organization [place] - [facility] Address [address] [place] [address] Care Team Providers Care Senior Web Analyst Name Role Phone ZARI RABAGO Primary Care Provider [facility] OTHER [phone] Assessment Encounter Date Assessment Date Assessment LastModified by Organization Details LastModified Time 03/05/2022 03/05/2022 Time On Scene with Patient: 01:06:21 81 YO F establishing care. She complains of right breast wound that began February 12? initially starting with a clear filled blister that spread with several blisters ranging from clear to blood filled. She was seen at [facility] and was prescribed anti fungal cream, which [...] and answering all questions appropriately in her nez perce language. No acute distress, neurologically intact, EOMI. [...] questions were answered prior to team departure. [email or web address] Not available 03/06/2022 09:28:27 03/08/2022 03/08/2022 Overview/History [...] after care of this patient according to [facility]'s infection prevention protocols. [email or web address] Not available [...] 96% RA Exam: pleasant 82 y/o female georgian speaking, well appearing, alert NAD sitting in [...] after care of this patient according to [facility]'s infection prevention protocols. [email or web address] Not available 02/16/2023 15:13:11 Plan of Treatment Reminders Order Date Submit Date Provider Last Modified By Organization Details Last Modified Time Details Appointments None recorded. Lab rapid SARS CoV 2 Ag, QL IA, respirator y specimen 2022 023 [email or web address] Spr [facility] Home, [address] [place], [address], 3 14:59:03 rapid flu (A+B) 2022 023 [email or web address] Spr - Home, [address] [place], [address], 3 14:59:20 Referral wound care referral 2021 022 [facility], [address], [place], [address], 2 11:59:57 dermatolog ist referral 2021 022 [facility], [facility] [facility] [facility], [address], [place], [address], 2 11:59:55 Procedures None recorded. Surgeries None recorded. Imaging XR, chest, 2 view - cough and low grade fever r/o pneumonia 2022 023 [facility] ([facility] [employer]), [address], [place], [address], 3 17:05:55 Medication Orders Saline Wound Wash 0.9 % topical spray 2021 023 [facility], [address] [place], [place], [phone], 03:15:20 [email or web address] 2 % topical ointment 2021 022 [facility], [address], [place], [place], [phone], 13:11:25 Patient TargetsNo targets recorded. Patient Instructions Encounter Date Encounter Id Patient Instructions Last Modified By Organization Details Last Modified Time 03/05/2022 [id number] skin tears: care instructions [email or web address] 3 Not available 03/05/2022 13:06:55 Thank you for yo ur visit with [facility] today. You were seen today for treatment [...] in your condition between 8am-10pm, please call [facility] at [phone] to help navigate your care. [email or web address] 3 Not available 03/05/2022 12:46:35 02/16/2023 [id number] Inhaler Instructions Before use, you need to [...] after cleaning actually helps it work better. [email or web address] Not available 02/16/2023 14:41:32 Reason for Referral Referring Physician: Shira Esqueda, Emergency Medicine, Encounter Date: 03/08/2022 Supervisor [employer] Referral for W ound of skin Referring Physician: Shira Esqueda Emergency Medicine, Encounter Date: 03/08/2022 Results Created Date Observation Date Name Description Value Unit Range Abnormal Flag Note LastModifiedBy Organization Detail LastModifiedTime 02/17/2002/16/2023 rapid flu (A+B) Flu A (ref: neg) negati ve Not Available [facility] - Home [address] [place], [address], 02/16/2023 14:49:31 02/17/20 23 02/16/2023 rapid flu (A+B) Flu B (ref: neg) negati ve Not Available Spr - Home [address] [place], [address], 02/16/2023 14:49:31 02/17/20 23 02/16/2023 rapid flu (A+B) Control Visual ized/V alid Not Available Spr - Home [address] [place], [address], 02/16/2023 14:49:31 02/17/20 23 02/16/2023 rapid flu (A+B) Location [facility], [address] [place] [address], [phone] Not Available Spr - Home [address] [place] [address], [phone], 02/16/2023 14:49:31 02/17/20 23 02/16/2023 rapid SARS CoV 2 Ag, QL IA, respi rator y speci men Covid 19 Antigen (ref: neg) negati ve Not Available Spr - Home [address] [place] [address], [phone], 02/16/2023 14:49:13 02/17/20 23 02/16/2023 rapid SARS CoV 2 Ag, QL IA, respi rator y speci men Control Visual ized/V alid Not Available Spr - Home [address] [place] [address], [phone], 02/16/2023 14:49:13 02/17/20 23 02/16/2023 rapid SARS CoV 2 Ag, QL IA, respi rator y speci men Location [facility], [address] [place] [address], [phone] Not Available Spr - Home [address] [place] [address], [phone], 02/16/2023 14:49:13 02/20/20 23 02/19/2023 XR, chest [...] OSPINA M.D. 2022 4:57:3 0 PM EST. [email or web address] [facility] [address], [place], [address], 02/20/2023 08:46:22 Result Notes Documentation Provider Name [...] M.D. 02/19/2023 4:57:30 PM EST. REMY Brunner [address] [place] [address] [place], [address], [place] [facility] 02/20/2023 08:46:22 Medical Equipment None Reported. Allergies [...] APPLY TO THE AFFECTED AREA(S) (BLISTER) EN SLULYO FRAN DOS VECES AL TALIB active Not [...] Not Available Not Available Not Available FreeStyle [place] Lite kit USE THREE TIMES DAILY active [...] % 98 % 124/58 mm[Hg] Not Available [facility] 2 11:44:36 Social History Question Answer Notes LastModified by Organizat ion Details LastModified Time Tobacco Smoking Status Never Smoker September SRINIVAS Ramsey [address], [place], [address], [place] [facility] 03/05/2022 12:44:51 Within The Past 12 Months, Has It Happened That The Food You Bought Just Didn't Last And You Didn't Have Money To Get More. Never True [email or web address] Information not available 03/05/2022 Within The Past 12 Months, Have You Worried That Your Food Would Run Out Before You Got Money To Buy More. Never True [email or web address] Information not available 03/05/2022 Fall Risk: Do You Feel Unsteady When Standing Or Walking? Yes [email or web address] Information not available 03/05/2022 We Know That How And When People Interact With Friends And Family Can Be Very Different From Person To Person. How Often Do You Have The Opportunity To See Or Talk To People That You Care About And Feel Close To? (Ex: Talking To Friends On The Phone Or Visiting Friends Or Family Or Going To Faith Or Club Meetings) 5 Or More Times Per Week [email or web address] Information not available 03/05/2022 Excessive Alcohol Or Drug Use No [email or web address] Information not available 03/05/2022 Does This Patient Have A PCP? Yes [email or web address] Information not available 03/05/2022 Has The Patient Seen Their PCP In The Past 6 Months? Yes [email or web address] Information not available 03/05/2022 Is This Patient In Hospice? No Information not available 03/05/2022 We Know From Many Of Our Patients That Covering All Of Their Costs Can Be Difficult At Times. This Can Cause Stress And Impact Health. In The Past Year, Have You Been Unable To Get Any Of The Following When It Was Really Needed? No [email or web address] Information not available 03/05/2022 What Is Your Housing Situation Today? I Have Housing [email or web address] Information not available 03/05/2022 Sex: Unknown Functional Status Question Answer Note LastModified by Organizat ion Details LastModified Time Do you use any illicit or recreational drugs? No [email or web address] Information not available 03/05/2022 Mental Status None recorded. Family History Nothing Reported. Medical History Condition Response Diabetes Y Coronary Artery Disease N CHF N Parkinson's Disease N Cancer N Stroke Y Dementia N Asthma N Hypothyroidism N Depression N COPD N High Cholesterol Y Rheumatoid Arthritis N Pulmonary Embolism N Hypertension Y A-fib N Osteoporosis N Kidney Disease N Gynecological HistoryNo gynecological history recorded. Obstetrics History GPAL:G 0 P 0 0 0 0 Past Encounters Encounter ID Performer Location Encounter Start Date Encounter Closed Date Diagnosis/Indication Diagnosis SNOMED-CT Code Diagnosis ICD10 Code Diagnosis IMO Codes Diagnosis Note [id number] September SRINIVAS Ramsey [facility] [address] [place] [address] 03/05/2022 12:37:15 03/06/2022 09:55:59 Wound of skin 504613091 T14.8XXA [id number] Shira Esqueda NP SPR - HOME [address] [place] [address] 03/08/2022 11:17:37 03/11/2022 14:43:42 Wound of skin 901411879 T14.8XXD Tear of skin [id number] T 14.8XXD [id number] REMY Brunner SPR - HOME [address] [place] [address] 02/16/2023 14:32:08 02/16/2023 17:59:23 Acute upper respiratory infection 66889806 J06.9 Status of condition: Acute. Testing/Re sults: [...] fever, lethargy, decreased urine output. Essential hypertension [id number] I10 Status of condition: Chronic. Testing/Re sults: Discussion : Plan & Management : Health Concerns Section Related Observation LastModified by Organization Detai ls LastModified Time None Recorded Concern Status LastModified by Organization Details LastModified Time None Recorded Advance Directives Directive None Recorded Payers Insurance Date Sequence Insurance Name Policy Number Policy Blount Covered Member ID Blount Member ID Guarantor Name 02/15/2023 1 [facility] - DOS ON OR AFTER 2022 - MEDICARE ADVANTAGE [place] (MED[place]ARE REPLACEMENT/AD VANTAGE - PPO) Chanel Ramsey [id number] Kourtney Jignesh 02/15/2023 1 *SELF PAY* Chanel Ramsey [id number] Kourtney Egan 03/05/2022 1 *SELF PAY* Chanel Corona [id number] Kourtney Jignesh 03/06/2022 1 [place]: [employer] Chanel Ramsey [id number] [place] Jignesh 02/15/2023 1 [facility] - DOS PRIOR TO 2022 - DUAL ELIGIBLE (MEDICARE REPLACEMENT/AD VANTAGE - HMO) Chanel Ramsey [id number] Kourtney Egan Notes Date Note Type Note Provider Name and Address Organization Details Recorded Time 03/05/2022 text/html 81 YO F establishing care. She complains of right breast wound that began February 12? initially starting with a clear filled blister that spread with several blisters ranging from clear to blood filled. She was seen at [facility] and was prescribed anti fungal cream, which made it worse. She returned to the ER and was prescribed Desitin cream, which provided no change. The third time she was seen at ER she was prescribed oral antibiotic medication which she completed today. She denies any trauma to area, itching, or pain. Sofie Ramsey NP [address], [place], [address], [place] [facility] 03/06/2022 09:28:41 03/08/2022 text/html Patient is a 81 year old female with a PMH including CVA, HTN, HLD, T2DM who is known to new to [facility] who is being seen today for a [...] translating. Shira Esqueda NP [address], [place], [address], [place] [facility] 03/08/2022 12:51:36 02/16/2023 text/html General HPI Template - DHReported by Patient 82 y/o female known to new to [facility] with hx of DM, HTN, hyperlipidemia, stroke. pt is georgian speaking and lives with her daughter who [...] been urinating normally. REMY Brunner [address] [place], [address], [place] [facility] 02/16/2023 15:13:58 OBGyn Episode No OBEpisode recorded.
--- OUTSIDE RECORDS SUMMARY | 2025-01-16 21:07 | XMS_ITS | Encounter Summary ---
Author Organization [employer] Address [address] [facility] 7t [place] [address] Care Team Providers Care Wooden Box Maker Name Role Phone Liliana Golden MD Primary Care Provider [phone] Reason for Visit * Reason Onset Date Comments Medication Question 08/28/2024 Encounter Details Date Type Department Care Team ([facility] st Contact Info) Description 08/28/2024 Telephone [facility] MEDICINE [address] [place], [place] [phone] Liliana Golden MD [address] [place], [place] [phone] Medication Question Social History Tobacco Use Types [...] PM EDT TC placed to pt with [facility] automotive parts interpreter #[phone] to follow up on the request for medications refills anddiabetic summer shoes. Pt could not name the specific medications that are needed but only that sheneeds all of them . The pt was able to confirm that she has an upcoming trip to the [facility] and wants to make sure [...] this appt. * Telephone Encounter - Justin Ramsey - 08/28/2024 12:16 PM EDT Tc from daughter stating pt will be traveling to [facility] and she will be needing all of her medication for trip as well as summer shoes, she only has winter shoes at the moment. Pt does not have a flight date wanted to travel after upcoming physical but wanted to discuss shoes and medication ahead of time. Please contact daughter at [phone]. (Emirati Speaker) documented in this encounter Plan of Treatment Not on file documented as of this encounter Visit Diagnoses Not on filedocumented in this encounter Additional Health Concerns Assessment Noted Time PHQ-9 Depression Total Score: 0 07/26/19 24 1:46 PM EDT documented as of this encounter Care Teams Wooden Box Maker Relationship Specialty Start Date End Date Liliana Golden MD [address] [place] [address] PCP - General Family Medicine 03/29/18 documented as of this encounter
--- OUTSIDE RECORDS SUMMARY | 2025-01-16 21:07 | XMS_ITS | Encounter Summary ---
Author Organization [employer] Address [address] [facility] 7[address] [place] [address] Care Team Providers Care Multi Punch Operator Name Role Phone Liliana Golden MD Primary Care Provider [phone] Encounter Details Date Type Department Care Team ([facility] st Contact Info) Description 04/14/2023 Telephone [facility] MEDICINE [address] [place], [place] [phone] Liliana Golden MD [address] [place], [place] [phone] Social History Tobacco Use Types Packs/Day Years [...] documented as of this encounter Care Teams Multi Punch Operator Relationship Specialty Start Date End Date Liliana Golden MD [address] [place] [address] PCP - General Family Medicine 03/29/18 documented as of this encounter
--- OUTSIDE RECORDS SUMMARY | 2025-01-16 21:07 | XMS_ITS | Encounter Summary ---
Author Organization [employer] Address [address] [facility] [address] [place] [address] Care Team Providers Care Nozzle Cement Sprayer Helper Name Role Phone Liliana Golden MD Primary Care Provider [phone] Reason for Visit * Reason Onset Date Comments Durable Medical Equipment 04/29/2022 Encounter Details Date Type Department Care Team (Late st Contact Info) Description 04/29/2022 Telephone [facility] MEDICINE [address] [place], [place] [phone] Liliana Golden MD [address], [place] [phone] Durable Medical Equipment Social History Tobacco Use [...] on filedocumented in this encounter Care Teams Nozzle Cement Sprayer Helper Relationship Specialty Start Date End Date Liliana Golden MD [address] [place] [address] PCP - General Family Medicine 03/29/18 documented as of this encounter
--- OUTSIDE RECORDS SUMMARY | 2025-01-16 21:07 | XMS_ITS | Encounter Summary ---
Author Organization [employer] Address [address] [place] [address] Care Team Providers Care Care Professional Name Role Phone Liliana Golden MD Primary Care Provider [phone] Encounter Details Date Type Department Care Team ([facility] st Contact Info) Description 02/23/[address] [facility] MEDICINE [address] [place], [place] [phone] Liliana Golden MD [address] [place], [place] [phone] Positive colorectal cancer screening using Cologuard test [...] 3:34 PM EDT) Cancelled Hematology SEE NOTE [facility] Comment:THE FOLLOWING TESTS WERE CANCELLED: CBCREASON: NO SPECIMEN RECEIVED 09/02/2023 3:34 PM EDT 09/03/2023 8:58 AM EDT Liliana Golden MD HISTORICAL/NON ORDERABLE LABS Fi nal Result [facility] [address] [place] [address] [phone] * Cancelled Chemistry (09/02/2023 3:34 PM EDT) Cancelled Chemistry SEE NOTE [facility] Comment:CMP, Iron Profile, F erritin, Lipid with reflex, Vitamin B12,and Folate cancelled. No specimen received. 09/02/2023 3:34 PM EDT 09/03/2023 8:18 AM EDT Liliana Golden MD HISTORICAL/NON ORDERABLE LABS Fi nal Result [facility] [address] [place] [address] [phone] documented in this encounter Visit Diagnoses Diagnosis Positive colorectal cancer screening using Cologuard test- Primary Anemia of chronic disease Anemia of other chronic disease documented in this encounter Additional Health Concerns Assessment Noted Time PHQ-9 Depression Total Score: 2 07/01/19 23 2:32 PM EDT documented as of this encounter Care Teams Care Professional Relationship Specialty Start Date End Date Liliana Golden MD [address] [place] [address] PCP - General Family Medicine 03/29/18 documented as of this encounter
--- OUTSIDE RECORDS SUMMARY | 2025-01-16 21:07 | XMS_ITS | Encounter Summary ---
Author Organization [employer] Address [address] [facility] [address] [place] [address] Care Team Providers Care Planning Intern Name Role Phone Liliana Golden MD Primary Care Provider [phone] Reason for Visit * Reason Onset Date Comments Results 01/16/2025 Encounter Details Date Type Department Care Team ([facility] st Contact Info) Description 01/16/2025 Telephone [facility] MEDICINE [address] [place], [place] [phone] Liliana Golden MD [address] [place], [place] [phone] Results Social History Tobacco Use Types Packs/Day [...] Telephone Encounter - Irma Michel RN - 01/16/2025 2:46 PM EDT TC placed to the pt daughter Danielle with S conference planning manager #[id number] to inform of the pt XR Knee results. Danielle was advised that the results showed no significant joint abnormality or fluid in the knee. Danielle informed that PCP believes that the pt pain may be due to her peripheral arterial disease andSand was advised to have the pt elevate legs and ambulate as much as possible. Danielle also told to await a call to schedule the ordered Vascular US lower extremity. Danielle stated understanding and had no further questions at this time. PCP Message Please inform caregiver that no significant joint abnormality on X-ray. No fluid in her knee. Osteoporotic bone (known previously). She has peripheral arterial disease, which may be the cause of pain, but it does not cause swelling. It was likely dependent edema from prolonged sitting position due to the flight. Encourage daily exercise and elevation of her legs. Will evaluate with LE arterial doppler. Thank you. * Telephone Encounter - Joselyn Reyes - 01/16/2025 1:28 PM EDT TC from pt requesting call back regarding Results. Type of results: XR Date when done: 01/11 Facility: [facility] Contact pt at [phone] Need conference planning manager documented in this encounter Plan of Treatment Not on file documented as of this encounter Visit Diagnoses Not on filedocumented in this encounter Additional Health Concerns Assessment Noted Time PHQ-9 Depression Total Score: 0 07/26/19 24 1:46 PM EDT documented as of this encounter Care Teams Planning Intern Relationship Specialty Start Date End Date Liliana Golden MD [address] [place] [address] PCP - General Family Medicine 03/29/18 documented as of this encounter
--- OUTSIDE RECORDS SUMMARY | 2025-01-16 21:07 | XMS_ITS | Encounter Summary ---
Author Organization [employer] Address [address] [facility] [address] [place] [address] Care Team Providers Care Ibm Websphere Commerce Developer Name Role Phone Liliana Golden MD Primary Care Provider [phone] Reason for Visit * Reason Onset Date Comments Durable Medical Equipment 12/25/2024 DME Or raman: Wheelchair and Cushion Encounter Details Date Type Department Care Team (Late st Contact Info) Description 12/25/2024 Telephone [facility] MEDICINE [address] [place], [place] [phone] Liliana Golden MD [address] [place], [place] [phone] Durable Medical Equipment (DME Order: Wheelchair and Cushion) Social History Tobacco Use Types Packs/Day Years [...] encounter Miscellaneous Notes * Telephone Encounter - Mirtha Ramsey - 01/12/2025 10:04 AM EDT L&C form was received and completed. Form was sent FAX with requested documentation on 01/05/25. Confirmation was uploaded to Media. * Telephone Encounter - Joselyn Reyes - 01/05/2025 1:13 PM EDT Tc from pt stated that she only need a medical necessary letter place with the order for L&C Contact pt at [phone] need casino dealer * Telephone Encounter - Sher De La [...] documented as of this encounter Care Teams Ibm Websphere Commerce Developer Relationship Specialty Start Date End Date Liliana Golden MD [address] [place] [address] PCP - General Family Medicine 03/29/18 documented as of this encounter
--- OUTSIDE RECORDS SUMMARY | 2025-01-16 21:07 | XMS_ITS | Encounter Summary ---
Author Organization [employer] Address [address] [facility] [address] [place] [address] Care Team Providers Care Dough Mixer Name Role Phone Liliana Golden MD Primary Care Provider [phone] Encounter Details Date Type Department Care Team ([facility] st Contact Info) Description 11/30/2024 Results Follow-Up [facility] MEDICINE [address] [place], [place] [phone] Liliana Golden MD [address] [place], [place] [phone] CBC auto differential, Urinalysis Complete, Electrolyte Panel, [...] documented as of this encounter Care Teams Dough Mixer Relationship Specialty Start Date End Date Liliana Golden MD [address] [place] [address] PCP - General Family Medicine 03/29/18 documented as of this encounter
--- OUTSIDE RECORDS SUMMARY | 2025-01-16 21:07 | XMS_ITS | Encounter Summary ---
Author Organization [employer] Address [address] [facility] [address] [place] [address] Care Team Providers Care Call Center Supervisor Name Role Phone Liliana Golden MD [...] of this encounter Care Teams Call Center Supervisor Relationship Specialty Start Date End Date Liliana Golden MD [address] [place] [address] PCP - General Family Medicine 03/29/18 documented as of this encounter
--- OUTSIDE RECORDS SUMMARY | 2025-01-16 21:07 | XMS_ITS | Encounter Summary ---
Author Organization [employer] Address [address] [facility] [address] [place] [address] Care Team Providers Care Generation Mechanic Helper Name Role Phone Jorge Golden MD Primary Care Provider [phone] Reason for Visit * Reason Onset Date Comments Results 01/12/2025 Encounter Details Date Type Department Care Team (Latest Contact Info) Description 01/12/2025 Results Follow-Up [facility] [address] [place] [address] Jorge Golden MD [address] [place] [address] XR Knee 3 Views Right, POCT glucose manually resulted, POCT glycosylated hemoglobin (Hgb A1c), Additional followed-up results: 3 Social History Tobacco Use Types Packs/Day Years [...] Telephone Encounter - Irma Michel RN - 01/12/2025 9:09 AM EDT TC placed to the pt and caregiver (pt daughter) with S home care manager rn #[id number] in regard to informing about the pt lab results as stated below. Pt was advised that both uric acid and LFT's were elevated. Pt educated that the uric acid is elevated most likely due to knee swelling and the LFT's elevateddue to dietary choices. The pt was instructed to be mindful of foods high in saturated fat, sodium and come for repeat labs prior to next visit to reassess liver function. Pt was agreeable to this POC and stated understanding. ----- Message from Jorge Golden MD sent at 01/12/2025 8:49 AM EDT ----- Please inform patient's caregiver that her lab shows elevated AST (liver enzyme). No reported GI symptom. Uric acid is mildly elevated (checked due to knee swelling, but less likely to have gout). Please ask if patient is taking any supplement other than prescribed. Please encourage to provide well-balanced diet. Please ask them to have another lab prior to next visit for her elevated liver enzyme (or sooner if patient starts having GI symptom). 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) Expected: 01/12/2025 (Approximate), Expires: 01/12/2026 documented as of this encounter Procedures Procedure Name Priority Date/Time Associated Diagnosis Comments HEPATITIS C AB W/REFL TO HCV RNA, QN, PCR Routine 01/15/2025 1:22 PM EDT Transaminitis HEPATITIS B SURFACE ANTIGEN, EIA Routine 01/15/2025 1:22 PM EDT Transaminitis HEPATITIS B CORE AB TOTAL Routine 01/15/2025 1:22 PM EDT Transaminitis HEPATITIS B SURFACE ANTIBODY, QUALITATIVE Routine 01/15/2025 1:22 PM EDT Transaminitis HEPATIC FUNCTION PANEL Routine 01/15/2025 1:22 PM EDT Transaminitis documented in this encounter Results * Hepatitis C Antibody with Reflex to HCV, RNA, Quantitative, Real-Time PCR (01/15/2025 1:22 PM EDT) Pathologist [facility] Hepatitis C Antibody Nonreactive Nonreactive [facility] Comment:Antibodies to HCV no t detected; does not exclude early acuteHCV infection. Blood Venous blood specimen / Unknown 01/15/2025 1:22 PM EDT 01/15/2025 3:58 PM EDT Jorge Golden MD LAB BLOOD ORDERABLES Final Resul t Performing Organization Address City/[facility]/ZIP Co de Phone Number [facility] [address] [place] [phone] * Hepatitis B surface antigen, EIA (01/15/2025 1:22 PM EDT) Pathologist [facility] Hepatitis B Surface Ag Negative Negative [facility] Blood Venous blood specimen / Unknown 01/15/2025 1:22 PM EDT 01/15/2025 3:58 PM EDT Jorge Golden MD LAB BLOOD ORDERABLES Final Resul t Performing Organization Address [facility] Co de Phone Number [facility] [address] [place] [phone] * Hepatitis B Surface Antibody, Qualitative (01/15/2025 1:22 PM EDT) Pathologist [facility] ~Hepatitis B Surface Antibody REACTIVE Nonreactive [facility] Comment:REACTIVE: > 11.99 mI U/mL Blood Venous blood specimen / Unknown 01/15/2025 1:22 PM EDT 01/15/2025 3:58 PM EDT Jorge Golden MD LAB BLOOD ORDERABLES Final Resul t Performing Organization Address [facility] Co de Phone Number [facility] [address] [place] [phone] * Hepatitis B Core Antibody, Total (01/15/2025 1:22 PM EDT) Hepatitis B Core Antibody Reactive Nonreactive [facility] Comment:Presumptive evidence of anti-HBc. Blood Venous blood specimen / Unknown 01/15/2025 1:22 PM EDT 01/15/2025 3:58 PM EDT Jorge Golden MD LAB BLOOD ORDERABLES Final Resul t Performing Organization Address City/[facility]/ZIP Co de Phone Number [facility] [address] [place] [phone] * (ABNORMAL) Hepatic Function Panel (01/15/2025 1:22 PM EDT) Bilirubin, Total 0.3 0.0 - 1.0 mg/dL [facility] Bilirubin, Direct 0.2 0.0 - 0.5 mg/dL [facility] Aspartate Amino Transferase 41(H) 5 - 31 U/L [facility] Alanine Aminotransferase 26 0 - 31 U/L [facility] Total Protein 7.2 6.5 - 8.0 g/dL [facility] Albumin Level 3.8 3.5 - 5.0 g/dL [facility] Alkaline Phosphatase 135(H) 39 - 117 U/L [facility] Blood Venous blood specimen / Unknown 01/15/2025 1:22 PM EDT 01/15/2025 3:58 PM EDT us Jorge Golden MD LAB BLOOD ORDERABLES Final Resul t Performing Organization Address City/[facility]/ZIP Co de Phone Number [facility] [address] [place] [phone] documented in this encounter Visit Diagnoses Diagnosis Transaminitis- Primary Nonspecific elevation of levels of transaminase or lactic acid dehydrogenase (LDH) 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
--- OUTSIDE RECORDS SUMMARY | 2025-01-16 21:07 | XMS_ITS | Clinical Summary ---
Author Organization [employer] Address [address] [place] [address] Care Team Providers Care Thiokol Operator Name Role Phone Liliana Golden MD Primary Care Provider [phone] Allergies Active Allergy Reactions Criticality Noted Date [...] % cream Active Desitin 13 % cream 11/17/2 022 Active Wound Dressings (Medihoney Ca Alginate 2 [...] needed when feeling sick 50 strip 11 Active TRUEplus Lancets 33G miscIndications: Type 2 [...] use of insulin 07/13/2022 Assessment & Plan (01/12/2025 9:44 PM EDT): - A1c 6.6% on 01/11/2025, stable [...] (09/05/2024 10:06 AM EDT): - Evaluated by pourer crane ladle, Dr. Smith, on 03/13/22 - initially prescribed doxycycline, clobetasol, and Niacin - continue clobetasol, doxycycline, and Niacin as prescribed Assessment & Plan (07/26/2023 2:32 PM EDT): - Evaluated by pourer crane ladle, Dr. Smith, on 03/13/22 - initially prescribed doxycycline, clobetasol, and Niacin - continue clobetasol, doxycycline, and Niacin as prescribed Assessment & Plan (01/11/2023 4:45 AM EDT): - Evaluated by pourer crane ladle, Dr. Smith, on 03/13/22 - initially prescribed doxycycline, clobetasol, and Niacin - continue clobetasol, doxycycline, and Niacin as prescribed Assessment & Plan (10/05/2022 2:32 PM EDT): - Evaluated by pourer crane ladle, Dr. Smith, on 03/13/22 - initially prescribed doxycycline, clobetasol, and Niacin - continue clobetasol, doxycycline, and Niacin as prescribed Assessment & Plan (07/13/2022 7:20 AM EDT): - Evaluated by pourer crane ladle, Dr. Smith, on 03/13/22 - initially prescribed doxycycline, clobetasol, and Niacin - continue clobetasol, doxycycline, and Niacin as prescribed Assessment & Plan (03/20/2022 4:25 PM EST): Evaluated by pourer crane ladle, Dr. Smith, on 03/13/22 Continue clobetasol, doxycycline, and Niacin as prescribed Still investigating its cause Anemia of chronic disease 03/20/2022 Assessment & Plan (01/11/2025 9:59 AM EDT): multifactorial - B12 deficiency, chronic disease, iron deficiency -Followed by vending attendant -s/p iron infusion -Continue B12 PO. -Pt was supposed to have a colonoscopy, but family and pt decided not to have one -Cologuard ordered, but the specimen could not be processed -Wire Galvanizer is planning erythropoietin treatment Assessment & Plan (09/05/2024 10:08 AM EDT): multifactorial - B12 deficiency, chronic disease, iron deficiency -Followed by vending attendant -s/p iron infusion -Continue B12 PO. -Pt was supposed to have a colonoscopy, but family and pt decided not to have one -Cologuard ordered, but the specimen could not be processed -Ordered again Assessment & Plan (05/31/2024 9:48 AM EST): multifactorial - B12 deficiency, chronic disease, iron deficiency -Followed by vending attendant -s/p iron infusion -Continue B12 PO. -Pt was supposed to have a colonoscopy, but family and pt decided not to have one -Cologuard ordered, but the specimen could not be processed -Ordered again Assessment & Plan (07/26/2023 2:32 PM EDT): multifactorial - B12 deficiency, chronic disease, iron deficiency -Followed by vending attendant -s/p iron infusion -Continue B12 PO. -Pt was supposed to have a colonoscopy, but family and pt decided not to have one -Cologuard ordered, but the specimen could not be processed -Ordered again Assessment & Plan (01/11/2023 6:30 PM EDT): multifactorial - B12 deficiency, chronic disease, iron deficiency -Followed by vending attendant -s/p iron infusion -Continue B12 PO. -Pt was supposed to have a colonoscopy, but family and pt decided not to have one -Cologuard ordered, but the specimen could not be processed -Ordered again Assessment & Plan (10/05/2022 2:38 PM EDT): multifactorial - B12 deficiency, chronic disease, iron deficiency -Followed by vending attendant -s/p iron infusion -Continue B12 PO. -Pt was supposed to have a colonoscopy, but family and pt decided not to have one -Cologuard ordered, but the specimen could not be processed -Will order FIT instead of Cologuard. Assessment & Plan (07/13/2022 7:28 AM EDT): multifactorial - B12 deficiency, chronic disease, iron deficiency -Followed by vending attendant -s/p iron infusion -Continue B12 PO. -Pt was supposed to have a colonoscopy, but family and pt decided not to have one -Cologuard ordered, but the specimen could not be processed -Will order FIT instead of Cologuard. Assessment & Plan (03/20/2022 4:32 PM EST): multifactorial - B12 deficiency, chronic disease, iron deficiency -Followed by vending attendant -s/p iron infusion -Continue B12 PO. Chronic kidney disease (CKD) , stage III (moderate) (CMS/HCC) 03/20/2022 Assessment & Plan (01/11/2025 9:58 AM EDT): -Followed by contract technical writer, seen on 01/10/2025 -Avoid nephrotoxic drugs (still on metformin) -Use renal dosing Assessment & Plan (09/05/2024 10:09 AM EDT): -Followed by contract technical writer -Avoid nephrotoxic drugs (still on metformin) -Use renal dosing Assessment & Plan (05/31/2024 9:05 AM EST): -Followed by contract technical writer -Avoid nephrotoxic drugs (still on metformin) -Use renal dosing Assessment & Plan (05/01/2024 10:05 AM EST): -Followed by contract technical writer -Avoid nephrotoxic drugs (still on metformin) -Use renal dosing Assessment & Plan (07/26/2023 2:10 PM EDT): -Followed by contract technical writer -Avoid nephrotoxic drugs (still on metformin) -Use renal dosing Assessment & Plan (01/11/2023 4:42 AM EDT): -Followed by contract technical writer -Avoid nephrotoxic drugs (still on metformin) -Use renal dosing Assessment & Plan (10/05/2022 2:38 PM EDT): -Followed by contract technical writer -Avoid nephrotoxic drugs (still on metformin) -Use renal dosing Assessment & Plan (07/13/2022 7:09 AM EDT): -Followed by contract technical writer -Avoid nephrotoxic drugs (still on metformin) -Use renal dosing Assessment & Plan (03/20/2022 4:34 PM EST): -Followed by contract technical writer -Avoid nephrotoxic drugs (still on metformin) -Use [...] and a drug-eluting stent to RCA in [place] in July 2012. On dual antiplatelet therapy for > 1 year. - Athletic Director: SUSANA, last seen in August 2024 - [...] daughter was advised to schedule appt w/ Athletic Director Assessment & Plan (09/05/2024 9:25 AM EDT): -NSTEMI in July 2012 and August 2014. She had a cardiac catheterization and a drug-eluting stent to RCA in [place] in July 2012. On dual antiplatelet therapy for > 1 year. - Athletic Director: SUSANA - Last echocardiogram: 11/19/16 LVEF 60-65%, [...] daughter was advised to schedule appt w/ Athletic Director Assessment & Plan (05/31/2024 9:04 AM EST): -NSTEMI in July 2012 and August 2014. She had a cardiac catheterization and a drug-eluting stent to RCA in [place] in July 2012. On dual antiplatelet therapy for > 1 year. - Athletic Director: SUSANA - Last echocardiogram: 11/19/16 LVEF 60-65%, [...] daughter was advised to schedule appt w/ Athletic Director Assessment & Plan (05/01/2024 10:04 AM EST): -NSTEMI in July 2012 and August 2014. She had a cardiac catheterization and a drug-eluting stent to RCA in [place] in July 2012. On dual antiplatelet therapy for > 1 year. - Athletic Director: SUSANA - Last echocardiogram: 11/19/16 LVEF 60-65%, [...] daughter was advised to schedule appt w/ Athletic Director Assessment & Plan (07/26/2023 2:09 PM EDT): -NSTEMI in July 2012 and August 2014. She had a cardiac catheterization and a drug-eluting stent to RCA in [place] in July 2012. On dual antiplatelet therapy for > 1 year. - Athletic Director: SUSANA - Last echocardiogram: 11/19/16 LVEF 60-65%, [...] daughter was advised to schedule appt w/ Athletic Director Assessment & Plan (01/11/2023 4:41 AM EDT): -NSTEMI in July 2012 and August 2014. She had a cardiac catheterization and a drug-eluting stent to RCA in [place] in July 2012. On dual antiplatelet therapy for > 1 year. - Athletic Director: SUSANA - Last echocardiogram: 11/19/16 LVEF 60-65%, [...] daughter was advised to schedule appt w/ Athletic Director Assessment & Plan (10/05/2022 2:31 PM EDT): -NSTEMI in July 2012 and August 2014. She had a cardiac catheterization and a drug-eluting stent to RCA in [place] in July 2012. On dual antiplatelet therapy for > 1 year. - Athletic Director: SUSANA - Last echocardiogram: 11/19/16 LVEF 60-65%, [...] daughter was advised to schedule appt w/ Athletic Director Assessment & Plan (07/13/2022 7:08 AM EDT): -NSTEMI in July 2012 and August 2014. She had a cardiac catheterization and a drug-eluting stent to RCA in [place] in July 2012. On dual antiplatelet therapy for > 1 year. - Athletic Director: NATALYAA - Last echocardiogram: 11/19/16 LVEF 60-65%, [...] daughter was advised to schedule appt w/ Athletic Director Assessment & Plan (03/20/2022 4:40 PM EST): -NSTEMI in July 2012 and August 2014. She had a cardiac catheterization and a drug-eluting stent to RCA in [place] in July 2012. On dual antiplatelet therapy for > 1 year. - Athletic Director: RAVIN, seen about 2 months ago, next [...] daughter was advised to schedule appt w/ Athletic Director Dementia ([facility]) 04/11/2015 Assessment & Plan (01/12/2025 9:42 PM EDT): - Pt has been seen [...] stay or permanent residence. Assessment & Plan (09/05/2024 10:07 AM EDT): [...] BP < 130/80 per ACC/AHA -Evaluated by contract technical writer with 24-hour BP monitoring -continue nifedipine 60 [...] JNC-8, < 130/80 per ACC/AHA -Evaluated by contract technical writer with 24-hour BP monitoring -continue nifedipine 60 [...] JNC-8, < 130/80 per ACC/AHA -Evaluated by contract technical writer with 24-hour BP monitoring -continue nifedipine 60 [...] JNC-8, < 130/80 per ACC/AHA -Evaluated by contract technical writer with 24-hour BP monitoring -continue nifedipine 60 [...] JNC-8, < 130/80 per ACC/AHA -Evaluated by contract technical writer with 24-hour BP monitoring -continue nifedipine 60 [...] JNC-8, < 130/80 per ACC/AHA -Evaluated by contract technical writer with 24-hour BP monitoring -continue nifedipine 60 [...] JNC-8, < 130/80 per ACC/AHA -Evaluated by contract technical writer with 24-hour BP monitoring -continue nifedipine 60 [...] JNC-8, < 130/80 per ACC/AHA -Evaluated by contract technical writer with 24-hour BP monitoring -continue nifedipine 60 [...] JNC-8, < 130/80 per ACC/AHA -Evaluated by contract technical writer with 24-hour BP monitoring -continue nifedipine 60 [...] 2 diabetes mellitus 12/28/2014 Assessment & Plan (01/12/2025 9:44 PM EDT): - A1c 6.6% on 01/11/2025, stable [...] lung 06/07/2014 Dyslipidemia 10/10/2012 Assessment & Plan (01/12/2025 9:43 PM EDT): - Last lipid profile: 01/11/25 TC 185; TG 27; HDL 99; LDL 81 - Current medication: atorvastatin 80 mg qhs. Consider adding ezetimibe. - She is on high-intensity statin therapy. - Continue current medication and lifestyle modification. - Note: Pt was prescribed Niacin by her pourer crane ladle. Assessment & Plan (09/07/2024 9:43 PM EDT): - Last lipid profile: 05/23/24 TC 185; TG 70; HDL 56; LDL 115 - Current medication: atorvastatin 80 mg qhs. - She is on high-intensity statin therapy. - Continue current medication and lifestyle modification. - Note: Pt was prescribed Niacin by her pourer crane ladle. Assessment & Plan (06/07/2024 12:59 PM EDT): - Last lipid profile: 05/23/24, elevated LDL. - Current medication: atorvastatin 80 mg qhs. - She is on high-intensity statin therapy. - Continue current medication and lifestyle modification. - Note: Pt was prescribed Niacin by her pourer crane ladle. Assessment & Plan (07/26/2023 2:31 PM EDT): - Last lipid profile: 06/30/22:TC 169; TG 127; HDL 83; LDL 65 - Current medication: atorvastatin 80 mg qhs. - She is on high-intensity statin therapy. - Continue current medication and lifestyle modification. - Note: Pt is prescribed Niacin by her pourer crane ladle. Assessment & Plan (01/11/2023 4:45 AM EDT): - Last lipid profile: 06/30/22:TC 169; TG 127; HDL 83; LDL 65 - Current medication: atorvastatin 80 mg qhs. - She is on high-intensity statin therapy. - Continue current medication and lifestyle modification. - Note: Pt is prescribed Niacin by her pourer crane ladle. Assessment & Plan (10/05/2022 2:24 PM EDT): - Last lipid profile: 06/30/22:TC 169; TG 127; HDL 83; LDL 65 - Current medication: atorvastatin 80 mg qhs. - She is on high-intensity statin therapy. - Continue current medication and lifestyle modification. - Note: Pt is prescribed Niacin by her pourer crane ladle. Assessment & Plan (07/13/2022 7:21 AM EDT): - Last lipid profile: 10/13/21 TC 154; TG 174; HDL 46; LDL 81 - Current medication: atorvastatin 80 mg qhs. - She is on high-intensity statin therapy. - Continue current medication and lifestyle modification. - Note: Pt is prescribed Niacin by her pourer crane ladle. Assessment & Plan (03/20/2022 4:39 PM EST): - Last lipid profile: 10/13/21 TC 154; TG 174; HDL 46; LDL 81 - Current medication: atorvastatin 80 mg qhs. - She is on high-intensity statin therapy. - Continue current medication and lifestyle modification. Prolapse of female genital organs 09/09/2012 Hyponatremia 06/01/2012 Assessment & Plan (01/11/2025 9:58 AM EDT): - 11/30/2024 sodium 129, contract technical writer recommended fluid restriction - 01/10/2025 sodium 135, [...] treatment x 5 years. -previously followed by Pilot Fuel Engineer, Dr. Yandel Matthews, last appt in Oct [...] treatment x 5 years. -previously followed by Pilot Fuel Engineer, Dr. Yandel Matthews, last appt in Oct [...] treatment x 5 years. -previously followed by Pilot Fuel Engineer, Dr. Yandel Matthews, last appt in Oct [...] fosamax treatment x 5 years. -followed by Pilot Fuel Engineer, Dr. Yandel Matthews, last appt in August 2021 -s/p Tymlos since Jan 2019 until Mar 2021 -started on Prolia in Mar 2021, every 6 months, last dose in September 2021. Pt's caregiver is hesitant to continue Prolia. -continue fall precaution -continue weight-bearing exercise -recommended [place] -recommended to reschedule appt with charter boat captain Assessment & Plan (07/13/2022 7:13 AM EDT): History of several rib fractures. -s/p fosamax treatment x 5 years. -followed by Pilot Fuel Engineer, Dr. Yandel Matthews, last appt in August 2021 -s/p Tymlos since Jan 2019 until Mar 2021 -started on Prolia in Mar 2021, every 6 months, last dose in September 2021. Pt's caregiver is hesitant to continue Prolia. -continue fall precaution -continue weight-bearing exercise -recommended [place] -recommended to reschedule appt with charter boat captain Assessment & Plan (03/20/2022 4:42 PM EST): History of several rib fractures. -s/p fosamax treatment x 5 years. -followed by Pilot Fuel Engineer, Dr. Yandel Matthews -s/p Tymlos since Jan 2019 until Mar 2021 -currently on Prolia every 6 months, last dose in September 2021 -continue fall precaution -continue weight-bearing exercise -recommended [place] Resolved Problems Problem Noted Date Diagnosed Date Resolved Date Cellulitis of breast 01/07/2023 01/07/2023 024 Blister of breast without infection 09/30/2022 07/26/2023 Bullous pemphigus 03/20/2022 07/13/2022 Right-sided chest pain 08/20/201703/20 Nutritional anemia 07/22/2015 2 Encounters Date Type Department Care Team Description 01/16/2025 Telephone [facility] [place] [address] Liliana Golden MD Call Back Request 01/16/2025 Telephone [facility] [place] [address] Liliana Golden MD Results 01/16/2025 Telephone [facility] [place] [address] Liliana Golden MD Results 01/12/2025 Orders Only [facility] [address] [facility] [place] [phone] Liliana oGlden MD Pain in both lower extremities (Primary Dx) 01/12/2025 Results Follow-Up [facility] [place] [address] Liliana Golden MD XR Knee 3 Views Right, POCT glucose manually resulted, POCT glycosylated hemoglobin (Hgb A1c), Additional followed-up results: 3 01/11/2025 9:00 AM EDT Office Visit [facility] [place] [address] Liliana Golden MD Essential hypertension (Primary Dx); [...] region, stage 1 01/11/2025 Travel 01/10/2025 Telephone [facility] [place] [address] Liliana Golden MD chart prep 12/26/2024 Refill [facility] [address] [place] [address] Liliana Golden MD 12/26/2024 Refill [facility] [address] [facility] [place] [address] Liliana Golden MD 12/25/2024 Telephone [facility] [address] [place], [place] [address] [place] [address] Liliana Golden MD Durable Medical Equipment (DME Order: Wheelchair and Cushion) 12/08/2024 Telephone [facility] [address] [place] [address] Liliana Golden MD Durable Medical Equipment 12/07/2024 Telephone [facility] [place] [address] Liliana Golden MD 12/06/2024 Telephone [facility] [address] [place] [address] Liliana Golden MD Paperwork/Forms 11/30/2024 Results Follow-Up [facility] [place] [address] Liliana Golden MD CBC auto differential, Urinalysis Complete, Electrolyte Panel, Additional followed-up results: 8 11/30/[address] [address] Liliana Golden MD Lab Orders 11/30/2024 Orders Only GENERIC EXTERNAL DATA DEPARTMENT Provider, Generic External Data 11/29/2024 2:45 PM EDT Office Visit [facility] [address] [place] [address] Crystal Gold, OD Type 2 diabetes mellitus 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 manifestations ([facility]) (Primary Dx); Combined forms of age-related cataract of both eyes; Regular astigmatism, bilateral 11/29/2024 Travel 11/23/2024 Refill [facility] [address] [place] [address] Delia Horton MD Type 2 diabetes mellitus with unspecified complications ([facility]) 11/02/[address] [address] Liliana Golden MD Durable Medical Equipment (DME Request: Hospital Bed Control) 11/02/2024 Telephone [facility] [address] [place] [address] Liliana Golden MD Durable Medical Equipment (DME Order: Lightweight Transfer Chair) 10/30/2024 Refill [facility] [address] [place], [place] [phone] Liliana Golden MD Hypertension, unspecified type from [...] history exists Alcohol/Substance Use Screening 05/01/2025 05/01/2024 SDOH Screening 08/29/2025 08/29/2024 COVID-19 Vaccine ( season) 2026 10/13/2021, 02/14/2021, 06/06/2020, Additional history exists Postponed from 11/27/2024 (Patient Refused) Diabetes: Foot Exam 01/11/2026 01/11/2025, 01/11/2025, 01/11/2025, Additional history exists Lipid Panel 01/11/2026 01/11/2025, 0207/2024, 06/30/2022, Additional history exists Tobacco Screening 01/11/2026 01/11/2025 Eye Exam 11/29/2026 11/29/2024, 05/2024, 11/29/2024, Additional history exists DTaP/Tdap/Td Vaccines (3 - Td or Tdap) 10/05/2032 10/05/2022, 01/27/2012, 04/25/2010 Pneumococcal Vaccine: 50+ Years Completed 01/07/2016, 04/25/2010 Hepatitis B Vaccines Discontinued 09/19/2018, 10/21/19 17 Zoster Vaccines Completed 02/05/2020, 11/2019, 11/30/2019, Additional history exists Depression Screening [...] QUALITATIVE Routine 01/15/2025 1:22 PM EDT Transaminitis HEPATITIS B CORE AB TOTAL Routine 01/15/2025 1:22 PM EDT Transaminitis HEPATIC FUNCTION PANEL Routine 01/15/2025 1:22 PM EDT Transaminitis XR KNEE 3 VIEWS RIGHT Routine 01/11/2025 11:40 AM EDT Acute pain of right knee URIC ACID Routine 01/11/2025 10:15 AM EDT Acute pain of right knee HEPATIC FUNCTION PANEL Routine 01/11/2025 10:15 AM EDT Dyslipidemia LIPID PANEL WITH REFLEX TO DIRECT LDL Routine 01/11/2025 10:15 AM EDT Dyslipidemia POCT [...] AUTO DIFFERENTIAL Routine 11/30/2024 3:51 PM EDT from Last 3 Months Results * Hepatitis C Antibody with Reflex to HCV, RNA, Quantitative, Real-Time PCR (01/15/2025 1:22 PM EDT) Pathologist [facility] Hepatitis C Antibody Nonreactive Nonreactive [facility] Comment:Antibodies to HCV no t detected; does not exclude early acuteHCV infection. Blood Venous blood specimen / Unknown 01/15/2025 1:22 PM EDT 01/15/2025 3:58 PM EDT us Liliana Golden MD LAB BLOOD ORDERABLES Final Resul t Performing Organization Address City/[facility]/ZIP Co de Phone Number [facility] [address] [place] [phone] * Hepatitis B surface antigen, EIA (01/15/2025 1:22 PM EDT) Pathologist [facility] Hepatitis B Surface Ag Negative Negative [facility] Blood Venous blood specimen / Unknown 01/15/2025 1:22 PM EDT 01/15/2025 3:58 PM EDT Liliana Golden MD LAB BLOOD ORDERABLES Final Resul t Performing Organization Address [facility] Co de Phone Number [facility] [address] [place] [phone] * Hepatitis B Core Antibody, Total (01/15/2025 1:22 PM EDT) Pathologist [facility] Hepatitis B Core Antibody Reactive Nonreactive [facility] Comment:Presumptive evidence of anti-HBc. Blood Venous blood specimen / Unknown 01/15/2025 1:22 PM EDT 01/15/2025 3:58 PM EDT Liliana Golden MD LAB BLOOD ORDERABLES Final Resul t Performing Organization Address [facility] Co de Phone Number [facility] [address] [place] [phone] * Hepatitis B Surface Antibody, Qualitative (01/15/2025 1:22 PM EDT) Pathologist [facility] ~Hepatitis B Surface Antibody REACTIVE Nonreactive [facility] Comment:REACTIVE: > 11.99 mI U/mL Blood Venous blood specimen / Unknown 01/15/2025 1:22 PM EDT 01/15/2025 3:58 PM EDT Liliana Golden MD LAB BLOOD ORDERABLES Final Resul t Performing Organization Address [facility] Co de Phone Number [facility] [address] [place] [phone] * (ABNORMAL) Hepatic Function Panel (01/15/2025 1:22 PM EDT) Only the most recent of2 resultswithin the time period is included. Pathologist [facility] Bilirubin, Total 0.3 0.0 - 1.0 mg/dL [facility] Bilirubin, Direct 0.2 0.0 - 0.5 mg/dL [facility] Aspartate Amino Transferase 41(H) 5 - 31 U/L [facility] Alanine Aminotransferase 26 0 - 31 U/L [facility] Total Protein 7.2 6.5 - 8.0 g/dL [facility] Albumin Level 3.8 3.5 - 5.0 g/dL [facility] Alkaline Phosphatase 135(H) 39 - 117 U/L [facility] Blood Venous blood specimen / Unknown 01/15/2025 1:22 PM EDT 01/15/2025 3:58 PM EDT us Liliana Golden MD LAB BLOOD ORDERABLES Final Resul t [facility] [address] [place] [phone] * XR Knee 3 Views Right (01/11/2025 11:40 AM EDT) Anatomical Region Laterality Modality Lower Extremities, Knee Right Radiogra phic Imaging 01/11/2025 11:4 0 AM EDT Narrative 01/11/2025 11:49 AM EDT [address] [address] XRay Report Signed Patient: Chanel Egan MR#: [id number] : 1940 Acct:[id number] Age/Sex: 84 / F ADM Date: 01/11/25 Loc: .[facility] Attending Dr: Liliana Golden MD Ordering Physician: Liliana Golden MD Date of Service: 01/11/25 Procedure(s): XR knee RT 3V Accession Number(s): [id number] cc: Liliana Golden MD Reason for Exam: [...] Asencio MD in OV> 01/11/25 114 DD/ 1140 TD/TT: 01/11/25 114 Utility Spray Operator: Procedure Note Donotuseinterpreter, Image - 01/11/[address] [address] XRay Report Signed Patient: Chanel EganMR#: [id number] : 9Acct:[id number] Age/Sex: 84 / FADM Date: 01/11/25 Loc: [facility] Attending Dr: Liliana Golden MD Ordering Physician: Liliana Golden MD Date of Service: 01/11/25 Procedure(s): XR knee RT 3V Accession Number(s): [id number] cc: Liliana Golden MD Reason for Exam: [...] OV> 01/11/25 1147 DD/ 1140 TD/TT: 01/11/25 114 Utility Spray Operator: us Liliana Golden MD IMG XR PROCEDURES Edited Result - Final * Lipid Panel with Reflex to Direct LDL (01/11/2025 10:15 AM EDT) Triglycerides 27 <150 mg/dL [facility] Comment:Desirable Triglyceri de: less than 150 mg/dLBorderline High Triglyceride 150-199 mg/dLHigh Triglyceride: 200-499 mg/dLVery High Triglyceride: greater than or equal to 5OO mg/dL Cholesterol 185 <200 mg/dL [facility] Comment:Desirable Cholestero l: less than 200 mg/dLBorderline High Cholesterol: 200-239 mg/dLHigh Cholesterol: greater than 239 mg/dL LDL Cholesterol Calculated 81 <100 mg/dL [facility] Comment:Desirable LDL: less than 100 mg/dLNear Optimal/Above Optimal LDL: 110- 129 mg/dLBorderline High LDL: 130-159 mg/dLHigh LDL: 160-189 mg/dLVery High LDL: greater than or equal to 190 mg/dL HDL Cholesterol 99 >40 mg/dL [facility] Comment:Desirable HDL: great er than 40 mg/dL Note: This HDL assay may give artificially low results in patients with liver disease. Blood 01/11/2025 10:1 5 AM EDT 01/11/2025 11:00 AM EDT us Liliana Golden MD LAB BLOOD ORDERABLES Final Resul t Performing Organization Address [facility] Co de Phone Number [facility] [address] [place] [address] [phone] * (ABNORMAL) Uric acid (01/11/2025 10:15 AM EDT) Uric Acid 6.6(H) 2.4 - 5.7 mg/dL [facility] Blood Venous blood specimen / Unknown 01/11/2025 10:15 AM EDT 01/11/2025 11:00 AM EDT Liliana Golden MD LAB BLOOD ORDERABLES Final Resul t Performing Organization Address [facility] Co de Phone Number [facility] [address] [place] [phone] * POCT glucose manually resulted (01/11/2025 9:32 AM EDT) Glucose Blood, POC 152 60 - 200 mg/dL QC Media Lot # [id number] Lot# Expiration Date 670 Blood Capillary blood specimen / Unknown 01/11/2025 9:32 AM EDT Liliana Golden MD POINT OF CARE TEST ENTER/EDIT OR DERABLES Final Result * (ABNORMAL) POCT glycosylated hemoglobin (Hgb A1c) (01/11/2025 9:22 AM EDT) Hemoglobin A1C 6.6(A) 4.0 - 5.7 % QC Media Lot # [id number] Lot# Expiration Date Blood Capillary blood specimen / Unknown 01/11/2025 9:22 AM EDT Liliana Golden MD POINT OF CARE TEST ENTER/EDIT OR DERABLES Final Result * (ABNORMAL) Protein Creatinine Ratio, Urine (11/30/2024 4:00 PM EDT) Protein, Total, Random Urine 19(H) <12 mg/dL [facility] Protein/Creati nine Ratio, Ur 0.70(H) <0.2 [facility] Comment:The spot urine prote in:creatinine ratio may increase to 0.3during normal . 11/30/2024 4:00 PM EDT 11/30/2024 4:14 PM EDT Generic External Data Provider LAB URINE ORDERAB LES Final Result [facility] [address] [place] [address] [phone] * (ABNORMAL) Albumin, Random Urine W/Creatinine (11/30/2024 4:00 PM EDT) Creatinine, Urine 27.15 mg/dL [facility] Microalbumin Urine 123.0 mg/L [facility] Microalbum Creatinine Ratio Ur 453.0(H) <30 ug/mg cr [facility] Comment:Albumin/Creatinine R atio Reference Ranges: Normal: < 30 ug/mg creatinine Microalbuminuria: 30 - 300 ug/mg creatinineClinical Albuminuria: > 300 ug/mg creatinine 11/30/2024 4:00 PM EDT 11/30/2024 4:14 PM EDT us Generic External Data Provider LAB URINE ORDERAB LES Final Result Performing Organization Address City/[facility] Co de Phone Number [facility] [address] [place] [phone] * (ABNORMAL) Urinalysis Complete (11/30/2024 4:00 PM EDT) Color Urine Yellow [facility] Appearance Urine Clear [facility] PH 5.5 5.0 - 9.0 [facility] Glucose Urine UA Negative Negative mg/dL [facility] Urine Blood Negative Negative [facility] Specific [place] - Urine <=1.005 1.005 - 1.025 [facility] Urine Protein Trace Neg-Trace mg/dL [facility] Urine Ketones Negative Negative mg/dL [facility] Nitrite Urine Negative Negative [facility] Leukocyte Esterase Urine Large (3+)(A) Negative [facility] RBC Urine 0-2 0 - 2 /HPF [facility] Urine WBC 11-20(A) 0 - 5 /HPF [facility] Urine Squamous Epithelial Cell 6-10 0 - 2 /HPF [facility] Urine Bacteria None Seen None Seen [facility] Hyaline Casts, Urine 3-5 0 - 2 /LPF [facility] 11/30/2024 4:00 PM EDT 11/30/2024 4:14 PM EDT us Generic External Data Provider LAB URINE ORDERAB LES Final Result Performing Organization Address City/[facility]/ZIP Co de Phone Number [facility] [address] [place] [phone] * Vitamin D, 25-Hydroxy, Total, Immunoassay (11/30/2024 3:51 PM EDT) Vitamin D 25-OH Total 48.4 >30 ng/mL [facility] Comment: Health Based Reference Values*< 20 ng/mL [id number] ng/mL Insufficient> 30 ng/mL Sufficient*Kiah RIOS. N [...] ORDERAB LES Final Result Performing Organization Address [facility] Co de Phone Number [facility] [address] [place] [phone] * Creatinine, Serum (11/30/2024 3:51 PM EDT) Creatinine, Serum 1.37 0.5 - 1.4 mg/dL [facility] Estimated Glomerular Filt Rate 37 [facility] Comment:Chronic Kidney Disea se: Estimated GFR < 60 mL/min/1.38w2Dbharg Kidney Disease: Estimated GFR < 15 mL/min/1.73m2 11/30/2024 3:51 PM EDT 11/30/2024 3:52 PM EDT us Generic External Data Provider LAB BLOOD ORDERAB LES Final Result [facility] [address] [place] [phone] * (ABNORMAL) CBC auto differential (11/30/2024 3:51 PM EDT) White Blood Count 8.0 4.8 - 10.8 X10*3/uL [facility] Red Blood Count 3.15(L) 4.20 - 5.50 X10*6/uL [facility] Hemoglobin 9.4(L) 12.0 - 16.0 g/dl [facility] Hematocrit 26.9(L) 37.0 - 47.0 % [facility] Mean Corpuscular Volume 85.4 80.0 - 98.0 fL [facility] Mean Corpuscular Hemoglobin 29.8 27.0 - 33.0 pg [facility] Mean Corpuscular HGB Conc 34.9 31.0 - 35.0 g/dl [facility] Red Cell Distribution Width 15.9 11.0 - 16.0 % [facility] Platelet Count 212 160 - 400 X10*3/uL [facility] Mean Platelet Volume 9.4 9.4 - 12.3 fL [facility] Neutrophils Percent Auto 68.1 45 - 73 % [facility] Imm Gran Pct Auto 0.5(H) 0.0 - 0.4 % [facility] Lymphocytes Percent Auto 20.8 20 - 40 % [facility] Monocytes Percent Auto 7.6 2 - 11 % [facility] Eosinophils Percent Auto 2.5 0 - 4 % [facility] Basophils Percent Auto 0.5 0 - 2 % [facility] NRBC Pct Auto 0.0 0.0 - 0.2 /100WBC [facility] Neutrophils Absolute Auto 5.5 2.0 - 8.3 x10*3/uL [facility] Imm Gran Abs Auto 0.04(H) 0.00 - 0.03 X10*3/uL [facility] Lymphocytes Absolute Auto 1.7 1.2 - 4.9 X10*3/uL [facility] Monocytes Absolute Auto 0.6 0.1 - 1.2 X10*3/uL [facility] Eosinophils Absolute Auto 0.2 0.0 - 0.4 X10*3/uL [facility] Basophils Absolute Auto 0.0 0.0 - 0.2 X10*3/uL [facility] NRBC Abs Auto 0.000 0.0 - 0.012 X10*3/uL [facility] 11/30/2024 3:51 PM EDT 11/30/2024 3:52 PM EDT Generic External Data Provider LAB BLOOD ORDERAB LES Final Result Performing Organization Address City/[facility]/ZIP Co de Phone Number [facility] [address] [place] [phone] * (ABNORMAL) BUN (Blood Urea Nitrogen) (11/30/2024 3:51 PM EDT) Urea Nitrogen (BUN) 39(H) 9 - 16 mg/dL [facility] 11/30/2024 3:51 PM EDT 11/30/2024 3:52 PM EDT Generic External Data Provider LAB BLOOD ORDERAB LES Final Result Performing Organization Address [facility]/ZIP Co de Phone Number [facility] [address] [place] [address] [phone] * Phosphate (As Phosphorus) (11/30/2024 3:51 PM EDT) Phosphorus 2.8 2.7 - 4.5 mg/dL [facility] 11/30/2024 3:51 PM EDT 11/30/2024 3:52 PM EDT us Generic External Data Provider LAB BLOOD ORDERAB LES Final Result Performing Organization Address [facility] de Phone Number [facility] [address] [place] [address] [phone] * (ABNORMAL) PTH, Intact Without Calcium (11/30/2024 3:51 PM EDT) Parathyroid Hormone, Intact 110.4(H) 8.7 - 77.1 pg/mL [facility] 11/30/2024 3:51 PM EDT 11/30/2024 3:52 PM EDT us Generic External Data Provider LAB BLOOD ORDERAB LES Final Result Performing Organization Address [facility] Phone Number [facility] [address] [place] [address] [phone] * Magnesium (11/30/2024 3:51 PM EDT) Magnesium 1.8 1.6 - 2.6 mg/dL [facility] 11/30/2024 3:51 PM EDT 11/30/2024 3:52 PM EDT us Generic External Data Provider LAB BLOOD ORDERAB LES Final Result Performing Organization Address [facility] de Phone Number [facility] [address] [place] [address] [phone] * Calcium (11/30/2024 3:51 PM EDT) Calcium 8.9 8.4 - 10.2 mg/dL [facility] 11/30/2024 3:51 PM EDT 11/30/2024 3:52 PM EDT us Generic External Data Provider LAB BLOOD ORDERAB LES Final Result Performing Organization Address [facility] Co de Phone Number [facility] [address] [place] [phone] * Albumin (11/30/2024 3:51 PM EDT) Albumin Level 3.8 3.5 - 5.0 g/dL [facility] 11/30/2024 3:51 PM EDT 11/30/2024 3:52 PM EDT Generic External Data Provider LAB BLOOD ORDERAB LES Final Result Performing Organization Address [facility] de Phone Number [facility] [address] [place] [phone] * (ABNORMAL) Electrolyte Panel (11/30/2024 3:51 PM EDT) Sodium 129(L) 135 - 145 mmol/L [facility] Potassium 3.1(L) 3.3 - 5.1 mmol/L [facility] Chloride 94(L) 96 - 108 mmol/L [facility] Carbon Dioxide 25 22 - 29 mmol/L [facility] Anion Gap 13 12 - 20 [facility] 11/30/2024 3:51 PM EDT 11/30/2024 3:52 PM EDT Generic External Data Provider LAB BLOOD ORDERAB LES Final Result Performing Organization Address [facility] Co de Phone Number [facility] [address] [place] [phone] from Last 3 Months Insurance [facility] [employer] (O D-SNP) REMY MEADE [id number] Care Teams Thiokol Operator Relationship Specialty Start Date End Date Liliana Golden MD [address] [place] [phone] PCP - General Family Medicine 03/29/18
--- OUTSIDE RECORDS SUMMARY | 2025-01-16 21:07 | XMS_ITS | Encounter Summary ---
Author Organization [employer] Address [address] [facility] [address] [place] [address] Care Team Providers Care Eyeglass Maker Name Role Phone Liliana Golden MD Primary Care Provider [phone] Reason for Visit * Reason Onset Date Comments Durable Medical Equipment 12/08/2024 Encounter Details Date Type Department Care Team (Late st Contact Info) Description 12/08/2024 Telephone [facility] [address] [place], [place] [phone] Liliana Golden MD [address] [place], [place] [phone] Durable Medical Equipment Social History Tobacco Use [...] any questions you can contact Alma at [phone]. * Telephone Encounter - Justin Ramsey - 12/11/2024 10:15 AM EDT Tc from Delia stating the order from message prior was sent but it requires reasoning for why pt needs chair. If any questions you can contact Delia at [phone]. (Yoruba Speaker) * Telephone Encounter - Mary Jane Gordon - 12/08/2024 12:54 PM EDT Tc from pt daughter requesting DME order for a inflatable cushion for her wheelchair Contact at [phone] documented in this encounter Plan of Treatment Not on file documented as of this encounter Visit Diagnoses Not on filedocumented in this encounter Additional Health Concerns Assessment Noted Time PHQ-9 Depression Total Score: 0 07/26/19 24 1:46 PM EDT documented as of this encounter Care Teams Eyeglass Maker Relationship Specialty Start Date End Date Liliana Golden MD [address] [place] [phone] PCP - General Family Medicine 03/29/18 documented as of this encounter
--- OUTSIDE RECORDS SUMMARY | 2025-01-16 21:07 | XMS_ITS | Encounter Summary ---
Author Organization [employer] Address [address] [facility] [address] [place] [address] Care Team Providers Care Weaver Hand Loom Name Role Phone Liliana Golden MD Primary Care Provider [phone] Reason for Visit * Reason Onset Date Comments Appointment Request 05/08/2024 Encounter Details Date Type Department Care Team ([facility] st Contact Info) Description 05/08/2024 Telephone [facility] [address] [place], [place] [phone] Liliana Golden MD [address] [place], [place] [phone] Appointment Request Social History Tobacco Use Types [...] There is not availability. Any questions contact [phone] armenian documented in this encounter Plan of Treatment Not on file documented as of this encounter Visit Diagnoses Not on filedocumented in this encounter Additional Health Concerns Assessment Noted Time PHQ-9 Depression Total Score: 0 07/26/19 24 1:46 PM EDT documented as of this encounter Care Teams Weaver Hand Loom Relationship Specialty Start Date End Date Liliana Golden MD [address] [place] [phone] PCP - General Family Medicine 03/29/18 documented as of this encounter
--- OUTSIDE RECORDS SUMMARY | 2025-01-16 21:07 | XMS_ITS | Encounter Summary ---
Author Organization [employer] Address [address] [facility] [address] [place] [address] Care Team Providers Care Digital Intern Name Role Phone Liliana Golden MD Primary Care Provider [phone] Reason for Referral * Imaging (Routine) - Authorized Specialty Diagnoses / Procedures Referred By Contac t Referred To Contact Cardiology Diagnoses Pain in both lower extremities Procedures Vascular US lower extremity arterial duplex bilateral with complete Doppler Liliana Golden MD [address] [place] [address] Phone: tel: fax: [address] Phone: tel: fax: Referral ID Status Reason Start Date Expiration Date Visits Requested Visits Authorized [id number] Authorized Perform Procedure 01/12/2026 1 1 Encounter Details Date Type Department Care Team (Late st Contact Info) Description 01/12/2025 Orders Only [facility] MED[facility]INE [address] [place], [place] [phone] Liliana Golden MD [address] [place], [place] [phone] Pain in both lower extremities (Primary Dx) Social History Tobacco Use Types Packs/Day Years [...] as of this encounter Visit Diagnoses Diagnosis Pain in both lower extremities- Primary documented in this encounter Additional Health Concerns Assessment Noted Time PHQ-9 Depression Total Score: 0 07/26/19 24 1:46 PM EDT documented as of this encounter Care Teams Digital Intern Relationship Specialty Start Date End Date Liliana Golden MD [address] [place] [phone] PCP - General Family Medicine 03/29/18 documented as of this encounter
--- OUTSIDE RECORDS SUMMARY | 2025-01-16 21:07 | XMS_ITS | Encounter Summary ---
Author Organization [employer] Address [address] [facility] [address] [place] [address] Care Team Providers Care Cardiac Technician Name Role Phone Liliana Golden MD Primary Care Provider [phone] Encounter Details Date Type Department Care Team ([facility] st Contact Info) Description 12/07/2024 Telephone [facility] MED[facility]INE [address] [place], [place] [phone] Liliana Golden MD [address] [place], [place] [phone] Social History Tobacco Use Types Packs/Day Years [...] documented as of this encounter Care Teams Cardiac Technician Relationship Specialty Start Date End Date Liliana Golden MD [address] [place] [address] PCP - General Family Medicine 03/29/18 documented as of this encounter
== END 2025-01-16 16:34 | disposition home or self-care (01) ==
LOC: HO.HHCLNP 16:33
PROVIDERS: Visit Provider Family Medicine
DX: N18.32 Chronic kidney disease, stage 3b (principal); D63.1 Anemia in chronic kidney disease; R74.01 Elevation of levels of liver transaminase levels
CPT/HCPCS: 87338